=== PATIENT | male | born 1975 | race Caucasian/White ===

== ENCOUNTER 2020-01-18 10:16 | Emergency (ER) | payer MEDICAID, SELFPAY ==
[2020-01-18 10:27] VITALS: BP 202/119; PULSE 114; RESP 17; TEMP 36.6; O2SAT 97; BMI 25.7
--- NOTE | 2020-01-18 10:37 | ED_ITS ---
Entered by Dennise Jimenez, acting as scribe for HPI - URI/Sore Throat General: Chief Complaint: Upper Respiratory Infection Stated Complaint: poss stroke symptoms Time Seen by Provider: 01/18/20 10:37 Source: patient Mode of arrival: ambulatory Limitations: no limitations History of Present Illness: HPI Narrative: 44 yo male presents with cough and congestion. pt states this started 10 days ago. pt states he was exposed to room mate after he went to [place], mo after he was seen at appointment. pt has had eye issues and shortness of breath. pt denies any other symptoms at this time. MD elicited complaint: cough Pertinent past history: COPD Onset (ago): day(s) (10 days) Consistency: constant and progressively worsening Severity: mild Able to tolerate fluids by mouth: Yes Exacerbating factors: nothing Relieving factors: nothing Context: sick contacts (with room mate after he went to [facility].) Associated symptoms: Reports chills, congestion, cough and other (sweats); Deny abdominal pain, chest pain, diarrhea, headache(s), nausea or vomiting Treatments prior to arrival: none Review of Systems Const: Reports: chills Eyes: Denies: blurry vision or eye discomfort ENMT: Denies: throat pain or dental pain Card: Denies: chest pain GI: Denies: abdominal pain, nausea, vomiting or diarrhea : Denies: painful urination Musc: Denies: neck pain or back pain Skin/Breast: Denies: rash Neuro: Denies: headache Psych: Denies: depression Dez/Lymph: Denies: easy bruising All/Imm: Denies: hives PFSH ED PFSH: Social History Smoking and tobacco status: current every day smoker Physical Exam Const: COMMON NORMALS: no apparent distress, oriented x3 and healthy appearing HENMT: COMMON NORMALS: normocephalic and head/scalp atraumatic HEAD & SCALP: normocephalic and atraumatic Eye: COMMON NORMALS: PERRL and EOMs intact bilaterally PUPIL: Yes PERRL Neck/C-Spine: COMMON NORMALS: full ROM and supple Chest: COMMONS NORMALS: inspection of chest normal and palpation of chest normal Resp: COMMON NORMALS: normal respiratory effort, no retractions and no use of accessory muscles EFFORT & INSPECTION: Yes audible wheezes Cardio: COMMON NORMALS: regular rate, regular rhythm and no murmurs RATE: regular rate RHYTHM: regular rhythm GI: COMMON NORMALS: normal to inspection, nondistended, normoactive bowel sounds, soft to palpation, non-tender and no masses PALPATION: Yes soft Extremity: COMMON NORMALS: normal to inspection and full ROM Neuro: COMMON NORMALS: oriented x3, moves all extremities and no focal motor deficits Psych: COMMON NORMALS: mental status grossly normal, thought process normal and cooperative THOUGHT PROCESS: normal thought process Skin: COMMON NORMALS: no rashes or lesions noted and no wounds GENERAL SKIN EXAM: no rashes or lesions noted Course Vital Signs: Vital signs: Vital Signs Temperature 97.8 F 01/18/20 10:27 Pulse Rate 78 01/18/20 11:52 Respiratory Rate 20 H 01/18/20 11:52 Blood Pressure 169/95 01/18/20 11:52 Pulse Oximetry 96 01/18/20 11:52 MDM - URI/Sore Throat MDM Narrative: Medical decision making narrative: Patient presents with cough and congestion that is likely bronchitis. Patient is well-appearing here and has no signs of pneumonia. Patient has no risk factors for coronavirus. We will start him on prednisone and antibiotics. Patient is stable for discharge and is to follow-up with primary care doctor in 3 to 5 days return if worsening. Imaging Data^: CXR: Attestation: I personally reviewed and interpreted this imaging study as follows: Radiologist's impression: [address] [address] XRay Report Signed Patient: Esequiel Munoz Unit #: [id number] : [id number] Age/Sex: 44 / M ADM Date: 01/18/20 Loc: ER Room/Bed: Attending Dr: Ordering Provider/Ordering MD: Shannon Ruiz MD Date of Service: 01/18/20 Procedure(s): XR chest 1V portable [id number] Accession Number(s): [id number] Report Number: [id number] WS: [id number] XR chest 1V portable [id number] REASON FOR EXAM: cough FINDINGS: The heart and mediastinal interfaces normal. The lung sullivan are well aerated. No pneumonia, pleural effusion, pulmonary edema, pneumothorax, or mass effect. The overall appearance the chest is similar to April 30, 2019. The hilum and apices are normal. [place] no osseous abnormalities. XR/XR chest 1V portable [id number] IMPRESSION: Negative chest for active infiltrates. Discharge Plan Discharge Patient Disposition: Home, Self-Care Clinical Impression: Bronchitis Condition: Stable Prescriptions: New albuterol sulfate 90 mcg/actuation HFA aerosol inhaler 2 inh INHALATION Q6H PRN (Reason: shortness of breath or wheezing) Qty: 8 RF: 0 Keflex 500 mg capsule 500 mg PO Q6H 7 Days Qty: 28 RF: 0 prednisone 50 mg tablet 50 mg PO DAILY Qty: 5 RF: 0 Plavix 75 mg tablet 75 mg PO DAILY Qty: 30 RF: 0 amlodipine 5 mg tablet 5 mg PO BID Qty: 60 RF: 0 Discharge Orders: Discharge Order (Routine); Ordered 01/18/20 Ordered By: Shannon Ruiz Referrals: Paula Figueroa FNP [Family Provider] - Discharge Date/Time: 01/18/20 11:55 Coding Level of Care Code ED Flower Picker for Chg Fwd Exam Comprehensive The documentation recorded by the Tony downs Bridget Annette, accurately reflects the service I personally performed and the decisions made by Sara cook Korby, MD
--- NOTE | 2020-01-18 10:41 | XR_ITS ---
WS: [id number] XR chest 1V portable [id number] REASON FOR EXAM: cough FINDINGS: The heart and mediastinal interfaces normal. The lung sullivan are well aerated. No pneumonia, pleural effusion, pulmonary edema, pneumothorax, or m ass effect. The overall appearance the chest is similar to April 30, 2019. The hilum and apices are normal. [place] no osseous abnormalities. XR/XR chest 1V portable [id number] IMPRESSION: Negative chest for active infiltrates.
[2020-01-18] MEDS: cloNIDine 0.1 mg Tablet 0.2 MG PO (11:03)
[2020-01-18] MEDS: predniSONE 20 mg Tablet 60 MG PO (11:04)
[2020-01-18 11:06] VITALS: O2SAT 96
[2020-01-18 11:26] VITALS: PULSE 109; RESP 16; O2SAT 98
[2020-01-18] MEDS: albuterol 8 gm MDI 2 PUFF INHALATION (11:28)
[2020-01-18 11:52] VITALS: BP 169/95; PULSE 78; RESP 20; O2SAT 96
== END 2020-01-18 11:55 | disposition home or self-care (01) ==
LOC: ER 11:44
PROVIDERS: Emergency Provider Emergency Medicine; Family Provider Nurse Practitioner
DX: J40 Bronchitis, not specified as acute or chronic (principal); J44.9 Chronic obstructive pulmonary disease, unspecified; F17.200 Nicotine dependence, unspecified, uncomplicated
CPT/HCPCS: 12345; 71045; 94640; 99282; 99283; J3535; J7512

== ENCOUNTER 2020-04-25 10:32 | Emergency (ER) | payer MEDICAID, SELFPAY ==
[2020-04-25 10:42] VITALS: BP 178/97; PULSE 105; RESP 20; TEMP 36.9; O2SAT 91; BMI 29.5
[2020-04-25 10:55] VITALS: O2SAT 91
--- NOTE | 2020-04-25 11:10 | ED_ITS ---
HPI - Eye Problem General: Chief complaint: Eye Problems Stated complaint: FB IN LEFT EYE Time Seen by Provider: 04/25/20 10:54 Source: patient Mode of arrival: ambulatory History of Present Illness: HPI Narrative: working and had nail or piece of nail fly into left eye; was wearing protective eye gear chief complaint: eye pain and eye injury Review of Systems General: Reports: 10 or more systems reviewed and unremarkable except in HPI and below Eyes: Reports: blurry vision, eye discomfort and eye redness PFSH ED PFSH: Social History Smoking and tobacco status: current every day smoker Physical Exam Const: COMMON NORMALS: no acute distress, patient oriented x3, no limitations and alert GENERAL APPEARANCE: cooperative and comfortable ORIENTATION/CONSCIOUSNESS: Yes awake, Yes oriented to person, Yes oriented to place and Yes oriented to time HENMT: COMMON NORMALS: normocephalic, atraumatic, external ears normal, EAC's normal, TM's normal bilaterally and Normal external nose present HEAD & SCA LP: normal to inspection, normocephalic and atraumatic FACE & SINUS: normal facial exam, sinuses nontender and face symmetric NOSE: Normal external nose present, Normal nares present and No nasal discharge present EXTERNAL EAR: Yes external ears normal EXTERNAL AUDITORY CANAL: EAC's normal TYMPANIC MEMBRANE: TM's normal bilaterally MOUTH: Normal oral and palatal mucosa present, lip normal and tongue normal THROAT: posterior oropharynx normal, tonsils normal and uvula midline Eye: COMMON NORMALS: Equal, round and reactive pupils present, EOMs intact bilaterally and conjunctivae normal GENERAL EYE: appearance normal, both eyes and all related structures and normal light reflex VISUAL MEJÍA: No peripheral vision loss EYELID: eyelids normal CONJUNCTIVA: Yes conjunctivae normal PUPIL: Yes Equal, round and reactive pupils present EOM: Yes EOM abnormal DIRECT OPHTHALMOSCOPY: Yes normal light reflex SLIT LAMP EXAM: Yes slit lamp exam performed with fluorescein and Yes cornea Cornea details: linear corneal abrasion and foreign body present (irrigated out during examination under wood's lamp ) EYE IMAGES: 1. small corneal abrasion Neck/C-Spine: COMMON NORMALS: full ROM, no lymphadenopathy, supple, no meningeal signs, no JVD and Thyroid normal GENERAL: Yes normal visual inspection THYROID: Thyroid normal CERVICAL SPINE: Yes cervical ROM normal and Yes normal cervical lordosis Lymph: LYMPHATIC: no lymphadenopathy noted Chest: COMMONS NORMALS: normal inspection of the chest and normal palpation of entire chest wall Resp: COMMON NORMALS: normal respiratory effort, No retractions and clear to auscultation bilaterally AUSCULTATION: clear to auscultation bilaterally Cardio: COMMON NORMALS: no JVD, regular rate, regular rhythm, S1 normal heart sound present, S2 normal heart sound present, No gallops present (Cardio), No clicks present (Cardio), No murmurs present (Cardio), No rub (Cardio) and Peripheral pulses 2+ throughout RATE: regular rate RHYTHM: regular rhythm HEART SOUNDS: S1 normal heart sound present and S2 normal heart sound present PERIPHERAL PULSES: Peripheral pulses 2+ throughout GI: COMMON NORMALS: Normal to inspection, nondistended, normoactive bowel sounds present, Soft to palpation, non-tender and no masses PALPATION: Yes Soft to palpation : COMMON NORMALS: Yes no CVA tenderness BLADDER/KIDNEY EXAM: Yes no CVA tenderness Back/Pelvis: COMMON NORMALS: no CVA tenderness, thoracic and lumbar spine normal to inspection, no thoracic nor lumbar tenderness and thoraco-lumbar ROM normal Extremity: COMMON NORMALS: normal to inspection, full ROM, capillary refill normal, no joint enlargement, no clubbing, cyanosis or edema, no calf tenderness and no pedal edema GENERAL: Yes normal exam except as noted Neuro: COMMON NORMALS: patient oriented x3, moves all extremities, no focal motor deficits, no sensory deficits noted and gait normal SENSORIUM/ORIENTATION: Yes alert, Yes oriented to person, Yes oriented to place and Yes oriented to time MENINGEAL SIGNS: Yes no meningeal signs Psych: COMMON NORMALS: mental status grossly normal, Normal thought process present, cooperative, normal affect, speech normal and activity/motor behavior normal SPEECH: Yes normal speech THOUGHT PROCESS: Normal thought process present Skin: COMMON NORMALS: no rashes or lesions noted, no wounds and turgor normal GENERAL SKIN EXAM: no rashes or lesions noted and turgor normal Course ED course: Pt sustained FB eye injury; FB removed during irrigation. Small puncture in left eye cornea; no visual field disturbances. Will proceed with opthalmic antibx and follow up with manager creative services if needed. Tetanus updated. Proceed with DC. Vital Signs: Vital signs: Vital Signs Temperature 98.5 F 04/25/20 10:42 Pulse Rate 105 H 04/25/20 10:42 Respiratory Rate 18 04/25/20 11:25 Blood Pressure 178/97 04/25/20 10:42 Pulse Oximetry 91 04/25/20 10:55 Discharge Plan Discharge Condition: Stable Prescriptions: No Action albuterol sulfate 90 mcg/actuation HFA aerosol inhaler 2 inh INHALATION Q6H PRN (Reason: shortness of breath or wheezing) Qty: 8 RF: 0 prednisone 50 mg tablet 50 mg PO DAILY Qty: 5 RF: 0 Plavix 75 mg tablet 75 mg PO DAILY Qty: 30 RF: 0 amlodipine 5 mg tablet 5 mg PO BID Qty: 60 RF: 0 Interventions: ED Charges Last Done: 04/25/20 10:59 Coding Level of Care Code ED 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
[2020-04-25] MEDS: tetracaine 0.5% Op Soln 4 mL Btl 1 DROP EYE-BOTH (11:20)
[2020-04-25] MEDS: eye irrigation 30 mL Btl EYE-BOTH (11:20)
[2020-04-25] MEDS: fluorescein 1 mg Strip EYE-BOTH (11:20)
[2020-04-25 11:25] VITALS: RESP 18
[2020-04-25] MEDS: tetanus-diphtheria tox (adult) 0.5 mL SDV IM (12:00)
[2020-04-25 12:33] VITALS: BP 159/89; PULSE 79; RESP 17; O2SAT 91
== END 2020-04-25 12:34 | disposition home or self-care (01) ==
PROVIDERS: Emergency Provider Nurse Practitioner Family
DX: S05.52XA Penetrating wound with foreign body of left eyeball, initial encounter (principal); W45.0XXA Nail entering through skin, initial encounter; Z79.02 Long term (current) use of antithrombotics/antiplatelets; F17.210 Nicotine dependence, cigarettes, uncomplicated; Z23 Encounter for immunization
CPT/HCPCS: 12345; 90714; 99281; 99283

== ENCOUNTER 2020-05-20 07:41 | Emergency (ER) | payer MEDICAID, SELFPAY ==
[2020-05-20] VITALS (7 sets, daily range): BP systolic 144–151; BP diastolic 65–87; PULSE 76–96; RESP 15–20; TEMP 37.6; O2SAT 96–98; BMI 28.2
--- NOTE | 2020-05-20 08:05 | XR_ITS ---
WS: [id number] PORTABLE CHEST HISTORY: cough COMPARISON: 01/18/2020 Lungs are clear and well expanded. No pleural effusion or pneumothorax. Cardiac size: Normal. Mediastinum/Aorta: Normal mediastinum. No osseous abnormality seen. XR/XR chest 1V portable [id number] IMPRESSION: Unremarkable portable chest.
[2020-05-20] MEDS: albuterol 8 gm MDI 2 PUFF INHALATION (08:31)
--- NOTE | 2020-05-20 08:32 | ED_ITS ---
HPI - URI/Sore Throat General: Chief Complaint: Upper Respiratory Infection Stated Complaint: sob/cough/congestion Time Seen by Provider: 05/20/20 07:45 History of Present Illness: HPI Narrative: 44-year-old male presents with complaint of cough for the last 3 to 4 days as well as dull headache and myalgias this is been getting progressively worse over that timeframe. He has not had a fever the cough is been minimally productive he has a history of asthma he feels like his albuterol inhalers not working as well as it has in the past. He lives in [place] he has no known exposures to COVID-19 that he is aware he is not been around anyone he knows of that is positive he has limited his interactions with others to just going to the grocery store for the most part the past few months he does not always wear a mask. He does not have a thermometer at home he states subjectively is not felt like he had a temp at all. MD elicited complaint: cough and sore throat Pertinent past history: asthma Onset (ago): day(s) (3-4) Consistency: progressively worsening Severity: moderate Description of mucous: clear Able to tolerate fluids by mouth: Yes Exacerbating factors: exertion Relieving factors: other (Initially albuterol MDI seem to help but is not working as well at this time.) Associated symptoms: Reports congestion, cough, headache(s), myalgias, nasal congestion and sore throat; Deny abdominal pain, chills, chest pain, diarrhea, fever(s), nausea or vomiting Treatments prior to arrival: other (Albuterol MDI) Review of Systems Const: Reports: body aches and malaise; Denies: fever(s), chills, change in appetite or fatigue ENMT: Reports: nasal congestion Card: Reports: dyspnea on exertion; Denies: chest pain, edema or orthopnea Resp: Reports: dyspnea and productive cough; Denies: non-productive cough GI: Denies: abdominal pain, nausea, vomiting, hematemesis, coffee ground emesis, diarrhea, constipation, bloating, hematochezia or melena : Denies: flank pain, dysuria, urinary frequency or urinary urgency Musc: Reports: other (Generalized myalgias) Skin/Breast: Denies: rash or pruritus Neuro: Reports: headache(s) PFSH ED PFSH: Medical History (Updated 05/20/20 @ 09:31 by Jacob Moses DO) Asthma Carotid stenosis, left Hyperlipidemia Hypertension Surgical History (Updated 05/20/20 @ 08:35 by Jacob Moses DO) H/O inguinal hernia repair Social History (Updated 05/20/20 @ 08:36 by Jacob Moses DO) Smoking and tobacco status: current every day smoker cigarettes Packs smoked per day: 1 Years cigarettes smoked: 20 Alcohol intake: current Alcohol intake frequency: 0-2 Drinks per Day Physical Exam Const: COMMON NORMALS: no acute distress GENERAL APPEARANCE: cooperative and comfortable ORIENTATION/CONSCIOUSNESS: Yes awake, Yes oriented to person, Yes oriented to place and Yes oriented to time HENMT: COMMON NORMALS: normocephalic, atraumatic, hearing grossly normal bilaterally, external ears normal, moist oral mucous membranes and oropharynx normal HEAD & SCALP: normocephalic and atraumatic EXTERNAL EAR: Yes external ears normal Eye: COMMON NORMALS: Equal, round and reactive pupils present, EOMs intact bilaterally, conjunctivae normal and no scleral icterus CONJUNCTIVA: Yes conjunctivae normal PUPIL: Yes Equal, round and reactive pupils present Neck/C-Spine: COMMON NORMALS: full ROM, no lymphadenopathy, supple and no JVD Lymph: LYMPHATIC: no lymphadenopathy noted and no lymphedema noted Resp: COMMON NORMALS: normal respiratory effort, No retractions, No use of accessory muscles and clear to auscultation bilaterally AUSCULTATION: clear to auscultation bilaterally Cardio: COMMON NORMALS: no JVD, regular rate, regular rhythm and No murmurs present (Cardio) RATE: regular rate RHYTHM: regular rhythm GI: COMMON NORMALS: Soft to palpation and No hepatosplenomegaly present AUSCULTATION: Yes normoactive bowel sounds PALPATION: Yes Soft to palpation, No Tenderness to palpation present (GI), No Guarding due to palpation present (GI) and Yes No hepatosplenomegaly present Extremity: COMMON NORMALS: normal to inspection, capillary refill normal, no clubbing, cyanosis or edema, no calf tenderness and no pedal edema Neuro: SENSORIUM/ORIENTATION: Yes oriented to person, Yes oriented to place and Yes oriented to time Skin: COMMON NORMALS: no rashes or lesions noted GENERAL SKIN EXAM: no rashes or lesions noted Course Vital Signs: Vital signs: Vital Signs Temperature 99.7 F H 05/20/20 07:47 Pulse Rate 83 05/20/20 11:24 Respiratory Rate 18 05/20/20 11:24 Blood Pressure 144/65 05/20/20 11:24 Pulse Oximetry 96 05/20/20 11:24 MDM - URI/Sore Throat MDM Narrative: Medical decision making narrative: Discussed findings with the patient. We did screening for COVID will discharge her from the ER asked him to remain self quarantine until the results are back. He should follow-up with his primary care doctor after we get the COVID results back return to the emergency room for worsening problems. Lab Data: Labs: Lab Results 05/20/20 05/20/20 05/20/20 Range/Units 08:14 08:40 08:40 WBC 6.7 (4.0-10.0) 10^3/ uL RBC 4.81 (4.1-5.3) 10^6/u L Hgb 14.8 (11.7-16.6) g/dL Hct 45.8 (42.0-52.0) % MCV 95.2 H (80-94) fL MCH 30.8 (28.0-34.0) pg MCHC 32.3 (30.0-36.0) g/dL RDW 13.5 (12.1-15.1) % Plt Count 219 (130-400) 10^3/c mm MPV 8.9 (7.4-10.4) fL Neut % (Auto) 48.1 % Lymph % (Auto) 39.0 % [place] % (Auto) 9.9 % Eos % (Auto) 2.5 % Baso % (Auto) 0.4 % Neut # (Auto) 3.21 (1.8-7.7) 10^3/u L Lymph # (Auto) 2.6 (0.8-4.8) 10^3/u L [place] # (Auto) 0.7 (0.2-0.9) 10^3/u L Eos # (Auto) 0.2 (0.0-0.8) 10^3/u L Baso # (Auto) 0.0 (0.0-0.1) 10^3/u L Nucleated RBC % (a uto) 0 % Nucleated RBCs # 0.0 /100WBC D-Dimer (0-0.59) ug/mIFE U Sodium 135 L (136-145) mmol/L Potassium 4.0 (3.5-5.1) mmol/L Chloride 102 (98-107) mmol/L Carbon Dioxide 22 (22-29) mmol/L Anion Gap 15.0 (5-19) BUN 14 (6-20) mg/dL Creatinine 0.9 (0.7-1.2) mg/dL GFR Calculation 92.5 (90-130) mL/min Glucose 112 (65-115) mg/dL Calculated Osmolal ity 277 L (285-295) mOsm/k g Calcium 9.0 (8.5-10.5) mg/dL Ferritin 218 (30-400) ng/mL Total Bilirubin 0.4 (0.15-1.2) mg/dL AST 17 (0-40) U/L ALT 13 (0-41) U/L Alkaline Phosphata se 114 (40-130) IU/L Lactate Dehydrogen ase 128 L (135-225) U/L C-Reactive Protein 12.1 H (0.0-4.9) mg/L Total Protein 7.8 (6.6-8.7) g/dL Albumin 4.6 (3.5-5.2) g/dL Globulin 3.2 (1.3-4.6) g/dL Influenza Type A A g Negative (Negative) Influenza Type B A g Negative (Negative) 05/20/20 Range/Units 08:40 WBC (4.0-10.0) 10^3/ uL RBC (4.1-5.3) 10^6/u L Hgb (11.7-16.6) g/dL Hct (42.0-52.0) % MCV (80-94) fL MCH (28.0-34.0) pg MCHC (30.0-36.0) g/dL RDW (12.1-15.1) % Plt Count (130-400) 10^3/c mm MPV (7.4-10.4) fL Neut % (Auto) % Lymph % (Auto) % [place] % (Auto) % Eos % (Auto) % Baso % (Auto) % Neut # (Auto) (1.8-7.7) 10^3/u L Lymph # (Auto) (0.8-4.8) 10^3/u L [place] # (Auto) (0.2-0.9) 10^3/u L Eos # (Auto) (0.0-0.8) 10^3/u L Baso # (Auto) (0.0-0.1) 10^3/u L Nucleated RBC % (a uto) % Nucleated RBCs # /100WBC D-Dimer 0.61 H (0-0.59) ug/mIFE U Sodium (136-145) mmol/L Potassium (3.5-5.1) mmol/L Chloride (98-107) mmol/L Carbon Dioxide (22-29) mmol/L Anion Gap (5-19) BUN (6-20) mg/dL Creatinine (0.7-1.2) mg/dL GFR Calculation (90-130) mL/min Glucose (65-115) mg/dL Calculated Osmolal ity (285-295) mOsm/k g Calcium (8.5-10.5) mg/dL Ferritin (30-400) ng/mL Total Bilirubin (0.15-1.2) mg/dL AST (0-40) U/L ALT (0-41) U/L Alkaline Phosphata se (40-130) IU/L Lactate Dehydrogen ase (135-225) U/L C-Reactive Protein (0.0-4.9) mg/L Total Protein (6.6-8.7) g/dL Albumin (3.5-5.2) g/dL Globulin (1.3-4.6) g/dL Influenza Type A A g (Negative) Influenza Type B A g (Negative) Discharge Plan Discharge Patient Disposition: Home, Self-Care Clinical Impression: Acute severe exacerbation of mild persistent asthma, Hypertension, Hyperlipidemia, COVID-19 virus test result unknown Condition: Stable Prescriptions: New Combivent Respimat 20-100 mcg/actuation mist 2 puff INHALATION QID Qty: 4 RF: 0 Medrol (Armando) 4 mg tablets,dose pack See Rx Instructions .ROUTE .COMPLEX Qty: 21 RF: 0 No Action albuterol sulfate 90 mcg/actuation HFA aerosol inhaler 2 inh INHALATION Q6H PRN (Reason: shortness of breath or wheezing) Qty: 8 RF: 0 Discharge Orders: Discharge Order (Routine); Ordered 05/20/20 Ordered By: Jacob Moses Discharge Diet: Advance as tolerated Discharge Activity: Limit activity as instructed Discharge Date/Time: 05/20/20 11:24 Coding Level of Care Code ED Operational Risk Analyst for Chg Fwd Exam Comprehensive
--- NOTE | 2020-05-20 08:43 | PC.NURSE ---
Patient COVID swabbed at this time and sent to lab along with the flu swab. Patient resting in bed. No distress noted at this time. Patient did request a glass of water upon leaving the room. Glass of water given to the patient. Patient has no other needs. Will continue to monitor patient.
[2020-05-20 08:47] LABS: Basophils % 0.4 %; Eosinophils # 0.2 10^3/uL (0.0-0.8); Eosinophils % 2.5 %; Hematocrit 45.8 % (42.0-52.0); Hemoglobin 14.8 g/dL (11.7-16.6); Lymphocytes # 2.6 10^3/uL (0.8-4.8); Mean Corpuscular HGB Conc 32.3 g/dL (30.0-36.0); Mean Corpuscular Hemoglobin 30.8 pg (28.0-34.0); Mean Corpuscular Volume 95.2 fL (80-94); Mean Platelet Volume 8.9 fL (7.4-10.4); Monocytes # 0.7 10^3/uL (0.2-0.9); Monocytes % 9.9 %; Neutrophils # 3.21 10^3/uL (1.8-7.7); Neutrophils % 48.1 %; Nucleated Red Blood Cells % 0 %; Platelet Count 219 10^3/cmm (130-400); Red Blood Count 4.81 10^6/uL (4.1-5.3); Red Cell Distribution Width 13.5 % (12.1-15.1); White Blood Count 6.7 10^3/uL (4.0-10.0)
[2020-05-20] MEDS: sodium chloride 0.9% 500 ML 999 ML IV (08:51)
[2020-05-20] MEDS: dexamethasone 4 mg/mL INJ 8 MG IVP (08:51)
[2020-05-20 09:03] LABS: Alanine Aminotransferase 13 U/L (0-41); Albumin Level 4.6 g/dL (3.5-5.2); Alkaline Phosphatase 114 IU/L (40-130); Aspartate Amino Transferase 17 U/L (0-40); Blood Urea Nitrogen 14 mg/dL (6-20); C Reactive Protein 12.1 mg/L (0.0-4.9); Carbon Dioxide 22 mmol/L (22-29); Chloride 102 mmol/L (98-107); Ferritin 218 ng/mL (30-400); Globulin 3.2 g/dL (1.3-4.6); Glomerular Filtration Rate 92.5 mL/min (90-130); Glucose 112 mg/dL (65-115); Lactate Dehydrogenase 128 U/L (135-225); Osmolality Calculated 277 mOsm/kg (285-295); Sodium 135 mmol/L (136-145); Total Bilirubin 0.4 mg/dL (0.15-1.2); Total Protein 7.8 g/dL (6.6-8.7)
[2020-05-20 09:22] LABS: Influenza A by IFA Negative (Negative); Influenza B by IFA Negative (Negative)
[2020-05-20 09:22] LABS: D Dimer 0.61 ug/mIFEU (0-0.59)
--- NOTE | 2020-05-20 09:33 | CT_ITS ---
WS: [id number] CT CHEST ANGIOGRAPHY WITH REFORMATS HISTORY: elevated d-dimer TECHNIQUE: Contiguous axial images are obtained through the chest during arterial injection of intrav enous contrast. Images are reconstructed to evaluate the pulmonary arteries. MIP imaging also reviewe d. All CT scans at [facility] use at least one of these dose optimization techniques: aut omated exposure control; mA and/or kV adjustment per patient size (includes targeted exams where dose is matched to clinical indication); or iterative reconstruction. CONTRAST: Omnipaque 350; 95 mL IV. DLP: 1271.08 mGy.cm COMPARISON: 07/26/2010 Adequate opacification of the pulmonary arteries. There are no filling defects in the pulmonary arter ies. Pulmonary artery size is normal. No RIGHT heart strain. Mild atherosclerosis aorta. No aneurysm. No dissection. Lungs are clear. Subsegmental linear scar at the RIGHT lung base is stable. No perica rdial or pleural effusion. No mediastinal or hilar adenopathy. Visualized portions of the upper abdomen are negative. No osseous destruction. CT/CT angio chest PE protcl [id number] IMPRESSION: 1. No pulmonary embolism. 2. No pneumonia. 3. No adenopathy.
[2020-05-20] MEDS: iohexol 350 mg/mL 100 mL Btl IV ×2 (10:11→10:12)
[2020-05-21 14:59] LABS: Quest SARS-CoV-2 RNA NOT DETECTED (NOT DETECTED)
--- NOTE | 2020-05-21 16:17 | PC.NURSE ---
Pt contacted about negative COVID test.
== END 2020-05-20 11:24 | disposition home or self-care (01) ==
PROVIDERS: Emergency Provider Family Medicine
DX: J45.31 Mild persistent asthma with (acute) exacerbation (principal); I10 Essential (primary) hypertension; E78.5 Hyperlipidemia, unspecified; F17.210 Nicotine dependence, cigarettes, uncomplicated
CPT/HCPCS: 12345; 71045; 71275; 80053; 82728; 83615; 85025; 85378; 86140; 87635; 87804; 94640; 96374; 96375; 99283; 99284; J1100; J3535; J7040; Q9967

== ENCOUNTER 2020-06-02 07:30 | Emergency (ER) | payer MEDICAID, SELFPAY ==
[2020-06-02 07:33] VITALS: BP 173/95; PULSE 101; RESP 16; TEMP 37; O2SAT 98; BMI 29.5
--- NOTE | 2020-06-02 07:33 | ED_ITS ---
HPI - Asthma General: Chief Complaint: Shortness of Breath/Dyspnea Stated Complaint: ASTHMA/MULTIPLE COMPLAINTS Time Seen by Provider: 06/02/20 07:32 Source: patient Mode of arrival: ambulatory Limitations: no limitations History of Present Illness: HPI Narrative: Patient is a 44-year-old male with a history of asthma and emphysema who presents to ED today with a complaint of c ough and shortness of breath. Symptoms have been present for at least 2 weeks now. Patient was seen here at our facility approximately a week and a half ago for same symptoms. Patient tells me he had been taking Pro-air daily for his symptoms and on his last visit was prescribed a Atrovent inhaler as well as steroids. Patient states he has been taking both inhalers at least 10 times daily . He states he did improve on the steroids however once they were finished, his symptoms returned. He continues to be a pack a day smoker. He has never had any follow up outside of the ED setting. States he recently got his Medicaid and states he would like a PCP. No fevers/chills/body aches. No other URI symptoms. MD complaint: shortness of breath Associated symptoms: Reports non-productive cough; Deny chest pain, fever(s), hemoptysis or syncope Review of Systems Const: Denies: fever(s), chills, body aches, fatigue or malaise Eyes: Denies: change in vision or blurry vision ENMT: Denies: odynophagia Card: Reports: dyspnea on exertion; Denies: chest pain, palpitations, irregular heart rhythm, edema, swelling of feet/ankles, lightheadedness, syncope, pre-syncope, orthopnea, leg pain with exe rtion or acrocyanosis Resp: Reports: dyspnea, non-productive cough and wheezing; Denies: pain on inspiration, hemoptysis or chest congestion GI: Denies: abdominal pain, nausea or vomiting Musc: Denies: neck pain or back pain Skin/Breast: Denies: rash Neuro: Denies: headache(s), numbness in extremities, weakness in extremities or sensory changes [facility] ED PFSH: Medical History (Updated 06/02/20 @ 08:41 by MAXWELL Nassar) Asthma Carotid stenosis, left Hyperlipidemia Hypertension Surgical History (Updated 05/20/20 @ 08:35 by Jacob Moses DO) H/O inguinal hernia repair Social History (Updated 05/20/20 @ 08:36 by Jacob Moses DO) Smoking and tobacco status: current every day smoker cigarettes Packs smoked per day: 1 Years cigarettes smoked: 20 Alcohol intake: current Alcohol intake frequency: 0-2 Drinks per Day Physical Exam Const: COMMON NORMALS: no acute distress, patient oriented x3, no limitations and alert HENMT: COMMON NORMALS: normocephalic and atraumatic HEAD & SCALP: normocephalic and atraumatic THROAT: posterior oropharynx normal, tonsils normal and uvula midline Neck/C-Spine: COMMON NORMALS: full ROM and no lymphadenopathy Chest: COMMONS NORMALS: normal inspection of the chest and normal palpation of entire chest wall Resp: COMMON NORMALS: normal respiratory effort EFFORT & INSPECTION: Yes able to speak in complete sentences AUSCULTATION: wheezes (faint expiratory ) Cardio: COMMON NORMALS: regular rate and regular rhythm RATE: regular rate RHYTHM: regular rhythm Extremity: COMMON NORMALS: no clubbing, cyanosis or edema, no calf tenderness and no pedal edema Neuro: COMMON NORMALS: patient oriented x3 SENSORIUM/ORIENTATION: Yes alert Skin: COMMON NORMALS: no rashes or lesions noted GENERAL SKIN EXAM: no rashes or lesions noted Course Reevaluation(s): Reevaluation #1: lung sounds much improved after duoneb valerie atment; does state he feels opened up Vital Signs: Vital signs: Vital Signs Temperature 98.6 F 06/02/20 07:33 Pulse Rate 98 06/02/20 08:01 Respiratory Rate 22 H 06/02/20 07:58 Blood Pressure 173/95 06/02/20 07:33 Pulse Oximetry 97 06/02/20 07:58 MDM - Asthma MDM Narrative: Medical decision making narrative: CXR normal. Vitals are stable. I do not see any indication for emergent labs or further work up today. Patient counselled on smoking cessation. Recommend he use Pro-air inhaler only as directed. Will change his Atrovent to an Advair inhaler and place him on a longer taping dose of steroids. Will also cover with abx for COPD exacerbation. Info placed with CM to get him set up with a PCP but also to see pulmonology for PFTs and further recommendation of treatment. Return to ED precautions given. Imaging Data^: CXR: Radiologist's impression: [address] [address] XRay Report Signed Patient: Esequiel Munoz Unit #: [id number] : 1975 Age/Sex: 44 / M ADM Date: 06/02/20 Loc: ER Room/Bed: Attending Dr: Ordering Provider/Ordering MD: Claudia Grant Date of Service: 06/02/20 Procedure(s): XR chest 1V portable [id number] Accession Number(s): [id number] Report Number: [id number] WS: [id number] PORTABLE CHEST HISTORY: cough, asthma COMPARISON: 05/20/2020 Lungs are clear and well expanded. No pleural effusion or pneumothorax. Cardiac size: Normal. Mediastinum/Aorta: Normal mediastinum. No osseous abnormality seen. XR/XR chest 1V portable [id number] IMPRESSION: Unremarkable portable chest. Dictated By: Abbey Jordan DO Signed By: Abbey Jordan DO Signed Date/Time: 06/02/20 0754 Discharge Plan Discharge Patient Disposition: Home Clinical Impression: Current smoker, Acute exacerbation of chronic obstructive pulmonary disease Asthma Qualifiers: Asthma severity: moderate Asthma persistence: persistent Asthma complication type: unspecified Qualified Code(s): J45.40 - Moderate persistent asthma, uncomplicated Condition: Stable Prescriptions: New prednisone 10 mg tablet 10 mg PO DAILY 10 Days Qty: 41 RF: 0 Levaquin 750 mg tablet 750 mg PO DAILY 5 Days Qty: 5 RF: 0 Advair Diskus 100-50 mcg/dose blister with device 1 inh INHALATION BID Qty: 60 RF: 0 No Action albuterol sulfate 90 mcg/actuation HFA aerosol inhaler 2 inh INHALATION Q6H PRN (Reason: shortness of breath or wheezing) Qty: 8 RF: 0 Combivent Respimat 20-100 mcg/actuation mist 2 puff INHALATION QID Qty: 4 RF: 0 Medrol (Armando) 4 mg tablets,dose pack See Rx Instructions .ROUTE .COMPLEX Qty: 21 RF: 0 Discharge Orders: Discharge Order (Routine); Ordered 06/02/20 Ordered By: Claudia Grant Activity Restrictions/Additional Instructions: As discussed case management should contact you shortly to set you up with a primary care provider as well as get you an appointment to see pulmonology for further work-up of your asthma and COPD/emphysema. Discontinue with the Atrovent inhaler and we will start you on the Advair to see if this will better control your symptoms. Use your pro-air inhaler a maximum of 2 puffs every 4-6 hours. Coding Level of Care Code ED Business Intelligence Architect for Chg Fwd Exam Comprehensive
--- NOTE | 2020-06-02 07:44 | XR_ITS ---
WS: [id number] PORTABLE CHEST HISTORY: cough, asthma COMPARISON: 05/20/2020 Lungs are clear and well expanded. No pleural effusion or pneumothorax. Cardiac size: Normal. Mediastinum/Aorta: Normal mediastinum. No osseous abnormality seen. XR/XR chest 1V portable [id number] IMPRESSION: Unremarkable portable chest.
[2020-06-02] MEDS: ipratropium-albuterol 3 mL Neb INHALATION (07:56)
[2020-06-02 07:58] VITALS: PULSE 83; RESP 22; O2SAT 97
[2020-06-02 08:01] VITALS: PULSE 98
[2020-06-02 09:05] VITALS: BP 145/83; PULSE 92; RESP 16; TEMP 36.8; O2SAT 97
--- NOTE | 2020-06-02 10:11 | PC.SOCIAL ---
Talked with Hiral at [facility] to schedule appointment with Pulmonology. Appointment scheduled with Dr López on 06/04/2020 at 11am. Called patient to update and inquired regarding primary care appointment however, he was not available. Left message with my number requesting a return call. Called [facility] and requested a primary care appointment. Spoke with Rene and mangot scheduled with Axel ERICKSON for 06/06/2020 arrival time at 8:45am and appt time of 9:30am. Will update patient once return call received. Faxed records to [facility] with confirmation that records were sent successfully.
--- NOTE | 2020-06-02 15:03 | PC.SOCIAL ---
Referral received for Pulmonology and PCP. Set patient up with Dr López 06/04/2020 11am for Pulmonology and 06/06/2020 arrival time of 8:45am for a 9:30 am appt with Axel ERICKSON for primary care at [facility]. Patient provided information and verbalized understanding. Records sent to [facility] with confirmation that they were transmitted successfully and spoke to Rene regarding referral at [facility].
--- NOTE | 2020-06-06 10:41 | DCPLANNER ---
Patient did attend appointment scheduled for 06.04.20 with [facility], Dr. Easton. Patient did attend appointment scheduled for 06.06.20 with [facility] with Axel Torres.
== END 2020-06-02 09:07 | disposition home or self-care (01) ==
PROVIDERS: Emergency Provider Physician Assistant
DX: J44.9 Chronic obstructive pulmonary disease, unspecified (principal); J45.41 Moderate persistent asthma with (acute) exacerbation; F17.210 Nicotine dependence, cigarettes, uncomplicated; E78.5 Hyperlipidemia, unspecified; I10 Essential (primary) hypertension
CPT/HCPCS: 12345; 71045; 94640; 96372; 99281; 99283; J2930

== ENCOUNTER 2020-06-25 07:31 | Outpatient (CLI) | payer MEDICAID, SELFPAY ==
--- NOTE | 2020-06-25 08:23 | USCV_ITS ---
Esequiel Munoz Age: 44 Gender: M : 1975 Exam Date: 06/25/2020 08:32 Ordering Phys: Frank López MD Technologist: Marisabel Woodall Exam Location: [facility] [place] Indication: Moderate persistent asthma, COPD, Nicotine dependent BP: 160 / 90 HR: 68 Rhythm: Sinus Technical Quality: Adequate MEASUREMENTS (Male / Female) Normal Values 2D ECHO LV Diastolic Diameter PLAX 3.9 cm 4.2 - 5.9 / 3.9 - 5.3 cm LV Systolic Diameter PLAX 2.5 cm LV Chamber Size 4.6 cm IVS Diastolic Thickness 1.2 cm 0.6 - 1.0 / 0.6 - 0.9 cm IVS Systolic Thickness 1.7 cm LVPW Diastolic Thickness 1.0 cm 0.6 - 1.0 / 0.6 - 0.9 cm LVPW Systolic Thickness 1.3 cm RV Chamber Size 2.8 cm LVOT Diameter 2.0 cm LV Ejection Fraction 2D Teich 68.6 % LV Ejection Fraction MOD 2C 57.7 % LV Ejection Fraction 2C AL 59.3 % LA Diameter 3.4 cm LA Width 2.7 cm LA Height 4.6 cm RA Width 2.1 cm RA Height 3.4 cm Aorta at Sinotubular Diameter 2.3 cm M-MODE LV Diastolic Diameter MM 4.7 cm 4.2 - 5.9 / 3.9 - 5.3 cm LV Systolic Diameter MM 3.2 cm LV Ejection Fraction MM Teich 60.3 % IVS Diastolic Thickness MM 1.7 cm 0.6 - 1.0 / 0.6 - 0.9 cm IVS Systolic Thickness MM 1.8 cm LVPW Diastolic Thickness MM 0.9 cm 0.6 - 1.0 / 0.6 - 0.9 cm LVPW Systolic Thickness MM 1.7 cm RV Diastolic Diameter MM 2.1 cm Aortic Annulus Diameter 3.1 cm LA Ao Ratio MM 1.1 MV E Point Septal Separation 0.4 cm DOPPLER AV Peak Velocity 181.0 cm/s LVOT Peak Velocity 113.0 cm/s AV Area Cont Eq vti 2.2 cm squared AV Area Cont Eq pk 2.0 cm squared MV Area PHT 3.9 cm squared Mitral E to A Ratio 1.4 MV E' Velocity 15.0 cm/s Mitral E to MV E' Ratio 9.4 Mitral E to LV E' Lateral Ratio 8.5 Mitral E to LV E' Septal Ratio 10.7 TV Peak E Velocity 84.0 cm/s Right Atrial Pressure 3.0 mmHg FINDINGS Left Ventricle Normal left ventricular size, systolic function and wall thickness, with no regional wall motion abnormalities. Left ventricular ejection fraction is estimated at 65%. Normal diastolic function. Right Ventricle Normal right ventricular size and systolic function. Right atrial pressure estimated at 3 mmHg. Tricuspid valve regurgitant jet is inadequate for estimation of right ventricular systolic pressure. Right Atrium Normal right atrial size. Left Atrium Normal left atrial size. Mitral Valve Structurally normal mitral valve. No mitral valve stenosis. Trace mitral valve regurgitation. Aortic Valve Structurally normal trileaflet aortic valve. No aortic valve stenosis. No aortic valve regurgitation. Tricuspid Valve Structurally normal tricuspid valve. Trace tricuspid valve regurgitation. Pulmonic Valve Pulmonic valve not well visualized. No pulmonary valve stenosis. No significant pulmonary valve regurgitation. Pericardium No pericardial effusion. Normal-sized inferior vena cava. Aorta Normal-sized aortic root. CONCLUSIONS 1. Normal left ventricular size, systolic function and wall thickness, with no regional wall motion abnormalities. Left ventricular ejection fraction is estimated at 65%. Normal diastolic function. 2. Normal right ventricular size and systolic function. 3. Trace mitral valve regurgitation. 4. No pericardial effusion. 5. Compared to previous study dated 05/01/2019, there has been no significant change. Mehnaz Samuels MD (Electronically Signed) Final Date: 25 June 2020 12:52 S
--- NOTE | 2020-06-25 08:25 | XRR_ITS ---
PROCEDURE INFORMATION: Exam: XR Right Knee Exam date and time: 06/25/2020 9:14 AM Age: 44 years old Clinical indication: Pain; Knee; Right; Additional info: Right knee joint pain TECHNIQUE: Imaging protocol: XR Right knee. Views: 3 views. COMPARISON: No relevant prior studies available. FINDINGS: Bones/joints: Osseous structures of the knee normal. No fracture. No joint effusion. Soft tissues unremarkable. Soft tissues: See Bones/joints finding. XR/XR knee RT 4V [id number] IMPRESSION: Normal knee.
--- NOTE | 2020-06-25 09:06 | XRR_ITS ---
PROCEDURE INFORMATION: Exam: XR Lumbosacral Spine, 2 or 3 Views Exam date and time: 06/25/2020 9:32 AM Age: 44 years old Clinical indication: Low back pain; Additional info: Lumbar w/radiculopathy back pain TECHNIQUE: Imaging protocol: XR of the lumbosacral spine, 2 or 3 views. COMPARISON: No relevant prior studies available. FINDINGS: Vertebrae: Mild degenerative disc disease reflected as a decrease in disc space height and anterior endplate osteophytosis. No spondylolisthesis No pars defect. No fracture. Other bones/joints: 4 non rib-bearing lumbar segments. Soft tissues: Unremarkable. XR/XR lumbar spine min 4V [id number] IMPRESSION: Mild degenerative disc disease.
== END 2020-06-25 07:32 | disposition home or self-care (01) ==
PROVIDERS: Visit Provider Nurse Practitioner Family
DX: M25.561 Pain in right knee (principal); M54.16 Radiculopathy, lumbar region; M51.36 Other intervertebral disc degeneration, lumbar region; J45.30 Mild persistent asthma, uncomplicated; J44.9 Chronic obstructive pulmonary disease, unspecified; I34.0 Nonrheumatic mitral (valve) insufficiency
CPT/HCPCS: 72114; 73564; 93306; J7611

== ENCOUNTER 2020-06-25 08:43 | Outpatient (CLI) | payer MEDICAID, SELFPAY ==
--- NOTE | 2020-06-25 09:33 | PFTS_ITS ---
Date of Study:06/25/20 Date of Dictation: MECHANICS: Forced vital capacity (FVC) is reduced. Forced expiratory volume in one second (FEV1) is reduced. FEV1/FVC is reduced. FLOW VOLUME LOOP: Reduced flow at all lung volumes with significant scooping. LUNG VOLUMES: Total lung capacity (TLC) is normal. Residual volume (RV) is increased. DIFFUSING CAPACITY FOR CARBON MONOXIDE: Normal. INTERPRETATION: The pulmonary function tests are consistent with severe airflow obstruction. There is no significant postbronchodilator response. Lung volumes are consistent with air trapping. Gas exchange (DLCO) is normal. MTDD
== END 2020-06-25 08:44 | disposition home or self-care (01) ==
LOC: RT 08:47
PROVIDERS: Visit Provider Internal Medicine Pulmonary Disease
DX: J45.40 Moderate persistent asthma, uncomplicated (principal); F17.200 Nicotine dependence, unspecified, uncomplicated; J44.1 Chronic obstructive pulmonary disease with (acute) exacerbation; I65.22 Occlusion and stenosis of left carotid artery
CPT/HCPCS: 93306; 94060; 94726; 94729

== ENCOUNTER → 2020-07-18 14:54 | Outpatient (BNVA) | payer MEDICAID, SELFPAY | PROVIDERS: PCP Nurse Practitioner Family; Visit Provider Internal Medicine Pulmonary Disease | DX: Z20.828 Contact with and (suspected) exposure to other viral communicable diseases (principal) | CPT/HCPCS: 87635 ==

== ENCOUNTER 2020-07-22 11:52 | Outpatient (CLI) | payer MEDICAID, SELFPAY ==
--- NOTE | 2020-07-22 | MR_ITS ---
WS: [id number] MRI RIGHT KNEE NONCONTRAST TECHNIQUE: Axial PD, coronal PD fat sat, coronal PD, sagittal PD, and sagittal PD fat-sat images obta ined. CLINICAL INFORMATION: RIGHT KNEE PAIN COMPARISON: None. FINDINGS: Distal quadriceps and patella tendons are intact. Hypertrophic patella. Anterior and posterior crucia te ligaments are intact. No evidence of high-grade injury. Chronic thinning of the medial meniscus with mild blunting along the meniscal root. Small amount of c hronic intrasubstance signal abnormality involving the medial meniscus. Lateral meniscus is unremarka ble. Medial and lateral collateral ligaments appear intact. Normal popliteal fossa. Moderate chondromalaci a patella involving the lateral patella facet. No subchondral edema. Normal medial and lateral patell ar retinaculum. MR/MR knee RT wo con* [id number] IMPRESSION: 1. Normal anterior and posterior cruciate ligaments. 2. Mild chronic thinning of the medial and lateral meniscus worse involving th e medial meniscus with mild blunting along the meniscal root. No acute appearin g meniscal tears. 3. Moderate chondromalacia patella involving the lateral patella facet with a small amount of chondral fissuring. No subchondral edema. 4. Normal popliteal fossa. 5. Medial and lateral collateral ligaments are intact.
== END 2020-07-22 11:53 | disposition home or self-care (01) ==
LOC: RADSHAW 11:54
PROVIDERS: PCP Nurse Practitioner Family; Visit Provider Nurse Practitioner Family
DX: M25.561 Pain in right knee (principal); M22.41 Chondromalacia patellae, right knee
CPT/HCPCS: 73721

== ENCOUNTER 2020-11-24 09:52 | Outpatient (CLI) | payer MEDICAID, SELFPAY ==
--- NOTE | 2020-11-24 10:15 | USCV_ITS ---
Esequiel Munoz Age: 45 Gender: M : 1975 Exam Date: 11/24/2020 10:04 Ordering Phys: Frank López MD Technologist: Leigh Linda Exam Location: [facility] [place] Indication: KNOWN LEFT OCCULSION Risk Factors: Previous Vascular Surgery: Right Brachial BP: / Left Brachial BP: / Right Left Velocity (cm/s) Spectral Plaque Velocity (cm/s) Spectral Plaque Syst/Diast Broadening Syst/Diast Broadening 133.40/40.80 Prox CCA / 165.60/59.20 Mid CCA / 135.20/52.10 Distal CCA / 159.10/77.60 Prox ICA / 136.40/70.00 Mid ICA / 161.70/77.60 Distal ICA / 242.90 ECA 188.80 0.98 ICA/CCA Antegrade Vertebral Antegrade 89.30/ 46.30 cm/s 91.50/ 32.00 cm/s Tri Subclavian Tri 188.0 299.7 0 0 FINDINGS Moderate to heavy heterogeneous plaques of the right bifurcation and proximal internal carotid artery No Doppler flow signals in the left internal carotid and common carotid arteries. 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 Elevated velocities and abnormal Doppler flow signals in the external carotid arteries bilaterally, suggestive of hemodynamically significant stenosis Elevated velocities with normal Doppler flow signals in the subclavian arteries bilaterally may suggest a high flow state Consider CTA, to better evaluate the aortic arch vessels. No similar previous studies are available for comparison Dr Colin Segundo MD [facility] (Electronically Signed) Final Date: 25 November 2020 13:18 S
== END 2020-11-24 09:53 | disposition home or self-care (01) ==
LOC: US 09:55
PROVIDERS: PCP Nurse Practitioner Family; Visit Provider Internal Medicine Pulmonary Disease
DX: I69.398 Other sequelae of cerebral infarction (principal); H34.02 Transient retinal artery occlusion, left eye; E78.5 Hyperlipidemia, unspecified; F17.210 Nicotine dependence, cigarettes, uncomplicated; I65.22 Occlusion and stenosis of left carotid artery; R07.9 Chest pain, unspecified
CPT/HCPCS: 93880; 99205

== ENCOUNTER 2020-11-25 11:11 | Outpatient (CLI) | payer MEDICAID, SELFPAY ==
--- NOTE | 2020-11-25 | USCV_ITS ---
Stress Echo Esequiel Munoz Age: 45 Gender: M : 1975 Exam Date: 11/25/2020 12:12 Ordering Phys: Mehnaz Samuels MD ([email or web address]) Technologist: Keven Jordan Exam Location: [facility] [place] Indication: chest pains Rhythm: Sinus Patient History: Chest pain Cardiac Medications: Medications in past 24 hours: Contrast: Stress Results Protocol: Teo Total dose(mL): Exercise Duration (min:sec): 3:21 METS: 7 Resting HR: 96 Resting BP: 139 / 81 Peak HR: Peak BP: / Max Predicted HR: 177 % Max Predicted HR Target HR: 150 Double Product: Stress Summary: The patient's target heart rate was not achieved The patient's target heart rate was not achieved due to leg and hip pain BP Response: Normal Reason for Termination: Maximal effort/unable to continue Cardiac Symptoms: None ECG Analysis Resting ECG: Stress ECG: Arrhythmia: MEASUREMENTS (Male/Female) Normal Values FINDINGS PROCEDURE: At the baseline, the patient's blood pressure was [139/81] mmHg with a heart rate of 92 bpm. The patient exercised for [3 minutes 21 seconds] on a standard Teo protocol. Patient attained a maximum heart rate of [145] beats per minute(81% of the maximum predicted heart rate) with a blood pressure at the peak exercise of [255/115] mm Hg. During the recovery phase, there were no new changes. Echocardiographic pictures were taken at the baseline, immediately following the peak exercise and during the recovery phase. Baseline echocardiogram: Normal left ventricular size and systolic function with ejection fraction estimated at [55%. No regional wall motion abnormalities. Normal right ventricle size and systolic function. Normal left and right atrial size. No pericardial effusion. No intracardiac masses. Peak exercise echocardiogram: Normal augmentation of left ventricular systolic function with exercise. No new regional wall motion abnormalities. Recovery echocardiogram: Left ventricular systolic function normalizes. No regional wall motion abnormalities. CONCLUSIONS 1. This is a treadmill stress echocardiogram. Patient reached 81% of maximum predicted heart rate with stress. 2. Dereased exercise tolerance for age, attained a maximum of 7 METs. 3. Normal blood pressure at rest with hypertensive response to exercise 4. Normal echocardiographic response to submaximal exercise. 5. Normal EKG response to submaximal stress. Mehnaz Samuels MD (Electronically Signed) Final Date: 01 December 2020 10:34 S
--- NOTE | 2020-11-25 11:32 | ECG_ITS ---
[facility] Test Date: 2020-11-25 Pat Name: Esequiel Munoz Department: Room: Gender: Male Manager Federal: : 1975 Requested By: Mehnaz Samuels Order Number: [id number] Marques MD: Mehnaz Samuels M.D. Interpretive Statements NAME OF STUDY: TREADMILL STRESS ECHOCARDIOGRAM INDICATION: Chest Pain PROCEDURE: At the baseline, the patient's blood pressure was 139/81 mmHg, oxygen saturation 93% with a heart rate of 92 bpm. The baseline electrocardiogram showed normal sinus rhythm with baseline artifact. Normal axis and nonspecific ST depression. The patient exercised for 3 minutes 21 seconds on a standard Teo protocol. Patient attained a maximum heart rate of 145 beats per minute(81% of the maximum predicted heart rate) with a blood pressure at the peak exercise of 161/110 mm Hg. Blood pressure during stage II of exercise audra to 255/115 mmHg. The EKG at the peak exercise revealed sinus tachycardia with no significant ST-T wave changes. Patient did not have any chest pain or any significant EKG changes with the exercise. Study was terminated due to protocol completion and achievement of target heart rate. During the recovery phase, there were no new changes. Blood pressure at the end of the recovery phase was 162/97 mm Hg with a heart rate of 95 beats per minute and oxygen saturation 98%. Echocardiographic pictures were taken at the baseline, immediately following the peak exercise and during the recovery phase. CONCLUSION: 1. Normal EKG response to treadmill exercise. 2. No exercise-induced chest pain or cardiac arrhythmia 3. Decreased for age exercise tolerance, attained a maximum of 7 METs. Maximum VO2 of 24.5 mL/kg/min. 4. Hypertensive response to exercise. 5. Please see separate report for the echocardiographic response to exercise. Electronically Signed On 11-28-2020 9:32:20 AIRPORT CONTROL OPERATOR by Mehnaz Samuels M.D. [id number]
[2020-11-25 12:14] VITALS: BMI 32.1
[2020-11-25 12:43] VITALS: BP 162/97; PULSE 96
--- NOTE | 2020-11-25 13:18 | PC.NURSE ---
pt not able to reach target heart rate due to the pain in his right hip an ankle.
== END 2020-11-25 11:12 | disposition home or self-care (01) ==
LOC: CDL 11:15
PROVIDERS: PCP Nurse Practitioner Family; Visit Provider Internal Medicine Cardiovascular Disease
DX: R07.9 Chest pain, unspecified (principal); I10 Essential (primary) hypertension
CPT/HCPCS: 93017; 93350

== ENCOUNTER 2020-11-25 11:12 | Outpatient (CLI) | payer MEDICAID, SELFPAY ==
[2020-11-25 12:26] LABS: Cholesterol 222 mg/dL (0-200)
== END 2020-11-25 11:13 | disposition home or self-care (01) ==
PROVIDERS: PCP Nurse Practitioner Family; Visit Provider Nurse Practitioner
DX: E78.5 Hyperlipidemia, unspecified (principal)
CPT/HCPCS: 36415; 82465

== ENCOUNTER 2020-12-23 09:55 | Outpatient (CLI) | payer MEDICAID, SELFPAY ==
--- NOTE | 2020-12-23 10:15 | MR_ITS ---
WS: [id number] MRI BRAIN WITHOUT CONTRAST HISTORY: G45.3 - Amaurosis fugax COMPARISON: 10/07/2015 and carotid ultrasound 11/24/2020 TECHNIQUE: Diffusion imaging, multiplanar T1, T2 and FLAIR imaging obtained. No evidence for acute infarct or hemorrhage. Shahid-white matter differentiation is normal. Increased signal in the LEFT frontal cortex similar to the prior study from 2014 consistent with prio r infarcts. No new infarcts or ischemic changes. No hemorrhage. Ventricles and extra-axial spaces are normal. No inferior displacement of cerebellar tonsils. The sella turcica and pituitary gland are unremarkabl e. Posterior fossa is also unremarkable. Dural venous sinuses and coquille of Bill demonstrate no abnormality on this unenhanced studies. Paranasal sinuses: Clear. Mastoid air cells: Normal. Calvarium and scalp: Intact. MR/MR head wo con* [id number] IMPRESSION: 1. No acute infarct or mass effect. No hemorrhage. 2. 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 No new infarct.
--- NOTE | 2020-12-23 11:00 | CT_ITS ---
WS: [id number] CT ANGIOGRAM CEREBRAL AND CAROTID ARTERIES NONCONTRAST CT HEAD HISTORY: I63.9 - Cerebral infarction, unspecified TECHNIQUE: CT angiogram is performed of the carotid and cerebral arteries. During arterial injection imaging is obtained from the skull vertex to the aortic arch in 1.25 mm imaging. Coronal and sagittal reformats are submitted. Additional multi planar reformats of the carotid and cerebral arteries are submitted, MIP imaging also reviewed. NASCET criteria utilized. All CT scans at [facility] use at least one of these dose optimization techniques: automated exposure control; mA and/or kV ad justment per patient size (includes targeted exams where dose is matched to clinical indication); or iterative reconstruction. CONTRAST: Omnipaque 350; 95 mL IV. DLP: 2308.7 mGycm COMPARISON: 04/30/[address] head is first performed. No hemorrhage or mass effect. No significant volume loss. Carotid Angiogram: Right carotid: Common carotid artery: Arises normally from the innominate artery. No significant plaque or stenosis. Internal carotid artery: No plaque or stenosis. External carotid artery: Patent. Left carotid: Common carotid artery: Occluded LEFT common carotid artery just beyond the origin at the aortic arch. Internal carotid artery: Known complete occlusion throughout the extracranial ICA. External carotid artery: Patent. Right vertebral artery: Unremarkable. Dominant vertebral artery. Left vertebral artery: Arises normally from the subclavian artery. Subclavian arteries: No stenosis or significant abnormality. Upper thorax: Normal. Thyroid gland: Normal. Osseous structures: Unremarkable. CEREBRAL ANGIOGRAM: Intracranial vertebral arteries: Normal with no significant atherosclerosis. Basilar artery: No significant stenosis or occlusion. No aneurysm. Intracranial Internal carotid arteries: Mild atherosclerotic plaque the RIGHT intracranial ICA. LEFT ICA is occluded. This is a known finding with reconstitution in the supraclinoid portion of the carot id artery which is probably retrograde flow through a patent [place]. Middle cerebral arteries: Normal. Anterior cerebral arteries and ACOM: Normal. Posterior cerebral arteries and PCOM's: Normal. Dural venous sinuses are normally enhancing. Mastoid air cells: Normal. Paranasal sinuses: Normal. Calvarium: Normal. CT/CT angio headneck* [id number] IMPRESSION: 1. Known complete occlusion proximal LEFT common carotid artery through the ex ternal carotid artery and the intracranial carotid artery to the cavernous sinu s. 2. Intact [place]. LEFT MCA is enhancing. 3. Unremarkable [place].
[2020-12-23] MEDS: iohexol 350 mg/mL 100 mL Btl IV (11:25)
== END 2020-12-23 09:56 | disposition home or self-care (01) ==
LOC: RADWPI 10:08
PROVIDERS: PCP Nurse Practitioner Family; Visit Provider Nurse Practitioner
DX: I63.9 Cerebral infarction, unspecified (principal); G45.3 Amaurosis fugax
CPT/HCPCS: 70496; 70498; 70551; Q9967

== ENCOUNTER → 2021-06-22 11:40 | Outpatient (BNVA) | payer MEDICAID, SELFPAY | PROVIDERS: PCP Nurse Practitioner Family; Visit Provider Nurse Practitioner | DX: I65.22 Occlusion and stenosis of left carotid artery (principal); Z86.73 Personal history of transient ischemic attack (TIA), and cerebral infarction without residual deficits; F17.210 Nicotine dependence, cigarettes, uncomplicated | CPT/HCPCS: 99213; 99214 ==

== ENCOUNTER 2021-07-20 14:23 | Outpatient (CLI) | payer MEDICAID, SELFPAY ==
--- NOTE | 2021-07-20 15:00 | USCV_ITS ---
Esequiel Munoz Age: 45 Gender: M : 1975 Exam Date: 07/20/2021 14:37 Ordering Phys: Esequiel Jay LAST INSERTER MSN AGACNP-BC Technologist: Ted Martínez [place] [facility] [place]: cerebral infarct BP: 155 / 94 HR: 72 Rhythm: Sinus Technical Quality: Adequate MEASUREMENTS (Male / Female) Normal Values 2D ECHO LV Diastolic Diameter PLAX 4.5 cm 4.2 - 5.9 / 3.9 - 5.3 cm LV Systolic Diameter PLAX 3.3 cm IVS Diastolic Thickness 0.7 cm 0.6 - 1.0 / 0.6 - 0.9 cm IVS Systolic Thickness 1.1 cm LVPW Diastolic Thickness 1.2 cm 0.6 - 1.0 / 0.6 - 0.9 cm LVPW Systolic Thickness 2.2 cm LVOT Diameter 2.1 cm LV Ejection Fraction 2D Teich 53.7 % LV Ejection Fraction MOD 2C 61.4 % LV Ejection Fraction 2C AL 62.3 % LA Diameter 3.2 cm LA Width 4.2 cm LA Height 4.6 cm RA Width 3.8 cm RA Height 3.9 cm Aorta at Sinotubular Diameter 2.2 cm DOPPLER AV Peak Velocity 170.0 cm/s LVOT Peak Velocity 133.7 cm/s AV Area Cont Eq vti 1.5 cm squared AV Area Cont Eq pk 2.7 cm squared MV Peak Velocity 139.0 cm/s MV Area PHT 3.4 cm squared Mitral E to A Ratio 1.2 MV E' Velocity 41.5 cm/s Mitral E to MV E' Ratio 6.2 Mitral E to LV E' Lateral Ratio 5.4 Mitral E to LV E' Septal Ratio 7.3 TR Peak Velocity 112.6 cm/s TR Peak Gradient 5.1 mmHg TR Mean Velocity 72.5 cm/s TR Mean Gradient 2.4 mmHg TR Velocity Time Integral 19.9 cm Right Atrial Pressure 3.0 mmHg Pulmonary Artery Systolic Pressu 8.1 mmHg RV Acceleration Time 0.1 s RV Ejection Time 0.2 s RV AcT/ET 0.3 FINDINGS Left Ventricle Normal left ventricular cavity size. Normal left ventricular systolic function. No regional wall motion abnormalities. Left ventricular ejection fraction is estimated at 55 to 60 %. Grade I/IV diastolic dysfunction (abnormal relaxation filling pattern), normal to mildly elevated filling pressures. Right Ventricle The right ventricle is normal in size and function. Right Atrium The right atrium is normal in size. Left Atrium The left atrium is normal in size. Mitral Valve Structurally normal mitral valve without significant stenosis or prolapse. There is no mitral regurgitation. Aortic Valve Structurally normal aortic valve without significant sclerosis or stenosis. There is no aortic regurgitation. Tricuspid Valve Structurally normal tricuspid valve without significant stenosis or regurgitation. Pulmonary artery systolic pressure is normal. Pulmonic Valve Structurally normal pulmonic valve without significant stenosis. There is no pulmonic regurgitation. Pericardium Normal pericardium without effusion. Aorta Normal ascending aorta dimension. CONCLUSIONS 1-Normal left ventricular cavity size. Normal left ventricular systolic function. No regional wall motion abnormalities. Left ventricular ejection fraction is estimated at 55 %. Grade I/IV diastolic dysfunction (abnormal relaxation filling pattern), normal to mildly elevated filling pressures. 2-There is no pericardial effusion. 3-No significant valve abnormalities. 4-Pulmonary artery systolic pressure is within normal limits. 5-Right atrial pressure is around 5 mm of mercury. 6-No significant change since the prior echocardiogram study of 06/25/2020 . Suresh Mendoza MD (Electronically Signed) Final Date: 20 July 2021 18:17 S
== END 2021-07-20 14:24 | disposition home or self-care (01) ==
LOC: US 14:24
PROVIDERS: PCP Nurse Practitioner Family; Visit Provider Nurse Practitioner
DX: I63.9 Cerebral infarction, unspecified (principal)
CPT/HCPCS: 93306

== ENCOUNTER 2022-10-26 08:41 | Observation (INO) | payer MEDICAID, SELFPAY ==
[2022-10-26] VITALS (7 sets, daily range): BP systolic 134–173; BP diastolic 74–117; PULSE 68–105; RESP 15–18; TEMP 36.6–37.4; O2SAT 94–96; BMI 26.2
--- NOTE | 2022-10-26 08:46 | ECG_ITS ---
[facility] Test Date: 2022-10-26 Pat Name: Esequiel Munoz Department: Room: Gender: Male Processing Rep: : 1975 Requested By: Jacob Fritz Order Number: [id number] Shelli MD: Sandeep Alexander M.D. Measurements Intervals [place] Rate: 74 P: 72 DC: 162 QRS: 74 QRSD: 95 T: 60 QT: 353 QTc: 392 Interpretive Statements SINUS RHYTHM WITH MARKED SINUS ARRHYTHMIA MODERATE ST DEPRESSION [0.05+ mV ST DEPRESSION] Compared to ECG 04/30/2019 21:12:58 ST (T wave) deviation now present Electronically Signed On 10-26-2022 14:11:06 HEEL TURNER by Sandeep Alexander M.D. [id number]
--- NOTE | 2022-10-26 08:49 | USCV_ITS ---
TammyEsequiel Age: 47 Gender: M : 1975 Exam Date: 10/26/2022 09:02 Ordering Phys: Jacob Moses DO Technologist: Keven Jordan Exam Location[place] [facility] [place] Indication: cold lt foot Risk Factors: Previous Vascular Surgery: cca endart RIGHT LEFT BP: 178.0 / 103.00 BP: 175.0/ 100.00 0 0 Waveform Velocity (cm/s) Velocity (cm/s) Waveform Iliac Prox 50.5 Monophasic Iliac Mid 53.6 Monophasic Iliac Distal Monophasic 34.7 LEGAL WRITING PROFESSOR 38.2 Monophasic SFA Prox 29.2 Monophasic SFA Mid 29.5 Monophasic SFA Dist 35.6 Monophasic POP 37.3 Monophasic SECONDARY SCHOOL TEACHER LIBRARIAN 29.8 Monophasic DPA N/A EN 0.4 FINDINGS Resting EN of 0.4 on the left side. No Doppler flow signals in the dorsalis pedis artery. Monophasic , delayed peaking and low amplitude waveforms throughout the left lower extremity CONCLUSIONS 1. Abnormal resting EN on the left side suggesting severe peripheral artery disease 2. The Doppler features suggesting aortoiliac disease. 3. Dorsalis pedis artery on the left side appears to be totally occluded. No similar previous studies are available for comparison Dr Colin Segundo MD [facility] (Electronically Signed) Final Date: 26 October 2022 16:35 S
--- NOTE | 2022-10-26 08:50 | W.ED.LOWEXIN ---
HPI - Extremity Injury (Lower) General: Chief Complaint: Extremity Problem,Nontraumatic Stated Complaint: Leg pain Time Seen by Provider: 10/26/22 08:45 Source: patient Mode of arrival: ambulatory History of Present Illness: 47-year-old male presents emergency room with left lower leg pain began Suad progressively worsened distally is worse with activity he has to stop what he is doing and rest at times he does smoke up to a pack a day has been an ongoing issue no recent trauma or fall. His leg is mildly cyanotic unable to palpate any pulses at any level including in the groin. This is been progressively worsening over the last several weeks. It is gotten to the point that he has limb pain while at rest and can only walk about 5-10 steps before he is forced to stop due to the pain. Onset (ago): day(s) Place: home Severity: moderate Relieving factors: rest Exacerbating factors: other (Activity walking) Other symptoms: loss of consciousness, chest pain, diaphoresis, SOB, seizure, syncope and confusion Review of Systems Const: Denies: fever(s), chills, body aches, change in appetite, fatigue or malaise ENMT: Denies: throat pain, ear or mastoid pain, nasal discharge or nasal congestion Card: Reports: leg pain with exertion; Denies: chest pain, palpitations, irregular heart rhythm, edema, dyspnea on exertion or orthopnea Resp: Denies: dyspnea, productive cough or non-productive cough GI: Denies: abdominal pain, nausea, vomiting, hematemesis, coffee ground emesis, diarrhea, constipation, bloating, hematochezia or melena : Denies: flank pain, dysuria, urinary frequency or urinary urgency Skin/Breast: Denies: rash or pruritus [facility] ED PFSH: Medical History (Updated 10/26/22 @ 14:49 by Sara Linton MD) AF (amaurosis fugax) Asthma Bipolar disorder COPD (chronic obstructive pulmonary disease) CVA (cerebral vascular accident) (~10/2020) LEFT supraventricular frontal lobe Hyperlipidemia Hypertension Left carotid artery occlusion Surgical History H/O inguinal hernia repair Family History Other Asthma CAD (coronary artery disease) Emphysema/COPD Hyperlipidemia Hypertension Social History Smoking and tobacco status: current every day smoker cigarettes Packs smoked per day: 0.5 Years cigarettes smoked: 32 Quit status (tobacco): has tried quititng Number of times tried to quit tobacco: 12 Second hand smoke exposure: Yes Smoking risk assessment/counseling performed?: Yes Alcohol intake: current Alcohol intake frequency: holidays/special occasions only Desire information about substance/drug rehabilitation?: No Lives independently: Yes Household members: other Details: room mate Housing: House Marital status: service: No Current occupational status: unemployed Pets and animals: Yes History of recent travel: No Current gender identity: Male Physical Exam Const: COMMON NORMALS: no acute distress GENERAL APPEARANCE: cooperative and comfortable ORIENTATION/CONSCIOUSNESS: Yes awake, Yes oriented to person, Yes oriented to place and Yes oriented to time HENMT: COMMON NORMALS: normocephalic, atraumatic and hearing grossly normal bilaterally HEAD & SCALP: normocephalic and atraumatic Resp: COMMON NORMALS: normal respiratory effort, No retractions, No use of accessory muscles and clear to auscultation bilaterally AUSCULTATION: clear to auscultation bilaterally Cardio: COMMON NORMALS: regular rate, regular rhythm and No murmurs present (Cardio) RATE: regular rate RHYTHM: regular rhythm GI: COMMON NORMALS: Soft to palpation and No hepatosplenomegaly present AUSCULTATION: Yes normoactive bowel sounds PALPATION: Yes Soft to palpation, No Tenderness to palpation present (GI), No Guarding due to palpation present (GI) and Yes No hepatosplenomegaly present Extremity: COMMON NORMALS: no pedal edema OTHER: Left leg is cyanotic at the nailbeds cool to the touch no palpable pulse of the dorsalis pedis posterior tibialis popliteal or femoral Neuro: SENSORIUM/ORIENTATION: Yes oriented to person, Yes oriented to place and Yes oriented to time Skin: COMMON NORMALS: no rashes or lesions noted GENERAL SKIN EXAM: no rashes or lesions noted Course Vital Signs: Vital signs: Vital Signs Temperature 99.3 F 10/26/22 08:45 Pulse Rate 94 10/26/22 15:06 Respiratory Rate 15 10/26/22 12:00 Blood Pressure 161/92 10/26/22 15:06 Pulse Oximetry 94 10/26/22 15:06 Oxygen Delivery Me thod 10/26/22 15:06 MDM - Extremity Injury (Lower) Medical Decision Making X-rays negative for fracture no real swelling no trauma no laceration no bruising. He is tender over the area but there is no abnormality in the bone ice elevate and use diclofenac as needed if not improving recheck Medical Records I reviewed the patient's medical records. Lab Data I reviewed the patient's lab results. 10/26/22 13:05 10/26/22 13:05 Laboratory Results WBC 9.3 10^3/uL (4.0-10.0) 10/26/22 13:05 RBC 5.15 10^6/uL (4.1-5.3) 10/26/22 13:05 Hgb 15.9 g/dL (11.7-16.6) 10/26/22 13:05 Hct 47.2 % (42.0-52.0) 10/26/22 13:05 MCV 91.7 fl (80-94) 10/26/22 13:05 MCH 30.9 pg (28.0-34.0) 10/26/22 13:05 MCHC 33.7 g/dL (30.0-36.0) 10/26/22 13:05 RDW 14.0 % (12.1-15.1) 10/26/22 13:05 Plt Count 164 10^3/cmm (130-400) 10/26/22 13:05 MPV 8.9 fL (7.4-10.4) 10/26/22 13:05 Neut % (Auto) 62.4 % 10/26/22 13:05 Lymph % (Auto) 26.0 % 10/26/22 13:05 Atkinson % (Auto) 9.9 % 10/26/22 13:05 Eos % (Auto) 1.2 % 10/26/22 13:05 Baso % (Auto) 0.3 % 10/26/22 13:05 Neut # (Auto) 5.79 10^3/uL (1.8-7.7) 10/26/22 13:05 Lymph # (Auto) 2.4 10^3/uL (0.8-4.8) 10/26/22 13:05 Atkinson # (Auto) 0.9 10^3/uL (0.2-0.9) 10/26/22 13:05 Eos # (Auto) 0.1 10^3/uL (0.0-0.8) 10/26/22 13:05 Baso # (Auto) 0.0 10^3/uL (0.0-0.1) 10/26/22 13:05 Nucleated RBC % (auto) 0 % 10/26/22 13:05 Nucleated RBCs # 0.0 /100WBC 10/26/22 13:05 PT 14.90 SECONDS (12.1-14.9) 10/26/22 13:05 INR 1.14 (0.8-1.2) 10/26/22 13:05 APTT 225.4 SECONDS (23.9-36.7) H* 10/26/22 13:05 Sodium 137 mmol/L (136-145) 10/26/22 13:05 Potassium 3.6 mmol/L (3.5-5.1) 10/26/22 13:05 Chloride 102 mmol/L (98-107) 10/26/22 13:05 Carbon Dioxide 23 mmol/L (22-29) 10/26/22 13:05 Anion Gap 15.6 (5-19) 10/26/22 13:05 BUN 13 mg/dL (6-20) 10/26/22 13:05 Creatinine 0.8 mg/dL (0.7-1.2) 10/26/22 13:05 GFR Calculation 104.5 mL/min (90-130) 10/26/22 13:05 Glucose 156 mg/dL (65-115) H 10/26/22 13:05 Calculated Osmolality 287 mOsm/kg (285-295) 10/26/22 13:05 Calcium 9.3 mg/dL (8.5-10.5) 10/26/22 13:05 Total Bilirubin 0.8 mg/dL (0.15-1.2) 10/26/22 13:05 AST 17 U/L (0-40) 10/26/22 13:05 ALT 11 U/L (0-41) 10/26/22 13:05 Alkaline Phosphatase 147 U/L (40-130) H 10/26/22 13:05 Total Protein 7.7 g/dL (6.6-8.7) 10/26/22 13:05 Albumin 4.4 g/dL (3.5-5.2) 10/26/22 13:05 Globulin 3.3 g/dL (1.3-4.6) 10/26/22 13:05 Discharge Plan Discharge Admit Provider: Sara Linton Condition: Stable Coding Level of Care Code ED Sewer And Cutter Finger Buff Material for Chg Fwd Exam Detailed
[2022-10-26] MEDS: heparin 5,000 unit/mL INJ 1 mL IV (12:52)
[2022-10-26] MEDS: heparin drip 25,000 UNIT/500 ML PREMIX 26.67 UNIT IV (12:56)
[2022-10-26 13:13] LABS: Basophils % 0.3 %; Eosinophils # 0.1 10^3/uL (0.0-0.8); Eosinophils % 1.2 %; Hematocrit 47.2 % (42.0-52.0); Hemoglobin 15.9 g/dL (11.7-16.6); Lymphocytes # 2.4 10^3/uL (0.8-4.8); Mean Corpuscular HGB Conc 33.7 g/dL (30.0-36.0); Mean Corpuscular Hemoglobin 30.9 pg (28.0-34.0); Mean Corpuscular Volume 91.7 fl (80-94); Mean Platelet Volume 8.9 fL (7.4-10.4); Monocytes # 0.9 10^3/uL (0.2-0.9); Monocytes % 9.9 %; Neutrophils # 5.79 10^3/uL (1.8-7.7); Neutrophils % 62.4 %; Nucleated Red Blood Cells % 0 %; Platelet Count 164 10^3/cmm (130-400); Red Blood Count 5.15 10^6/uL (4.1-5.3); White Blood Count 9.3 10^3/uL (4.0-10.0)
[2022-10-26] MEDS: nitroglycerin 1 gm/inch oint Pkt 0.5 INCH TOPICAL ×3 (13:21→23:20)
--- NOTE | 2022-10-26 13:31 | PM.CONSULT ---
Providers/Reason For Consult Consulting Physician/Specialty*: Sandeep Alexander MD/ Interventional Cardiology Reason for Consult*: Resting leg pain Requesting Physician: Dr Moses Attending Physician: Dr Linton Primary Care Provider: Axel Torres NP History of Present Illness History of Present Illness Esequiel Munoz is a 47 year old male with significant past medical history of tobacco abuse, peripheral artery disease, COPD, hypertension, hyperlipidemia who has presented to the hospital with 2 to 3 days of severe left lower extremity pain. He says pain that started around the knee area and has been extending down to the foot. He gets significant claudication symptoms bilaterally however this pain is more severe at and worsening. He underwent Doppler ultrasound in the emergency room that showed possible aortoiliac disease and occlusion of left dorsalis pedis artery. Pulses are not palpable. Says pain today has improved a little bit. Review of Systems Const: Denies: fever(s) or chills Eyes: Reports: other (Intermittent amaurosis fugax) ENMT: Denies: throat pain or nasal congestion Card: Denies: chest pain or palpitations Resp: Reports: dyspnea; Denies: productive cough GI: Denies: nausea, vomiting, diarrhea or constipation : Denies: difficulty urinating Musc: Reports: extremity pain (Left lower extremity and foot) Skin/Breast: Reports: sores (Scratch on left side of neck) Neuro: Reports: numbness in extremities (Right lower extremities sometimes attributes to pinched nerve in back) Psych: Reports: anxiety and mood swings Dez/Lymph: Denies: easy bruising or easy bleeding Medications/Allergies Home Medications Medication Instructions Recorded Confirmed Last Taken Type No Known Home Medications 10/26/22 10/26/22 Unknown History Allergies Allergy/AdvReac Type Severity Reaction Status Date / Time No Known Allergies Allergy Verified 06/22/21 11:45 Current Medications Generic Name Dose Route Start Last Admin Trade Name Freq PRN Reason Stop Dose Admin Heparin Sodium (Porcine) 0 unit 10/26/22 12:13 10/26/22 12:52 Heparin 5,000 Unit/Ml Inj 1 Ml IV 4,800 unit PRN PRN Administration Heparin weight-base protocol Protocol Heparin Sodium/Sodium Chloride 25,000 unit in 500 mls @ 0 mls/hr 10/26/22 12:15 10/26/22 12:56 Heparin Drip IV 14 unit/kg/hr .Q0M LUIS ALBERTO 26.67 mls/hr Administration Protocol Per Protocol PFSH Acute PFSH: Medical History AF (amaurosis fugax) Asthma Bipolar disorder COPD (chronic obstructive pulmonary disease) CVA (cerebral vascular accident) (~10/2020) LEFT supraventricular frontal lobe History of cardiac monitoring 2 week event monitor in 05/2022 with baseline sinus rhythm, episodes of sinus tachycardia from 132-165 noted History of cardiovascular stress test 11/25/2020 Exercise Stress test with Stress Echo - No exercise induced chest pain or ekg changes, suboptimal exercise for age, hypertensive exercise response History of PFTs 05/2020 Severe airflow obstruction, no significant post dilator response, lung volumes consistent with air trapping. Normal DLCO. Hyperlipidemia Hypertension Intermittent explosive disorder Left carotid artery occlusion Nicotine dependence, cigarettes, with other nicotine-induced disorders PTSD (post-traumatic stress disorder) Surgical History H/O inguinal hernia repair Family History Mother Sarcoid Other Asthma CAD (coronary artery disease) Cancer Emphysema/COPD Hyperlipidemia Hypertension Stroke Denies family history of Clotting disorder Chronic kidney disease (CKD) Anesthesia complication Bleeding disorder Family history of premature coronary artery disease Social History Smoking and tobacco status: current every day smoker cigarettes Packs smoked per day: 0.5 Years cigarettes smoked: 32 [ Other cigarette details: onset age 8-9 years] Quit status (tobacco): has tried quititng Number of times tried to quit tobacco: 12 Second hand smoke exposure: Yes Alcohol intake: current Alcohol intake frequency: holidays/special occasions only Substance/Drug Use: current Substance/Drug use type: Marijuana Lives independently: Yes Household members: other Details: room mate Housing: House Marital status: service: No 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 [] NECK: No jugular vein distension. [] HEENT: No cyanosis. No icterus. No pallor. [] HEART: Regular S1 and S2. No murmur, rub or gallop. [] LUNGS: Clear to auscultate bilaterally. [] ABDOMEN: Soft, nontender and nondistended. Positive bowel sounds. No guarding, rebound or tenderness. [] CENTRAL NERVOUS SYSTEM: Grossly nonfocal. [] EXTREMITIES: Lower extremities with 1+ edema bilaterally. Pulses palpable in the lower extremities, both dorsalis pedis and posterior tibial. [] Data 10/26/22 13:05 10/26/22 13:05 A&P Assessment and plan (1) Critical limb ischemia of left lower extremity: (2) Peripheral artery disease: (3) Left carotid artery occlusion: (4) Smoker: (5) COPD (chronic obstructive pulmonary disease): Qualifiers: COPD type: emphysema Emphysema type: panlobular Qualified Code(s): J43.1 - Panlobular emphysema (6) Hyperlipidemia: Qualifiers: Hyperlipidemia type: unspecified Qualified Code(s): E78.5 - Hyperlipidemia, unspecified (7) Hypertension: Qualifiers: Hypertension type: unspecified Qualified Code(s): I10 - Essential (primary) hypertension Plan Patient has presented with chest and leg pain of the left lower extremities starting at in the joint and extending down to the foot. Has intact movement of the left foot. He has tingling in the foot however still has feeling. EN was 0.4. Pulses are not palpable. Start heparin drip. We will proceed with peripheral angiogram with possible percutaneous intervention tomorrow. N.p.o. past midnight Thank you for involving us with care of this patient. We will continue to follow. Please call with questions. Consult Attestations Medical Necessity Statement: Care expected to cross 2 midnights Coding Level of Care Code Acute Payroll Coordinator for [facility] Fwd Diagnoses Critical limb ischemia of left lower extremity I70.222 Peripheral artery disease I73.9 Left carotid artery occlusion I65.22 Smoker F17.200 COPD (chronic obstructive pulmonary disease) J43.1 COPD type: emphysema Emphysema type: panlobular Hyperlipidemia E78.5 Hyperlipidemia type: unspecified Hypertension I10 Hypertension type: unspecified
[2022-10-26 13:32] LABS: INR 1.14 (0.8-1.2)
[2022-10-26 13:38] LABS: Alanine Aminotransferase 11 U/L (0-41); Albumin Level 4.4 g/dL (3.5-5.2); Alkaline Phosphatase 147 U/L (40-130); Anion Gap 15.6 (5-19); Aspartate Amino Transferase 17 U/L (0-40); Blood Urea Nitrogen 13 mg/dL (6-20); Calcium 9.3 mg/dL (8.5-10.5); Carbon Dioxide 23 mmol/L (22-29); Chloride 102 mmol/L (98-107); Globulin 3.3 g/dL (1.3-4.6); Glomerular Filtration Rate 104.5 mL/min (90-130); Glucose 156 mg/dL (65-115); Osmolality Calculated 287 mOsm/kg (285-295); Potassium 3.6 mmol/L (3.5-5.1); Sodium 137 mmol/L (136-145); Total Bilirubin 0.8 mg/dL (0.15-1.2); Total Protein 7.7 g/dL (6.6-8.7)
[2022-10-26 14:01] LABS: Partial Thromboplastin Time 225.4 SECONDS (23.9-36.7)
--- NOTE | 2022-10-26 14:31 | PM.HP ---
Providers/Chief Complaint Admitting Physician: Sara Linton MD Primary Care Provider: Axel Torres NP Chief Complaint: Leg pain History of Present Illness Esequiel Munoz is a 47 year old male who presented to the emergency room chief complaint of pain in his left lower extremity that has been progressing over the last couple of weeks and in particular since Theodore much worse. Pain initially started in his knee area and then went down to his calf. The last few days its been on the inside part of his foot and at his toes. His toes have been cold and has not been able to warm them. Pain is been described as severe. It occurs after only a few steps. Sometimes he has the pain at rest. In the emergency room he had a duskiness to his left lower extremity. Stat arterial ultrasound evaluation revealed an EN of 0.4 consistent with suspected diagnosis of critical limb ischemia. Patient was started on heparin drip. Case was reviewed with cardiology who plans for invasive peripheral vascular evaluation and treatment. Patient has a history of a known occluded left carotid artery, previous strokes and intermittent amaurosis fugax. He has a longstanding history of smoking with onset at age 10 or 11. In addition to smoking cigarettes he does smoke marijuana. He has a known history of hypertension and hyperlipidemia but has not been on any treatment for these for some time. He previously took antiplatelet therapy with aspirin and Plavix but has also been off of these. He just does not like to go to doctors and is not great at following through on things that he needs to. Him and his mother gave the example of him completing his homework when he was in school but just forgetting to turn it in. He has a history of bipolar tendencies and what he described as intermittent explosive disorder and PTSD. He has been followed at [facility] in the past and was tried on multiple different medications. By his recollection lithium worked the best but has not been on it in some time. Smoking both cigarettes and marijuana as a way for him to handle his symptoms and to help keep him from getting upset about things. His breathing has been doing okay lately despite not having inhalers though he admits that he is used to a baseline degree of shortness of breath. He denies any recent chest pain. He has had previous work-up to include exercise stress test with stress echocardiogram, Holter monitoring and pulmonary function studies. Results are as noted in the computer. He has not had any recent fevers or infections. No reports of any bleeding. He indicates that his left lower extremity is feeling warmer and not as painful since heparin was started in the emergency room. He is being admitted to the hospitalist service with cardiology consultation. Review of Systems Const: Denies: fever(s) or chills Eyes: Reports: other (Intermittent amaurosis fugax) ENMT: Denies: throat pain or nasal congestion Card: Denies: chest pain or palpitations Resp: Reports: dyspnea; Denies: productive cough GI: Denies: nausea, vomiting, diarrhea or constipation : Denies: difficulty urinating Musc: Reports: extremity pain (Left lower extremity and foot) Skin/Breast: Reports: sores (Scratch on left side of neck) Neuro: Reports: numbness in extremities (Right lower extremities sometimes attributes to pinched nerve in back) Psych: Reports: anxiety and mood swings Dez/Lymph: Denies: easy bruising or easy bleeding Medications/Allergies Home Medications Medication Instructions Recorded Confirmed Last Taken Type No Known Home Medications 10/26/22 10/26/22 Unknown History Allergies Allergy/AdvReac Type Severity Reaction Status Date / Time No Known Allergies Allergy Verified 06/22/21 11:45 PFSH Acute PFSH: Medical History (Updated 10/26/22 @ 18:27 by Sara Linton MD) AF (amaurosis fugax) Asthma Bipolar disorder COPD (chronic obstructive pulmonary disease) CVA (cerebral vascular accident) (~10/2020) LEFT supraventricular frontal lobe History of cardiac monitoring 2 week event monitor in 05/2022 with baseline sinus rhythm, episodes of sinus tachycardia from 132-165 noted History of cardiovascular stress test 11/25/2020 Exercise Stress test with Stress Echo - No exercise induced chest pain or ekg changes, suboptimal exercise for age, hypertensive exercise response History of PFTs 05/2020 Severe airflow obstruction, no significant post dilator response, lung volumes consistent with air trapping. Normal DLCO. Hyperlipidemia Hypertension Intermittent explosive disorder Left carotid artery occlusion Nicotine dependence, cigarettes, with other nicotine-induced disorders PTSD (post-traumatic stress disorder) Surgical History H/O inguinal hernia repair Family History (Updated 10/26/22 @ 18:03 by Sara Linton MD) Mother Sarcoid Other Asthma CAD (coronary artery disease) Cancer Emphysema/COPD Hyperlipidemia Hypertension Stroke Denies family history of Clotting disorder Chronic kidney disease (CKD) Anesthesia complication Bleeding disorder Family history of premature coronary artery disease Social History (Updated 10/26/22 @ 18:04 by Sara Linton MD) Smoking and tobacco status: current every day smoker cigarettes Packs smoked per day: 0.5 Years cigarettes smoked: 32 [ Other cigarette details: onset age 10-9 years] Quit status (tobacco): has tried quititng Number of times tried to quit tobacco: 12 Second hand smoke exposure: Yes Alcohol intake: current Alcohol intake frequency: holidays/special occasions only Substance/Drug Use: current Substance/Drug use type: Marijuana Lives independently: Yes Household members: other Details: room mate Housing: House Marital status: service: No 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 Used other drugs in the past but denies any history of IV drugs ever. Has been treated in the past with lithium for his psychiatric diagnoses as described with good success but did not maintain medical care on a regular basis sufficient to allow ongoing treatment. Describes several psychiatric medications making him more agitated. Indicates that if he has to quit smoking getting back on medications for his psychiatric problems may help him be more successful. Not necessarily interested in follow-up at [facility] if could be managed through primary care. Has not seen a primary care provider for some time but previously went to [facility]. Expresses desire to establish primary care through [facility] if possible. Vitals/I&O/Wt Last Vital Signs Temp 99.3 F 10/26/22 08:45 Pulse 93 10/26/22 11:00 Resp 15 10/26/22 12:00 BP 151/104 10/26/22 12:00 Pulse Ox 96 10/26/22 12:00 O2 Del Method 10/26/22 12:00 Weight last 48 hrs Weight 95.254 kg Physical Exam Narrative: Constitutional: Awake and alert, able to provide history, no acute distress HEENT: Normocephalic, atraumatic, extraocular movements are intact, moist mucous membranes Neck: Supple Respiratory: Clear to auscultation bilaterally Cardiovascular: Regular rate and rhythm, no murmurs Abdomen: Soft, nontender Extremities: No pitting edema to the lower extremities, no left calf tenderness, some tenderness with palpation of left foot, significantly prolonged capillary refill at the left first second and third toes with a dusky appearance that darkens more distally, no open sores or other findings at this time. Brisk capillary refill and 1+ palpable dorsalis pedis on the right foot. Skin: Scabbed over scratch to the left neck with some surrounding erythema but no bruising, few other minor skin findings in addition to that documented above for the left foot Neuro: Speech clear, face symmetric, moves all extremities, no abnormal movements Psych: Normal affect Data 10/26/22 13:05 10/26/22 13:05 Other Labs: Laboratory Results WBC 9.3 10^3/uL (4.0-10.0) 10/26/22 13:05 RBC 5.15 10^6/uL (4.1-5.3) 10/26/22 13:05 Hgb 15.9 g/dL (11.7-16.6) 10/26/22 13:05 Hct 47.2 % (42.0-52.0) 10/26/22 13:05 MCV 91.7 fl (80-94) 10/26/22 13:05 MCH 30.9 pg (28.0-34.0) 10/26/22 13:05 MCHC 33.7 g/dL (30.0-36.0) 10/26/22 13:05 RDW 14.0 % (12.1-15.1) 10/26/22 13:05 Plt Count 164 10^3/cmm (130-400) 10/26/22 13:05 MPV 8.9 fL (7.4-10.4) 10/26/22 13:05 Neut % (Auto) 62.4 % 10/26/22 13:05 Lymph % (Auto) 26.0 % 10/26/22 13:05 [place] % (Auto) 9.9 % 10/26/22 13:05 Eos % (Auto) 1.2 % 10/26/22 13:05 Baso % (Auto) 0.3 % 10/26/22 13:05 Neut # (Auto) 5.79 10^3/uL (1.8-7.7) 10/26/22 13:05 Lymph # (Auto) 2.4 10^3/uL (0.8-4.8) 10/26/22 13:05 [place] # (Auto) 0.9 10^3/uL (0.2-0.9) 10/26/22 13:05 Eos # (Auto) 0.1 10^3/uL (0.0-0.8) 10/26/22 13:05 Baso # (Auto) 0.0 10^3/uL (0.0-0.1) 10/26/22 13:05 Nucleated RBC % (auto) 0 % 10/26/22 13:05 Nucleated RBCs # 0.0 /100WBC 10/26/22 13:05 PT 14.90 SECONDS (12.1-14.9) 10/26/22 13:05 INR 1.14 (0.8-1.2) 10/26/22 13:05 APTT 225.4 SECONDS (23.9-36.7) H* 10/26/22 13:05 Sodium 137 mmol/L (136-145) 10/26/22 13:05 Potassium 3.6 mmol/L (3.5-5.1) 10/26/22 13:05 Chloride 102 mmol/L (98-107) 10/26/22 13:05 Carbon Dioxide 23 mmol/L (22-29) 10/26/22 13:05 Anion Gap 15.6 (5-19) 10/26/22 13:05 BUN 13 mg/dL (6-20) 10/26/22 13:05 Creatinine 0.8 mg/dL (0.7-1.2) 10/26/22 13:05 GFR Calculation 104.5 mL/min (90-130) 10/26/22 13:05 Glucose 156 mg/dL (65-115) H 10/26/22 13:05 Calculated Osmolality 287 mOsm/kg (285-295) 10/26/22 13:05 Calcium 9.3 mg/dL (8.5-10.5) 10/26/22 13:05 Total Bilirubin 0.8 mg/dL (0.15-1.2) 10/26/22 13:05 AST 17 U/L (0-40) 10/26/22 13:05 ALT 11 U/L (0-41) 10/26/22 13:05 Alkaline Phosphatase 147 U/L (40-130) H 10/26/22 13:05 Total Protein 7.7 g/dL (6.6-8.7) 10/26/22 13:05 Albumin 4.4 g/dL (3.5-5.2) 10/26/22 13:05 Globulin 3.3 g/dL (1.3-4.6) 10/26/22 13:05 A&P Assessment and plan (1) Critical limb ischemia of left lower extremity: EN 0.4, progressively worsening claudication symptoms lately occurring now with only a few steps, known history of left carotid artery occlusion and prior stroke, nicotine dependence with cigarettes, hyperlipidemia and hypertension not currently on treatment (2) Hyperlipidemia: Had previously been on statin therapy, no treatment for some time, no recent lipid panel Qualifiers: Hyperlipidemia type: unspecified Qualified Code(s): E78.5 - Hyperlipidemia, unspecified (3) Hypertension: Had previously been managed with chlorthalidone and lisinopril, no treatment for some time. Blood pressures on arrival with both systolic and diastolic hypertension evident. Pressures noted to be as high as 170s over 110s. Qualifiers: Hypertension type: unspecified Qualified Code(s): I10 - Essential (primary) hypertension (4) Nicotine dependence, cigarettes, with other nicotine-induced disorders: Has been smoking cigarettes since the age of 10 or 11 (5) COPD (chronic obstructive pulmonary disease): Not currently acute Qualifiers: COPD type: emphysema Emphysema type: panlobular Qualified Code(s): J43.1 - Panlobular emphysema Plan Hyperglycemia without a history of diabetes History of psychiatric diagnoses PTSD, intermittent explosive disorder and bipolar disorder not currently on treatment though potentially interested in getting back on medications Observation admission for now Continue heparin drip initiated in the emergency room Cardiology consultation for invasive evaluation and management Continue Nitropaste presently for blood pressure though will need to transition to other management at discharge, previously on chlorthalidone and lisinopril Resume statin therapy Check lipid panel Check hemoglobin A1c Evaluate for antiphospholipid syndrome/hypercoagulable work-up given young age and recurrent significant arterial occlusion Pain control as needed Had long conversation with patient regarding smoking cessation importance including risk of further limb ischemia, loss of limbs, risk of recurrent stroke, heart attack, kidney disease cancer among other diagnoses. We reviewed various modalities of smoking cessation including nicotine replacement and the fact that risk of vascular damage continues with this, other forms of pharmacological assistance, regular gum chewing, other oral fixation and hand occupying activities. Reviewed general timelines for actual nicotine addiction versus behavioral addiction and need to evaluate alternative calming and relaxation techniques. Referenced outpatient tobacco cessation classes as well. Total time focused on educating about the negative effects of nicotine/tobacco and ways to quit smoking 15 minutes Breathing treatments if needed Will need prescriptions for medications at discharge Will ask case management to facilitate arrangement of PCP At discharge anticipate follow-up with a primary care provider, Dr. Alexander post procedure/Dr. Samuels whom he has previously seen from cardiology standpoint. He has seen Dr. López from pulmonology and also Dr. Jay with neurology in the past here. Importance of follow-up with medical providers as well as compliance with medications stressed with the patient Overall findings, concerns, reasons for ischemia and plans were discussed with patient in the presence of his mother and daughter with his permission. All were given an opportunity to ask questions. I was very suzette with the patient about the role of smoking and nicotine use in the development of occlusion both in his neck and now his leg as described above. Patient expressed a willingness to try along with acknowledgment that it would be a challenge. Supportive care otherwise Full code Attestations Medical Necessity Statement*: Currently anticipate a stay less than two midnights in a gentleman with critical limb ischemia. He has been started on heparin drip and will undergo peripheral angiogram by cardiology. Other issues and plans of care as noted above. At risk of loss of limb without full anticoagulation, close monitoring and invasive evaluation/treatment. Coding Level of Care Code Acute Crate Opener for [facility] Fwd Diagnoses Critical limb ischemia of left lower extremity I70.222 Hyperlipidemia E78.5 Hyperlipidemia type: unspecified Hypertension I10 Hypertension type: unspecified Nicotine dependence, cigarettes, with other nicotine-induced disorders F17.218 COPD (chronic obstructive pulmonary disease) J43.1 COPD type: emphysema Emphysema type: panlobular Comment CPT 65056
--- NOTE | 2022-10-26 16:39 | PC.NURSE ---
Patient's APTT was 225.4 and patient arrived from the ER on a Heparin Drip at 14 units/kg/hr. Heparin drip was stopped until a stat repeat PTT could be drawn. Jerardo Med-Surg food and beverage service manager notified.
[2022-10-26 17:11] LABS: Partial Thromboplastin Time 31.8 SECONDS (23.9-36.7)
[2022-10-26] MEDS: sodium chlor 0.9% + KCl 20 mEq 20 MEQ/1,000 ML BAG 100 MEQ IV (18:30)
--- NOTE | 2022-10-26 19:05 | PC.NURSE ---
Bedside report to Carolyn ECHEVERRIA at this time.
[2022-10-26] MEDS: atorvastatin 40 mg Tablet PO (20:32)
[2022-10-26 23:33] LABS: Partial Thromboplastin Time 46.1 SECONDS (23.9-36.7)
[2022-10-27] VITALS (27 sets, daily range): BP systolic 134–176; BP diastolic 68–102; PULSE 58–99; RESP 10–24; TEMP 36.6; O2SAT 94–99
[2022-10-27] MEDS: heparin 5,000 unit/mL INJ 1 mL IV (00:23)
[2022-10-27] MEDS: sodium chlor 0.9% + KCl 20 mEq 20 MEQ/1,000 ML BAG 100 MEQ IV (04:07)
[2022-10-27] MEDS: nitroglycerin 1 gm/inch oint Pkt 0.5 INCH TOPICAL ×2 (05:57→12:33)
[2022-10-27] MEDS: heparin drip 25,000 UNIT/500 ML PREMIX 29 UNIT IV (05:57)
[2022-10-27 06:44] LABS: Basophils % 0.4 %; Eosinophils # 0.2 10^3/uL (0.0-0.8); Eosinophils % 2.1 %; Hematocrit 45.9 % (42.0-52.0); Lymphocytes # 2.4 10^3/uL (0.8-4.8); Lymphocytes % 33.5 %; Mean Corpuscular HGB Conc 32.7 g/dL (30.0-36.0); Mean Corpuscular Hemoglobin 30.5 pg (28.0-34.0); Mean Corpuscular Volume 93.3 fl (80-94); Mean Platelet Volume 9.1 fL (7.4-10.4); Monocytes # 0.8 10^3/uL (0.2-0.9); Monocytes % 11.2 %; Neutrophils # 3.71 10^3/uL (1.8-7.7); Neutrophils % 52.5 %; Nucleated Red Blood Cells % 0 %; Platelet Count 160 10^3/cmm (130-400); Red Blood Count 4.92 10^6/uL (4.1-5.3); White Blood Count 7.1 10^3/uL (4.0-10.0)
--- NOTE | 2022-10-27 06:45 | XACV_ITS ---
Ht: 191 cm Wt: 95 kg BSA: 2.25 m2 Any Known Allergies: No known allergies Gender: Male : 1975 Exam Type: Invasive Peripheral Vascular Procedure(s): Procedure Description: Peripheral Cath Diagnostic Procedure Procedure Description: Abdominal aortic angiography Procedure Description: Iliac arterial aortic angiography Procedure Description: Lower extremities' angiography Exam Priority: Routine Abdominal Diagnostic Findings Abdominal aorta just below renal artery takeoff is totally occluded. All blood supply downstream is through collateral blood supply. Lower Extremity Diagnostic Findings INDICATION: Critical limb ischemia/resting leg pain of left lower extremity. Left lower extremity findings: Left common iliac artery: Occluded. Left external iliac artery: Reconstitutes via collaterals. Patent. Left common femoral artery: Patent. Left profunda artery: Patent. Left SFA: Patent. Left popliteal artery: Has thrombus in it. Patient has formed collateral blood flow around it which reconstitute posterior tibial and peroneal arteries. Anterior tibial artery appears to be occluded. TP segment also has a significant thrombus in it. . Right lower extermity findings: Right common iliac artery: Occluded. Right external iliac artery: Reconstitutes via collaterals. Patent. Right common femoral artery: Patent. Right profunda artery: Patent. Right SFA: Patent. Right popliteal artery:Patent Right TP segment: Patent and Right anterior tibial artery: Occluded Right peroneal artery: Patent (sluggish flow) Right PT: Patent (sluggish flow) . Procedure detail: We obtained access initially and right common femoral artery with intent of fixing left lower extremity. However pulses were very faint and common femoral artery and had to use ultrasound guidance to obtain access. On no femoral angiogram it was obvious that right common iliac artery is occluded. We then proceeded with obtaining access in left common femoral artery. Left common iliac artery was also occluded. Eventually we obtained access in right radial artery and put a pigtail catheter and abdominal aorta to obtain a abdominal aortogram.. Conclusions Severe peripheral artery disease with totally occluded abdominal aorta below the takeoff of renal arteries. All downstream blood flow is through collaterals. Totally occluded bilateral common iliac arteries. Bilateral external iliac arteries are reconstituted via collaterals. Thrombus is seen in the popliteal artery extending down to TP segment. Collaterals have formed around totally occluded popliteal/TP segment and reconstituting the peroneal and posterior tibial arteries. Recommendations Transferred back to CSU. Resume heparin drip. We will transfer patient to tertiary care center for complete revascularization attempt. Patient's left foot is warm with intact sensation and movement. Hemodynamic Data Phase:Rest AO : 103.0 / 75.0 ( 89.0 ) @ 8:41:00 AM 106.0 / 74.0 ( 91.0 ) @ 8:42:00 AM Access Site Site: Right Femoral artery Sheath Size: 6 Fr Hemost... Method: Suture Hemost... Success: Successful Site: Left Femoral artery Sheath Size: 5 Fr Hemost... Method: Suture Hemost... Success: Successful Site: Right Radial artery Sheath Size: 6 Fr Hemost... Method: TR Band Hemost... Success: Successful Procedure Details Findings Pre-Procedure Time Out. Identified patient by full name and date of as verbalized by the patient/guarantor. Does the consent match the physician's order: Yes. Accurate & Complete Informed Consent: Yes. Inpatient/Outpatient History & Physical on Chart: Yes. If H&P is completed, is and addenduem needed: No; If yes, is the addendum complete: N/A. Visualize and Verify Site with Patient/Guarantor: N/A. Relevant Radiology Images available: Yes. Pre-op teaching completed and patient verbalized understanding. The risks, benefits, and alternatives of sedation and/or procedure were discussed by physician. The patient agrees to continue. Procedure started. PERRLA. Strong, equal hand apparel machinery instructor bilaterally. Lungs clear x 5 lobes. IV Site on Arrival: 18 gauge in the right anticubital. IV Fluids: 0.9% NaCl at KVO. 0 mL infused prior to screedman/laborer. Pre Procedural Pulses: bilateral dorsalis pedis was Doppled. Pre Procedural Pulses: bilateral posterior tibial was Doppled. Oxygen started at 2liters/min via nasal canula. bilateral groins was prepped with chloroprep then draped in the usual sterile fashion. Physician notified. Baseline sample Acquired. HR: 77 BPM. Physician arrived. Physician scrubbed in. Time out performed with cath team. Lidocaine 1% infiltrated to the right groin. Ultrasound used to obtain access. Arterial access obtained with micropuncture set. Supply: Glidesheath x 3. A Right femoral angiogram was performed. Sheath injected in Right common femoral artery and runoff performed. Sheath injected in Right common femoral artery a DSA performed below the knee. Lidocaine 1% infiltrated to the left groin. Arterial access obtained with micropuncture set. A Left femoral angiogram was performed. Sheath injected in Left common femoral artery and runoff performed. Sheath injected in Left common femoral artery and DSA performed of below the knee. Physician review of cine films. right radial was prepped with chloroprep then draped in the usual sterile fashion. Lidocaine 1% infiltrated to the right radial. Arterial access obtained. A 6 angolan Angled Pig catheter in over wire. Wire out. Glidewire inserted. Catheter out OTW. A 5 angolan JR4 catheter in over wire. Catheter removed over the glide wire. A 6 angolan Angled Pig catheter in over wire. DSA Abdominal aortogram performed in AP @ 10 mL/sec for a total of 30 mL. DSA Abdominal aortogram performed in AP @ 10 mL/sec for a total of 30 mL. Catheter removed over the glide wire. ACT drawn. Results 133 seconds. Therapeutic limits - pre-heparin administration 90-150 seconds and monitoring heparin during a vascular procedure >250 seconds. A TR Band was successful obtaining hemostatsis at the Right Radial artery insertion site. A Suture was successful obtaining hemostatsis at the Right Femoral artery insertion site. A Suture was successful obtaining hemostatsis at the Left Femoral artery insertion site. Arterial sheath flushed and connected to tranducer and pressure bag with heparinized saline. Post Procedure: Pulses reassessed and unchanged. PERRLA. Strong, equal hand apparel machinery instructor bilaterally. Total IV fluids: 60 mL. No VTE prophylaxis required. Medication's Wasted: Other = Fentanyl 75 mg. Post-op diagnosis: PAD. Complications: None. Estimated blood loss: 5mL-10mL. Responsiveness - Normal response to verbal stimuli; alert and oriented, PERRLA. Airway - Unaffected, no intervention required; spontaneous ventilation. Circulation: W/N/L, pulses unchanged. Nausea/Vomiting: No. Procedure completed. Patient transferred by bed to CPRU. Vital chart was stopped. Procedure Medications Start: 7:43 AM Stop: 7:43 AM Medication: Fentanyl Amount: 50 mcg Route: I.V. Start: 7:45 AM Stop: 7:45 AM Medication: Versed Amount: 1 mg Route: I.V. Start: 7:51 AM Stop: 7:51 AM Medication: Versed Amount: 1 mg Route: I.V. Start: 7:54 AM Stop: 7:54 AM Medication: Versed 1 mg and Fentanyl 25 mcg Amount: 1 Route: I.V. Start: 8:01 AM Stop: 8:01 AM Medication: Benadryl Amount: 50 mg Route: I.V. Start: 8:15 AM Stop: 8:15 AM Medication: Versed Amount: 1 mg Route: I.V. Start: 8:19 AM Stop: 8:19 AM Medication: Fentanyl Amount: 25 mcg Route: I.V. Start: 8:29 AM Stop: 8:29 AM Medication: Nitrogylcerin Amount: 200 mcg Route: I.A. Start: 8:33 AM Stop: 8:33 AM Medication: Heparin Amount: 2000 units Route: I.V. Start: 8:35 AM Stop: 8:35 AM Medication: Versed Amount: 1 mg Route: I.V. Start: 8:52 AM Stop: 8:52 AM Medication: Versed Amount: 1 mg Route: I.V. Start: 8:53 AM Stop: 8:53 AM Medication: Fentanyl Amount: 50 mcg Route: I.V. I, the attending physician, have reviewed and verified all procedure medications. Yes, all medications given per verbal order History/Risk Factors Hypertension: Yes Dyslipidemia: Yes Peripheral Arterial Disease (PAD): Yes Obesity: No Renal Disease: No Prior Interventions PCI: No CABG: No Valve Surgery: No Report Signatures Finalized by Sandeep Alexander MD on 11/05/2022 01:58 PM
[2022-10-27 07:04] LABS: Magnesium 1.8 mg/dL (1.7-2.3); Phosphorus 2.4 mg/dL (2.5-4.5)
[2022-10-27 07:05] LABS: Anion Gap 13.7 (5-19); Blood Urea Nitrogen 15 mg/dL (6-20); Calcium 9.2 mg/dL (8.5-10.5); Carbon Dioxide 24 mmol/L (22-29); Chloride 107 mmol/L (98-107); Creatinine Clr Calc Pharmacy 117.1688; Glomerular Filtration Rate 80.8 mL/min (90-130); Glucose 134 mg/dL (65-115); Osmolality Calculated 293 mOsm/kg (285-295); Potassium 4.7 mmol/L (3.5-5.1); Sodium 140 mmol/L (136-145)
[2022-10-27 07:06] LABS: Chol HDL Ratio 6.18 mg/dL (1.0-5.00); Cholesterol 278 mg/dL (0-200); HDL Cholesterol 45 mg/dL (60-100); LDL Cholesterol Calculated 211 mg/dL (50-129); LDL HDL Ratio 4.69 RATIO (0.00-3.22); Triglycerides 108 mg/dL (0-150)
[2022-10-27 07:09] LABS: Estmated Average Glucose 108; Hemoglobin A1C 5.4 % (4.0-6.0)
[2022-10-27 07:12] LABS: Partial Thromboplastin Time 78.2 SECONDS (23.9-36.7)
--- NOTE | 2022-10-27 07:24 | PC.NURSE ---
greens laborer RN at bedside, discontinued heparin drip, and transported patient to greens laborer via bed.
--- NOTE | 2022-10-27 07:50 | W.PM.OPSUD ---
Surgery/Procedure H&P Update DATE OF PROCEDURE: October 27, 2022 DATE H&P PERFORMED: 10/26/22 H&P UPDATE INFORMATION: I have reviewed H&P completed within last 30 days, I have examined patient prior to procedure and No changes to prior documentation PREOP DIAGNOSIS: Resting leg pain/ critical limb ischemia PRIMARY INDICATION FOR PROCEDURE: Resting leg pain/ critical limb ischemia PLANNED PROCEDURE: Peripheral angiogram with possible percutaneous intervention PATIENT REASSESSED PRIOR TO SEDATION, WITH NO CHANGE NOTED: Yes PHYSICAL EXAM: alert, oriented x 3, clear to auscultation bilaterally and regular rate & rhythm AIRWAY EVAL/ANESTHESIA PLAN: normal airway, ASA III, Local Anesthesia, Risks, benefits & alternatives of sedation and/or procedure discussed and Patient agrees to continue as planned ADDITIONAL INFORMATION: Moderate sedation
--- NOTE | 2022-10-27 09:24 | PM.PN ---
Subjective Subjective: Patient underwent peripheral angiogram today. He has totally occluded abdominal aorta just below the renal arteries takeoff with only collateral blood flow below. Has bilateral common iliac occlusion with reconstitution via collaterals. Blood flow is normal till distal SFA on the left lower extremity. In the popliteal artery patient has a thrombus that is extending into the TP segment. Anterior tibial artery is occluded. Reconstitution of posterior tibial and peroneal arteries through collaterals. Patient has two-vessel runoff on the right lower extremity with patent peroneal and posterior tibial arteries which have very sluggish flow. Vitals/I&O/Wt Last Vital Signs Temp 97.9 F 10/27/22 04:00 Pulse 72 10/27/22 07:59 Resp 16 10/27/22 07:59 BP 151/89 10/27/22 04:00 Pulse Ox 96 10/27/22 07:59 O2 Del Method 10/27/22 07:59 10/26/22 10/27/22 10/27/22 22:59 06:59 14:59 Intake Total 240 / 240 1466.844 / 1706.844 42.05 / 42.05 Balance 240 / 240 1466.844 / 1706.844 42.05 / 42.05 Weight last 48 hrs Weight 210 lb Physical Exam Narrative: GENERAL: Patient is alert, awake and oriented x3. [] NECK: No jugular vein distension. [] HEENT: No cyanosis. No icterus. No pallor. [] HEART: Regular S1 and S2. No murmur, rub or gallop. [] LUNGS: Clear to auscultate bilaterally. [] ABDOMEN: Soft, nontender and nondistended. Positive bowel sounds. No guarding, rebound or tenderness. [] CENTRAL NERVOUS SYSTEM: Grossly nonfocal. [] EXTREMITIES: Lower extremities with 1+ edema bilaterally. Pulses are not palpable. Data 10/27/22 06:28 10/27/22 06:28 A&P Assessment and plan (1) Critical limb ischemia of left lower extremity: (2) Peripheral artery disease: (3) Left carotid artery occlusion: (4) Smoker: (5) COPD (chronic obstructive pulmonary disease): Qualifiers: COPD type: emphysema Emphysema type: panlobular Qualified Code(s): J43.1 - Panlobular emphysema (6) Hyperlipidemia: Qualifiers: Hyperlipidemia type: unspecified Qualified Code(s): E78.5 - Hyperlipidemia, unspecified (7) Hypertension: Qualifiers: Hypertension type: unspecified Qualified Code(s): I10 - Essential (primary) hypertension Plan Patient has above-mentioned anatomy and a thrombus in the popliteal artery extending down to TP trunk with the collaterals reconstituting the posterior tibial and peroneal arteries. With heparin drip, his resting leg pain has resolved. We will transfer him to a tertiary care center with vascular surgery availability for complete revascularization. Restart heparin drip once sheaths are out Thank you for involving us with care of this patient. We will continue to follow. Please call with questions. Attestations Medical Necessity Statement*: Care expected to cross 2 midnights. Coding Level of Care Code Acute Body Trimmer Upholsterer for Mary Rey Diagnoses Critical limb ischemia of left lower extremity I70.222 Peripheral artery disease I73.9 Left carotid artery occlusion I65.22 Smoker F17.200 COPD (chronic obstructive pulmonary disease) J43.1 COPD type: emphysema Emphysema type: panlobular Hyperlipidemia E78.5 Hyperlipidemia type: unspecified Hypertension I10 Hypertension type: unspecified
--- NOTE | 2022-10-27 10:19 | PC.NURSE ---
report called to Melonie SHEN
--- NOTE | 2022-10-27 10:20 | SUR.EXTENDED ---
0915: Received the patient back from the scientific laboratory supervisor s/p diagnostic peripheral angiogram. patient alert and oriented x 3. cardiac cath tech placed and vital signs obtained. TR band to the right radial noted to be intact with no bleeding or hematoma noted. palpable radial pulse. 6 fr sheath sutured in the right femoral to pressure bag. 5 fr sheath sutured in the left groin. both soft with no bleeding or hematoma noted. dressings dry and intact. 0920: 6 fr sheath to the right groin pulled. manual pressure held x 20 minutes with no bleeding or hematoma noted. a dressing was applied to the site. Fenatnyl 25mcg was given IV prior to the pull per protocol. 0940: 5 fr sheath to the right groin pulled. manual pressure held x 20 minutes with no bleeding or hematoma noted. a dressing was applied to the site. Fenatnyl 25mcg was given IV prior to the pull per protocol. 1000: Mother at bedside. Post femoral sheath pull instructions given to the patient and his mother. they both verbally gave their understanding. 1015: Dr. Alexander at bedside to answer questions about the procedure and the future plans. the patient and his mother had no concerns voiced at this time. Will transfer to [facility] soon.
--- NOTE | 2022-10-27 10:35 | SUR.EXTENDED ---
patient transferred via bed to [facility] with RT William(R) and Stefany Martinez RN.
[2022-10-27] MEDS: sodium chloride 0.9% 1,000 ML 100 ML IV (10:45)
[2022-10-27 11:51] LABS: Erythrocyte Sedimentation Rate 40 mm/hr (0-10)
[2022-10-27 12:03] LABS: Procalcitonin 0.05 ng/mL (0-0.5); Thyroid Stimulating Hormone 1.57 uIU/mL (0.27-4.20); Vitamin B12 307 pg/mL (232-1245)
[2022-10-27 12:17] LABS: C Reactive Protein 48.7 mg/L (0.0-4.9); Iron 57 ug/dL (59-158); Percent Saturation 20.6 % (20-50); Total Iron Binding Capacity 276 mcg/dl; Unsaturated Iron Binding 219 ug/dL (112-347)
--- NOTE | 2022-10-27 12:19 | PC.NURSE ---
received from cardiac laboratory mechanical technician in to room 111-1 via bed,at 1045.report received.pt alert and oriented x 4.sr on monitor.denies pain at present.right radial tr band on and inflated.right hand is warm to touch and with brisk capillary refill.palpable radial pulse noted distal to tr band.no hematoma noted.left and right femoral areas with drsgs dry and intact (bilat sheaths pulled by laboratory mechanical technician staff).no hematoma noted.dopplerable pt and dp pulses noted on right foot.unable to dopple dp/pt pulses on left foot.bilat feet are cool to touch..and have slow capillary refill.pt oriented to room environment.pt instructed in activity restrictions s/p radial and femoral arterial sheath removal...and instructed to notify staff for any bleeding,pain,numbness,or for any concerns at all.pt verb understanding of instructions
[2022-10-27] MEDS: aspirin 81 mg EC Tablet PO (12:33)
[2022-10-27] MEDS: amlodipine 10 mg Tablet PO (12:34)
[2022-10-27 12:54] LABS: Folate Level 7.6 ng/mL (4.5-32.2)
[2022-10-27 13:19] LABS: Partial Thromboplastin Time 27.4 SECONDS (23.9-36.7)
[2022-10-27 14:18] LABS: Add Urine Microscopic? NO; Charge for UA Resulting for Rev
[2022-10-27 14:22] LABS: Bilirubin Urine Neg (Negative); Blood Urine Neg (Negative); Glucose Urine UA Norm (Normal); Ketones Urine Negative (Negative); Leukocyte Esterase Urine Negative (Negative); Nitrate Urine Negative (Negative); Protein Urine Neg (Negative); Urine Appearance Clear (CLEAR); Urine Color Amber (Yellow); Urobilinogen Urine Norm (Negative); pH Urine 5 (5-7)
--- NOTE | 2022-10-27 15:39 | PM.TDS ---
Transfer Summary Providers Date of Admission: 10/26/22 15:01 Date of Discharge/Transfer: 10/27/22 Attending Provider at Admission: Sara Linton MD Attending Provider at Transfer: Darwin Candelaria MD Primary Care Provider: Axel Torres NP Transfer Plans: Anticipated date of transfer: 10/27/22. Receiving Facility: [facility]. Receiving Provider: Dr. Travis. Diagnoses at Discharge Discharge Diagnosis (1) Critical limb ischemia of left lower extremity: Status: Acute (2) Peripheral artery disease: Status: Acute (3) Left carotid artery occlusion: Status: Chronic (4) Smoker: Status: Chronic (5) COPD (chronic obstructive pulmonary disease): Status: Chronic Qualifiers: COPD type: emphysema Emphysema type: panlobular Qualified Code(s): J43.1 - Panlobular emphysema (6) Hyperlipidemia: Status: Chronic Qualifiers: Hyperlipidemia type: unspecified Qualified Code(s): E78.5 - Hyperlipidemia, unspecified (7) Hypertension: Status: Chronic Qualifiers: Hypertension type: unspecified Qualified Code(s): I10 - Essential (primary) hypertension Reason for Visit Reason for Visit Leg pain Brief History: History as per HPI: Esequiel Munoz is a 47 year old male who presented to the emergency room chief complaint of pain in his left lower extremity that has been progressing over the last couple of weeks and in particular since [place] much worse.? Pain initially started in his knee area and then went down to his calf.? The last few days its been on the inside part of his foot and at his toes.? His toes have been cold and has not been able to warm them.? Pain is been described as severe.? It occurs after only a few steps.? Sometimes he has the pain at rest.? In the emergency room he had a duskiness to his left lower extremity.? Stat arterial ultrasound evaluation revealed an EN of 0.4 consistent with suspected diagnosis of critical limb ischemia.? Patient was started on heparin drip.? Case was reviewed with cardiology who plans for invasive peripheral vascular evaluation and treatment.? Patient has a history of a known occluded left carotid artery, previous strokes and intermittent amaurosis fugax.? He has a longstanding history of smoking with onset at age 10 or 11.? In addition to smoking cigarettes he does smoke marijuana.? He has a known history of hypertension and hyperlipidemia but has not been on any treatment for these for some time.? He previously took antiplatelet therapy with aspirin and Plavix but has also been off of these.? He just does not like to go to doctors and is not great at following through on things that he needs to.? Him and his mother gave the example of him completing his homework when he was in school but just forgetting to turn it in.? He has a history of bipolar tendencies and what he described as intermittent explosive disorder and PTSD.? He has been followed at [facility] in the past and was tried on multiple different medications.? By his recollection lithium worked the best but has not been on it in some time.? Smoking both cigarettes and marijuana as a way for him to handle his symptoms and to help keep him from getting upset about things.? His breathing has been doing okay lately despite not having inhalers though he admits that he is used to a baseline degree of shortness of breath.? He denies any recent chest pain.? He has had previous work-up to include exercise stress test with stress echocardiogram, Holter monitoring and pulmonary function studies.? Results are as noted in the computer.? He has not had any recent fevers or infections.? No reports of any bleeding.? He indicates that his left lower extremity is feeling warmer and not as painful since heparin was started in the emergency room.? He is being admitted to the hospitalist service with cardiology consultation. Hospital Course Hospital Course Patient was admitted to the hospital with concern for acute limb ischemia. Cardiology was consulted. He was started on heparin drip. Arterial duplex showed EN of 0.4. He underwent peripheral angiogram on 10/27. He has totally occluded abdominal aorta just below the renal arteries takeoff with only collateral blood flow below.? Has bilateral common iliac occlusion with reconstitution via collaterals.? Blood flow is normal till distal SFA on the left lower extremity.? In the popliteal artery patient has a thrombus that is extending into the TP segment.? Anterior tibial artery is occluded.? Reconstitution of posterior tibial and peroneal arteries through collaterals.? Patient has two-vessel runoff on the right lower extremity with patent peroneal and posterior tibial arteries which have very sluggish flow. Patient as per above showed thrombus in the popliteal artery extending down to TP trunk with collaterals reconstituting the posterior tibial and poor renal arteries. With heparin drip. Resting pain had resolved. Patient needed transfer to otology center with vascular surgeon availability for complete vascularization. Finally patient was septic by vascular surgeon at [facility]. Heparin drip was continued. He was transferred in hemodynamically stable condition. Physical Exam Narrative: Constitutional: Awake and alert, able to provide history, no acute distress HEENT: Normocephalic, atraumatic, extraocular movements are intact, moist mucous membranes Neck: Supple Respiratory: Clear to auscultation bilaterally Cardiovascular: Regular rate and rhythm, no murmurs Abdomen: Soft, nontender Extremities: No pitting edema to the lower extremities, no left calf tenderness, some tenderness with palpation of left foot, significantly prolonged capillary refill at the left first second and third toes with a dusky appearance that darkens more distally, no open sores or other findings at this time. Brisk capillary refill and 1+ palpable dorsalis pedis on the right foot. Skin: Scabbed over scratch to the left neck with some surrounding erythema but no bruising, few other minor skin findings in addition to that documented above for the left foot Neuro: Speech clear, face symmetric, moves all extremities, no abnormal movements Psych: Normal affect TS Data Studies Completed and Pending Pending at discharge Category Date Time Status ENGINE PILOT request for service Routine Exams 10/27/22 06:45 Ordered Anti-Cariolipin IgA AB Routine Lab 10/28/22 04:00 Ordered Beta 2 Glycoprotein AB Routine Lab 10/28/22 04:00 Ordered Complete Blood Count w/Auto AM LABS Lab 10/28/22 04:00 Ordered Comprehensive Metabolic Panel AM LABS Lab 10/28/22 04:00 Ordered Factor 5 Leiden Mutation Routine Lab 10/26/22 13:05 Received Lupus Inhibitor Panel Anticoag Routine Lab 10/27/22 06:28 Received PROTEIN C, ACTIVITY Routine Lab 10/26/22 13:05 Received PROTEIN S, ACTIVITY Routine Lab 10/26/22 13:05 Received Platelet Count Q2D Lab 10/28/22 04:00 Ordered Platelet Count Q2D Lab 10/30/22 04:00 Ordered Labs from last 24 hours 10/27/22 10/27/22 10/27/22 14:00 12:50 06:28 WBC RBC Hgb Hct MCV MCH MCHC RDW Plt Count MPV Neut % (Auto) Lymph % (Auto) [place] % (Auto) Eos % (Auto) Baso % (Auto) Neut # (Auto) Lymph # (Auto) [place] # (Auto) Eos # (Auto) Baso # (Auto) Nucleated RBC % (auto) Nucleated RBCs # ESR APTT 27.4 D Lupus Anticoagulant LA PTT Screen DRVVT Screen Seconds Prot C Funct Activity Protein S Activity Antithrombin III Activ Factor V Leiden Mutat Factor V Leiden Interp Sodium Potassium Chloride Carbon Dioxide Anion Gap BUN Creatinine GFR Calculation Glucose Estimat Average Glucose Hemoglobin A1c Calculated Osmolality Calcium Phosphorus Magnesium Iron 57 L TIBC 276 % Saturation 20.6 Unsat Iron Binding 219 C-Reactive Protein 48.7 H Triglycerides Cholesterol LDL Cholesterol, Calc HDL Cholesterol LDL/HDL Ratio Cholesterol/HDL Ratio Vitamin B12 307 Folate Procalcitonin 0.05 TSH 1.57 Urine Color Kami Urine Appearance Clear Urine pH 5 Ur Specific [place] 1.010 Urine Protein Neg Urine Glucose (UA) Norm Urine Ketones Negative Urine Blood Neg Urine Nitrate Negative Urine Bilirubin Neg Urine Urobilinogen Norm Ur Leukocyte Esterase Negative 10/27/22 10/27/22 10/27/22 06: 06:28 06:28 WBC RBC Hgb Hct MCV MCH MCHC RDW Plt Count MPV Neut % (Auto) Lymph % (Auto) [place] % (Auto) Eos % (Auto) Baso % (Auto) Neut # (Auto) Lymph # (Auto) [place] # (Auto) Eos # (Auto) Baso # (Auto) Nucleated RBC % (auto) Nucleated RBCs # ESR 40 H APTT 78.2 H D Lupus Anticoagulant LA PTT Screen DRVVT Screen Seconds Prot C Funct Activity Protein S Activity Antithrombin III Activ Factor V Leiden Mutat Factor V Leiden Interp Sodium Potassium Chloride Carbon Dioxide Anion Gap BUN Creatinine GFR Calculation Glucose Estimat Average Glucose Hemoglobin A1c Calculated Osmolality Calcium Phosphorus Magnesium Iron TIBC % Saturation Unsat Iron Binding C-Reactive Protein Triglycerides 108 Cholesterol 278 H LDL Cholesterol, Calc 211 H HDL Cholesterol 45 L LDL/HDL Ratio 4.69 H Cholesterol/HDL Ratio 6.18 H Vitamin B12 Folate Procalcitonin TSH Urine Color Urine Appearance Urine pH Ur Specific [place] Urine Protein Urine Glucose (UA) Urine Ketones Urine Blood Urine Nitrate Urine Bilirubin Urine Urobilinogen Ur Leukocyte Esterase 10/27/22 10/27/22 10/27/22 06:28 06:28 06:28 WBC RBC Hgb Hct MCV MCH MCHC RDW Plt Count MPV Neut % (Auto) Lymph % (Auto) [place] % (Auto) Eos % (Auto) Baso % (Auto) Neut # (Auto) Lymph # (Auto) [place] # (Auto) Eos # (Auto) Baso # (Auto) Nucleated RBC % (auto) Nucleated RBCs # ESR APTT Lupus Anticoagulant Pending LA PTT Screen Pending DRVVT Screen Seconds Pending Prot C Funct Activity Protein S Activity Antithrombin III Activ Factor V Leiden Mutat Factor V Leiden Interp Sodium Potassium Chloride Carbon Dioxide Anion Gap BUN Creatinine GFR Calculation Glucose Estimat Average Glucose 108 Hemoglobin A1c 5.4 Calculated Osmolality Calcium Phosphorus 2.4 L Magnesium 1.8 Iron TIBC % Saturation Unsat Iron Binding C-Reactive Protein Triglycerides Cholesterol LDL Cholesterol, Calc HDL Cholesterol LDL/HDL Ratio Cholesterol/HDL Ratio Vitamin B12 Folate Procalcitonin TSH Urine Color Urine Appearance Urine pH Ur Specific [place] Urine Protein Urine Glucose (UA) Urine Ketones Urine Blood Urine Nitrate Urine Bilirubin Urine Urobilinogen Ur Leukocyte Esterase 10/27/22 10/27/22 10/26/22 06:28 06:28 23:08 WBC 7.1 RBC 4.92 Hgb 15.0 Hct 45.9 MCV 93.3 MCH 30.5 MCHC 32.7 RDW 14.0 Plt Count 160 MPV 9.1 Neut % (Auto) 52.5 Lymph % (Auto) 33.5 [place] % (Auto) 11.2 Eos % (Auto) 2.1 Baso % (Auto) 0.4 Neut # (Auto) 3.71 Lymph # (Auto) 2.4 [place] # (Auto) 0.8 Eos # (Auto) 0.2 Baso # (Auto) 0.0 Nucleated RBC % (auto) 0 Nucleated RBCs # 0.0 ESR APTT 46.1 H Lupus Anticoagulant LA PTT Screen DRVVT Screen Seconds Prot C Funct Activity Protein S Activity Antithrombin III Activ Factor V Leiden Mutat Factor V Leiden Interp Sodium 140 Potassium 4.7 Chloride 107 Carbon Dioxide 24 Anion Gap 13.7 BUN 15 Creatinine 1.0 GFR Calculation 80.8 L Glucose 134 H Estimat Average Glucose Hemoglobin A1c Calculated Osmolality 293 Calcium 9.2 Phosphorus Magnesium Iron TIBC % Saturation Unsat Iron Binding C-Reactive Protein Triglycerides Cholesterol LDL Cholesterol, Calc HDL Cholesterol LDL/HDL Ratio Cholesterol/HDL Ratio Vitamin B12 Folate Procalcitonin TSH Urine Color Urine Appearance Urine pH Ur Specific [place] Urine Protein Urine Glucose (UA) Urine Ketones Urine Blood Urine Nitrate Urine Bilirubin Urine Urobilinogen Ur Leukocyte Esterase 10/26/22 10/26/22 10/26/22 16:43 13:05 13:05 WBC RBC Hgb Hct MCV MCH MCHC RDW Plt Count MPV Neut % (Auto) Lymph % (Auto) [place] % (Auto) Eos % (Auto) Baso % (Auto) Neut # (Auto) Lymph # (Auto) [place] # (Auto) Eos # (Auto) Baso # (Auto) Nucleated RBC % (auto) Nucleated RBCs # ESR APTT 31.8 D Lupus Anticoagulant LA PTT Screen DRVVT Screen Seconds Prot C Funct Activity Protein S Activity Pending Antithrombin III Activ Factor V Leiden Mutat Factor V Leiden Interp Sodium Potassium Chloride Carbon Dioxide Anion Gap BUN Creatinine GFR Calculation Glucose Estimat Average Glucose Hemoglobin A1c Calculated Osmolality Calcium Phosphorus Magnesium Iron TIBC % Saturation Unsat Iron Binding C-Reactive Protein Triglycerides Cholesterol LDL Cholesterol, Calc HDL Cholesterol LDL/HDL Ratio Cholesterol/HDL Ratio Vitamin B12 Folate 7.6 Procalcitonin TSH Urine Color Urine Appearance Urine pH Ur Specific [place] Urine Protein Urine Glucose (UA) Urine Ketones Urine Blood Urine Nitrate Urine Bilirubin Urine Urobilinogen Ur Leukocyte Esterase 10/26/22 10/26/22 10/26/22 13:05 13:05 13:05 WBC RBC Hgb Hct MCV MCH MCHC RDW Plt Count MPV Neut % (Auto) Lymph % (Auto) [place] % (Auto) Eos % (Auto) Baso % (Auto) Neut # (Auto) Lymph # (Auto) [place] # (Auto) Eos # (Auto) Baso # (Auto) Nucleated RBC % (auto) Nucleated RBCs # ESR APTT Lupus Anticoagulant LA PTT Screen DRVVT Screen Seconds Prot C Funct Activity Pending Protein S Activity Antithrombin III Activ Cancelled Factor V Leiden Mutat Pending Factor V Leiden Interp Pending Sodium Potassium Chloride Carbon Dioxide Anion Gap BUN Creatinine GFR Calculation Glucose Estimat Average Glucose Hemoglobin A1c Calculated Osmolality Calcium Phosphorus Magnesium Iron TIBC % Saturation Unsat Iron Binding C-Reactive Protein Triglycerides Cholesterol LDL Cholesterol, Calc HDL Cholesterol LDL/HDL Ratio Cholesterol/HDL Ratio Vitamin B12 Folate Procalcitonin TSH Urine Color Urine Appearance Urine pH Ur Specific [place] Urine Protein Urine Glucose (UA) Urine Ketones Urine Blood Urine Nitrate Urine Bilirubin Urine Urobilinogen Ur Leukocyte Esterase Completed Studies During Hospitalization Category [place] [address] Stat Ultrasound 10/26/22 08:49 Completed Laboratory Last Values WBC 7.1 10^3/uL (4.0-10.0) 10/27/22 06:28 RBC 4.92 10^6/uL (4.1-5.3) 10/27/22 06: Hgb 15.0 g/dL (11.7-16.6) 10/27/22 06:28 Hct 45.9 % (42.0-52.0) 10/27/22 06: MCV 93.3 fl (80-94) 10/27/22 06: MCH 30.5 pg (28.0-34.0) 10/27/22 06: MCHC 32.7 g/dL (30.0-36.0) 10/27/22 06: RDW 14.0 % (12.1-15.1) 10/27/22 06:28 Plt Count 160 10^3/cmm (130-400) 10/27/22 06:28 MPV 9.1 fL (7.4-10.4) 10/27/22 06: Neut % (Auto) 52.5 % 10/27/22 06: Lymph % (Auto) 33.5 % 10/27/22 06:28 [place] % (Auto) 11.2 % 10/27/22 06:28 Eos % (Auto) 2.1 % 10/27/22 06: Baso % (Auto) 0.4 % 10/27/22 06:28 Neut # (Auto) 3.71 10^3/uL (1.8-7.7) 10/27/22 06:28 Lymph # (Auto) 2.4 10^3/uL (0.8-4.8) 10/27/22 06:28 [place] # (Auto) 0.8 10^3/uL (0.2-0.9) 10/27/22 06:28 Eos # (Auto) 0.2 10^3/uL (0.0-0.8) 10/27/22 06:28 Baso # (Auto) 0.0 10^3/uL (0.0-0.1) 10/27/22 06:28 Nucleated RBC % (auto) 0 % 10/27/22 06:28 Nucleated RBCs # 0.0 /100WBC 10/27/22 06:28 ESR 40 mm/hr (0-10) H 10/27/22 06:28 PT 14.90 SECONDS (12.1-14.9) 10/26/22 13:05 INR 1.14 (0.8-1.2) 10/26/22 13:05 APTT 27.4 SECONDS (23.9-36.7) D 10/27/22 12:50 Antithrombin III Activ Cancelled 10/26/22 13:05 Sodium 140 mmol/L (136-145) 10/27/22 06:28 Potassium 4.7 mmol/L (3.5-5.1) 10/27/22 06:28 Chloride 107 mmol/L (98-107) 10/27/22 06:28 Carbon Dioxide 24 mmol/L (22-29) 10/27/22 06:28 Anion Gap 13.7 (5-19) 10/27/22 06:28 BUN 15 mg/dL (6-20) 10/27/22 06:28 Creatinine 1.0 mg/dL (0.7-1.2) 10/27/22 06:28 GFR Calculation 80.8 mL/min (90-130) L 10/27/22 06:28 Glucose 134 mg/dL (65-115) H 10/27/22 06:28 Estimat Average Glucose 108 10/27/22 06:28 Hemoglobin A1c 5.4 % (4.0-6.0) 10/27/22 06:28 Calculated Osmolality 293 mOsm/kg (285-295) 10/27/22 06:28 Calcium 9.2 mg/dL (8.5-10.5) 10/27/22 06:28 Phosphorus 2.4 mg/dL (2.5-4.5) L 10/27/22 06:28 Magnesium 1.8 mg/dL (1.7-2.3) 10/27/22 06:28 Iron 57 ug/dL (59-158) L 10/27/22 06:28 TIBC 276 mcg/dl 10/27/22 06:28 % Saturation 20.6 % (20-50) 10/27/22 06:28 Unsat Iron Binding 219 ug/dL (112-347) 10/27/22 06:28 Total Bilirubin 0.8 mg/dL (0.15-1.2) 10/26/22 13:05 AST 17 U/L (0-40) 10/26/22 13:05 ALT 11 U/L (0-41) 10/26/22 13:05 Alkaline Phosphatase 147 U/L (40-130) H 10/26/22 13:05 C-Reactive Protein 48.7 mg/L (0.0-4.9) H 10/27/22 06:28 Total Protein 7.7 g/dL (6.6-8.7) 10/26/22 13:05 Albumin 4.4 g/dL (3.5-5.2) 10/26/22 13:05 Globulin 3.3 g/dL (1.3-4.6) 10/26/22 13:05 Triglycerides 108 mg/dL (0-150) 10/27/22 06:28 Cholesterol 278 mg/dL (0-200) H 10/27/22 06:28 LDL Cholesterol, Calc 211 mg/dL (50-129) H 10/27/22 06:28 HDL Cholesterol 45 mg/dL (60-100) L 10/27/22 06:28 LDL/HDL Ratio 4.69 RATIO (0.00-3.22) H 10/27/22 06:28 Cholesterol/HDL Ratio 6.18 mg/dL (1.0-5.00) H 10/27/22 06:28 Vitamin B12 307 pg/mL (232-1245) 10/27/22 06:28 Folate 7.6 ng/mL (4.5-32.2) 10/26/22 13:05 Procalcitonin 0.05 ng/mL (0-0.5) 10/27/22 06:28 TSH 1.57 uIU/mL (0.27-4.20) 10/27/22 06:28 Urine Color Kami (Yellow) 10/27/22 14:00 Urine Appearance Clear (CLEAR) 10/27/22 14:00 Urine pH 5 (5-7) 10/27/22 14:00 Ur Specific [place] 1.010 (1.005-1.030) 10/27/22 14:00 Urine Protein Neg (Negative) 10/27/22 14:00 Urine Glucose (UA) Norm (Normal) 10/27/22 14:00 Urine Ketones Negative (Negative) 10/27/22 14:00 Urine Blood Neg (Negative) 10/27/22 14:00 Urine Nitrate Negative (Negative) 10/27/22 14:00 Urine Bilirubin Neg (Negative) 10/27/22 14:00 Urine Urobilinogen Norm mg/dL (Negative) 10/27/22 14:00 Ur Leukocyte Esterase Negative (Negative) 10/27/22 14:00 Recent Clincial Data Last Vital Signs Temp 97.9 F 10/27/22 04:00 Pulse 99 10/27/22 14:45 Resp 18 10/27/22 14:45 BP 173/99 10/27/22 14:45 Pulse Ox 99 10/27/22 10:15 O2 Del Method 10/27/22 10:15 Vital Signs Temp Pulse Resp BP BP Pulse Ox O2 Del Method 10/27/22 14:45 99 18 173/99 10/27/22 14:30 86 16 152/93 10/27/22 14:15 87 19 H 148/87 10/27/22 14:00 87 18 161/85 10/27/22 13:45 86 13 172/88 10/27/22 13:30 87 12 168/92 10/27/22 13:15 83 17 141/83 10/27/22 13:00 93 18 151/81 10/27/22 12:45 70 18 151/81 10/27/22 12:30 81 24 H 175/95 10/27/22 12:15 83 24 H 151/93 10/27/22 12:00 68 14 168/102 10/27/22 11:45 77 18 168/102 10/27/22 11:30 64 14 148/84 10/27/22 11:15 69 21 H 154/81 10/27/22 11:00 75 19 H 170/89 10/27/22 10:45 73 18 170/89 10/27/22 10:44 68 15 10/27/22 13:44 81 10/27/22 10:15 66 12 174/68 99 Room Air 10/27/22 10:00 58 L 10 L 137/85 99 Room Air 10/27/22 09:30 65 15 137/77 95 Room Air 10/27/22 09:45 61 12 176/88 95 Room Air 10/27/22 09:15 75 16 134/76 94 Room Air 10/27/22 07:59 72 16 96 Room Air 10/27/22 04:00 97.9 F 70 17 151/89 96 Room Air Intake & Output/Weight 10/25/22 10/26/22 10/27/22 10/28/22 06:59 06:59 06:59 06:59 Intake Total 1706.844 / 4151.898 5838.05 / 1352.05 Balance 1706.844 / 8831.896 6254.05 / 1352.05 Weight 95.254 kg Vitals Last Vital Signs Temp 97.9 F 10/27/22 04:00 Pulse 99 10/27/22 14:45 Resp 18 10/27/22 14:45 BP 173/99 10/27/22 14:45 Pulse Ox 99 10/27/22 10:15 O2 Del Method 10/27/22 10:15 TS Medications Medications Acetaminophen (Acetaminophen 325 Mg Tablet) 650 mg PO Q6H PRN PRN Reason: Mild/Mod Pain Or Temp >/= 101 Al Hydrox/Mg Hydrox/Simethicone (Rmnt-Mni-Ahrzhgnfl-Chauncey 30 Ml Udc) 30 ml PO Q15M PRN PRN Reason: INDIGESTION Al Hydrox/Mg Hydrox/Simethicone (Mwtm-Fdr-Ckvsjyawr-[place] 30 Ml Udc) 30 ml PO Q15M PRN PRN Reason: INDIGESTION Albuterol/Ipratropium (Ipratropium-Albuterol 3 Ml Neb) 3 ml INHALATION Q6H PRN PRN Reason: SHORTNESS OF BREATH Amlodipine Besylate (Amlodipine 10 Mg Tablet) 10 mg PO DAILY LUIS ALBERTO Last Admin: 10/27/22 12:34 Dose: 10 mg Aspirin (Aspirin 81 Mg Ec Tablet) 81 mg PO DAILY LUIS ALBERTO Last Admin: 10/27/22 12:33 Dose: 81 mg Atorvastatin Calcium (Atorvastatin 40 Mg Tablet) 80 mg PO BEDTIME LUIS ALBERTO Atropine Sulfate (Atropine 1 Mg/Ml Sdv 1 Ml) 0.5 mg IVP PRN PRN PRN Reason: Symptomatic bradycardia Heparin Sodium (Porcine) (Heparin 5,000 Unit/Ml Inj 1 Ml) 0 unit IV PRN PRN; Protocol PRN Reason: Heparin weight-base protocol Last Admin: 10/27/22 00:23 Dose: 1,900 unit Heparin Sodium/Sodium Chloride (Heparin Drip) 25,000 unit in 500 mls @ 0 mls/hr IV .Q0M LUIS ALBERTO; Protocol Last Titration: 10/27/22 13:50 Dose: 27 unit/kg/hr, 51.44 mls/hr Potassium Chloride/Sodium Chloride (Sodium Chlor 0.9% + Kcl 20 Meq) 20 meq in 1,000 mls @ 50 mls/hr IV .Q20H [facility] Last Infusion: 10/27/22 10:45 Dose: Infused Sodium Chloride (Sodium Chloride 0.9%) 1,000 mls @ 100 mls/hr IV .Q10H [facility] Last Admin: 10/27/22 10:45 Dose: 100 mls/hr Magnesium Hydroxide (Magnesium Hydroxide 30 Ml Udc) 30 ml PO DAILY PRN PRN Reason: CONSTIPATION Magnesium Hydroxide (Magnesium Hydroxide 30 Ml Udc) 30 ml PO DAILY PRN PRN Reason: CONSTIPATION Morphine Sulfate (Morphine 4 Mg/Ml Sdv 1 Ml) 2 mg IVP Q4H PRN PRN Reason: SEVERE PAIN Naloxone HCl (Naloxone 0.4 Mg/Ml Sdv) 0.1 mg IVP Q2M PRN PRN Reason: OPIATERV Nicotine Polacrilex (Nicotine 2 Mg Gum) 4 mg BUCCAL Q2H PRN PRN Reason: nicotine withdrawal Nitroglycerin (Nitroglycerin 1 Gm/Inch Oint Pkt) 0.5 inch TOPICAL Q6H [facility] Last Admin: 10/27/22 12:33 Dose: 0.5 inch Nitroglycerin (Nitroglycerin 0.4 Mg Sublingual Tablet) 0.4 mg SUBLINGUAL Q5M PRN PRN Reason: CHEST PAIN Ondansetron HCl (Ondansetron 2 Mg/Ml Sdv 2 Ml) 4 mg IVP Q6H PRN PRN Reason: NAUSEA AND VOMITING Temazepam (Temazepam 15 Mg Capsule) 15 mg PO BEDTIME PRN PRN Reason: INSOMNIA Discontinued Medications Atorvastatin Calcium (Atorvastatin 40 Mg Tablet) 40 mg PO BEDTIME [facility] Last Admin: 10/26/22 20:32 Dose: 40 mg Diphenhydramine HCl (Diphenhydramine 50 Mg/Ml Sdv 1ml) Confirm Administered Dose 50 mg .ROUTE .STK-MED ONE Stop: 10/27/22 08:01 Fentanyl (Fentanyl 50 Mcg/Ml Inj 2ml) Confirm Administered Dose 100 mcg .ROUTE .STK-MED ONE Stop: 10/27/22 06:46 Fentanyl (Fentanyl 50 Mcg/Ml Inj 2ml) Confirm Administered Dose 100 mcg .ROUTE .STK-MED ONE Stop: 10/27/22 08:26 Fentanyl (Fentanyl 50 Mcg/Ml Inj 2ml) Confirm Administered Dose 100 mcg .ROUTE .STK-MED ONE Stop: 10/27/22 09:18 Heparin Sodium (Porcine) (Heparin 5,000 Unit/Ml Inj 1 Ml) Confirm Administered Dose 5,000 unit .ROUTE .STK-MED ONE Stop: 10/27/22 06:46 Heparin Sodium (Porcine) (Heparin 5,000 Unit/Ml Inj 1 Ml) Confirm Administered Dose 5,000 unit .ROUTE .STK-MED ONE Stop: 10/27/22 08:19 Lidocaine HCl (Xylocaine) Confirm Administered Dose 10 mls @ as directed .ROUTE .STK-MED ONE Stop: 10/27/22 06:48 Sodium Chloride (Sodium Chloride 0.9%) Confirm Administered Dose 1,000 mls @ as directed .ROUTE .STK-MED ONE Stop: 10/27/22 07:30 Lidocaine HCl (Xylocaine) Confirm Administered Dose 10 mls @ as directed .ROUTE .STK-MED ONE Stop: 10/27/22 08:11 Lidocaine HCl (Xylocaine) Confirm Administered Dose 1 mls @ as directed .ROUTE .STK-MED ONE Stop: 10/27/22 08:24 Midazolam HCl (Midazolam 1 Mg/Ml Inj 2 Ml) Confirm Administered Dose 2 mg .ROUTE .STK-MED ONE Stop: 10/27/22 06:46 Midazolam HCl (Midazolam 1 Mg/Ml Inj 2 Ml) Confirm Administered Dose 2 mg .ROUTE .STK-MED ONE Stop: 10/27/22 07:51 Midazolam HCl (Midazolam 1 Mg/Ml Inj 2 Ml) Confirm Administered Dose 2 mg .ROUTE .STK-MED ONE Stop: 10/27/22 08:26 Morphine Sulfate (Morphine 4 Mg/Ml Sdv 1 Ml) 4 mg IVP Q4H PRN PRN Reason: SEVERE PAIN Nitroglycerin (Nitroglycerin 1 Gm/Inch Oint Pkt) 0.5 inch TOPICAL ONCE ONE Stop: 10/26/22 13:19 Last Admin: 10/26/22 13:21 Dose: 0.5 inch Nitroglycerin (Nitroglycerin 5 Mg/Ml Sdv 10 Ml) Confirm Administered Dose 50 mg .ROUTE .STK-MED ONE Stop: 10/27/22 08:26 Allergies No Known Allergies Allergy (Verified 06/22/21 11:45) Home Medications No Known Home Medications 10/26/22 [History Confirmed 10/26/22] Discharge Plan Discharge Patient Disposition: Xfer Other Condition: Stable Prescriptions: No Action No Known Home Medications Discharge Orders: Discharge Order (Routine); Ordered 10/27/22 Ordered By: Darwin Candelaria Transfer Out of Facility (Order); Ordered 10/27/22 Ordered By: Darwin Candelaria Referrals: Wilmer Balderas MD [Physician] - 11/05/22 9:45 am Discharge Diet: Cardiac and Diabetic Patient Instructions: Opioid Safety Transfer Attestations Time Spent in Transfer Care: greater than 30 min Specific Discharge Activities: educating patient, discussing with pcp/other providers, discussing with manager of case management/social workers/dc planners, documenting/other paperwork and evaluating patient/reviewing data Time Spent in Smoking Cessation: more than 10 minutes Status at Transfer: Cognitive status at transfer: cognitively intact; Behavioral status at transfer: cooperative; Functional status at transfer: other assisted ambulation; Overall status at transfer: patient is progressing back to baseline Quality Metrics Clinical Quality Measures [ No reported AMI, CVA or VTE this stay] Coding Level of Care Code Acute 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
--- NOTE | 2022-10-27 15:54 | PC.NURSE ---
report phoned to [facility] in [place], [place] (Teresa) and to ems staff.discharged via ems for transfer,now.
[2022-10-28 22:45] LABS: PROTEIN S, ACTIVITY 97 % normal (70-150)
[2022-10-29 04:49] LABS: PROTEIN C, ACTIVITY 196 % normal (70-180)
[2022-10-29 21:34] LABS: Lupus Hexagonal Phas Confirm WEAKLY POSITIVE (NEGATIVE); Lupus Thrombin Clotting Time 76 sec (13-19)
[2022-10-29 22:25] LABS: PTT-LA-Screen 111 sec (< OR = 40)
[2022-11-01 20:29] LABS: Factor 5 Leiden Mutation NEGATIVE
== END 2022-10-27 16:02 | disposition other institution (70) ==
LOC: ER 13:19 → MEDSURG 15:01 → CSU 10-27 11:11
PROVIDERS: Internal Medicine; Admitting Provider Hospitalist; Emergency Provider Family Medicine; PCP Nurse Practitioner Family; Visit Provider Student in an Organized Health Care Education/Training Program
DX: I70.222 Atherosclerosis of native arteries of extremities with rest pain, left leg (principal); I65.22 Occlusion and stenosis of left carotid artery; I10 Essential (primary) hypertension; E78.5 Hyperlipidemia, unspecified; F17.210 Nicotine dependence, cigarettes, uncomplicated; J43.1 Panlobular emphysema; Z86.73 Personal history of transient ischemic attack (TIA), and cerebral infarction without residual deficits
CPT/HCPCS: 36415; 75625; 75716; 80048; 80053; 80061; 81003; 81241; 82607; 82746; 83036; 83540; 83550; 83735; 84100; 84145; 84443; 85025; 85303; 85306; 85347; 85610; 85613; 85651; 85730; 86140; 93005; 93926; 96365; 96366; 96367; 96375; 99152; 99153; 99285; C1769; C1887; C1894; G0378; J1200; J1644; J2250; J3010; J3480; J3490; J7030; Q9967

== ENCOUNTER → 2022-11-16 12:30 | Day surgery (SDC) | payer MEDICAID, SELFPAY ==
[2022-11-16 12:35] VITALS: BP 152/87; PULSE 74; RESP 18; TEMP 36.5; O2SAT 98
[2022-11-16 13:18] LABS: Basophils # 0.1 10^3/uL (0.0-0.1); Basophils % 1.1 %; Eosinophils # 0.4 10^3/uL (0.0-0.8); Eosinophils % 6.6 %; Hematocrit 34.7 % (42.0-52.0); Hemoglobin 11.2 g/dL (11.7-16.6); Lymphocytes # 1.5 10^3/uL (0.8-4.8); Lymphocytes % 22.6 %; Mean Corpuscular HGB Conc 32.3 g/dL (30.0-36.0); Mean Corpuscular Hemoglobin 29.9 pg (28.0-34.0); Mean Corpuscular Volume 92.8 fl (80-94); Mean Platelet Volume 8.7 fL (7.4-10.4); Monocytes # 0.9 10^3/uL (0.2-0.9); Monocytes % 14.2 %; Neutrophils # 3.61 10^3/uL (1.8-7.7); Neutrophils % 55.2 %; Nucleated Red Blood Cells % 0 %; Platelet Count 269 10^3/cmm (130-400); Red Blood Count 3.74 10^6/uL (4.1-5.3); Red Cell Distribution Width 13.4 % (12.1-15.1); White Blood Count 6.5 10^3/uL (4.0-10.0)
[2022-11-16 13:30] LABS: Alanine Aminotransferase 35 U/L (0-41); Alkaline Phosphatase 149 U/L (40-130); Anion Gap 14.9 (5-19); Aspartate Amino Transferase 18 U/L (0-40); Blood Urea Nitrogen 12 mg/dL (6-20); Calcium 8.7 mg/dL (8.5-10.5); Carbon Dioxide 24 mmol/L (22-29); Chloride 100 mmol/L (98-107); Glomerular Filtration Rate 104.5 mL/min (90-130); Glucose 95 mg/dL (65-115); Osmolality Calculated 280 mOsm/kg (285-295); Potassium 3.9 mmol/L (3.5-5.1); Sodium 135 mmol/L (136-145); Total Bilirubin 0.3 mg/dL (0.15-1.2)
[2022-11-16 13:45] LABS: Vancomycin Random 31.3 ug/mL (20.0-40.0)
--- NOTE | 2022-11-16 14:55 | PC.NURSE ---
Labs sent to [facility] as ordered with phone call as courtesy. This nurse informed that vanc level will need to be redrawn as a trough and not random. Pt rescheduled for at 0730 prior to dose. Pt and family notified.
== END ==
PROVIDERS: PCP Nurse Practitioner Family; Visit Provider Family Medicine
DX: R78.81 Bacteremia (principal)
CPT/HCPCS: 36415; 80053; 80202; 85025; J1642

== ENCOUNTER → 2022-11-18 07:43 | Day surgery (SDC) | payer MEDICAID, SELFPAY ==
[2022-11-18 07:59] VITALS: RESP 18; TEMP 35.9
[2022-11-18 08:34] LABS: Vancomycin Trough 17.8 ug/mL (10-15)
== END ==
LOC: GILAB 07:44
PROVIDERS: Visit Provider Family Medicine
DX: R78.81 Bacteremia (principal)
CPT/HCPCS: 36415; 80202

== ENCOUNTER 2022-11-20 11:27 | Inpatient (IN) | payer MEDICAID, SELFPAY ==
[2022-11-20] VITALS (34 sets, daily range): BP systolic 109–187; BP diastolic 67–122; PULSE 56–95; RESP 11–30; TEMP 36.8–37.1; O2SAT 97–100; BMI 26.2
--- NOTE | 2022-11-20 11:41 | XRR_ITS ---
PROCEDURE INFORMATION: Exam: XR Chest Exam date and time: 11/20/2022 11:49 AM Age: 47 years old Clinical indication: Shortness of breath; Additional info: Chest pain TECHNIQUE: Imaging protocol: Radiologic exam of the chest. Views: 1 view. COMPARISON: CR XR chest 1V portable [id number] 06/02/2020 8:05 AM FINDINGS: Tubes, catheters and devices: Tip of the PICC line is positioned over the cavoatrial junction. Lungs: Unremarkable. No consolidation. Pleural spaces: Unremarkable. No pleural effusion. No pneumothorax. Heart/Mediastinum: Unremarkable. No cardiomegaly. Bones/joints: Unremarkable. XR/XR chest 1V portable [id number] IMPRESSION: No evidence for acute cardiopulmonary disease.
--- NOTE | 2022-11-20 11:42 | ECG_ITS ---
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 Measurements Intervals [place] Rate: 57 P: 77 TN: 171 QRS: 78 QRSD: 102 T: 69 QT: 418 QTc: 408 Interpretive Statements SINUS BRADYCARDIA EARLY REPOLARIZATION [ST ELEVATION WITH NORMALLY INFLECTED T-WAVE] Compared to ECG 10/26/2022 09:02:58 Early repolarization now present Sinus rhythm no longer present Sinus arrhythmia no longer present ST (T wave) deviation no longer present Electronically Signed On 11-21-2022 9:00:05 LAGGING MACHINE OPERATOR by Mehnaz Samuels M.D. [email or web address] daughters medical centerMotomotivesavita [facility].[email or web address]/store/[id number]
--- NOTE | 2022-11-20 11:42 | CTR_ITS ---
PROCEDURE INFORMATION: Exam: CTA Chest With Contrast CTA Abdomen and Pelvis With Contrast Exam date and time: 11/20/2022 12:20 PM Age: 47 years old Clinical indication: Chest pressure; Other: Chest pain; Prior surgery; Surgery type: Aortic bypass due to clot into the infrarenal aorta. He was discharged from there on 11/12; Additional info: Chest pain, S/P aortic bypass 3 weeks ago TECHNIQUE: Imaging protocol: Computed tomographic angiography of the chest with contrast. Computed tomographic angiography of the abdomen and pelvis with contrast. 3D rendering (Not supervised by radiologist): MIP and/or 3D reconstructed images were created by the technologist. Radiation optimization: All CT scans at this facility use at least one of these dose optimization techniques: automated exposure control; mA and/or kV adjustment per patient size (includes targeted exams where dose is matched to clinical indication); or iterative reconstruction. Contrast material: OMNI 350; Contrast volume: 100 ml; Contrast route: INTRAVENOUS (IV); COMPARISON: CT angio chest PE protcl [id number] 05/20/2020 9:43 AM RADIATION DOSE METRICS: Total DLP (mGy-cm): 1318.28 FINDINGS: VASCULATURE: Pulmonary arteries: Normal. No pulmonary emboli. Aorta: Aorto bi-iliac bypass changes. There is occlusion of the [place] infrarenal abdominal aorta 3.2 cm distal to the bypass graft origin by thrombus. Aortic and iliac components of the graft are patent. Bilateral external iliac portions of the graft are anastomosed most with the [place] common femoral arteries. Celiac trunk and mesenteric arteries: No occlusion or significant stenosis. Renal arteries: Superior accessory right renal artery patent. Inferior main right renal artery patent. Accessory superior left renal artery patent. There is atherosclerotic plaque at the origin of the inferiorly positioned main left renal artery with a short segment of severe narrowing measuring 2 mm in the transverse dimension. Right iliac arteries: No occlusion or significant stenosis. Left iliac arteries: No occlusion or significant stenosis. CHEST: Lungs: Unremarkable. No consolidation. No masses. Pleural spaces: Unremarkable. No pneumothorax. No pleural effusion. Heart: Unremarkable. No cardiomegaly. No pericardial effusion. Coronary arteries: There is scattered calcified plaque in the left anterior descending coronary artery. ABDOMEN AND PELVIS: Liver: No mass. Gallbladder and bile ducts: Unremarkable. No calcified stones. No ductal dilation. Pancreas: Unremarkable. No mass. No ductal dilation. Spleen: Small incidental splenule. The spleen is mildly enlarged measuring 13.3 cm. Adrenal glands: Unremarkable. No mass. Kidneys and ureters: Unremarkable. No solid mass. No hydronephrosis. Stomach and bowel: Moderate stool burden. Appendix: No evidence of appendicitis. Intraperitoneal space: There are postoperative changes in the ventral abdomen. Urinary bladder: Unremarkable. No mass. Reproductive: Unremarkable as visualized. Lymph nodes: Unremarkable. No enlarged lymph nodes. Bones/joints: There are pseudocysts, right larger than left, at the anterolateral aspect of the right femoral head/neck junctions associated with mild convexity. This can be seen with cam-type femoroacetabular impingement syndrome. Soft tissues: Unremarkable. CT/CT [facility] [id number] IMPRESSION: 1. Aorto bi-iliac bypass changes. There is occlusion of the [place] infrarenal abdominal aorta 3.2 cm distal to the bypass graft origin by thrombus. Aortic and iliac components of the graft are patent. 2. There is atherosclerotic plaque at the origin of the inferiorly positioned main left renal artery with a short segment of severe narrowing.Accessory superior left renal artery patent.
--- NOTE | 2022-11-20 11:48 | ED_ITS ---
HPI - Chest Pain General: Chief Complaint: Chest Pain Stated Complaint: CHEST PAIN Time Seen by Provider: 11/20/22 11:30 History of Present Illness: This patient is a 47 year old presenting by EMS with chest pain, diaphoresis, chills. He has a complicated medical history - he was admitted here with left limb ischemia a few days after [facility] and then was transferred to [facility] in the [place] area for an aortic bypass due to clot into the infrarenal aorta. He was discharged from there on 11/12 - sent home with a PICC in the right arm and on vancomycin for a blood infection. He has not had chest pain like this before, and hasn't been having any chills or fever. He says that the symptoms started about an hour prior to arrival. He got nitro and initially said it didn't help - but now says his pain is a 4 down from an 8. He still appears very uncomfortable. He says that he has been taking all the medications as prescribed. He is on a blood thinner. He has had pre vious vascular issues - an occluded carotid, prior stroke and also has COPD. He is a smoker since a young age. FOR[facility]LY [facility] PFSH: Medical History AF (amaurosis fugax) Asthma Bipolar disorder COPD (chronic obstructive pulmonary disease) CVA (cerebral vascular accident) (~10/2020) LEFT supraventricular frontal lobe History of cardiac monitoring 2 week event monitor in 05/2022 with baseline sinus rhythm, episodes of sinus tachycardia from 132-165 noted History of cardiovascular stress test 11/25/2020 Exercise Stress test with Stress Echo - No exercise induced chest pain or ekg changes, suboptimal exercise for age, hypertensive exercise response History of PFTs 05/2020 Severe airflow obstruction, no significant post dilator response, lung volumes consistent with air trapping. Normal DLCO. Hyperlipidemia Hypertension Intermittent explosive disorder Left carotid artery occlusion Nicotine dependence, cigarettes, with other nicotine-induced disorders PTSD (post-traumatic stress disorder) Surgical History H/O inguinal hernia repair Family History Mother Sarcoid Other Asthma CAD (coronary artery disease) Cancer Emphysema/COPD Hyperlipidemia Hypertension Stroke Denies family history of Clotting disorder Chronic kidney disease (CKD) Anesthesia complication Bleeding disorder Family history of premature coronary artery disease Social History Smoking and tobacco status: current every day smoker cigarettes Packs smoked per day: 0.5 Years cigarettes smoked: 32 [ Other cigarette details: onset age 8- 9 years] Quit status (tobacco): has tried quititng Number of times tried to quit tobacco: 12 Second hand smoke exposure: Yes Alcohol intake: current Alcohol intake frequency: holidays/special occasions only Lives independently: Yes Household members: other Details: room mate Housing: House Marital status: service: No 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 Pets and animals: Yes Current gender identity: Male Physical Exam Const: GENERAL APPEARANCE: in distress, ill appearing and diaphoretic HENMT: HEAD & SCALP: normal to inspection FACE & SINUS: normal facial exam Eye: GENERAL EYE: appearance normal, both eyes and all related structures Neck/C-Spine: COMMON NORMALS: supple and no meningeal signs Chest: COMMONS NORMALS: normal inspection of the chest Resp: EFFORT & INSPECTION: Yes able to speak in complete sentences and Yes tachypneic AUSCULTATION: crackles Laterality: bilateral Cardio: COMMON NORMALS: regular rate, regular rhythm and Peripheral pulses 2+ throughout JUGULAR VENOUS DISTENTION: no JVD RATE: regular rate RHYTHM: regular rhythm HEART SOUNDS: no murmurs PERIPHERAL PULSES: Peripheral pul ses 2+ throughout GI: INSPECTION: Yes scar (still healing midline incision) PALPATION: No Tenderness to palpation present (GI) Back/Pelvis: COMMON NORMALS: thoracic and lumbar spine normal to inspection Extremity: COMMON NORMALS: normal to inspection Neuro: COMMON NORMALS: moves all extremities, no focal motor deficits and no sensory deficits noted MENINGEAL SIGNS: Yes no meningeal signs Psych: COMMON NORMALS: mental status grossly normal, cooperative and normal affect Skin: GENERAL SKIN EXAM: pallor Course Vital Signs: Vital signs: Vital Signs Temperature 98.3 F 11/20/22 11:31 Pulse Rate 90 11/20/22 14:30 Respiratory Rate 15 11/20/22 14:30 Blood Pressure 124/86 11/20/22 14:30 Pulse Oximetry 98 11/20/22 14:30 Oxygen Delivery Me thod 11/20/22 11:31 MDM - Chest Pain Medical Decision Making Patient is ill appearing on arrival - chest pain, chills, diaphoresis concerning for infection and/or involvement of the graft - although AK, pneumonia, pericarditis, anemia, sepsis - even pancreatitis, gastritis - are also in the differential. Will try to obtain records from [facility]. Labs - CT chest/aorta ordered. Initial BP was high - but now 140/73. Will monitor that to keep it from getting too high. HR around 60. He is on metoprolol. Also on eliquis. CT aorta ordered due to concern that graft was involved - however the CT shows that the graft and occlusion are all in the distal aorta below the renal arteries. normal aorta in the chest. Troponin elevated at 315 - the initial EKG looked like early repol, but a repeat after the pain was more normal - though still some early repol morphology - making it appear that the initial EKG did actually have hyperacute t waves. Discussed patient with Dr. Cunningham and Dr. Chung and he will be admitted. he remains pain free at this time. I have discussed the findings and plan of care with the patient and his family. Lab Data 11/20/22 11:40 11/20/22 11:40 Radiology Impressions Chest X-Ray 11/20/22 11:41 IMPRESSION: No evidence for acute cardiopulmonary disease. Chest/Abdomen/Pelvis CTA 11/20/22 11:42 IMPRESSION: 1. Aorto bi-iliac bypass changes. There is occlusion of the [place] infrarenal abdominal aorta 3.2 cm distal to the bypass graft origin by thrombus. Aortic and iliac components of the graft are patent. 2. There is atherosclerotic plaque at the origin of the inferiorly positioned main left renal artery with a short segment of severe narrowing.Accessory superior left renal artery patent. Laboratory Results WBC 9.4 10^3/uL (4.0-10.0) 11/20/22 11:40 RBC 3.93 10^6/uL (4.1-5.3) L 11/20/22 11:40 Hgb 11.8 g/dL (11.7-16.6) 11/20/22 11:40 Hct 36.9 % (42.0-52.0) L 11/20/22 11:40 MCV 93.9 fl (80-94) 11/20/22 11:40 MCH 30.0 pg (28.0-34.0) 11/20/22 11:40 MCHC 32.0 g/dL (30.0-36.0) 11/20/22 11:40 RDW 13.7 % (12.1-15.1) 11/20/22 11:40 Plt Count 238 10^3/cmm (130-400) 11/20/22 11:40 MPV 8.9 fL (7.4-10.4) 11/20/22 11:40 Neut % (Auto) 47.3 % 11/20/22 11:40 Lymph % (Auto) 22.2 % 11/20/22 11:40 Wheeler % (Auto) 16.3 % 11/20/22 11:40 Eos % (Auto) 13.7 % 11/20/22 11:40 Baso % (Auto) 0.2 % 11/20/22 11:40 Neut # (Auto) 4.46 10^3/uL (1.8-7.7) 11/20/22 11:40 Lymph # (Auto) 2.1 10^3/uL (0.8-4.8) 11/20/22 11:40 Wheeler # (Auto) 1.5 10^3/uL (0.2-0.9) H 11/20/22 11:40 Eos # (Auto) 1.3 10^3/uL (0.0-0.8) H 11/20/22 11:40 Baso # (Auto) 0.0 10^3/uL (0.0-0.1) 11/20/22 11:40 Nucleated RBC % (auto) 0 % 11/20/22 11:40 Nucleated RBCs # 0.0 /100WBC 11/20/22 11:40 PT 15.30 SECONDS (12.1-14.9) H 11/20/22 11:40 INR 1.18 (0.8-1.2) 11/20/22 11:40 Sodium 136 mmol/L (136-145) 11/20/22 11:40 Potassium 4.2 mmol/L (3.5-5.1) 11/20/22 11:40 Chloride 101 mmol/L (98-107) 11/20/22 11:40 Carbon Dioxide 22 mmol/L (22-29) 11/20/22 11:40 Anion Gap 17.2 (5-19) 11/20/22 11:40 BUN 14 mg/dL (6-20) 11/20/22 11:40 Creatinine 1.0 mg/dL (0.7-1.2) 11/20/22 11:40 GFR Calculation 80.8 mL/min (90-130) L 11/20/22 11:40 Glucose 131 mg/dL (65-115) H 11/20/22 11:40 Calculated Osmolality 284 mOsm/kg (285-295) L 11/20/22 11:40 Lactic Acid 2.8 mmol/L (0.5-2.2) H 11/20/22 11:40 Lactic Acid (Sepsis) 2.4 mmol/L (0.5-2.2) H 11/20/22 13:50 Calcium 8.8 mg/dL (8.5-10.5) 11/20/22 11:40 Magnesium 1.8 mg/dL (1.7-2.3) 11/20/22 11:40 Total Bilirubin 0.4 mg/dL (0.15-1.2) 11/20/22 11:40 AST 30 U/L (0-40) 11/20/22 11:40 ALT 30 U/L (0-41) 11/20/22 11:40 Alkaline Phosphatase 170 U/L (40-130) H 11/20/22 11:40 Troponin T Baseline 315 ng/L (0-15) H* 11/20/22 11:40 Troponin T 120 Minute 429.6 ng/L (0-15) H 11/20/22 13:50 Delta Troponin T 114.6 ABS# (0-10) H* 11/20/22 13:50 NT-Pro-B Natriuret Pep 248 pg/mL (0-125) H 11/20/22 11:40 Total Protein 6.9 g/dL (6.6-8.7) 11/20/22 11:40 Albumin 4.1 g/dL (3.5-5.2) 11/20/22 11:40 Globulin 2.8 g/dL (1.3-4.6) 11/20/22 11:40 Lipase 27 U/L (13-60) 11/20/22 11:40 Blood Type B Positive 11/20/22 12:16 Rho(D) Type Positive 11/20/22 12:16 Antibody Screen Negative 11/20/22 12:16 Discharge Plan Discharge Patient Disposition: Placed in Observation Clinical Impression: Non-STEMI (non-ST elevated myocardial infarction), Chest pain, Vascular disease Condition: Stable Prescriptions: No Action Eliquis 5 mg Tablet 5 mg PO BID vancomycin 1.5 gram Recon Soln 2 g IV Q12H atorvastatin 80 mg Tablet 80 mg PO QPM metoprolol tartrate 25 mg Tablet 25 mg PO BID aspirin 325 mg tablet 325 mg PO DAILY Coding Level of Care Code ED Single Pointed Operator for [facility] Fwd Exam Comprehensive
[2022-11-20] MEDS: morphine 4 mg/mL SDV 1 mL IVP (11:49)
[2022-11-20] MEDS: ondansetron 2 mg/ML SDV 2 mL 4 MG IVP (11:49)
[2022-11-20 11:54] LABS: Basophils % 0.2 %; Eosinophils # 1.3 10^3/uL (0.0-0.8); Eosinophils % 13.7 %; Hematocrit 36.9 % (42.0-52.0); Hemoglobin 11.8 g/dL (11.7-16.6); Lymphocytes # 2.1 10^3/uL (0.8-4.8); Lymphocytes % 22.2 %; Mean Corpuscular Volume 93.9 fl (80-94); Mean Platelet Volume 8.9 fL (7.4-10.4); Monocytes # 1.5 10^3/uL (0.2-0.9); Monocytes % 16.3 %; Neutrophils # 4.46 10^3/uL (1.8-7.7); Neutrophils % 47.3 %; Nucleated Red Blood Cells % 0 %; Platelet Count 238 10^3/cmm (130-400); Red Blood Count 3.93 10^6/uL (4.1-5.3); Red Cell Distribution Width 13.7 % (12.1-15.1); White Blood Count 9.4 10^3/uL (4.0-10.0)
[2022-11-20 11:59] LABS: INR 1.18 (0.8-1.2)
[2022-11-20 12:10] LABS: Lactic Sepsis W/Reflex 2.8 mmol/L (0.5-2.2)
[2022-11-20 12:19] LABS: Alanine Aminotransferase 30 U/L (0-41); Albumin Level 4.1 g/dL (3.5-5.2); Alkaline Phosphatase 170 U/L (40-130); Anion Gap 17.2 (5-19); Aspartate Amino Transferase 30 U/L (0-40); Blood Urea Nitrogen 14 mg/dL (6-20); Calcium 8.8 mg/dL (8.5-10.5); Carbon Dioxide 22 mmol/L (22-29); Chloride 101 mmol/L (98-107); Creatinine Clr Calc Pharmacy 117.1688; Globulin 2.8 g/dL (1.3-4.6); Glomerular Filtration Rate 80.8 mL/min (90-130); Glucose 131 mg/dL (65-115); Lipase 27 U/L (13-60); Magnesium 1.8 mg/dL (1.7-2.3); NT Pro B Type Natriuretic Pept 248 pg/mL (0-125); Osmolality Calculated 284 mOsm/kg (285-295); Potassium 4.2 mmol/L (3.5-5.1); Sodium 136 mmol/L (136-145); Total Bilirubin 0.4 mg/dL (0.15-1.2); Total Protein 6.9 g/dL (6.6-8.7)
[2022-11-20 12:21] LABS: Troponin(5th) Baseline 315 ng/L (0-15)
[2022-11-20 12:30] LABS: Reflex Lactate Order REFLEX LACTIC ORDERD
[2022-11-20] MEDS: iohexol 350 mg/mL 500 mL Btl (per mL) IV (13:03)
[2022-11-20] MEDS: labetalol 5 mg/mL SDV 20mL 20 MG IVP (13:38)
--- NOTE | 2022-11-20 13:42 | ECG_ITS ---
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 Measurements Intervals [place] Rate: 90 P: 75 UT: 176 QRS: 76 QRSD: 101 T: 61 QT: 374 QTc: 458 Interpretive Statements SINUS RHYTHM ST ELEVATION, PROBABLY EARLY REPOLARIZATION [ST ELEVATION WITH NORMALLY INFLECTED T-WAVE] Compared to ECG 11/20/2022 11:33:27 ST (T wave) deviation now present Sinus bradycardia no longer present Electronically Signed On 11-21-2022 9:22:17 LIVE IN COMPANION by Mehnaz Samuels M.D. [id number]
[2022-11-20 14:47] LABS: Lactic Acid level (Lactate) 2.4 mmol/L (0.5-2.2)
[2022-11-20 14:58] LABS: Troponin 5 2HR 429.6 ng/L (0-15)
[2022-11-20 14:59] LABS: Troponin 5 2HR Delta 114.6 ABS# (0-10)
--- NOTE | 2022-11-20 15:00 | P.CONIM_ITS ---
Providers/Reason For Consult Consulting Physician/Specialty*: Dr. Samuels, Cardiology Reason for Consult*: NSTEMI History of Present Illness History of Present Illness Esequiel Munoz is a 47 year old male with PMHx of HTN, HLD obesity, panlobar emphysema, h/o amarousis fugax, carotid artery disease (Occluded LEFT common carotid artery ), h/o CVA (Remote small infarcts in the LEFT supraventricular frontal lobe ), bipolar disease and chronic active smoker (1 and 1/2 PPD since age 11 years) and quit about 1 month ago. He also had critical limb ischemia in [facility] and was transferred to outside hospital and underwent aorto-biilliac grafting about 3 weeks back. He is on IV Vancomycin for 6 weeks from sepsis and suspected infective endocarditis. He got discharged on 11/12/22 and was doing well until this morning when he developed sudden onset chest pain. Chest pain burning/squeezing in nature with cold sweats and diaphoresis, started at around 7:30 am. Pain persisted for few hours and got relieved after NTG and morphine. Troponin T315--> 430. He is CP free at this time. Review of Systems Const: Reports: fatigue, malaise and diaphoresis; Denies: fever(s) or body aches Eyes: Denies: change in vision, eye discomfort or eye redness ENMT: Denies: throat pain, oral sores or ear or mastoid pain Card: Reports: chest pain; Denies: edema, pre-syncope or dyspnea on exertion Resp: Denies: dyspnea, productive cough, change in phlegm color or hemoptysis GI: Reports: nausea; Denies: abdominal pain, vomiting, diarrhea, constipation, hematochezia or melena : Denies: flank pain, difficulty urinating, urinary frequency or hematuria Musc: Denies: back pain, joint swelling or joint redness Skin/Breast: Denies: rash or new lesions Neuro: Denies: headache(s), numbness in extremities, weakness in extremities, dizziness, confusion or seizure-like activity Endo: Denies: polyuria or polydipsia Dez/Lymph: Denies: easy bleeding or tender lymph nodes All/Imm: Denies: urticaria or tongue swelling Medications/Allergies Home Medications Medication Instructions Recorded Confirmed Last Taken Type apixaban 5 mg tablet (Eliquis) 5 mg PO BID 01/11/20/22 11/20/22 History vancomycin 1.5 gram intravenous 2 g IV Q12H 11/16/22 11/20/22 11/20/22 History solution atorvastatin 80 mg tablet 80 mg PO QPM 11/18/22 11/20/22 11/19/22 History metoprolol tartrate 25 mg tablet 25 mg PO BID 11/18/22 11/20/22 11/20/22 History aspirin 325 mg tablet 325 mg PO DAILY 11/20/22 11/20/22 11/20/22 History Allergies Allergy/AdvReac Type Severity Reaction Status Date / Time No Known Allergies Allergy Verified 11/18/22 07:44 PFSH Acute PFSH: Medical History AF (amaurosis fugax) Asthma Bipolar disorder COPD (chronic obstructive pulmonary disease) CVA (cerebral vascular accident) (~10/2020) LEFT supraventricular frontal lobe History of cardiac monitoring 2 week event monitor in 05/2022 with baseline sinus rhythm, episodes of sinus tachycardia from 132-165 noted History of cardiovascular stress test 11/25/2020 Exercise Stress test with Stress Echo - No exercise induced chest pain or ekg changes, suboptimal exercise for age, hypertensive exercise response History of PFTs 05/2020 Severe airflow obstruction, no significant post dilator response, lung volumes consistent with air trapping. Normal DLCO. Hyperlipidemia Hypertension Intermittent explosive disorder Left carotid artery occlusion Nicotine dependence, cigarettes, with other nicotine-induced disorders PTSD (post-traumatic stress disorder) Surgical History H/O inguinal hernia repair Family History Mother Sarcoid Other Asthma CAD (coronary artery disease) Cancer Emphysema/COPD Hyperlipidemia Hypertension Stroke Denies family history of Clotting disorder Chronic kidney disease (CKD) Anesthesia complication Bleeding disorder Family history of premature coronary artery disease Social History Smoking and tobacco status: current every day smoker cigarettes Packs smoked per day: 0.5 Years cigarettes smoked: 32 [ Other cigarette details: onset age 10- 11 years] Quit status (tobacco): has tried quititng Number of times tried to quit tobacco: 12 Second hand smoke exposure: Yes Alcohol intake: current Alcohol intake frequency: holidays/special occasions only Lives independently: Yes Household members: other Details: room mate Housing: House Marital status: service: No 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 Pets and animals: Yes Current gender identity: Male Vitals/I&O/Wt Last Vital Signs Temp 98.3 F 11/20/22 11:31 Pulse 90 11/20/22 14:30 Resp 15 11/20/22 14:30 BP 124/86 11/20/22 14:30 Pulse Ox 98 11/20/22 14:30 O2 Del Method 11/20/22 11:31 Weight last 48 hrs Weight 210 lb Physical Exam Narrative: Gen: sitting in bed, NAD HEENT/Neck: No JVD, EOMI RS: CTAB/L, No wheezes or rales CVS: S1, S2 regular; No murmur, rub or gallop PA: soft, midline incision from recent sx well approximating and well healing [employer]SEM[employer]ER: AAOx3, No FND Ext: No edema, cyanosis Data 11/20/22 11:40 11/20/22 11:40 Micro: Microbiology 11/20/22 13:56 Blood Culture - Preliminary Blood SPECIMEN COLLECTED 11/20/22 13:50 Blood Culture - Preliminary Blood SPECIMEN COLLECTED Other data: CT chest/abdomen and pelvis IMPRESSION: VASCULATURE: Pulmonary arteries: Normal. No pulmonary emboli. Aorta: Aorto bi-iliac bypass changes. There is occlusion of the [place] infrarenal abdominal aorta 3.2 cm distal to the bypass graft origin by thrombus. Aortic and iliac components of the graft are patent. Bilateral external iliac portions of the graft are anastomosed most with the [place] common femoral arteries. Celiac trunk and mesenteric arteries: No occlusion or significant stenosis. Renal arteries: Superior accessory right renal artery patent. Inferior main right renal artery patent. Accessory superior left renal artery patent. There is atherosclerotic plaque at the origin of the inferiorly positioned main left renal artery with a short segment of severe narrowing measuring 2 mm in the transverse dimension. Right iliac arteries: No occlusion or significant stenosis. Left iliac arteries: No occlusion or significant stenosis. 1. Aorto bi-iliac bypass changes. There is occlusion of the [place] infrarenal abdominal aorta 3.2 cm distal to the bypass graft origin by thrombus. Aortic and iliac components of the graft are patent. 2. There is atherosclerotic plaque at the origin of the inferiorly positioned main left renal artery with a short segment of severe narrowing.Accessory superior left renal artery patent. EKG showed sinus rhythm, Diffuse ST elevation, with hyperacute T waves. A&P Assessment and plan (1) Non-STEMI (non-ST elevated myocardial infarction): Hold Eliquis -start lovenox at therapeutic dose -continue ASA, statin and metoprolol Risks and benefits were discussed with the patients. Possible complications including risk of heart attack stroke and , coronary perforation, arrhythmia, cardiac tamponade in urgent CABG were discussed with the patient as well. Plan is to proceed for the procedure at the earliest. (2) Endocarditis: On vancomycin -f/u on records -f/u on echo (3) Peripheral artery disease: s/p recent aorto-biilliac bypass grafting (4) Hypertension: Qualifiers: Hypertension type: unspecified Qualified Code(s): I10 - Essential (primary) hypertension (5) Smoker: quit about 1 month ago Plan Carotid artery disease Dyslipidemia Patient seen today via Telehealth by agreement and consent of patient. Telehealth technology used during the visit include video and audio. Exam was conducted with the help of bedside nurse. Time spent in encounter 30 minutes with >50% time spent face to face. Coding Level of Care Code Acute Code for [facility] Fwd Diagnoses Non-STEMI (non-ST elevated myocardial infarction) I21.4 Endocarditis I38 Peripheral artery disease I73.9 Hypertension I10 Hypertension type: unspecified Smoker F17.200
--- NOTE | 2022-11-20 15:35 | PM.HP ---
Providers/Chief Complaint Chief Complaint: CHEST PAIN History of Present Illness Pleasant 47-year-old gentleman with PVD of multiple vascular beds, with prior left total carotid occlusion, moderate to heavy heterogenous plaques of right bifurcation with 50-69% stenosis, also hemodynamically significant stenosis bilateral external carotids, CVA. HTN, HLD, PTSD, previously long-term heavy smoker, 1.5 packs/day since very young age, COPD, asthma, was just discharged on 11/12 after transferred to [facility] in [place] from [facility] after presenting with critical limb ischemia of left lower extremity, and subsequently with finding of severe proximal occlusion, at [facility] underwent aortobiiliac bypass, with hospitalization complicated by bacteremia and he says abnormal finding in his heart with a squiggly , could be vegetation, he is not sure, but states that infection started due to infiltrated IV subsequently with septic thrombophlebitis. His PICC line was placed sometime around 11/11. He is currently continuing on IV vancomycin 2 g twice daily as per ID specialist with weekly labs. He was discharged also on aspirin 325 mg as well as Eliquis. He was evaluated in ER after brought in by EMS after episode of severe chest pain this morning, accompanied by feeling faint, severe generalized weakness, pallor, sweats. He took all his medications this morning including vancomycin infusion. He states that on the way he received nitroglycerin which helped the pain. He also received morphine in ER as well as labetalol due to initial hypotension. He states that currently pain has been taking care of and gone. He feels better. In ER he is found to have initially sinus bradycardia at [address] elevation. He is noted to have elevated troponin at baseline up to 315. CTA chest abdomen and pelvis with noted aortobiiliac bypass changes. Occlusion of [place] infrarenal abdominal aorta 3.2 cm distal to the bypass graft origin by thrombus. Aortic and iliac components of the graft are patent. There is atherosclerotic plaque at the origin of the inferior liquidation main left renal artery with short segment of severe narrowing. Accessory superior renal artery patent. He denies past history of NC or coronary stenting. He had an exercise stress test in 2020, but states his exercise capacity was very much suboptimal during the test. Noted hypertensive response during the test. He states he has not smoked since September. Review of Systems Const: Reports: fatigue, malaise and diaphoresis; Denies: fever(s) or body aches Eyes: Denies: change in vision, eye discomfort or eye redness ENMT: Denies: throat pain, oral sores or ear or mastoid pain Card: Reports: chest pain; Denies: edema, pre-syncope or dyspnea on exertion Resp: Denies: dyspnea, productive cough, change in phlegm color or hemoptysis GI: Reports: nausea; Denies: abdominal pain, vomiting, diarrhea, constipation, hematochezia or melena : Denies: flank pain, difficulty urinating, urinary frequency or hematuria Musc: Denies: back pain, joint swelling or joint redness Skin/Breast: Denies: rash or new lesions Neuro: Denies: headache(s), numbness in extremities, weakness in extremities, dizziness, confusion or seizure-like activity Endo: Denies: polyuria or polydipsia Dez/Lymph: Denies: easy bleeding or tender lymph nodes All/Imm: Denies: urticaria or tongue swelling Medications/Allergies Home Medications Medication Instructions Recorded Confirmed Last Taken Type apixaban 5 mg tablet (Eliquis) 5 mg PO BID 11/16/22 11/20/22 11/20/22 History vancomycin 1.5 gram intravenous 2 g IV Q12H 11/16/22 11/20/22 11/20/22 History solution atorvastatin 80 mg tablet 80 mg PO QPM 11/18/22 11/20/22 11/19/22 History metoprolol tartrate 25 mg tablet 25 mg PO BID 11/18/22 11/20/22 11/20/22 History aspirin 325 mg tablet 325 mg PO DAILY 11/20/22 11/20/22 11/20/22 History Allergies Allergy/AdvReac Type Severity Reaction Status Date / Time No Known Allergies Allergy Verified 11/18/22 07:44 PFSH Acute PFSH: Medical History AF (amaurosis fugax) Asthma Bipolar disorder COPD (chronic obstructive pulmonary disease) CVA (cerebral vascular accident) (~10/2020) LEFT supraventricular frontal lobe History of cardiac monitoring 2 week event monitor in 05/2022 with baseline sinus rhythm, episodes of sinus tachycardia from 132-165 noted History of cardiovascular stress test 11/25/2020 Exercise Stress test with Stress Echo - No exercise induced chest pain or ekg changes, suboptimal exercise for age, hypertensive exercise response History of PFTs 05/2020 Severe airflow obstruction, no significant post dilator response, lung volumes consistent with air trapping. Normal DLCO. Hyperlipidemia Hypertension Intermittent explosive disorder Left carotid artery occlusion Nicotine dependence, cigarettes, with other nicotine-induced disorders PTSD (post-traumatic stress disorder) Surgical History H/O inguinal hernia repair Family History Mother Sarcoid Other Asthma CAD (coronary artery disease) Cancer Emphysema/COPD Hyperlipidemia Hypertension Stroke Denies family history of Clotting disorder Chronic kidney disease (CKD) Anesthesia complication Bleeding disorder Family history of premature coronary artery disease Social History Smoking and tobacco status: current every day smoker cigarettes Packs smoked per day: 0.5 Years cigarettes smoked: 32 [ Other cigarette details: onset age 8-9 years] Quit status (tobacco): has tried quititng Number of times tried to quit tobacco: 12 Second hand smoke exposure: Yes Alcohol intake: current Alcohol intake frequency: holidays/special occasions only Lives independently: Yes Household members: other Details: room mate Housing: House Marital status: service: No 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 Const: COMMON NORMALS: patient oriented x3 and alert GENERAL APPEARANCE: cooperative ORIENTATION/CONSCIOUSNESS: Yes awake HENMT: COMMON NORMALS: oropharynx normal Neck/C-Spine: COMMON NORMALS: no JVD Resp: COMMON NORMALS: normal respiratory effort and clear to auscultation bilaterally AUSCULTATION: clear to auscultation bilaterally Cardio: COMMON NORMALS: no JVD, regular rhythm, S1 normal heart sound present, S2 normal heart sound present and No murmurs present (Cardio) RHYTHM: regular rhythm HEART SOUNDS: S1 normal heart sound present and S2 normal heart sound present GI: COMMON NORMALS: Normal to inspection, nondistended, normoactive bowel sounds present, Soft to palpation and non-tender PALPATION: Yes Soft to palpation OTHER: Well-healing midline lower abdominal incision Extremity: COMMON NORMALS: no joint enlargement and no pedal edema NARRATIVE EXTREMITY EXAM: RUE PICC OTHER: BL LE extremities warm appear perfused. Neuro: COMMON NORMALS: patient oriented x3 and moves all extremities SENSORIUM/ORIENTATION: Yes alert Skin: COMMON NORMALS: no rashes or lesions noted GENERAL SKIN EXAM: no rashes or lesions noted Data 11/20/22 11:40 11/20/22 11:40 Micro: Microbiology 11/20/22 13:56 Blood Culture - Preliminary Blood SPECIMEN COLLECTED 11/20/22 13:50 Blood Culture - Preliminary Blood SPECIMEN COLLECTED A&P Assessment and plan (1) Non-STEMI (non-ST elevated myocardial infarction): Complete troponin EKG series. Nitroglycerin and morphine as needed in case of return of pain. Monitor vitals, cardiac monitoring. Will obtain TTE. Continue aspirin, anticoagulation, continue beta-tasha and high intensity statin. Cardiology is seeing the patient, appreciate recommendations with regards to further assessment. (2) Vascular disease: PVD of multiple vascular beds, including severe carotid disease with left side proximal total occlusion, but also infrarenal aorta occlusion/thrombosis status post aortobiiliac bypass. He states he has not smoked since September with long and heavy smoking history prior to that. Continue aspirin, Eliquis, high intensity statin. Continue to encourage smoking abstinence. Consider follow-up for work-up for clotting disorder. (3) Bacteremia: Reports bacteremia after septic thrombophlebitis in the left arm after infiltrated IV, as per infectious disease specialist continues on vancomycin infusion at home twice daily 2 g with weekly labs. Last infusion supposed to be 11/26. (4) Septic thrombophlebitis: During hospitalization at [facility]. (5) Endocarditis: Possible endocarditis, he states was told that he was found to have a squiggly in his heart and they were not sure whether it could be a small growth . We will request records. Continue IV vancomycin. (6) Smoker: Discussed with him smoking cessation for 3-1/2 minutes. He has not smoked since September. He understands that he needs to quit. Continue to encourage abstinence. Nicotine replacement as needed for cravings. (7) Hypertension: Hypertensive on present patient, received labetalol. Nitroglycerin in EMS. Continue metoprolol. Cardiac diet. Continue to optimize blood pressure control. Qualifiers: Hypertension type: unspecified Qualified Code(s): I10 - Essential (primary) hypertension Plan Renal artery stenosis Hx CVA. HTN, HLD, PTSD Attestations Medical Necessity Statement*: Admission of over 2 midnights anticipated for assessment of management of NSTEMI and gentleman with severe underlying multivessel vascular disease Coding Level of Care Code Acute Code for g Fwd Exam Comprehensive Diagnoses Non-STEMI (non-ST elevated myocardial infarction) I21.4 Vascular disease I99.9 Bacteremia R78.81 Septic thrombophlebitis I80.9 Endocarditis I38 Smoker F17.200 Hypertension I10 Hypertension type: unspecified
--- NOTE | 2022-11-20 16:25 | USCV_ITS ---
Tammy Esequiel Age: 47 Gender: M : 1975 Exam Date: 11/20/2022 17:17 Ordering Phys: Mehnaz Samuels MD ([email or web address]) Technologist: RIOS Exam Location: [facility] Indication: NSTEMI BP: 136 / 100 HR: 80 Rhythm: Sinus Technical Quality: Adequate MEASUREMENTS (Male / Female) Normal Values 2D ECHO LV Diastolic Diameter PLAX 5.8 cm 4.2 - 5.9 / 3.9 - 5.3 cm LV Systolic Diameter PLAX 4.9 cm IVS Diastolic Thickness 0.6 cm 0.6 - 1.0 / 0.6 - 0.9 cm IVS Systolic Thickness 0.8 cm LVPW Diastolic Thickness 0.6 cm 0.6 - 1.0 / 0.6 - 0.9 cm LVPW Systolic Thickness 0.8 cm LVOT Diameter 2.2 cm LV Ejection Fraction 2D Teich 33.3 % LV Ejection Fraction MOD 2C 40.7 % LV Ejection Fraction 2C AL 41.8 % LA Diameter 3.5 cm IVC Diameter 1.5 cm M-MODE Aortic Annulus Diameter 3.1 cm LA Ao Ratio MM 1.2 MV E Point Septal Separation 0.4 cm DOPPLER AV Peak Velocity 171.0 cm/s LVOT Peak Velocity 144.0 cm/s AV Area Cont Eq vti 3.3 cm squared AV Area Cont Eq pk 3.2 cm squared MV Area PHT 4.2 cm squared Mitral E to A Ratio 1.1 MV E' Velocity 65.0 cm/s Mitral E to MV E' Ratio 9.6 Mitral E to LV E' Lateral Ratio 7.3 Mitral E to LV E' Septal Ratio 14.3 TR Peak Velocity 72.0 cm/s TR Peak Gradient 2.1 mmHg PV Peak Velocity 119.0 cm/s FINDINGS Left Ventricle Normal left ventricular size, systolic function and wall thickness, with no regional wall motion abnormalities. Left ventricular ejection fraction is estimated at 65 %. Normal diastolic function. Right Ventricle Normal right ventricular size and systolic function. RVSP could not be calculated due to incomplete tricuspid regurgitation velocity profile. Right Atrium Normal right atrial size. Left Atrium Normal left atrial size. Mitral Valve Structurally normal mitral valve. No mitral valve stenosis. Trace mitral valve regurgitation. Aortic Valve Structurally normal trileaflet aortic valve. No aortic valve stenosis. No aortic valve regurgitation. Tricuspid Valve Structurally normal tricuspid valve. No tricuspid valve stenosis. No tricuspid valve regurgitation. Pulmonic Valve Structurally normal pulmonic valve. No pulmonary valve stenosis. Trace pulmonary valve regurgitation. Pericardium No pericardial effusion. Aorta Normal size aortic root and proximal ascending aorta. IVC Normal IVC dimension with >50% respiratory change of the inferior vena cava. CONCLUSIONS 1. Normal left ventricular size, systolic function and wall thickness, with no regional wall motion abnormalities. Left ventricular ejection fraction is estimated at 65 %. Normal diastolic function. 2. Normal right ventricular size and systolic function. 3. No significant valvular abnormality. 4. No significant change when compared to study dated 07/20/2021. Mehnaz Samuels MD (Electronically Signed) Final Date: 20 November 2022 21:28 S
--- NOTE | 2022-11-20 18:06 | ECG_ITS ---
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 Measurements Intervals [place] Rate: 81 P: 76 [place]: 171 QRS: 79 QRSD: 98 T: 64 QT: 371 QTc: 433 Interpretive Statements SINUS RHYTHM Compared to ECG 11/20/2022 13:50:43 ST (T wave) deviation no longer present Early repolarization no longer present Electronically Signed On 11-21-2022 9:14:33 PLANTING SUPERVISOR by Mehnaz Samuels M.D. [id number]
[2022-11-20 18:27] LABS: Troponin 5 6HR 541.9 ng/L (0-15); Troponin 5 6HR Delta 226.9 ng/L (0-12)
[2022-11-20] MEDS: enoxaparin 100 mg/mL Syringe SUBCUT (20:25)
[2022-11-20] MEDS: vancomycin 1,500 MG/300 ML PIGGYBACK 200 MG IV (20:25)
[2022-11-20] MEDS: metoprolol tartrate 25 mg Tablet PO (20:26)
[2022-11-21] VITALS (58 sets, daily range): BP systolic 106–133; BP diastolic 58–81; PULSE 72–102; RESP 2–21; TEMP 36.6–39; O2SAT 97–100; BMI 26.9
[2022-11-21] MEDS: vancomycin 1,500 MG/300 ML PIGGYBACK 200 MG IV ×3 (04:05→19:57)
[2022-11-21 04:52] LABS: Bilirubin Urine Neg (Negative); Blood Urine 2+ (Negative); Glucose Urine UA Norm (Normal); Ketones Urine Negative (Negative); Nitrate Urine Negative (Negative); Protein Urine Neg (Negative); Urine Appearance Clear (CLEAR); Urine Color Yellow (Yellow); pH Urine 5 (5-7)
[2022-11-21 04:53] LABS: Add Urine Microscopic? YES; Leukocyte Esterase Urine Negative (Negative); Urobilinogen Urine Neg (Negative)
[2022-11-21 04:54] LABS: Basophils % 0.3 %; Eosinophils # 1.1 10^3/uL (0.0-0.8); Eosinophils % 17.3 %; Hematocrit 34.7 % (42.0-52.0); Hemoglobin 10.5 g/dL (11.7-16.6); Lymphocytes # 1.2 10^3/uL (0.8-4.8); Lymphocytes % 19.4 %; Mean Corpuscular HGB Conc 30.3 g/dL (30.0-36.0); Mean Corpuscular Hemoglobin 29.7 pg (28.0-34.0); Mean Platelet Volume 10.5 fL (7.4-10.4); Monocytes # 0.8 10^3/uL (0.2-0.9); Monocytes % 13.7 %; Neutrophils # 2.96 10^3/uL (1.8-7.7); Neutrophils % 48.8 %; Nucleated Red Blood Cells % 0 %; Platelet Count 131 10^3/cmm (130-400); Red Blood Count 3.54 10^6/uL (4.1-5.3); Red Cell Distribution Width 14.4 % (12.1-15.1); White Blood Count 6.1 10^3/uL (4.0-10.0)
[2022-11-21 05:12] LABS: Add Urine Culture? No; Bacteria Urine TRACE /hpf; RBC Urine 0-4 /hpf (0-2); Squamous Epithelial Cell Urine 0-4 /hpf (0-5); WBC Urine 0-4 /hpf (0-5)
--- NOTE | 2022-11-21 07:02 | XACV_ITS ---
Exam Room: 105 Ht: 191 cm Wt: 98 kg BSA: 2.28 m2 Gender: Male : 1975 Any Known Allergies: No known allergies Exam Priority: Routine Procedure(s): Procedure Description: Diagnostic procedure Diagnostic Cath Status: Urgent Diagnostic Findings * Left Main has no significant disease. * Left Anterior Descending has no significant disease. * Circumflex has no significant disease. * Proximal Right Coronary Artery: obstructive 70% hazy stenosis, ANKIT: 3 flow. * Coronary angiography shows right dominance. PCI Status: Elective PCI Indication: NSTE - ACS Interventional Findings * Procedure detail: We engaged RCA with JR4 guide catheter. IV heparin was administered to maintain ACT above 250s. 0.014 cougar guidewire was used to cross proximal RCA stenosis and was put in distal vessel. We predilated stenosis with 3.0 x 8 mm semicompliant balloon. This was followed by placement of 4.0 x 15 mm resolute [place] drug-eluting stent. At this time final angiogram was performed that showed excellent stent expansion, no residual stenosis and ANKIT-3 flow. Guidewire and guide catheter were removed. Patient left the Avionics Systems Integration Specialist in a stable condition.. * Proximal Right Coronary Artery: 70% stenosis treated with a AB TREK 3.00X08 RX BALLOON, and MDT R SHERMAN 4.0X15 NICOLÁS. 0% residual stenosis, ANKIT: 3 flow. Conclusions 1. Severe proximal RCA stenosis (culprit for NSTEMI) S/p successful revascularization with NICOLÁS x1. 2. Proximal Right Coronary Artery was treated with a Balloon, and Drug Eluting Stent. Recommendations * Eliquis and plavix for atleast 1 year. * High intensity statin therapy. * Outpatient cardiology follow up in 4 weeks. Interventional RX Recommendation: PCI w/o planned CABG Diagnostic RX Recommendation: PCI w/o planned CABG Anticoagulation: Heparin Pressures Phase:Rest AO : 108 / 68 ( 83 ) @ 9:12:00 AM 90 / 68 ( 79 ) @ 9:14:00 AM 87 / 56 ( 71 ) @ 9:19:00 AM Clinical Evaluation EBL: 5mL-10mL Procedural Details Procedure Consent Obtained. Admit Source: In Patient. Pre-Procedure Time Out. Identified patient by full name and date of as verbalized by the patient/guarantor. Does the consent match the physician's order: Yes. Accurate & Complete Informed Consent: Yes. Inpatient/Outpatient History & Physical on Chart: Yes. If H&P is completed, is and addenduem needed: No; If yes, is the addendum complete: N/A. Visualize and Verify Site with Patient/Guarantor: N/A. Relevant Radiology Images available: N/A. The risks, benefits, and alternatives of sedation and/or procedure were discussed by physician. The patient agrees to continue. Procedure started. [facility] Clinical Fraility Score: 3: Managing Well. Avionics Systems Integration Specialist Indications: NSTEMI. Chest Pain Symptom Assessment: Typical Angina Symptoms. Correct patient, site and procedure confirmed by cath team. Current diagnosis: NSTEMI. PERRLA. Strong, equal hand car ferry captain bilaterally. Lungs clear x 5 lobes. IV Site on Arrival: 18 gauge in the left anticubital. IV Fluids: 0.9% NaCl at KVO. 0 mL infused prior to laborer aquatic life. Pre Procedural Pulses: bilateral radial was 3+. Pre Procedural Pulses: bilateral posterior tibial was 1+. Pre Procedural Pulses: bilateral dorsalis pedis was 1+. Oxygen started at 2liters/min via nasal canula. right radial was prepped with chloroprep then draped in the usual sterile fashion. Physician notified. Baseline sample Acquired. HR: 83 BPM. Baseline sample Acquired. HR: 81 BPM. Physician arrived. Physician scrubbed in. Immediate Pre-Procedure Time Out. Correct Patient: Yes; Correct Procedure: Yes; Correct Site: Yes; Correct Patient Position: Yes; Correct Supplies: Yes; Dried Flammable Prep: Yes; Blood Products Available: N/A;. Lidocaine 1% infiltrated to the right radial. Arterial access obtained. A 5 kyrgyz TIG catheter in over wire. Multiple views taken of left coronary artery. Catheter redirected to the RCA. Multiple views taken of right coronary artery. Catheter out. 6 kyrgyz JR 4 guide catheter was inserted over the wire. [place] guidewire was advanced through the guide catheter to lesion in the prox RCA. Inflation number : 1 A AB TREK 3.00X08 RX BALLOON was prepped and advanced across the Prox RCA , then inflated to 8 NANY for 0:11 seconds. Inflation number: 2 The AB TREK 3.00X08 RX BALLOON was reinflated across the Prox RCA, to 8 NANY for 0:09 seconds. Balloon out. Results checked. Inflation Number : 3 A JUWAN Dow SHERMAN 4.0X15 NICOLÁS -Lot Number# [id number] exp date 11/05/2024 was prepped and advanced across the Prox RCA. The stent was deployed at 12 NANY for 0:21 seconds. Stent balloon out over wire. Wire out. Results checked. ACT drawn. Results 299 seconds. Therapeutic limits - pre-heparin administration 90-150 seconds and monitoring heparin during a vascular procedure >250 seconds. Guide catheter out. A TR Band was successful obtaining hemostatsis at the Right Radial artery insertion site. PERRLA. Strong, equal hand car ferry captain bilaterally. No VTE prophylaxis required. Medication's Wasted: Lidocaine 1% = 4 mL. Medication's Wasted: Nitro = 49.6 mg. Medication's Wasted: Heparin = 1000units. Total IV fluids: 29 mL. Post-op diagnosis: severe prox RCA stenosis, S/P one stent. Complications: none. Estimated blood loss: 5mL-10mL. Responsiveness - Normal response to verbal stimuli; alert and oriented, PERRLA. Airway - Unaffected, no intervention required; spontaneous ventilation. Circulation: W/N/L, pulses unchanged. Nausea/Vomiting: No. Procedure completed. Patient transferred by bed to 1st floor. Vital chart was stopped. Access Site Site: Right Radial artery Sheath Size: 6 Fr Hemostasis Method: TR Band Hemostasis Success: Successful Procedure Medications Start: 9:08 AM Stop: 9:08 AM Medication: Versed 1 mg and Fentanyl 25 mcg Amount: 1 Route: I.V. Start: 9:08 AM Stop: 9:08 AM Medication: Fentanyl Amount: 25 mcg Route: I.V. Start: 9:11 AM Stop: 9:11 AM Medication: Nitrogylcerin Amount: 200 mcg Route: I.A. Start: 9:11 AM Stop: 9:11 AM Medication: Versed Amount: 1 mg Route: I.V. Start: 9:12 AM Stop: 9:12 AM Medication: Heparin Amount: 5000 units Route: I.V. Start: 9:18 AM Stop: 9:18 AM Medication: Heparin Amount: 5000 units Route: I.V. Start: 9:21 AM Stop: 9:21 AM Medication: Versed Amount: 1 mg Route: I.V. Start: 9:24 AM Stop: 9:24 AM Medication: Versed Amount: 1 mg Route: I.V. Start: 9:26 AM Stop: 9:26 AM Medication: Nitrogylcerin Amount: 200 mcg Route: I.C. Start: 9:27 AM Stop: 9:27 AM Medication: Fentanyl Amount: 25 mcg Route: I.V. Start: 9:31 AM Stop: 9:31 AM Medication: Plavix Amount: 600 mg Route: P.O. I, the attending physician, have reviewed and verified all procedure medications. Yes, all medications given per verbal order History/Risk Factors Hypertension: Yes Dyslipidemia: Yes Peripheral Arterial Disease (PAD): Yes Myocardial Infarction (DC): No Obesity: No Tobacco Use: Former Prior Interventions PCI: No CABG: No Valve Surgery: No Report Signatures Finalized by Sandeep Alexander MD on 11/28/2022 09:55 PM
[2022-11-21 07:21] LABS: Alanine Aminotransferase 28 U/L (0-41); Albumin Level 3.5 g/dL (3.5-5.2); Alkaline Phosphatase 147 U/L (40-130); Anion Gap 13.3 (5-19); Aspartate Amino Transferase 45 U/L (0-40); Blood Urea Nitrogen 15 mg/dL (6-20); Calcium 9.1 mg/dL (8.5-10.5); Carbon Dioxide 27 mmol/L (22-29); Chloride 102 mmol/L (98-107); Globulin 3.3 g/dL (1.3-4.6); Glomerular Filtration Rate 80.8 mL/min (90-130); Glucose 109 mg/dL (65-115); Osmolality Calculated 287 mOsm/kg (285-295); Potassium 4.3 mmol/L (3.5-5.1); Sodium 138 mmol/L (136-145); Total Bilirubin 0.4 mg/dL (0.15-1.2); Total Protein 6.8 g/dL (6.6-8.7)
[2022-11-21] MEDS: metoprolol tartrate 25 mg Tablet PO ×2 (08:46→17:44)
[2022-11-21] MEDS: aspirin 325 mg Tablet PO (08:46)
[2022-11-21] MEDS: diphenhydrAMINE 50 mg Capsule PO (08:46)
[2022-11-21] MEDS: sodium chloride 0.9% 1,000 ML 50 ML IV (08:47)
--- NOTE | 2022-11-21 09:03 | W.PM.OPSUD ---
Surgery/Procedure H&P Update DATE OF PROCEDURE: November 21, 2022 DATE H&P PERFORMED: 11/20/22 H&P UPDATE INFORMATION: I have reviewed H&P completed within last 30 days, I have examined patient prior to procedure and No changes to prior documentation PREOP DIAGNOSIS: NSTEMI PRIMARY INDICATION FOR PROCEDURE: NSTEMI PLANNED PROCEDURE: Operation Date: 11/21/22 09:00 Proposed Procedures p Cardiac Catheterization(Left) - Sandeep Alexander M.D Possible percutaneous coronary intervention PATIENT REASSESSED PRIOR TO SEDATION, WITH NO CHANGE NOTED: Yes PHYSICAL EXAM: alert, oriented x 3, clear to auscultation bilaterally and regular rate & rhythm AIRWAY EVAL/ANESTHESIA PLAN: normal airway, ASA III, Local Anesthesia, Risks, benefits & alternatives of sedation and/or procedure discussed and Patient agrees to continue as planned
[2022-11-21] MEDS: sodium chloride 0.9% 1,000 ML 100 ML IV ×2 (09:45→19:58)
--- NOTE | 2022-11-21 16:46 | P.PN_ITS ---
Subjective Subjective: Today he states he is doing well after angiogram. Denies chest pain. No trouble breathing. No other additional symptoms today. States was told that there was high-grade stenosis and thrombus present which was reopened with a stent. Vitals/I&O/Wt Last Vital Signs Temp 98.0 F 11/21/22 15:47 Pulse 82 11/21/22 12:00 Resp 15 11/21/22 15:47 BP 133/74 11/21/22 15:47 Pulse Ox 98 11/21/22 15:47 O2 Del Method 11/21/22 15:47 11/21/22 11/21/22 11/21/22 06:59 14:59 22:59 Intake Total 300 / 840 780 / 780 Output Total 780 / 780 400 / 400 Balance -480 / 60 780 / 780 -400 / 380 Weight last 48 hrs Weight 97.522 kg Weight 95.254 kg Physical Exam Const: COMMON NORMALS: patient oriented x3 and alert GENERAL APPEARANCE: cooperative ORIENTATION/CONSCIOUSNESS: Yes awake HENMT: COMMON NORMALS: oropharynx normal Neck/C-Spine: COMMON NORMALS: no JVD Resp: COMMON NORMALS: normal respiratory effort and clear to auscultation bilaterally AUSCULTATION: clear to auscultation bilaterally Cardio: COMMON NORMALS: no JVD, regular rhythm, S1 normal heart sound present, S2 normal heart sound present and No murmurs present (Cardio) RHYTHM: regular rhythm HEART SOUNDS: S1 normal heart sound present and S2 normal heart sound present GI: COMMON NORMALS: Normal to inspection, nondistended, normoactive bowel sounds present, Soft to palpation and non-tender PALPATION: Yes Soft to palpation OTHER: Well-healing midline lower abdominal incision Extremity: COMMON NORMALS: no joint enlargement and no pedal edema NARRATIVE EXTREMITY EXAM: RUE PICC OTHER: TR band right wrist, no bleeding. BL LE extremities warm appear perfused. Neuro: COMMON NORMALS: patient oriented x3 and moves all extremities SENSORIUM/ORIENTATION: Yes alert Skin: COMMON NORMALS: no rashes or lesions noted GENERAL SKIN EXAM: no rashes or lesions noted Data 11/21/22 04:10 11/21/22 06:35 Micro: Microbiology 11/20/22 13:50 Blood Culture - Preliminary Blood NEGATIVE TO DATE 11/20/22 13:56 Blood Culture - Preliminary Blood NEGATIVE TO DATE A&P Assessment and plan (1) Non-STEMI (non-ST elevated myocardial infarction): Status post coronary angiography. She is started on Plavix. Report pending, from what he relays there was finding of high-grade stenosis and thrombus which was stented. Continue post angiography care. Continue to monitor on telemetry. Reassess kidney function in the morning. Continue cardiac medications. (2) Vascular disease: PVD of multiple vascular beds, including severe carotid disease with left side proximal total occlusion, but also infrarenal aorta occlusion/thrombosis status post aortobiiliac bypass. He states he has not smoked since September with long and heavy smoking history prior to that. Continue aspirin, Eliquis, high intensity statin. Continue to encourage smoking abstinence. Consider follow-up for work-up for clotting disorder at PMD office. (3) Bacteremia: Reports bacteremia after septic thrombophlebitis in the left arm after infiltrated IV, as per infectious disease specialist continues on vancomycin infusion at home twice daily 2 g with weekly labs. Last infusion supposed to be 11/26. Young trough noted 17.8. Continue vancomycin to completion after discharge. He states will have additional follow-up testing with [place] provider subs equently with consideration with her to extend IV antibiotic course. (4) Septic thrombophlebitis: During hospitalization at [facility]. (5) Endocarditis: Possible endocarditis, he states was told that he was found to have a squiggly in his heart and they were not sure whether it could be a small growth . We will request records. Continue IV vancomycin. Young trough noted 17.8. Continue vancomycin to completion after discharge. He states will have additional follow-up testing with [facility] provider subsequently with consideration with her to extend IV antibiotic course. (6) Smoker: Continue to encourage abstinence. Nicotine replacement as needed for cravings. (7) Hypertension: Blood pressure is doing better. Nitroglycerin in EMS. Continue metoprolol. Cardiac diet. Continue to optimize blood pressure control. Qualifiers: Hypertension type: unspecified Qualified Code(s): I10 - Essential (primary) hypertension Plan Renal artery stenosis Hx CVA. HTN, HLD, PTSD Attestations Medical Necessity Statement*: Continue admission for assessment management following NSTEMI, PCI and stenting in a gentleman with extensive vascular dis ease. Coding Level of Care Code Acute Code for [facility] Fwd Diagnoses Non-STEMI (non-ST elevated myocardial infarction) I21.4 Vascular disease I99.9 Bacteremia R78.81 Septic thrombophlebitis I80.9 Endocarditis I38 Smoker F17.200 Hypertension I10 Hypertension type: unspecified
[2022-11-21] MEDS: atorvastatin 40 mg Tablet 80 MG PO (17:43)
--- NOTE | 2022-11-21 18:49 | PM.MISC ---
Miscellaneous Note Purpose of Documentation: Brief procedure note Note: Patient has hazy proximal RCA 70% stenosis. This is culprit vessel for NSTEMI. Underwent successful revascularization with NIOCLÁS X 1. LAD and LCx do not have significant stenosis. Aspirin and plavix loaded. Can continue plavix and eliquis
[2022-11-21] MEDS: apixaban 5 mg Tablet PO (20:04)
[2022-11-21] MEDS: piperacillin-tazobactam 3.375 GM in sodium chloride 0.9% (plus) 50 ML IV (21:38)
[2022-11-21 22:04] LABS: Erythrocyte Sedimentation Rate 41 mm/hr (0-10)
[2022-11-21 22:05] LABS: Add Urine Microscopic? YES; Bilirubin Urine Neg (Negative); Blood Urine 2+ (Negative); Glucose Urine UA Norm (Normal); Ketones Urine Negative (Negative); Leukocyte Esterase Urine Negative (Negative); Nitrate Urine Negative (Negative); Protein Urine Neg (Negative); Specific Gravity, Urine 1.005 (1.005-1.030); Urine Appearance Clear (CLEAR); Urine Color Yellow (Yellow); Urobilinogen Urine Neg (Negative); pH Urine 5 (5-7)
[2022-11-21 22:07] LABS: Add Urine Culture? No; Mucus Urine TRACE /hpf; RBC Urine 0-4 /hpf (0-2); Squamous Epithelial Cell Urine 0-4 /hpf (0-5)
[2022-11-21 22:15] LABS: Influenza A by IFA negative (Negative); Influenza B by IFA negative (Negative)
[2022-11-21 22:32] LABS: C Reactive Protein 19.5 mg/L (0.0-4.9)
[2022-11-21 23:41] LABS: Adenovirus Not Detected (NOT DETECT); Chlamydia Pneumoniae Not Detected (NOT DETECT); Coronavirus 229E,HKU1,NL63,OC4 Not Detected (NOT DETECT); Human Metapneumovirus Not Detected (NOT DETECT); Human Rhinovirus/Enterovirus Not Detected (NOT DETECT); Influenza A Not Detected (NOT DETECT); Influenza A H1 Not Detected (NOT DETECT); Influenza A H1-2009 Not Detected (NOT DETECT); Influenza A H3 Not Detected (NOT DETECT); Influenza B Not Detected (NOT DETECT); Mycoplasma Pneumoniae Not Detected (NOT DETECT); Parainfluenza Virus Type 1 Not Detected (NOT DETECT); Parainfluenza Virus Type 2 Not Detected (NOT DETECT); Parainfluenza Virus Type 3 Not Detected (NOT DETECT); Parainfluenza Virus Type 4 Not Detected (NOT DETECT); Respiratory Syncytial Virus A Not Detected (NOT DETECT); Respiratory Syncytial Virus B Not Detected (NOT DETECT); SARS-COV-2 Not Detected (NOT DETECT)
[2022-11-22] VITALS (7 sets, daily range): BP systolic 124–152; BP diastolic 75–86; PULSE 78–86; RESP 14–18; TEMP 36.8–37.1; O2SAT 96–99
[2022-11-22 02:30] LABS: Basophils % 0.2 %; Eosinophils # 1.1 10^3/uL (0.0-0.8); Eosinophils % 22.3 %; Hematocrit 34.1 % (42.0-52.0); Hemoglobin 10.6 g/dL (11.7-16.6); Lymphocytes # 0.9 10^3/uL (0.8-4.8); Lymphocytes % 17.6 %; Mean Corpuscular HGB Conc 31.1 g/dL (30.0-36.0); Mean Corpuscular Hemoglobin 29.5 pg (28.0-34.0); Mean Platelet Volume 8.8 fL (7.4-10.4); Monocytes # 0.7 10^3/uL (0.2-0.9); Monocytes % 14.8 %; Neutrophils # 2.21 10^3/uL (1.8-7.7); Neutrophils % 44.9 %; Nucleated Red Blood Cells % 0 %; Platelet Count 186 10^3/cmm (130-400); Red Blood Count 3.59 10^6/uL (4.1-5.3); White Blood Count 4.9 10^3/uL (4.0-10.0)
[2022-11-22 02:49] LABS: C Reactive Protein 20.4 mg/L (0.0-4.9); Lipase 21 U/L (13-60)
[2022-11-22 02:53] LABS: Alanine Aminotransferase 28 U/L (0-41); Albumin Level 3.6 g/dL (3.5-5.2); Alkaline Phosphatase 146 U/L (40-130); Anion Gap 14.1 (5-19); Aspartate Amino Transferase 27 U/L (0-40); Blood Urea Nitrogen 11 mg/dL (6-20); Calcium 8.6 mg/dL (8.5-10.5); Carbon Dioxide 23 mmol/L (22-29); Chloride 102 mmol/L (98-107); Glomerular Filtration Rate 91.3 mL/min (90-130); Glucose 101 mg/dL (65-115); Osmolality Calculated 280 mOsm/kg (285-295); Potassium 4.1 mmol/L (3.5-5.1); Sodium 135 mmol/L (136-145); Total Bilirubin 0.5 mg/dL (0.15-1.2); Total Protein 6.6 g/dL (6.6-8.7)
[2022-11-22 03:28] LABS: Vancomycin Trough 25.6 ug/mL (10-15)
--- NOTE | 2022-11-22 04:02 | PC.NURSE ---
Vancomycin trough at 0200 resulted at 0330 was critical at 25.6 Hospitalist and Pharmacist on duty notified and 0300 dose of vancomycin not given IVPB. Dosing to be adjusted by pharmacy protocol.
[2022-11-22] MEDS: piperacillin-tazobactam 3.375 GM in sodium chloride 0.9% (plus) 50 ML IV (04:43)
--- NOTE | 2022-11-22 07:46 | PM.DCS ---
Discharge Providers Date of Admission: 11/20/22 14:21 Date of Discharge: November 22, 2022 Attending Provider at Admission: Ayan Chung Attending Provider at Discharge: Omid Cid MD Diagnoses at Discharge Discharge Diagnosis (1) Non-STEMI (non-ST elevated myocardial infarction): Status: Acute (2) Vascular disease: Status: Acute (3) Bacteremia: Status: Acute (4) Septic thrombophlebitis: Status: Acute (5) Endocarditis: Status: Acute (6) Smoker: Status: Chronic (7) Hypertension: Status: Chronic Qualifiers: Hypertension type: unspecified Qualified Code(s): I10 - Essential (primary) hypertension Reason for Visit Reason for Visit: CHEST PAIN Hospital Course Hospital Course Pleasant 47-year-old gentleman with PVD of multiple vascular beds, with prior left total carotid occlusion, moderate to heavy heterogenous plaques of right bifurcation with 50-69% stenosis, also hemodynamically significant stenosis bilateral external carotids, CVA. HTN, HLD, PTSD, previously long-term heavy smoker, 1.5 packs/day since very young age, COPD, asthma, was just discharged on 11/12 after transferred to [facility] [place] [facility] after presenting with critical limb ischemia of left lower extremity, and subsequently with finding of severe proximal occlusion, at [facility] Hospital underwent aortobiiliac bypass, with hospitalization complicated by bacteremia and he says abnormal finding in his heart with a squiggly , could be vegetation, he is not sure, but states that infection started due to infiltrated IV subsequently with septic thrombophlebitis.? His PICC line was placed sometime around 11/11.? He is currently continuing on IV vancomycin 2 g twice daily as per ID specialist with weekly labs.? He was discharged also on aspirin 325 mg as well as Eliquis. Patient was admitted to our service for chest pain, positive troponins, cardiology was consulted, underwent coronary angiography status post stent to RCA, discharged on aspirin, statin, beta-tasha continue home Eliquis For his endocarditis, right PICC line in place, patient had a vancomycin trough of 25.6 during his hospitalization, his vancomycin trough was decreased to 1.5 g every 12 hours, recheck vancomycin trough Did have a fever morning of 11/22/2022, he really did not feel it, was asymptomatic, as high as 102, COVID negative, flu negative, no leukocytosis, no significant inflammatory marker elevation, repeat blood cultures have been drawn, follow-up with primary care provider if any recurrent fevers or chills go back to the emergency room Physical Exam Const: COMMON NORMALS: no acute distress and patient oriented x3 Resp: COMMON NORMALS: normal respiratory effort, No retractions, No use of accessory muscles and clear to auscultation bilaterally AUSCULTATION: clear to auscultation bilaterally Cardio: COMMON NORMALS: regular rate, regular rhythm, S1 normal heart sound present and S2 normal heart sound present RATE: regular rate RHYTHM: regular rhythm HEART SOUNDS: S1 normal heart sound present and S2 normal heart sound present GI: COMMON NORMALS: Normal to inspection, nondistended, normoactive bowel sounds present and non-tender Extremity: COMMON NORMALS: no pedal edema Neuro: COMMON NORMALS: patient oriented x3 Psych: COMMON NORMALS: mental status grossly normal Discharge Data Studies Completed and Pending Completed Studies During Hospitalization Category Date Time Status CT ang ches abdpel [id number] Stat Cat Scan 11/20/22 11:42 Completed XR chest 1V portable [id number] Stat Exams 11/20/22 11:41 Completed CV. echo complete* [id number] Stat Ultrasound 11/20/22 16:25 Completed Pending at discharge Category Date Time Status DANCE PROFESSOR request for service Routine Exams 11/21/22 07:02 Taken Blood Culture Stat Lab 11/20/22 13:56 Results Blood Culture Stat Lab 11/21/22 21:27 Results Complete Blood Count w/Auto AM LABS Lab 11/23/22 04:00 Ordered Comprehensive Metabolic Panel AM LABS Lab 11/23/22 04:00 Ordered MRSA by PCR Stat Lab 11/21/22 21:25 Received Radiology Impressions Chest X-Ray 11/20/22 11:41 IMPRESSION: No evidence for acute cardiopulmonary disease. Chest/Abdomen/Pelvis CTA 11/20/22 11:42 IMPRESSION: 1. Aorto bi-iliac bypass changes. There is occlusion of the [place] infrarenal abdominal aorta 3.2 cm distal to the bypass graft origin by thrombus. Aortic and iliac components of the graft are patent. 2. There is atherosclerotic plaque at the origin of the inferiorly positioned main left renal artery with a short segment of severe narrowing.Accessory superior left renal artery patent. Laboratory Results WBC 4.9 10^3/uL (4.0-10.0) 11/22/22 02:04 RBC 3.59 10^6/uL (4.1-5.3) L 11/22/22 02:04 Hgb 10.6 g/dL (11.7-16.6) L 11/22/22 02:04 Hct 34.1 % (42.0-52.0) L 11/22/22 02:04 MCV 95.0 fl (80-94) H 11/22/22 02:04 MCH 29.5 pg (28.0-34.0) 11/22/22 02:04 MCHC 31.1 g/dL (30.0-36.0) 11/22/22 02:04 RDW 14.0 % (12.1-15.1) 11/22/22 02:04 Plt Count 186 10^3/cmm (130-400) D 11/22/22 02:04 MPV 8.8 fL (7.4-10.4) 11/22/22 02:04 Neut % (Auto) 44.9 % 11/22/22 02:04 Lymph % (Auto) 17.6 % 11/22/22 02:04 [place] % (Auto) 14.8 % 11/22/22 02:04 Eos % (Auto) 22.3 % 11/22/22 02:04 Baso % (Auto) 0.2 % 11/22/22 02:04 Neut # (Auto) 2.21 10^3/uL (1.8-7.7) 11/22/22 02:04 Lymph # (Auto) 0.9 10^3/uL (0.8-4.8) 11/22/22 02:04 [place] # (Auto) 0.7 10^3/uL (0.2-0.9) 11/22/22 02:04 Eos # (Auto) 1.1 10^3/uL (0.0-0.8) H 11/22/22 02:04 Baso # (Auto) 0.0 10^3/uL (0.0-0.1) 11/22/22 02:04 Nucleated RBC % (auto) 0 % 11/22/22 02:04 Nucleated RBCs # 0.0 /100WBC 11/22/22 02:04 ESR 41 mm/hr (0-10) H 11/21/22 21:29 PT 15.30 SECONDS (12.1-14.9) H 11/20/22 11:40 INR 1.18 (0.8-1.2) 11/20/22 11:40 Sodium 135 mmol/L (136-145) L 11/22/22 02:04 Potassium 4.1 mmol/L (3.5-5.1) 11/22/22 02:04 Chloride 102 mmol/L (98-107) 11/22/22 02:04 Carbon Dioxide 23 mmol/L (22-29) 11/22/22 02:04 Anion Gap 14.1 (5-19) 11/22/22 02:04 BUN 11 mg/dL (6-20) 11/22/22 02:04 Creatinine 0.9 mg/dL (0.7-1.2) 11/22/22 02:04 GFR Calculation 91.3 mL/min (90-130) 11/22/22 02:04 Glucose 101 mg/dL (65-115) 11/22/22 02:04 Calculated Osmolality 280 mOsm/kg (285-295) L 11/22/22 02:04 Lactic Acid 2.8 mmol/L (0.5-2.2) H 11/20/22 11:40 Lactic Acid (Sepsis) 2.4 mmol/L (0.5-2.2) H 11/20/22 13:50 Calcium 8.6 mg/dL (8.5-10.5) 11/22/22 02:04 Magnesium 1.8 mg/dL (1.7-2.3) 11/20/22 11:40 Total Bilirubin 0.5 mg/dL (0.15-1.2) 11/22/22 02:04 AST 27 U/L (0-40) 11/22/22 02:04 ALT 28 U/L (0-41) 11/22/22 02:04 Alkaline Phosphatase 146 U/L (40-130) H 11/22/22 02:04 Troponin T Baseline 315 ng/L (0-15) H* 11/20/22 11:40 Troponin T 120 Minute 429.6 ng/L (0-15) H 11/20/22 13:50 Delta Troponin T 114.6 ABS# (0-10) H* 11/20/22 13:50 Troponin T Hi Sens 6Hr 541.9 ng/L (0-15) H 11/20/22 17:45 Troponin T Hi Sens 6Hr Delta 226.9 ng/L (0-12) H* 11/20/22 17:45 C-Reactive Protein 20.4 mg/L (0.0-4.9) H 11/22/22 02:04 NT-Pro-B Natriuret Pep 248 pg/mL (0-125) H 11/20/22 11:40 Total Protein 6.6 g/dL (6.6-8.7) 11/22/22 02:04 Albumin 3.6 g/dL (3.5-5.2) 11/22/22 02:04 Globulin 3.0 g/dL (1.3-4.6) 11/22/22 02:04 Lipase 21 U/L (13-60) 11/22/22 02:04 Procalcitonin 0.30 ng/mL (0-0.5) 11/21/22 21:29 Urine Color Yellow (Yellow) 11/21/22 21:30 Urine Appearance Clear (CLEAR) 11/21/22 21:30 Urine pH 5 (5-7) 11/21/22 21:30 Ur Specific [place] 1.005 (1.005-1.030) 11/21/22 21:30 Urine Protein Neg (Negative) 11/21/22 21:30 Urine Glucose (UA) Norm (Normal) 11/21/22 21:30 Urine Ketones Negative (Negative) 11/21/22 21:30 Urine Blood 2+ (Negative) H 11/21/22 21:30 Urine Nitrate Negative (Negative) 11/21/22 21:30 Urine Bilirubin Neg (Negative) 11/21/22 21:30 Urine Urobilinogen Neg mg/dL (Negative) 11/21/22 21:30 Ur Leukocyte Esterase Negative (Negative) 11/21/22 21:30 Urine RBC 0-4 /hpf (0-2) H 11/21/22 21:30 Urine WBC None /hpf (0-5) 11/21/22 21:30 Ur Squamous Epith Cells 0-4 /hpf (0-5) H 11/21/22 21:30 Amorphous Sediment Not Reportable 11/21/22 21:30 Urine Bacteria None /hpf (NONE) 11/21/22 21:30 Urine Mucus Trace /hpf 11/21/22 21:30 Vancomycin Trough 25.6 ug/mL (10-15) H* 11/22/22 02:04 Coronavirus 229E (PCR) Not detected (NOT DETECT) 11/21/22 21:25 Influenza Type A Ag negative (Negative) 11/21/22 21:25 Influenza Type B Ag negative (Negative) 11/21/22 21:25 SARS-CoV-2 (PCR) Not detected (NOT DETECT) 11/21/22 21:25 Blood Type B Positive 11/20/22 12:16 Rho(D) Type Positive 11/20/22 12:16 Antibody Screen Negative 11/20/22 12:16 Vitals Last Vital Signs Temp 98.2 F 11/22/22 07:14 Pulse 79 11/22/22 07:14 Resp 14 11/22/22 07:14 BP 145/85 11/22/22 07:14 Pulse Ox 98 11/22/22 07:14 O2 Del Method 11/22/22 07:14 Discharge Plan Discharge Patient Disposition: Home Condition: Stable Prescriptions: New nitroglycerin 0.4 mg Tablet, Sublingual 0.4 mg sublingual Q5M PRN (Reason: Chest Pain) 30 Days Qty: 30 0RF clopidogrel 75 mg Tablet 75 mg PO DAILY 30 Days Qty: 30 0RF aspirin 81 mg Tablet,Delayed Release (Dr/Ec) 81 mg PO DAILY 30 Days Qty: 30 0RF Continued Eliquis 5 mg Tablet 5 mg PO BID atorvastatin 80 mg Tablet 80 mg PO QPM metoprolol tartrate 25 mg Tablet 25 mg PO BID Changed vancomycin 1.5 gram Recon Soln 1.5 g IV Q12H Qty: 10 0RF Discontinued aspirin 325 mg tablet 325 mg PO DAILY Discharge Orders: Discharge Order (Routine); Ordered 11/22/22 Ordered By: Omid Cid Referrals: Sandeep Alexander M.D [Physician] - 4-7 days Discharge Diet: Cardiac Discharge Activity: Resume usual activity Patient Instructions: Opioid Safety Activity Restrictions/Additional Instructions: - Your vancomycin trough was elevated at 25.6 -Vancomycin dose decreased to 1.5 g every 12 hours -Follow-up with your physicians at [facility] -Continue Eliquis 5 mg twice daily -Continue aspirin, Plavix, Eliquis -Follow-up with primary care in 1 week -Nitro as needed for chest pain if any recurrent chest pain go to the emergency room Discharge Attestations Time Spent in Discharge Care*: greater than 30 min Status at Discharge: Cognitive status at discharge: cognitively intact, Behavioral status at discharge: cooperative, Quality Metrics Clinical Quality Measures [ Acute Myocardial Infaction { Clinical Trial Participant: No; Contraindication to aspirin: None; Aspirin prescribed; Contraindication to statin: None; Statin prescribed; Contraindication to PCI: None; PCI performed;}. No reported AMI, CVA or VTE this stay] Coding Level of Care Code Acute [facility] FW DC note Diagnoses Non-STEMI (non-ST elevated myocardial infarction) I21.4 Vascular disease I99.9 Bacteremia R78.81 Septic thrombophlebitis I80.9 Endocarditis I38 Smoker F17.200 Hypertension I10 Hypertension type: unspecified
--- NOTE | 2022-11-22 09:29 | P.PN_ITS ---
Subjective Subjective: s/p LHC and px RCA NICOLÁS x1 He is doing well and is eager to go home. Medications: Reviewed: Yes Vitals/I&O/Wt Last Vital Signs Temp 98.2 F 11/22/22 07:14 Pulse 79 11/22/22 07:14 Resp 14 11/22/22 07:14 BP 145/85 11/22/22 07:14 Pulse Ox 98 11/22/22 07:14 O2 Del Method 11/22/22 07:14 11/21/22 11/22/22 11/22/22 22:59 06:59 14:59 Intake Total 2080 / 2860 170 / 3030 Output Total 1400 / 1400 440 / 1840 Balance 680 / 1460 -270 / 1190 Weight last 48 hrs Weight 215 lb Weight 210 lb Physical Exam Narrative: Gen: sitting in bed, NAD HEENT/Neck: No JVD, EOMI RS: CTAB/L, No wheezes or rales CVS: S1, S2 regular; No murmur, rub or gallop PA: soft, midline incision from recent sx well approximating and well healing SUPERVISORY EXAMINER: AAOx3, No FND Ext: No edema, cyanosis ; RIGHT WRIST WITH 2+ RADIAL, no hematoma or bruising Data 11/22/22 02:04 11/22/22 02:04 Micro: Microbiology 11/21/22 21:27 Blood Culture - Preliminary Blood SPECIMEN COLLECTED 11/21/22 21:29 Blood Culture - Preliminary Blood SPECIMEN COLLECTED 11/20/22 13:50 Blood Culture - Preliminary Blood NEGATIVE TO DATE 11/20/22 13:56 Blood Culture - Preliminary Blood NEGATIVE TO DATE A&P Assessment and plan (1) Non-STEMI (non-ST elevated myocardial infarction): s/p px RCA DESx1 -continue plavix, statin and metoprolol, Restarted Eliquis -f/u with Anna Norton in 1 week and with me in 2 months -Consider cardiac rehab once released by his surgeon (2) Endocarditis: On vancomycin -f/u on records -Normal LV function on echo (3) Peripheral artery disease: s/p recent aorto-biilliac bypass grafting -f/u with sx pending (4) Hypertension: well controlled Qualifiers: Hypertension type: unspecified Qualified Code(s): I10 - Essential (primary) hypertension (5) Smoker: quit about 1 month ago Plan Carotid artery disease Dyslipidemia Patient seen today via Telehealth by agreement and consent of patient. Telehealth technology used during the visit include video and audio. Exam was conducted with the help of bedside nurse. Time spent in encounter 2s0 minutes with >50% time spent face to face. Attestations Medical Necessity Statement*: stable to be discharged home. Coding Level of Care Code Acute Code for [facility] Fwd Diagnoses Non-STEMI (non-ST elevated myocardial infarction) I21.4 Endocarditis I38 Peripheral artery disease I73.9 Hypertension I10 Hypertension type: unspecified Smoker F17.200
[2022-11-22] MEDS: vancomycin 1,500 MG/300 ML PIGGYBACK 200 MG IV (09:39)
[2022-11-22] MEDS: clopidogrel 75 mg Tablet PO (09:40)
[2022-11-22] MEDS: metoprolol tartrate 25 mg Tablet PO (09:40)
[2022-11-22] MEDS: aspirin 81 mg EC Tablet PO (09:40)
[2022-11-22] MEDS: apixaban 5 mg Tablet PO (09:40)
--- NOTE | 2022-11-22 12:04 | PC.CHAP ---
Pastoral Care Encounter/Spiritual Assessment Type of Contact [] Declined instrument technician visit [] Patient/Family/Request visit [] Outpatient visit [] Follow-up visit [] Physician referral [] Code/Alert [x Routine visit [] Staff referral [] Actively dying [] Patient sleeping [] Family support [] [] Out of room [] Palliative care [] [] Receiving care in room [] Pre-surgical visit [] Trauma [] Long length of stay [] ICU visit [] Other: Relational/Emotional Strength [x] Patient feels connected with others/family/visitors/staff [] Distress [] Loneliness/isolation [] Abandonment Spirituality of Patient []x Person of Dania [x] Attends Christian of their Dania [x] Believes in Prayer [] Reads Bible or Advent materials [] There are Spiritual issues to be addressed Central Sterile Technician Interventions [x] Prayer [x] xActive listening [] Non-anxious presence [] Spiritual/emotional support [] Crisis/trauma care [] Spiritual counseling [] Bereavement support [] Provided bereavement packet [] Provided Bible/devotional materials [] Provided toy/stuffed animal, coloring book to patient or family member [] Provided Communion [] Anointing/Thompson [] Salvation [x] Completed spiritual assessment [] Other: Impact on Illness or Injury [] Angry [] Fearful [] Anxious [] Often cries [] Exhaustion [] Unable to work [] Unable to attend denominational [] Unable to walk/stand [] Unable to read [] Unable to drive [] Unable to eat/drink [] Unable to sleep [] Unable to be with family [] Patient intubated [] Other: Summary Time spent with patient 5 min
--- NOTE | 2022-11-22 13:14 | PC.NURSE ---
Pt discharged home. Pts IV removed no redness swelling or excess bleeding noted. Pt tolerated well. Pt's discharge instructions given along with prescriptions and follow up appointments. Pt had no c/o pain or discomfort at the time of discharge. Pt transferred out via wheelchair accompanied by family and staff.
== END 2022-11-22 12:40 | disposition home or self-care (01) | DRG 247 ==
LOC: ER 17:06 → CSU 18:35
PROVIDERS: Internal Medicine; Admitting Provider Internal Medicine; Emergency Provider Emergency Medicine; Visit Provider Family Medicine
PROC: 027034Z Dilation of Coronary Artery, One Artery with Drug-eluting Intraluminal Device, Percutaneous Approach (ICD-10-PCS; principal; 2022-11-21 09:00)
PROC: 027034Z Dilation of Coronary Artery, One Artery with Drug-eluting Intraluminal Device, Percutaneous Approach (ICD-10-PCS; 2022-11-21 09:00)
DX: I21.4 Non-ST elevation (NSTEMI) myocardial infarction (principal); I38 Endocarditis, valve unspecified; I25.10 Atherosclerotic heart disease of native coronary artery without angina pectoris; Z95.1 Presence of aortocoronary bypass graft; I73.9 Peripheral vascular disease, unspecified; I10 Essential (primary) hypertension; Z87.891 Personal history of nicotine dependence; I49.3 Ventricular premature depolarization; Z86.73 Personal history of transient ischemic attack (TIA), and cerebral infarction without residual deficits; E78.5 Hyperlipidemia, unspecified; F43.10 Post-traumatic stress disorder, unspecified; J43.1 Panlobular emphysema; Z79.01 Long term (current) use of anticoagulants; E66.9 Obesity, unspecified; Z68.26 Body mass index [BMI] 26.0-26.9, adult; I95.9 Hypotension, unspecified; I71.43 Infrarenal abdominal aortic aneurysm, without rupture
CPT/HCPCS: 36415; 71045; 71275; 74174; 80053; 80202; 81001; 83605; 83690; 83735; 83880; 84145; 84484; 85025; 85347; 85610; 85651; 86140; 86850; 86900; 87040; 87635; 87641; 87804; 93005; 93306; 96372; 96374; 96375; 99152; 99153; 99285; C1725; C1769; C1874; C1887; C1894; C9600; J1644; J1650; J2250; J2270; J2405; J2543; J3010; J3370; J3490; J7030; Q0163; Q9967

== ENCOUNTER 2022-11-30 08:23 | Outpatient (RCR) | payer MEDICAID, SELFPAY ==
[2022-11-23 07:30] VITALS: BP 122/80; PULSE 99; RESP 18; TEMP 35.9; O2SAT 97
[2022-11-23 08:02] LABS: Basophils % 0.2 %; Eosinophils # 1.1 10^3/uL (0.0-0.8); Eosinophils % 24.1 %; Hematocrit 36.6 % (42.0-52.0); Hemoglobin 11.7 g/dL (11.7-16.6); Lymphocytes # 0.8 10^3/uL (0.8-4.8); Lymphocytes % 17.2 %; Mean Corpuscular Hemoglobin 29.3 pg (28.0-34.0); Mean Corpuscular Volume 91.5 fl (80-94); Mean Platelet Volume 8.7 fL (7.4-10.4); Monocytes # 0.7 10^3/uL (0.2-0.9); Monocytes % 15.4 %; Neutrophils # 1.92 10^3/uL (1.8-7.7); Neutrophils % 42.9 %; Nucleated Red Blood Cells % 0 %; Platelet Count 201 10^3/cmm (130-400); Red Cell Distribution Width 13.9 % (12.1-15.1); White Blood Count 4.5 10^3/uL (4.0-10.0)
[2022-11-23 08:14] LABS: Alanine Aminotransferase 29 U/L (0-41); Alkaline Phosphatase 162 U/L (40-130); Anion Gap 16.6 (5-19); Aspartate Amino Transferase 20 U/L (0-40); Blood Urea Nitrogen 13 mg/dL (6-20); Calcium 8.8 mg/dL (8.5-10.5); Carbon Dioxide 21 mmol/L (22-29); Chloride 98 mmol/L (98-107); Globulin 3.2 g/dL (1.3-4.6); Glomerular Filtration Rate 80.8 mL/min (90-130); Glucose 150 mg/dL (65-115); Osmolality Calculated 277 mOsm/kg (285-295); Potassium 3.6 mmol/L (3.5-5.1); Sodium 132 mmol/L (136-145); Total Bilirubin 0.5 mg/dL (0.15-1.2); Total Protein 7.2 g/dL (6.6-8.7)
[2022-11-23 08:17] LABS: Vancomycin Trough 17.7 ug/mL (10-15)
--- NOTE | 2022-11-23 13:18 | PC.NURSE ---
[place] pharmacistAmy, notified of Vanc trough 17.7. Pt to continue Vancomycin 2 gm as ordered.
[2022-11-30 08:25] VITALS: BP 169/88; PULSE 103; RESP 18; TEMP 36; O2SAT 98
[2022-11-30 08:53] LABS: Basophils % 0.4 %; Eosinophils # 0.7 10^3/uL (0.0-0.8); Eosinophils % 12.1 %; Hematocrit 36.8 % (42.0-52.0); Hemoglobin 11.5 g/dL (11.7-16.6); Lymphocytes # 1.5 10^3/uL (0.8-4.8); Lymphocytes % 25.5 %; Mean Corpuscular HGB Conc 31.3 g/dL (30.0-36.0); Mean Corpuscular Hemoglobin 28.5 pg (28.0-34.0); Mean Corpuscular Volume 91.3 fl (80-94); Mean Platelet Volume 9.1 fL (7.4-10.4); Monocytes # 0.6 10^3/uL (0.2-0.9); Monocytes % 10.4 %; Neutrophils # 2.91 10^3/uL (1.8-7.7); Neutrophils % 51.2 %; Nucleated Red Blood Cells % 0 %; Platelet Count 228 10^3/cmm (130-400); Red Blood Count 4.03 10^6/uL (4.1-5.3); Red Cell Distribution Width 13.9 % (12.1-15.1); White Blood Count 5.7 10^3/uL (4.0-10.0)
[2022-11-30 09:04] LABS: Alanine Aminotransferase 149 U/L (0-41); Albumin Level 3.8 g/dL (3.5-5.2); Alkaline Phosphatase 435 U/L (40-130); Anion Gap 17.6 (5-19); Aspartate Amino Transferase 95 U/L (0-40); Blood Urea Nitrogen 13 mg/dL (6-20); C Reactive Protein 27.8 mg/L (0.0-4.9); Calcium 8.9 mg/dL (8.5-10.5); Carbon Dioxide 21 mmol/L (22-29); Chloride 100 mmol/L (98-107); Globulin 3.4 g/dL (1.3-4.6); Glomerular Filtration Rate 80.8 mL/min (90-130); Glucose 107 mg/dL (65-115); Osmolality Calculated 281 mOsm/kg (285-295); Potassium 3.6 mmol/L (3.5-5.1); Sodium 135 mmol/L (136-145); Total Bilirubin 0.6 mg/dL (0.15-1.2); Total Protein 7.2 g/dL (6.6-8.7)
[2022-11-30 09:05] LABS: Vancomycin Trough 15.3 ug/mL (10-15)
[2022-11-30 09:35] LABS: Slide Review Slide Review Perform
== END 2022-11-30 23:59 | disposition home or self-care (01) ==
LOC: GILAB 08:23
PROVIDERS: PCP Family Medicine; Visit Provider Family Medicine
DX: R78.81 Bacteremia (principal)
CPT/HCPCS: 36415; 80053; 80202; 85025; 86140

== ENCOUNTER 2022-12-01 19:26 | Emergency (ER) | payer MEDICAID, SELFPAY ==
[2022-12-01 19:30] VITALS: BP 124/82; PULSE 105; RESP 18; TEMP 36.6; O2SAT 97; BMI 26.4
--- NOTE | 2022-12-01 20:04 | W.ED.ALLEREA ---
HPI - Allergic Reaction General: Chief complaint: Allergic Reaction Stated complaint: allergic rxn Time Seen by Provider: 12/01/22 19:34 Source: patient Mode of arrival: ambulatory Limitations: no limitations History of Present Illness: HPI narrative: Patient is a nice 47-year-old male with a fairly extensive medical history here for concerns of a pruritic rash that initially began yesterday. Patient states he has a PICC line and is receiving vancomycin infusions for bacteremia. He states he has been on vancomycin while he was hospitalized as well as this medication over the past several weeks and has not had any issues with it but was told by the cooperative manager that this may be an allergic reaction. Patient became concerned when his right ear became swollen. He states rash is extremely pruritic. He has no other complaints at this time. MD complaint: allergic reaction Onset (ago): day(s) Exposure: unknown and other (told possibly related to IV/PICC abx) Associated symptoms: Reports rash; Deny abdominal pain or dizziness Severity: moderate Treatment prior to arrival: benadryl Previous Allergic Reaction History: none Review of Systems Const: Denies: fever(s), chills, body aches, fatigue or malaise ENMT: Denies: throat pain, enlarged tonsils, odynophagia, swelling of lips/tongue or oral sores Card: Denies: chest pain Resp: Denies: dyspnea GI: Denies: abdominal pain Skin/Breast: Reports: rash and pruritus Neuro: Denies: headache(s) or dizziness PFS ED PFSH: Medical History AF (amaurosis fugax) Asthma Bipolar disorder COPD (chronic obstructive pulmonary disease) CVA (cerebral vascular accident) (~10/2020) LEFT supraventricular frontal lobe History of cardiac monitoring 2 week event monitor in 05/2022 with baseline sinus rhythm, episodes of sinus tachycardia from 132-165 noted History of cardiovascular stress test 11/25/2020 Exercise Stress test with Stress Echo - No exercise induced chest pain or ekg changes, suboptimal exercise for age, hypertensive exercise response History of PFTs 05/2020 Severe airflow obstruction, no significant post dilator response, lung volumes consistent with air trapping. Normal DLCO. Hyperlipidemia Hypertension Intermittent explosive disorder Left carotid artery occlusion Nicotine dependence, cigarettes, with other nicotine-induced disorders PTSD (post-traumatic stress disorder) Surgical History H/O inguinal hernia repair Family History Mother Sarcoid Other Asthma CAD (coronary artery disease) Cancer Emphysema/COPD Hyperlipidemia Hypertension Stroke Denies family history of Clotting disorder Chronic kidney disease (CKD) Anesthesia complication Bleeding disorder Family history of premature coronary artery disease Social History Smoking and tobacco status: current every day smoker cigarettes Packs smoked per day: 0.5 Years cigarettes smoked: 32 [ Other cigarette details: onset age 8-9 years] Quit status (tobacco): has tried quititng Number of times tried to quit tobacco: 12 Second hand smoke exposure: Yes Alcohol intake: current Alcohol intake frequency: holidays/special occasions only Lives independently: Yes Household members: other Details: room mate Housing: House Marital status: service: No 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 Pets and animals: Yes Current gender identity: Male Physical Exam Const: COMMON NORMALS: no acute distress, average body habitus, patient oriented x3, no limitations, healthy appearing, alert and well nourished ORIENTATION/CONSCIOUSNESS: Yes awake, Yes oriented to person, Yes oriented to place and Yes oriented to time HENMT: COMMON NORMALS: normocephalic and atraumatic HEAD & SCALP: normal to inspection, normocephalic and atraumatic Neck/C-Spine: COMMON NORMALS: full ROM, no lymphadenopathy, supple and no meningeal signs Chest: COMMONS NORMALS: normal inspection of the chest Resp: COMMON NORMALS: normal respiratory effort and clear to auscultation bilaterally AUSCULTATION: clear to auscultation bilaterally Cardio: COMMON NORMALS: regular rate and regular rhythm RATE: regular rate RHYTHM: regular rhythm GI: COMMON NORMALS: Normal to inspection, nondistended, normoactive bowel sounds present, Soft to palpation, non-tender, No hepatosplenomegaly present and no masses PALPATION: Yes Soft to palpation and Yes No hepatosplenomegaly present OTHER: healing abdominal incision-looks clean : COMMON NORMALS: Yes no CVA tenderness BLADDER/KIDNEY EXAM: Yes no CVA tenderness Back/Pelvis: COMMON NORMALS: no CVA tenderness and thoracic and lumbar spine normal to inspection Extremity: COMMON NORMALS: normal to inspection GENERAL: Yes normal exam except as noted OTHER: R UE PICC line-appears well dressed and clean Neuro: MARVIN COMA SCALE: document GCS findings Marvin coma scale eye opening: Spontaneous Apache coma scale verbal response: Orientated Marvin coma scale motor response: Obey commands Marvin coma scale total score: 15 COMMON NORMALS: patient oriented x3, moves all extremities, no focal motor deficits, no sensory deficits noted and gait normal SENSORIUM/ORIENTATION: Yes alert, Yes oriented to person, Yes oriented to place and Yes oriented to time MENINGEAL SIGNS: Yes no meningeal signs Skin: RASHES: rashes noted OTHER: Patient has a diffuse maculopapular rash mainly affecting his anterior trunk and upper extremities. He does have erythema and an edematous right ear. No angioedema noted. Course Vital Signs: Vital signs: Vital Signs Temperature 97.9 F 12/01/22 19:30 Pulse Rate 84 12/01/22 21:50 Respiratory Rate 16 12/01/22 21:50 Blood Pressure 124/72 12/01/22 21:50 Pulse Oximetry 95 12/01/22 21:50 Oxygen Delivery Me thod 12/01/22 20:15 MDM - Allergic Reaction Medical Decision Making Patient feels like rash is slowly fading and the pruritus has slightly improved. I have a low suspicion that his rash is actually secondary to his Vancomycin as he has been on this medication over the past 4 to 6 weeks. PICC line is actually scheduled to be removed tomorrow as his Vancomycin infusions are complete. Will place patient on a tapering steroid and have him continue Benadryl. Recommend he follow-up with PCP in 2 to 3 days for reevaluation. Strict return ED precautions given. Discharge Plan Discharge Patient Disposition: Home Clinical Impression: Maculopapular rash Condition: Stable Prescriptions: New prednisone 10 mg tablet 10 mg PO DAILY 10 Days Qty: 20 0RF Rx Instructions: Take 5 tabs on day 1-2, 4 tabs on day 3, 3 tabs on day 4, 2 tabs on day 5, and 1 tab on day 6 No Action Eliquis 5 mg Tablet 5 mg PO BID vancomycin 1.5 gram Recon Soln 2 g IV Q12H atorvastatin 80 mg Tablet 80 mg PO QPM metoprolol tartrate 25 mg Tablet 25 mg PO BID clopidogrel 75 mg Tablet 75 mg PO DAILY 30 Days Qty: 30 0RF nitroglycerin 0.4 mg Tablet, Sublingual 0.4 mg sublingual Q5M PRN (Reason: Chest Pain) 30 Days Qty: 30 0RF Discharge Orders: Discharge ED (Routine); Ordered 12/01/22 Ordered By: Claudia Grant Referrals: Axel Torres NP [Primary Care Provider] - Activity Restrictions/Additional Instructions: As we discussed I will place you on a steroid taper. You may also take Benadryl 50 mg every 4-6 hours for rash and itching. You need to follow-up with primary care in the next 2 to 3 days for reevaluation. You need to return to the emergency department for worsening rash, swelling to your lips or tongue, difficulty breathing, shortness of breath, fevers, skin blistering, or any other concerns you may have. Coding Level of Care Code ED Chemistry Technical Officer for Mary Rey
[2022-12-01] MEDS: diphenhydrAMINE 50 mg/mL SDV 1mL IVP (20:11)
[2022-12-01] MEDS: famotidine 20 mg/2 mL INJ 40 MG IVP (20:11)
[2022-12-01 20:15] VITALS: BP 136/79; PULSE 84; RESP 16; O2SAT 99
[2022-12-01 21:50] VITALS: BP 124/72; PULSE 84; RESP 16; O2SAT 95
== END 2022-12-01 21:51 | disposition home or self-care (01) ==
PROVIDERS: Emergency Provider Physician Assistant; PCP Nurse Practitioner Family
DX: R21 Rash and other nonspecific skin eruption (principal); Z79.01 Long term (current) use of anticoagulants; Z79.02 Long term (current) use of antithrombotics/antiplatelets; J44.9 Chronic obstructive pulmonary disease, unspecified; Z86.73 Personal history of transient ischemic attack (TIA), and cerebral infarction without residual deficits; E78.5 Hyperlipidemia, unspecified; I10 Essential (primary) hypertension; F17.210 Nicotine dependence, cigarettes, uncomplicated
CPT/HCPCS: 96374; 96375; 99284; J1200; J2930; J3490

== ENCOUNTER 2022-12-02 10:50 | Outpatient (RCR) | payer MEDICAID, SELFPAY ==
[2022-12-02 11:01] VITALS: BMI 25.7
[2022-12-02 11:02] VITALS: BP 149/61; PULSE 74; RESP 18; TEMP 36.4; O2SAT 98
--- NOTE | 2022-12-02 11:05 | PC.NURSE ---
Pt to GI infusions for removal of PICC. PICC to right upper arm removed. 46 cm noted with catheter intact. Site without redness, hematoma, or swelling. Pressure held for approx 3 minutes. No bleeding noted. Pt noted to have red rash with hives to upper arms, torso, right ear, and lower extremities. Pt states rash began after last dose of Vanc and that he was seen in the ER yesterday. Pt currently taking Benadryl and is to order picker prednisone from pharmacy ordered by ER provider. Pt denies difficulty breathing.
== END 2022-12-28 23:59 | disposition home or self-care (01) ==
LOC: GILAB 10:50
PROVIDERS: PCP Nurse Practitioner Family; Visit Provider Family Medicine
DX: R78.81 Bacteremia (principal)
CPT/HCPCS: 99212

== ENCOUNTER 2022-12-04 06:18 | Inpatient (IN) | payer MEDICAID, SELFPAY ==
[2022-12-04] VITALS (64 sets, daily range): BP systolic 64–153; BP diastolic 46–122; PULSE 76–116; RESP 10–24; TEMP 36.3–38.2; O2SAT 95–100; BMI 25.7
--- NOTE | 2022-12-04 06:27 | ECG_ITS ---
[facility] Test Date: 2022-12-04 Pat Name: Esequiel Munoz Department: Room: Gender: Male Registration Representative: : 1975 Requested By: Jacob Fritz Order Number: [id number] Shelli MD: Mehnaz Samuels M.D. Measurements Intervals Dowell Rate: 107 P: 80 ID: [id number] QRS: 79 QRSD: 90 T: 265 QT: 325 QTc: 435 Interpretive Statements SINUS TACHYCARDIA ST DEVIATION AND MODERATE T-WAVE ABNORMALITY, CONSIDER ANTEROLATERAL ISCHEMIA [-0.1+ mV T-WAVE IN V3-V6] ST DEVIATION AND MODERATE T-WAVE ABNORMALITY, CONSIDER INFERIOR ISCHEMIA [-0.1+ mV T-WAVE IN II/aVF] Compared to ECG 11/20/2022 18:06:24 T-wave abnormality now present Possible ischemia now present Sinus rhythm no longer present Electronically Signed On 12-04-2022 8:47:48 TECHNOLOGY PROJECT MANAGER by Mehnaz Samuels M.D. [email or web address]
--- NOTE | 2022-12-04 06:37 | XRR_ITS ---
PROCEDURE INFORMATION: Exam: XR Chest Exam date and time: 12/04/2022 6:53 AM Age: 47 years old Clinical indication: Cough and dyspnea; Smoker's cough; Additional info: Dyspnea/cough TECHNIQUE: Imaging protocol: Radiologic exam of the chest. Views: 1 view. COMPARISON: CR (CHEST, ) 11/20/2022 11:49 AM FINDINGS: Lungs: Unremarkable. No consolidation. Pleural spaces: Unremarkable. No pleural effusion. No pneumothorax. Heart/Mediastinum: Unremarkable. No cardiomegaly. Bones/joints: Unremarkable. XR/XR chest 1V portable [id number] IMPRESSION: No acute findings.
--- NOTE | 2022-12-04 06:37 | W.ED.SYNCOPE ---
HPI - Syncope General: Chief Complaint: Syncope Stated Complaint: RASH/DIZZY Time Seen by Provider: 12/04/22 06:20 Source: patient Mode of arrival: EMS History of Present Illness: 47-year-old male presents emergency room with syncopal episodes recently. He recently had an aortofemoral bypass postoperatively he had a NSTEMI with stents in the right coronary artery. He is on Eliquis and Plavix he has not had any sign of bleeding he does have a low-grade fever on arrival here he denies any worsening cough or shortness of breath. No abdominal pain no chest pain. No difficulty speech swallowing or vision. The symptoms only occur when he stands up. And several episodes of this this morning. He has had a rash that that was brought on by vancomycin. He was being treated with the vancomycin for bacteremia with a suspected thrombophlebitis and endocarditis. He does present with a low-grade fever this morning 100.8. The rash that he had initially was attributed to vancomycin seems to be worsening rather than improving. He does not have any respiratory compromise. He has areas of significant excoriation on the extremities. MD complaint: loss of consciousness Onset (ago): hour(s) Prodromal symptoms: none Associated symptoms: Reports fever(s); Deny abdominal pain, chest pain, headache(s), lightheadedness, nausea, short of breath, vertigo or weakness Treatments prior to arrival: none Review of Systems Const: Reports: fever(s); Denies: chills ENMT: Denies: throat pain, ear or mastoid pain, nasal discharge or nasal congestion Card: Denies: chest pain or lightheadedness Resp: Denies: dyspnea, productive cough or non-productive cough GI: Denies: abdominal pain or nausea : Denies: flank pain, dysuria, urinary frequency or urinary urgency Skin/Breast: Denies: rash or pruritus Neuro: Denies: headache(s) or vertigo PFS ED PFSH: Medical History AF (amaurosis fugax) Asthma Bipolar disorder COPD (chronic obstructive pulmonary disease) CVA (cerebral vascular accident) (~10/2020) LEFT supraventricular frontal lobe History of cardiac monitoring 2 week event monitor in 05/2022 with baseline sinus rhythm, episodes of sinus tachycardia from 132-165 noted History of cardiovascular stress test 11/25/2020 Exercise Stress test with Stress Echo - No exercise induced chest pain or ekg changes, suboptimal exercise for age, hypertensive exercise response History of PFTs 05/2020 Severe airflow obstruction, no significant post dilator response, lung volumes consistent with air trapping. Normal DLCO. Hyperlipidemia Hypertension Intermittent explosive disorder Left carotid artery occlusion Nicotine dependence, cigarettes, with other nicotine-induced disorders PTSD (post-traumatic stress disorder) Surgical History H/O inguinal hernia repair Family History Mother Sarcoid Other Asthma CAD (coronary artery disease) Cancer Emphysema/COPD Hyperlipidemia Hypertension Stroke Denies family history of Clotting disorder Chronic kidney disease (CKD) Anesthesia complication Bleeding disorder Family history of premature coronary artery disease Social History Smoking and tobacco status: current every day smoker cigarettes Packs smoked per day: 0.5 Years cigarettes smoked: 32 [ Other cigarette details: onset age 8-9 years] Quit status (tobacco): has tried quititng Number of times tried to quit tobacco: 12 Second hand smoke exposure: Yes Alcohol intake: current Alcohol intake frequency: holidays/special occasions only Lives independently: Yes Household members: other Details: room mate Housing: House Marital status: service: No 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 Pets and animals: Yes Current gender identity: Male Physical Exam Const: GENERAL APPEARANCE: cooperative and comfortable ORIENTATION/CONSCIOUSNESS: Yes awake, Yes oriented to person, Yes oriented to place and Yes oriented to time HENMT: COMMON NORMALS: normocephalic and atraumatic HEAD & SCALP: normocephalic and atraumatic Resp: COMMON NORMALS: normal respiratory effort, No retractions, No use of accessory muscles and clear to auscultation bilaterally AUSCULTATION: clear to auscultation bilaterally Cardio: COMMON NORMALS: regular rate, regular rhythm and No murmurs present (Cardio) RATE: regular rate RHYTHM: regular rhythm GI: COMMON NORMALS: Soft to palpation and No hepatosplenomegaly present AUSCULTATION: Yes normoactive bowel sounds PALPATION: Yes Soft to palpation, No Tenderness to palpation present (GI), No Guarding due to palpation present (GI) and Yes No hepatosplenomegaly present Extremity: COMMON NORMALS: normal to inspection, capillary refill normal, no clubbing, cyanosis or edema, no calf tenderness and no pedal edema Neuro: SENSORIUM/ORIENTATION: Yes oriented to person, Yes oriented to place and Yes oriented to time Skin: COMMON NORMALS: no rashes or lesions noted GENERAL SKIN EXAM: no rashes or lesions noted Course Vital Signs: Vital signs: Vital Signs Temperature 97.1 F L 12/05/22 04:00 Pulse Rate 81 12/05/22 05:39 Respiratory Rate 15 12/05/22 05:00 Blood Pressure 139/76 12/05/22 05:00 Pulse Oximetry 99 12/05/22 05:00 Oxygen Delivery Me thod 12/05/22 04:00 MDM - Syncope Medical Decision Making Patient was orthostatic when he first arrived. He had completed what he estimates was around 5 or 6 weeks of vancomycin before was stopped. Did not replace it with anything. He has not had any abdominal pain. We initially gave him fluids and did blood cultures White count is 17 his hemoglobin is stable. After 2 bags of fluid he still is orthostatic to a blood pressure of 64/46 when he stands. He has no abdominal pain or chest pain at this time. Cultures have already been done we will start him on linezolid. I am can do CT angio of his abdominal aorta to make sure there is no leaking. He will need to be admitted to the ICU given his hypotension when standing. Discussed with hospitalist will admit. Dr. Tarango stated he will make antibiotic selection for the patient. Medical Records I reviewed the patient's medical records. Lab Data I reviewed the patient's lab results. 12/04/22 06:30 12/04/22 06:30 Radiology Impressions Chest X-Ray 12/04/22 06:37 IMPRESSION: No acute findings. Head CT 12/04/22 06:42 IMPRESSION: No acute intracranial abnormality. Aorta w/Runoff CTA 12/04/22 11:39 IMPRESSION: Patent aortobifemoral bypass graft. No occlusion identified. Laboratory Results WBC 17.0 10^3/uL (4.0-10.0) H 12/04/22 06:30 RBC 4.67 10^6/uL (4.1-5.3) 12/04/22 06:30 Hgb 13.7 g/dL (11.7-16.6) 12/04/22 06:30 Hct 42.3 % (42.0-52.0) 12/04/22 06:30 MCV 90.6 fl (80-94) 12/04/22 06:30 MCH 29.3 pg (28.0-34.0) 12/04/22 06:30 MCHC 32.4 g/dL (30.0-36.0) 12/04/22 06:30 RDW 14.6 % (12.1-15.1) 12/04/22 06:30 Plt Count 335 10^3/cmm (130-400) 12/04/22 06:30 MPV 8.9 fL (7.4-10.4) 12/04/22 06:30 Neut % (Auto) 62.8 % 12/04/22 06:30 Lymph % (Auto) 15.1 % 12/04/22 06:30 [place] % (Auto) 5.6 % 12/04/22 06:30 Eos % (Auto) 15.4 % 12/04/22 06:30 Baso % (Auto) 0.2 % 12/04/22 06:30 Neut # (Auto) 10.71 10^3/uL (1.8-7.7) H 12/04/22 06:30 Lymph # (Auto) 2.6 10^3/uL (0.8-4.8) 12/04/22 06:30 [place] # (Auto) 1.0 10^3/uL (0.2-0.9) H 12/04/22 06:30 Eos # (Auto) 2.6 10^3/uL (0.0-0.8) H 12/04/22 06:30 Baso # (Auto) 0.0 10^3/uL (0.0-0.1) 12/04/22 06:30 Nucleated RBC % (auto) 0 % 12/04/22 06:30 Nucleated RBCs # 0.0 /100WBC 12/04/22 06:30 Sodium 137 mmol/L (136-145) 12/04/22 06:30 Potassium 4.0 mmol/L (3.5-5.1) 12/04/22 06:30 Chloride 101 mmol/L (98-107) 12/04/22 06:30 Carbon Dioxide 20 mmol/L (22-29) L 12/04/22 06:30 Anion Gap 20.0 (5-19) H 12/04/22 06:30 BUN 20 mg/dL (6-20) 12/04/22 06:30 Creatinine 1.5 mg/dL (0.7-1.2) H 12/04/22 06:30 GFR Calculation 50.6 mL/min (90-130) L 12/04/22 06:30 Glucose 105 mg/dL (65-115) 12/04/22 06:30 Calculated Osmolality 287 mOsm/kg (285-295) 12/04/22 06:30 Calcium 8.8 mg/dL (8.5-10.5) 12/04/22 06:30 Troponin T Baseline 11 ng/L (0-15) 12/04/22 06:30 Troponin T 120 Minute 11.98 ng/L (0-15) 12/04/22 08:24 Delta Troponin T 0.98 ABS# (0-10) 12/04/22 08:24 Urine Color Dark yellow (Yellow) 12/04/22 07:42 Urine Appearance Sl hazy (CLEAR) A 12/04/22 07:42 Urine pH 5 (5-7) 12/04/22 07:42 Ur Specific [place] 1.025 (1.005-1.030) 12/04/22 07:42 Urine Protein Neg (Negative) 12/04/22 07:42 Urine Glucose (UA) Norm (Normal) 12/04/22 07:42 Urine Ketones Negative (Negative) 12/04/22 07:42 Urine Blood Neg (Negative) 12/04/22 07:42 Urine Nitrate Negative (Negative) 12/04/22 07:42 Urine Bilirubin 1+ (Negative) H 12/04/22 07:42 Urine Urobilinogen Norm mg/dL (Negative) 12/04/22 07:42 Ur Leukocyte Esterase Negative (Negative) 12/04/22 07:42 Urine RBC None /hpf (0-2) 12/04/22 07:42 Urine WBC Rare /hpf (0-5) 12/04/22 07:42 Ur Squamous Epith Cells Rare /hpf (0-5) 12/04/22 07:42 Amorphous Sediment Not Reportable 12/04/22 07:42 Urine Bacteria Trace /hpf (NONE) 12/04/22 07:42 Hyaline Casts 0-4 /lpf H 12/04/22 07:42 Fine Granular Casts 0-4 /lpf H 12/04/22 07:42 Urine Mucus 2+ /hpf 12/04/22 07:42 Coronavirus 229E (PCR) Not detected (NOT DETECT) 12/04/22 06:48 Influenza Type A Ag negative (Negative) 12/04/22 06:44 Influenza Type B Ag negative (Negative) 12/04/22 06:44 SARS-CoV-2 (PCR) Not detected (NOT DETECT) 12/04/22 06:48 Discharge Plan Discharge Patient Disposition: Admitted As Inpatient Admit Provider: Quintin Tarango Clinical Impression: Septic thrombophlebitis, Endocarditis, Maculopapular rash, Acute kidney injury superimposed on CKD, Hypertension Condition: Stable Coding Level of Care Code ED Sweet Pickle Maker for Carlg Fwd Exam Detailed
--- NOTE | 2022-12-04 06:42 | CTR_ITS ---
PROCEDURE INFORMATION: Exam: CT Head Without Contrast Exam date and time: 12/04/2022 6:56 AM Age: 47 years old Clinical indication: Injury or trauma; Fall; Blunt trauma (contusions or hematomas); With loss of consciousness; Loss of consciousness for 30 minutes or less; Additional info: Fall head trauma, anticoagulation TECHNIQUE: Imaging protocol: Computed tomography of the head without contrast. Radiation optimization: All CT scans at this facility use at least one of these dose optimization techniques: automated exposure control; mA and/or kV adjustment per patient size (includes targeted exams where dose is matched to clinical indication); or iterative reconstruction. Other protocol: This patient has received [address] and 0 known cardiac nuclear medicine studies in the 12 months prior to the current study. COMPARISON: MR head wo con* [id number] 12/23/2020 10:33 AM RADIATION DOSE METRICS: Total DLP (mGy-cm): 1114.94 FINDINGS: Brain: Normal. No hemorrhage. Unremarkable white matter. No mass effect. Cerebral ventricles: No ventriculomegaly. Paranasal sinuses: Visualized sinuses are unremarkable. No fluid levels. Mastoid air cells: Visualized mastoid air cells are well aerated. Bones/joints: Unremarkable. No acute fracture. Soft tissues: Unremarkable. CT/CT head wo con* [id number] IMPRESSION: No acute intracranial abnormality.
[2022-12-04 06:51] LABS: Basophils % 0.2 %; Eosinophils # 2.6 10^3/uL (0.0-0.8); Eosinophils % 15.4 %; Hematocrit 42.3 % (42.0-52.0); Hemoglobin 13.7 g/dL (11.7-16.6); Lymphocytes # 2.6 10^3/uL (0.8-4.8); Lymphocytes % 15.1 %; Mean Corpuscular HGB Conc 32.4 g/dL (30.0-36.0); Mean Corpuscular Hemoglobin 29.3 pg (28.0-34.0); Mean Corpuscular Volume 90.6 fl (80-94); Mean Platelet Volume 8.9 fL (7.4-10.4); Monocytes % 5.6 %; Neutrophils # 10.71 10^3/uL (1.8-7.7); Neutrophils % 62.8 %; Nucleated Red Blood Cells % 0 %; Platelet Count 335 10^3/cmm (130-400); Red Blood Count 4.67 10^6/uL (4.1-5.3); Red Cell Distribution Width 14.6 % (12.1-15.1)
[2022-12-04 07:05] LABS: Blood Urea Nitrogen 20 mg/dL (6-20); Calcium 8.8 mg/dL (8.5-10.5); Carbon Dioxide 20 mmol/L (22-29); Chloride 101 mmol/L (98-107); Glomerular Filtration Rate 50.6 mL/min (90-130); Glucose 105 mg/dL (65-115); Osmolality Calculated 287 mOsm/kg (285-295); Sodium 137 mmol/L (136-145)
[2022-12-04 07:06] LABS: Troponin(5th) Baseline 11 ng/L (0-15)
[2022-12-04 07:21] LABS: Influenza A by IFA negative (Negative); Influenza B by IFA negative (Negative)
[2022-12-04] MEDS: sodium chloride 0.9% 1,000 ML 999 ML IV ×2 (08:03→09:45)
[2022-12-04 08:11] LABS: Add Urine Microscopic? YES; Bilirubin Urine 1+ (Negative); Blood Urine Neg (Negative); Glucose Urine UA Norm (Normal); Ketones Urine Negative (Negative); Leukocyte Esterase Urine Negative (Negative); Nitrate Urine Negative (Negative); Protein Urine Neg (Negative); Specific Gravity, Urine 1.025 (1.005-1.030); Urine Appearance SL Hazy (CLEAR); Urine Color Dark Yellow (Yellow); Urobilinogen Urine Norm (Negative); pH Urine 5 (5-7)
[2022-12-04 08:13] LABS: Bacteria Urine TRACE /hpf; Fine Granular Casts Urine 0-4 /lpf; Hyaline Casts Urine 0-4 /lpf; Mucus Urine 2+ /hpf; Squamous Epithelial Cell Urine RARE /hpf (0-5); WBC Urine RARE /hpf (0-5)
[2022-12-04 08:14] LABS: Add Urine Culture? No
[2022-12-04 08:45] LABS: Adenovirus Not Detected (NOT DETECT); Chlamydia Pneumoniae Not Detected (NOT DETECT); Coronavirus 229E,HKU1,NL63,OC4 Not Detected (NOT DETECT); Human Metapneumovirus Not Detected (NOT DETECT); Human Rhinovirus/Enterovirus Not Detected (NOT DETECT); Influenza A Not Detected (NOT DETECT); Influenza A H1 Not Detected (NOT DETECT); Influenza A H1-2009 Not Detected (NOT DETECT); Influenza A H3 Not Detected (NOT DETECT); Influenza B Not Detected (NOT DETECT); Mycoplasma Pneumoniae Not Detected (NOT DETECT); Parainfluenza Virus Type 1 Not Detected (NOT DETECT); Parainfluenza Virus Type 2 Not Detected (NOT DETECT); Parainfluenza Virus Type 3 Not Detected (NOT DETECT); Parainfluenza Virus Type 4 Not Detected (NOT DETECT); Respiratory Syncytial Virus A Not Detected (NOT DETECT); Respiratory Syncytial Virus B Not Detected (NOT DETECT); SARS-COV-2 Not Detected (NOT DETECT)
--- NOTE | 2022-12-04 08:46 | ECG_ITS ---
[facility] Test Date: 2022-12-04 Pat Name: Esequiel Munoz Department: Room: Gender: Male Sticker Operator: : 1975 Requested By: Jacob Fritz Order Number: [id number] Shelli MD: Mehnaz Samuels M.D. Measurements Intervals [place] Rate: 101 P: 75 SC: 149 QRS: 74 QRSD: 90 T: 263 QT: 347 QTc: 451 Interpretive Statements SINUS TACHYCARDIA ST DEVIATION AND MODERATE T-WAVE ABNORMALITY, CONSIDER ANTEROLATERAL ISCHEMIA [-0.1+ mV T-WAVE IN V3-V6] ST DEVIATION AND MODERATE T-WAVE ABNORMALITY, CONSIDER INFERIOR ISCHEMIA [-0.1+ mV T-WAVE IN II/aVF] Compared to ECG 12/04/2022 06:27:02 No significant changes Electronically Signed On 12-04-2022 8:49:06 COMPLIANCE AUDITOR by Mehnaz Samuels M.D. [id number]
[2022-12-04 09:11] LABS: Troponin 5 2HR 11.98 ng/L (0-15)
[2022-12-04 09:40] LABS: Troponin 5 2HR Delta 0.98 ABS# (0-10)
--- NOTE | 2022-12-04 11:39 | CTR_ITS ---
PROCEDURE INFORMATION: Exam: CTA Abdominal Aorta and Bilateral Lower Extremities (Run-off) With Contrast Exam date and time: 12/04/2022 11:56 AM Age: 47 years old Clinical indication: Other: Syncope /hypotension recent aorto-fem bypass; Prior surgery; Surgery date: 1-6 months; Surgery type: Aorta-fem bypass TECHNIQUE: Imaging protocol: Computed tomographic angiography of the of the abdominal aorta, pelvis and bilateral lower extremities with contrast. 3D rendering (Not supervised by radiologist): MIP and/or 3D reconstructed images were created by the technologist. Radiation optimization: All CT scans at this facility use at least one of these dose optimization techniques: automated exposure control; mA and/or kV adjustment per patient size (includes targeted exams where dose is matched to clinical indication); or iterative reconstruction. Contrast material: OMNI 350; Contrast volume: 100 ml; Contrast route: INTRAVENOUS (IV); Other protocol: This patient has received 2 known CTs and 0 known cardiac nuclear medicine studies in the 12 months prior to the current study. COMPARISON: [facility] [id number] 11/20/2022 12:20 PM RADIATION DOSE METRICS: Total DLP (mGy-cm): 740.27 FINDINGS: Aorta: Patent bilateral aortofemoral bypass graft. Occluded [place] infrarenal abdominal aorta and [place] bilateral common iliac arteries. Celiac trunk and mesenteric arteries: No occlusion or significant stenosis. Renal arteries: There is focal kkxa-es-yhbtjkxm stenosis at the ostium of the left renal artery. No significant stenosis in the right renal artery. No occlusion. Right iliac arteries: Patent right external iliac artery. There is mild stenosis at the ostium of the right internal iliac artery. Right femoral/popliteal arteries: No occlusion or significant stenosis. Right infrapopliteal arteries: No occlusion or significant stenosis. Left iliac arteries: Patent left external iliac artery. There are scattered areas of mild stenosis in the left internal iliac artery. Left femoral/popliteal arteries: No occlusion or significant stenosis. Left infrapopliteal arteries: No occlusion or significant stenosis. Heart: Normal heart size. Coronary atherosclerotic calcifications seen. No pericardial effusion. Liver: No mass. Gallbladder and bile ducts: Unremarkable. No calcified stones. No ductal dilation. Pancreas: Unremarkable. No mass. No ductal dilation. Spleen: Mid anterior abdominal wall surgical changes seen.A small accessory splenule is noted in the left upper quadrant. The spleen is unremarkable. Adrenal glands: Normal. No mass. Kidneys and ureters: Normal. No mass. Stomach and bowel: Unremarkable. No obstruction. No mucosal thickening. Appendix: No evidence of appendicitis. Urinary bladder: Unremarkable. No mass. Reproductive: Unremarkable as visualized. Intraperitoneal space: Unremarkable. No free air. No significant fluid collection. Lymph nodes: Unchanged triangular shaped nodules in the lower lungs, likely representing intrapulmonary lymph nodes, the largest measuring 0.8 cm. No consolidation. Mildly prominent reactive lymph nodes are noted in the inguinal region bilaterally, the largest measuring 1.2 cm in transverse dimension on the right. Bones/joints: No acute fracture. No dislocation. Soft tissues: Minimal swelling of the subcutaneous tissues noted in the right lower extremity. CT/CT angio abd aorta runof [id number] IMPRESSION: Patent aortobifemoral bypass graft. No occlusion identified.
[2022-12-04] MEDS: iohexol 350 mg/mL 500 mL Btl (per mL) IV (12:07)
[2022-12-04 12:37] LABS: Basophils % 0.2 %; Eosinophils # 2.5 10^3/uL (0.0-0.8); Hemoglobin 11.8 g/dL (11.7-16.6); Lymphocytes # 1.9 10^3/uL (0.8-4.8); Lymphocytes % 13.2 %; Mean Corpuscular HGB Conc 31.9 g/dL (30.0-36.0); Mean Corpuscular Hemoglobin 29.5 pg (28.0-34.0); Mean Corpuscular Volume 92.5 fl (80-94); Mean Platelet Volume 8.8 fL (7.4-10.4); Monocytes # 0.7 10^3/uL (0.2-0.9); Monocytes % 4.8 %; Neutrophils # 9.29 10^3/uL (1.8-7.7); Neutrophils % 63.9 %; Nucleated Red Blood Cells % 0 %; Platelet Count 283 10^3/cmm (130-400); Red Cell Distribution Width 14.5 % (12.1-15.1); White Blood Count 14.5 10^3/uL (4.0-10.0)
[2022-12-04 12:55] LABS: INR 1.28 (0.8-1.2)
[2022-12-04 12:56] LABS: Partial Thromboplastin Time 27.4 SECONDS (23.9-36.7)
[2022-12-04 13:03] LABS: Troponin 5 6HR Delta -1.9 ng/L (0-12)
--- NOTE | 2022-12-04 13:05 | USCV_ITS ---
Esequiel Munoz Age: 47 Gender: M : 1975 Exam Date: 12/04/2022 15:25 Ordering Phys: Quintin Tarango MD Technologist: RIOS Exam Location: [facility] [place] Indication: syncope, fever BP: / HR: 90 Rhythm: Sinus Technical Quality: Adequate MEASUREMENTS (Male / Female) Normal Values 2D ECHO LV Diastolic Diameter PLAX 5.2 cm 4.2 - 5.9 / 3.9 - 5.3 cm LV Systolic Diameter PLAX 3.3 cm IVS Diastolic Thickness 0.6 cm 0.6 - 1.0 / 0.6 - 0.9 cm IVS Systolic Thickness 1.2 cm LVPW Diastolic Thickness 0.6 cm 0.6 - 1.0 / 0.6 - 0.9 cm LVPW Systolic Thickness 1.2 cm LVOT Diameter 2.1 cm LV Ejection Fraction 2D Teich 67.1 % LV Ejection Fraction MOD 2C 61.3 % LV Ejection Fraction 2C AL 62.5 % LA Diameter 2.5 cm IVC Diameter 1.2 cm M-MODE Aortic Annulus Diameter 2.9 cm LA Ao Ratio MM 0.8 MV E Point Septal Separation 0.3 cm DOPPLER AV Peak Velocity 183.0 cm/s LVOT Peak Velocity 138.0 cm/s AV Area Cont Eq vti 2.1 cm squared AV Area Cont Eq pk 2.5 cm squared MV Area PHT 3.9 cm squared Mitral E to A Ratio 1.0 MV E' Velocity 48.0 cm/s Mitral E to MV E' Ratio 6.1 Mitral E to LV E' Lateral Ratio 5.7 Mitral E to LV E' Septal Ratio 6.7 TV Peak E Velocity 63.0 cm/s FINDINGS Left Ventricle Normal left ventricular size, systolic function and wall thickness, with no regional wall motion abnormalities. Left ventricular ejection fraction is estimated at 60 %. Normal diastolic function. Right Ventricle Normal right ventricular size and systolic function. Right Atrium Normal right atrial size. Left Atrium Normal left atrial size. Mitral Valve Structurally normal mitral valve. No mitral valve stenosis. No sigificant mitral valve regurgitation. Aortic Valve Probably trileaflet aortic valve.. No aortic valve stenosis. No aortic valve regurgitation. Tricuspid Valve Structurally normal tricuspid valve. Pulmonic Valve Pulmonic valve not well visualized. Pericardium No pericardial effusion. Aorta Normal size aortic root and proximal ascending aorta. IVC Normal IVC dimension with >50% respiratory change of the inferior vena cava. CONCLUSIONS 1. Normal left ventricular size, systolic function and wall thickness, with no regional wall motion abnormalities. Left ventricular ejection fraction is estimated at 60 %. Normal diastolic function. 2. No evidence of vegetation based on this study. 3. No change when compared to study dated 11/20/22. Mehnaz Samuels MD (Electronically Signed) Final Date: 04 December 2022 19:57 S
[2022-12-04] MEDS: sodium chloride 0.9% 1,000 ML 150 ML IV ×2 (13:33→19:30)
[2022-12-04] MEDS: piperacillin-tazobactam 3.375 GM in sodium chloride 0.9% (plus) 50 ML IV ×2 (13:34→21:33)
--- NOTE | 2022-12-04 13:36 | ECG_ITS ---
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 [id number]
[2022-12-04] MEDS: diphenhydrAMINE 50 mg/mL SDV 1mL 25 MG IVP ×3 (13:56→21:32)
--- NOTE | 2022-12-04 14:09 | P.HP_ITS ---
Providers/Chief Complaint Admitting Physician: Quintin Tarango MD Primary Care Provider: Axel Torres NP Chief Complaint: RASH/DIZZY History of Present Illness Esequiel Munoz is a 47 year old male with past medical history of hypertension, coronary artery disease s/p recent PCI to RCA ( 11/21/2022),PAD S/P recent aorto-biilliac bypass grafting,known left total carotid occlusion, moderate to heavy heterogenous plaques of right bifurcation with 50-69% stenosis, significant stenosis bilateral external carotids, CVA, COPD,was also undergoing treatment for presumed infective endocarditis was on likely 6 weeks of IV vancomycin, he was discharged from [facility] where he underwent A-B bypass, for critical limb ischemia of left lower extremity. He was discharged on 11/12 on IV vancomycin for presumed infective endocarditis, his PICC line was removed 2/3 days back.Came in today with chief complaint of recurrent syncopal episode started yesterday around 2-3 episodes, prior to the e pisodes he denied chest pain shortness of breath, vertigo-like symptoms, he had also developed maculopapular rash In the last few days which is extremely itchy and has rapidly progressed, and currently practically occupies the entire body, when he arrived in the ER he was also febrile with noted Tmax of 100.8. Upon arrival in the ER he was worked up for above mentioned complaint. Pertinent imaging studies: CT head without contrast: No acute intracranial pathology. CT angio abd aorta run of: Patent aortobifemoral bypass graft. Pertinent labs: WBC 14.5, H&H 11 and 37,PLT : 283 , elevated eosinophil: 2.5 serum sodium 137, serum potassium 4, BUN 20, creatinine 1.5. Troponin trend: EKG: Sinus rhythm: Moderate T wave abnormality: Consider anterolateral ischemia, moderate T wave abnormality consider inferior ischemia. Patient was given 2 L normal saline bolus in the ER, and was started on maintenance IV fluid. Review of Systems General: Reports: 10 or more systems reviewed and unremarkable except in HPI and below Const: Reports: fever(s); Denies: chills, body aches, change in appetite or diaphoresis Card: Denies: palpitations, edema, swelling of feet/ankles, dyspnea on exertion, orthopnea or leg pain with exertion Resp: Denies: dyspnea, productive cough, wheezing or pain on inspiration GI: Denies: abdominal pain, nausea, vomiting, diarrhea or constipation : Denies: flank pain or difficulty urinating Musc: Denies: back pain, extremity pain or extremity swelling Neuro: Denies: headache(s), difficulty walking or confusion Medications/Allergies Home Medications Medication Instructions Recorded Confirmed Last Taken Type apixaban 5 mg tablet (Eliquis) 5 mg PO BID 11/16/22 12/04/22 12/03/22 History vancomycin 1.5 gram intravenous 2 g IV Q12H 11/16/22 12/04/22 12/03/22 History solution atorvastatin 80 mg tablet 80 mg PO QPM 11/18/22 12/04/22 12/03/22 History metoprolol tartrate 25 mg tablet 25 mg PO BID 11/18/22 12/04/22 12/03/22 History clopidogrel 75 mg tablet 75 mg PO DAILY 30 days #30 tabs 11/22/22 12/04/22 12/03/22 Rx nitroglycerin 0.4 mg sublingual 0.4 mg sublingual Q5M PRN Chest 11/22/22 12/04/22 12/02/22 Rx tablet Pain 30 days #30 tabs prednisone 10 mg tablet 10 mg PO DAILY 10 days #20 tabs 12/01/22 12/04/22 12/03/22 Rx albuterol sulfate 90 mcg/actuation 1 - 2 puff inhalation Q6H PRN 12/04/22 12/04/22 Unknown History aerosol inhaler (Ventolin HFA) Shortness Of Breath fexofenadine 180 mg tablet 180 mg PO Q24H PRN Allergy Symptoms 12/04/22 12/04/22 Unknown History (Delilah Allergy) Allergies Allergy/AdvReac Type Severity Reaction Status Date / Time vancomycin Allergy ALGY-Hives Verified 12/02/22 06:42 PFSH Acute PFSH: Medical History AF (amaurosis fugax) Asthma Bipolar disorder COPD (chronic obstructive pulmonary disease) CVA (cerebral vascular accident) (~10/2020) LEFT supraventricular frontal lobe History of cardiac monitoring 2 week event monitor in 05/2022 with baseline sinus rhythm, episodes of sinus tachycardia from 132-165 noted History of cardiovascular stress test 11/25/2020 Exercise Stress test with Stress Echo - No exercise induced chest pain or ekg changes, suboptimal exercise for age, hypertensive exercise response History of PFTs 05/2020 Severe airflow obstruction, no significant post dilator response, lung volumes consistent with air trapping. Normal DLCO. Hyperlipidemia Hypertension Intermittent explosive disorder Left carotid artery occlusion Nicotine dependence, cigarettes, with other nicotine-induced disorders PTSD (post-traumatic stress disorder) Surgical History H/O inguinal hernia repair Family History Mother Sarcoid Other Asthma CAD (coronary artery disease) Cancer Emphysema/COPD Hyperlipidemia Hypertension Stroke Denies family history of Clotting disorder Chronic kidney disease (CKD) Anesthesia complication Bleeding disorder Family history of premature coronary artery disease Social History Smoking and tobacco status: current every day smoker cigarettes Packs smoked per day: 0.5 Years cigarettes smoked: 32 [ Other cigarette details: onset age 8- 9 years] Quit status (tobacco): has tried quititng Number of times tried to quit tobacco: 12 Second hand smoke exposure: Yes Alcohol intake: current Alcohol intake frequency: holidays/special occasions only Lives independently: Yes Household members: other Details: room mate Housing: House Marital status: service: No 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 Pets and animals: Yes Current gender identity: Male Vitals/I&O/Wt Last Vital Signs Temp 97.9 F 12/04/22 07:30 Pulse 87 12/04/22 13:53 Resp 18 12/04/22 13:37 BP 106/65 12/04/22 13:37 Pulse Ox 97 12/04/22 13:53 O2 Del Method 12/04/22 13:53 12/03/22 12/04/22 12/04/22 22:59 06:59 14:59 Intake Total 1999 Balance 1999 Weight last 48 hrs Weight 93.44 kg Weight 93.44 kg Physical Exam Const: COMMON NORMALS: patient oriented x3 HENMT: COMMON NORMALS: normocephalic and atraumatic HEAD & SCALP: normocephalic and atraumatic Chest: CHEST: Yes Symmetrical chest wall rise Resp: COMMON NORMALS: clear to auscultation bilaterally AUSCULTATION: clear to auscultation bilaterally Cardio: COMMON NORMALS: regular rate, regular rhythm, S1 normal heart sound present, S2 normal heart sound present, No gallops present (Cardio), No murmurs present (Cardio), No rub (Cardio) and Peripheral pulses 2+ throughout RATE: regular rate RHYTHM: regular rhythm HEART SOUNDS: S1 normal heart sound present and S2 normal heart sound present PERIPHERAL PULSES: Peripheral pulses 2+ throughout GI: COMMON NORMALS: Normal to inspection, nondistended, normoactive bowel sounds present, Soft to palpation, non-tender, No hepatosplenomegaly present and no masses AUSCULTATION: Yes normoactive bowel sounds PALPATION: Yes Soft to palpation and Yes No hepatosplenomegaly present RECTAL EXAM: Yes deferred Extremity: COMMON NORMALS: no clubbing, cyanosis or edema and no pedal edema Neuro: COMMON NORMALS: patient oriented x3 Skin: NARRATIVE SKIN EXAM: Generalized maculopapular rash all over the body Data 12/04/22 12:30 12/04/22 06:30 Micro: Microbiology 12/04/22 08:24 Blood Culture - Preliminary Blood SPECIMEN COLLECTED 12/04/22 07:15 Blood Culture - Preliminary Blood SPECIMEN COLLECTED A&P Assessment and plan (1) Maculopapular rash: (2) Hypertension: Qualifiers: Hypertension type: unspecified Qualified Code(s): I10 - Essential (primary) hypertension (3) Acute kidney injury superimposed on CKD: (4) Peripheral artery disease: Plan 47 year old male with past medical history of hypertension, coronary artery disease s/p recent PCI to RCA ( 11/21/2022),PAD S/P recent aorto-biilliac bypass grafting,known left total carotid occlusion, moderate to heavy heterogenous plaques of right bifurcation with 50-69% stenosis, significant stenosis bilateral external carotids, CVA, COPD,was also undergoing treatment for presumed infective endocarditis was on likely 6 weeks of IV vancomycin, he was discharged from [facility] where he underwent A-B bypass, for critical limb ischemia of left lower extremity. He was discharged on 11/12 on IV vancomycin for presumed infective endocarditis, his PICC line was removed 2/3 days back.Came in today with chief complaint of re current syncopal episode started yesterday around 2-3 episodes, prior to the episodes he denied chest pain shortness of breath, vertigo-like symptoms, he had also developed maculopapular rash In the last few days which is extremely itchy and has rapidly progressed, and currently practically occupies the entire body. Currently is being managed for: Assessment Drug rash (monitor for Possible developing AGEP,DRESS,TEN ) Currently he is on Solu-Medrol 60 IV twice daily, Benadryl as needed and famotidine History of presumed infective endocarditis: He was getting IV vancomycin as outpatient, likely was discontinued because of the rash or probably completed the course, I do not have records to comment on when it was started. For now given low-grade temperature which could be possibly due to the drug rash, hypotension, will empirically start him on daptomycin (monitor CPK when appropriate) as well as Zosyn, get repeat 2D echo, get records. Follow blood culture, urine culture.Follow CTA chest abdomen and pelvis,MRI brain without contrast: Rule out any septic emboli. Syncope: Likely secondary to significantly positive orthostatic hypotension: Patient has known heavy heterogenous plaques of right bifurcation with 50-69% stenosis, significant stenosis bilateral external carotids. CT head without contrast: Has not shown any acute intracranial pathology Orthostatic hypotension is significantly positive Follow MRI brain without contrast: To rule out any septic emboli. 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 History of coronary artery disease s/p recent PCI: Continue Plavix statin, beta-tasha is on hold Thrombus is seen in the popliteal artery extending down to TP segment. Continue Eliquis Fever: Could be because of drug rash. Attestations Medical Necessity Statement*: He is to be in hospital for management of drug rash. Anticipated length of stay: Greater than 2 midnights Time Spent in Patient Care: Greater than 35 minutes (>than 50% of time spent in counselling and/or direct pt care on unit) . Critical Care Time: The high probability of a clinically significant, sudden or life threatening deterioration of the patient's [] system(s) required my full and direct attention, intervention and personal management. The critical care time is as shown. This time is in addition to time spent performing any reported procedures but includes the following: [x] Data and vital sign review and interpretation [x] Patient assessment, examination and intervention [x] Documentation [x] Medication orders and management Critical Care Time (min): 30 Coding Level of Care Code Acute Code for Chg Fwd Exam Detailed Diagnoses Maculopapular rash R21 Hypertension I10 Hypertension type: unspecified Acute kidney injury superimposed on CKD N17.9; N18.9 Peripheral artery disease I73.9
--- NOTE | 2022-12-04 16:29 | PC.NURSE ---
Received patient from ER staff at 1320. BP: 117/73, HR: 94, RR: 12, SPO2: 98% on room air, Temp: 99.7. Patient is alert to person, place, time, and situation. Complains of itching.
[2022-12-04] MEDS: famotidine 20 mg/2 mL INJ IVP (17:27)
[2022-12-04] MEDS: apixaban 5 mg Tablet PO (17:27)
[2022-12-04] MEDS: atorvastatin 40 mg Tablet 80 MG PO (17:27)
[2022-12-04 17:40] LABS: Eosinophil Urine No Eosinophils Seen; Urine Eosinophil Count 0 (0-0)
--- NOTE | 2022-12-04 18:16 | PC.NURSE ---
Orthostaic blood pressure checked at 1800. Patient has a 20 point systolic From from sitting to standing, See orthostatic blood pressure charting. Patient does not report any dizziness like he did earlier in shift.
--- NOTE | 2022-12-04 18:18 | PC.NURSE ---
Shift Summary: uneventful shift Patient rested in bed throughout the day. Vitals signs still show orthostatic hypotension, however patient is not symptomatic. Patient has a rash which encompasses his whole body. Scheduled benadryl has provided the patient relief form itching, prn vistaril is ordered but has not been needed so far.
[2022-12-04] MEDS: hyDROXYzine 25 mg Capsule PO (19:30)
[2022-12-05] VITALS (29 sets, daily range): BP systolic 96–147; BP diastolic 41–87; PULSE 66–95; RESP 12–24; TEMP 36.2–36.8; O2SAT 95–100
[2022-12-05] MEDS: diphenhydrAMINE 50 mg/mL SDV 1mL 25 MG IVP ×6 (01:30→21:07)
[2022-12-05] MEDS: hyDROXYzine 25 mg Capsule PO ×4 (02:31→21:08)
[2022-12-05] MEDS: sodium chloride 0.9% 1,000 ML 150 ML IV (02:31)
[2022-12-05 04:04] LABS: Basophils % 0.2 %; Eosinophils # 2.2 10^3/uL (0.0-0.8); Eosinophils % 15.3 %; Hematocrit 34.3 % (42.0-52.0); Hemoglobin 10.9 g/dL (11.7-16.6); Lymphocytes # 1.6 10^3/uL (0.8-4.8); Lymphocytes % 11.5 %; Mean Corpuscular HGB Conc 31.8 g/dL (30.0-36.0); Mean Corpuscular Hemoglobin 29.7 pg (28.0-34.0); Mean Corpuscular Volume 93.5 fl (80-94); Mean Platelet Volume 9.2 fL (7.4-10.4); Monocytes # 0.5 10^3/uL (0.2-0.9); Monocytes % 3.2 %; Neutrophils # 9.73 10^3/uL (1.8-7.7); Neutrophils % 69.2 %; Nucleated Red Blood Cells % 0 %; Platelet Count 245 10^3/cmm (130-400); Red Blood Count 3.67 10^6/uL (4.1-5.3); Red Cell Distribution Width 14.4 % (12.1-15.1); White Blood Count 14.1 10^3/uL (4.0-10.0)
[2022-12-05 04:18] LABS: D Dimer 3.71 ug/mIFEU (0-0.59)
[2022-12-05 04:22] LABS: Lactate (Lactic Acid level) 1.4 mmol/L (0.5-2.2)
[2022-12-05 04:32] LABS: NT Pro B Type Natriuretic Pept 73 pg/mL (0-125); Procalcitonin 0.17 ng/mL (0-0.5)
[2022-12-05 04:43] LABS: Alanine Aminotransferase 45 U/L (0-41); Albumin Level 2.8 g/dL (3.5-5.2); Alkaline Phosphatase 192 U/L (40-130); Anion Gap 13.1 (5-19); Aspartate Amino Transferase 12 U/L (0-40); Blood Urea Nitrogen 14 mg/dL (6-20); Calcium 7.5 mg/dL (8.5-10.5); Carbon Dioxide 20 mmol/L (22-29); Chloride 103 mmol/L (98-107); Creatine Phosphokinase 27 U/L (39-308); Glomerular Filtration Rate 72.4 mL/min (90-130); Glucose 129 mg/dL (65-115); Magnesium 1.6 mg/dL (1.7-2.3); Osmolality Calculated 276 mOsm/kg (285-295); Phosphorus 2.7 mg/dL (2.5-4.5); Potassium 4.1 mmol/L (3.5-5.1); Sodium 132 mmol/L (136-145); Total Bilirubin 0.4 mg/dL (0.15-1.2); Total Protein 4.8 g/dL (6.6-8.7)
[2022-12-05] MEDS: piperacillin-tazobactam 3.375 GM in sodium chloride 0.9% (plus) 50 ML IV ×3 (04:48→21:07)
[2022-12-05] MEDS: acetaminophen 325 mg Tablet 650 MG PO (05:33)
--- NOTE | 2022-12-05 07:00 | CTR_ITS ---
PROCEDURE INFORMATION: Exam: CTA Abdomen and Pelvis With Contrast Exam date and time: 12/05/2022 12:46 PM Age: 47 years old Clinical indication: Shortness of breath; Additional info: Rule out septic thrombus emboli TECHNIQUE: Imaging protocol: Computed tomographic angiography of the abdomen and pelvis with contrast. 3D rendering (Not supervised by radiologist): MIP and/or 3D reconstructed images were created by the technologist. Radiation optimization: All CT scans at this facility use at least one of these dose optimization techniques: automated exposure control; mA and/or kV adjustment per patient size (includes targeted exams where dose is matched to clinical indication); or iterative reconstruction. Contrast material: OMNI 350; Contrast volume: 100 ml; Contrast route: INTRAVENOUS (IV); Other protocol: This patient has received 3 known CTs and 0 known cardiac nuclear medicine studies in the 12 months prior to the current study. COMPARISON: CT ang ches abdpel [id number] 11/20/2022 12:20 PM RADIATION DOSE METRICS: Total DLP (mGy-cm): 1400.88 FINDINGS: Lungs: No consolidation. Small intrapulmonary lymph nodes noted in the right lung base. Heart: Normal heart size. Coronary atherosclerotic calcifications seen. No pericardial effusion. Aorta: The patient is status post aortobifemoral bypass graft, with suggestion of slightly increased haziness of the retroperitoneal fat surrounding the proximal graft, and extending into the proximal common iliac region bilaterally. Chronic occlusion of the [place] infrarenal abdominal aorta and [place] common iliac arteries re-identified. In the left para-aortic region at the level of the anastomosis, there is an elongated focus of decreased attenuation measuring approximally 4.2 x 1.9 x 0.8 cm, which may represent remnant thrombosed component of aneurism or other postsurgical change such as hematoma Celiac trunk and mesenteric arteries: No occlusion or significant stenosis. Renal arteries: No occlusion or significant stenosis. Right iliac arteries: No occlusion or significant stenosis. Left iliac arteries: No occlusion or significant stenosis. Veins: The visualized veins are patent. Liver: Unchanged subcentimeter focus of decreased attenuation in the right hepatic lobe, which is too small to characterize. The liver is otherwise unremarkable. Gallbladder and bile ducts: Unremarkable. No calcified stones. No ductal dilation. Pancreas: Unremarkable. No mass. No ductal dilation. Spleen: Mildly enlarged spleen measuring 14 cm in length and 9 cm in transverse dimension. A small accessory splenule is noted in the left upper quadrant. Adrenal glands: Unremarkable. No mass. Kidneys and ureters: Unchanged mild prominence of the renal collecting system bilaterally. Stomach and bowel: Unremarkable. No obstruction. No mucosal thickening. Appendix: No evidence of appendicitis. Intraperitoneal space: Unremarkable. No free air. No significant fluid collection. Lymph nodes: Interval increase in size of reactive lymph nodes in the inguinal region bilaterally, the largest measuring 1.4 cm in transverse dimension on the right. Interval increase in size of small reactive lymph nodes in the axillary region bilaterally, the largest measuring 1.3 cm in transverse dimension on the left. Urinary bladder: Unremarkable. No mass. Reproductive: Unremarkable as visualized. Bones/joints: No acute fracture. Degenerative changes of the spine seen. Soft tissues: Mid anterior abdominal wall surgical changes seen. Surgical changes in the groin regions noted. CT/CT [facility] [id number] IMPRESSION: 1. Patent aortobifemoral bypass graft, with suggestion of slightly increased haziness of the surrounding fat at the level of the anastomosis and extending into the proximal common iliac region bilaterally. Infectious process should be considered in the adequate clinical setting. 2. Nonspecific mild increase in size of the spleen, axillary lymph nodes and inguinal lymph nodes bilaterally.
[2022-12-05] MEDS: clopidogrel 75 mg Tablet PO (08:52)
[2022-12-05] MEDS: famotidine 20 mg/2 mL INJ IVP ×2 (08:52→18:13)
[2022-12-05] MEDS: apixaban 5 mg Tablet PO ×2 (08:52→18:08)
[2022-12-05] MEDS: sodium chloride 0.9% 1,000 ML 100 ML IV ×2 (11:04→21:07)
--- NOTE | 2022-12-05 11:58 | PM.PN ---
Subjective Subjective: Patient was seen and examined this morning he was complaining of severe itching, maculopapular rash has slightly spread, has been afebrile, orthostatic vital signs are being monitored. Medications: Medication Review Details: Generic Name Dose Route Start Last Admin Trade Name Freq PRN Reason Stop Dose Admin Acetaminophen 650 mg 12/04/22 12:52 12/05/22 05:33 Acetaminophen 32 5 Mg Tablet PO 650 mg Q6H PRN Administration Mild/Mod Pain Or Temp >/= 101 Apixaban 5 mg 12/04/22 18:00 12/05/22 08:52 Apixaban 5 Mg Ta blet PO 5 mg BID LUIS ALBERTO Administration Atorvastatin Calci um 80 mg 12/04/22 18:00 12/04/22 17:27 Atorvastatin 40 Mg Tablet PO 80 mg QPM LUIS ALBERTO Administration Clopidogrel Bisulf ate 75 mg 12/05/22 09:00 12/05/22 08:52 Clopidogrel 75 M g Tablet PO 75 mg DAILY LUIS ALBERTO Administration Diphenhydramine HC l 25 mg 12/04/22 18:00 12/05/22 11:04 Diphenhydramine 50 Mg/Ml Sdv 1ml IVP 25 mg Q4H LUIS ALBERTO Administration Famotidine 20 mg 12/04/22 18:00 12/05/22 08:52 Famotidine 20 Mg /2 Ml Inj IVP 20 mg BID LUIS ALBERTO Administration Hydroxyzine Pamoat e 25 mg 12/04/22 17:37 12/05/22 08:52 Hydroxyzine 25 M g Capsule PO 25 mg QID PRN Administration ANXIETY Piperacillin Sod/T azobactam 50 mls @ 12.5 mls /hr 12/04/22 13:00 12/05/22 08:59 Sod 3.375 gm/ So dium Chloride IV Infused Q8H LUIS ALBERTO Infusion Protocol Daptomycin 561 mg/ Sodium 100 mls @ 100 mls /hr 12/04/22 14:30 12/04/22 15:31 Chloride IV 100 mls/hr Q24H LUIS ALBERTO Administration Protocol Sodium Chloride 1,000 mls @ 100 m ls/hr 12/05/22 08:00 12/05/22 11:04 Sodium Chloride 0.9% IV 100 mls/hr .Q10H LUIS ALBERTO Administration Methylprednisolone Sodium Succinate 60 mg 12/04/22 14:00 12/05/22 01:30 Methylprednisolo ne Sod Succ 125 Mg /2 Ml Inj IVP 60 mg Q12H LUIS ALBERTO Administration Vitals/I&O/Wt Last Vital Signs Temp 97.6 F 12/05/22 08:00 Pulse 87 12/05/22 11:22 Resp 17 12/05/22 10:00 BP 111/68 12/05/22 11:24 Pulse Ox 95 12/05/22 11:22 O2 Del Method 12/05/22 11:22 12/04/22 12/05/22 12/05/22 22:59 06:59 14:59 Intake Total 1462.5 / 3462.5 1110 / 4572.5 550 / 550 Output Total 950 / 950 950 / 1900 Balance 512.5 / 2512.5 160 / 2672.5 550 / 550 Weight last 48 hrs Weight 102.467 kg Weight 93.44 kg Weight 93.44 kg Physical Exam Const: COMMON NORMALS: patient oriented x3 HENMT: COMMON NORMALS: normocephalic and atraumatic HEAD & SCALP: normocephalic and atraumatic Chest: CHEST: Yes Symmetrical chest wall rise Resp: COMMON NORMALS: clear to auscultation bilaterally AUSCULTATION: clear to auscultation bilaterally Cardio: COMMON NORMALS: regular rate, regular rhythm, S1 normal heart sound present, S2 normal heart sound present, No gallops present (Cardio), No murmurs present (Cardio), No rub (Cardio) and Peripheral pulses 2+ throughout RATE: regular rate RHYTHM: regular rhythm HEART SOUNDS: S1 normal heart sound present and S2 normal heart sound present PERIPHERAL PULSES: Peripheral pulses 2+ throughout GI: COMMON NORMALS: Normal to inspection, nondistended, normoactive bowel sounds present, Soft to palpation, non-tender, No hepatosplenomegaly present and no masses AUSCULTATION: Yes normoactive bowel sounds PALPATION: Yes Soft to palpation and Yes No hepatosplenomegaly present RECTAL EXAM: Yes deferred Extremity: COMMON NORMALS: no clubbing, cyanosis or edema and no pedal edema Neuro: COMMON NORMALS: patient oriented x3 Skin: NARRATIVE SKIN EXAM: Generalized maculopapular rash all over the body Data 12/05/22 02:55 12/05/22 02:55 Micro: Microbiology 12/04/22 08:24 Blood Culture - Preliminary Blood NEGATIVE TO DATE 12/04/22 07:15 Blood Culture - Preliminary Blood NEGATIVE TO DATE A&P Assessment and plan (1) Maculopapular rash: (2) Hypertension: (3) Acute kidney injury superimposed on CKD: (4) Peripheral artery disease: Plan 47 year old male with past medical history of hypertension, coronary artery disease s/p recent PCI to RCA ( 11/21/2022),PAD S/P recent aorto-biilliac bypass grafting,known left total carotid occlusion, moderate to heavy heterogenous plaques of right bifurcation with 50-69% stenosis, significant stenosis bilateral external carotids, CVA, COPD,was also undergoing treatment for presumed infective endocarditis was on likely 6 weeks of IV vancomycin, he was discharged from [facility] where he underwent A-B bypass, for critical limb ischemia of left lower extremity. He was discharged on 11/12 on IV vancomycin for presumed infective endocarditis, his PICC line was removed 2/3 days back.Came in today with chief complaint of recurrent syncopal episode started yesterday around 2-3 episodes, prior to the episodes he denied chest pain shortness of breath, vertigo-like symptoms, he had also developed maculopapular rash In the last few days which is extremely itchy and has rapidly progressed, and currently practically occupies the entire body. Currently is being managed for: Assessment Drug rash (monitor for Possible developing AGEP,DRESS,TEN ) Currently he is on Solu-Medrol 60 IV twice daily, Benadryl as needed and famotidine History of presumed infective endocarditis: He was getting IV vancomycin as outpatient, likely was discontinued because of the rash or probably completed the course, I do not have records to comment on when it was started. For now given low-grade temperature which could be possibly due to the drug rash, hypotension, will empirically start him on daptomycin (monitor CPK when appropriate) as well as Zosyn, get Repeat 2D echo: Has shown normal LV size systolic function, no RWMA, LVEF 60%, no valvular vegetation. get records. Follow blood culture, urine culture.Follow CTA chest abdomen and pelvis,MRI brain without contrast: Rule out any septic emboli. If patient continues to remain afebrile blood culture continue to be negative, no concerning finding on imaging studies, antibiotics can be de-escalated. Syncope: Likely secondary to significantly positive orthostatic hypotension: Patient has known heavy heterogenous plaques of right bifurcation with 50-69% stenosis, significant stenosis bilateral external carotids. CT head without contrast: Has not shown any acute intracranial pathology Orthostatic hypotension is significantly positive Follow MRI brain without contrast: To rule out any septic emboli. Orthostatic vital signs check every 4 hours Fall precaution Monitor EKG Continue alarm security or surveillance monitor Continue IV hydration Mild LOUISA on CKD: Resolved Known baseline serum creatinine is around 0.8-1 Admission serum creatinine is 1.5 Continue IV hydration Monitor intake output charting Avoid nephrotoxic's Monitor BMP History of significant peripheral artery disease s/p recent aorto biliary bypass CT angio abd aorta run of done on admission has shown: Patent aortobifemoral bypass graft. History of coronary artery disease s/p recent PCI: Continue Plavix statin, beta-tasha is on hold Thrombus is seen in the popliteal artery extending down to TP segment. Continue Eliquis Fever: Could be because of drug rash. Attestations Medical Necessity Statement*: Needs to be in hospital for management of drug rash. Coding Level of Care Code Acute Code for Chg Fwd Diagnoses Maculopapular rash R21 Hypertension I10 Acute kidney injury superimposed on CKD N17.9; N18.9 Peripheral artery disease I73.9
--- NOTE | 2022-12-05 17:34 | PC.NURSE ---
DR Tarango notified of pt having 11 beat run of V tach after Daptomycin just completed. Asymptomatic. Dr Tarango Let's get magnesium in him . Awaiting clarification of: He had 1 gram this afternoon, is that enough or are you wanting more?
--- NOTE | 2022-12-05 17:55 | PC.NURSE ---
Dr Tarango gave verbal order for another gram of Magnesium.
[2022-12-05] MEDS: atorvastatin 40 mg Tablet 80 MG PO (18:08)
--- NOTE | 2022-12-05 18:30 | PC.NURSE ---
Shift Note: Pt alert and oriented. Able to get out of bed without difficult today. No dizziness, syncope, or nausea this shift. Orthostatic BP improved. He has been able to eat without his throat bothering him or nausea. HIs rash still covers most of his body. He scratches at his head frequently today. He is sinus rhythm on the monitor. e did ave a 11 beat run of V tach this afternoon after the Daptomycin, Dr Notified. Magnesium 1 gm admin this evening, to equal a total of 2 grams admin today. He went for a CTa today. His urine output has been adequate at 950ml. He had a large BM today. Frequent safety and comfort rounds continue. Orders and/or nursing care completed as indicated. Patient monitored for response to intervention and treatment(s). Education provided includes Magnesium, pepcid, Bendadryl, Vistaril, CTA, plan of care and progress. Patient and/or account manager sales representative verbalized understanding of plan of care, progress and medications. Will continue to monitor.
[2022-12-06] VITALS (20 sets, daily range): BP systolic 115–150; BP diastolic 45–78; PULSE 66–83; RESP 14–21; TEMP 36.6–36.8; O2SAT 95–100
[2022-12-06] MEDS: diphenhydrAMINE 50 mg/mL SDV 1mL 25 MG IVP ×5 (02:45→20:56)
[2022-12-06 03:17] LABS: Basophils # 0.1 10^3/uL (0.0-0.1); Basophils % 0.3 %; Eosinophils # 3.6 10^3/uL (0.0-0.8); Eosinophils % 20.3 %; Hematocrit 34.2 % (42.0-52.0); Hemoglobin 10.6 g/dL (11.7-16.6); Lymphocytes # 2.6 10^3/uL (0.8-4.8); Lymphocytes % 14.6 %; Mean Corpuscular Hemoglobin 29.8 pg (28.0-34.0); Mean Corpuscular Volume 96.1 fl (80-94); Mean Platelet Volume 9.2 fL (7.4-10.4); Monocytes # 0.7 10^3/uL (0.2-0.9); Neutrophils % 59.4 %; Nucleated Red Blood Cells % 0 %; Platelet Count 266 10^3/cmm (130-400); Red Blood Count 3.56 10^6/uL (4.1-5.3); Red Cell Distribution Width 14.6 % (12.1-15.1); White Blood Count 17.9 10^3/uL (4.0-10.0)
[2022-12-06 03:22] LABS: Alanine Aminotransferase 58 U/L (0-41); Albumin Level 2.7 g/dL (3.5-5.2); Alkaline Phosphatase 173 U/L (40-130); Blood Urea Nitrogen 13 mg/dL (6-20); C Reactive Protein 12.9 mg/L (0.0-4.9); Calcium 7.6 mg/dL (8.5-10.5); Carbon Dioxide 23 mmol/L (22-29); Chloride 104 mmol/L (98-107); Globulin 2.1 g/dL (1.3-4.6); Glomerular Filtration Rate 72.4 mL/min (90-130); Glucose 130 mg/dL (65-115); Osmolality Calculated 280 mOsm/kg (285-295); Sodium 134 mmol/L (136-145); Total Bilirubin 0.2 mg/dL (0.15-1.2); Total Protein 4.8 g/dL (6.6-8.7)
[2022-12-06 03:29] LABS: Erythrocyte Sedimentation Rate 5 mm/hr (0-10)
[2022-12-06 03:37] LABS: Anion Gap 11.3 (5-19); Aspartate Amino Transferase 26 U/L (0-40); Potassium 4.3 mmol/L (3.5-5.1)
[2022-12-06 04:23] LABS: Slide Review Slide Review Perform
[2022-12-06] MEDS: piperacillin-tazobactam 3.375 GM in sodium chloride 0.9% (plus) 50 ML IV ×3 (05:24→12:34)
[2022-12-06] MEDS: sodium chloride 0.9% 1,000 ML 100 ML IV (08:35)
[2022-12-06] MEDS: clopidogrel 75 mg Tablet PO (08:36)
[2022-12-06] MEDS: apixaban 5 mg Tablet PO (08:36)
[2022-12-06] MEDS: hyDROXYzine 25 mg Capsule PO ×3 (08:36→16:31)
[2022-12-06] MEDS: famotidine 20 mg/2 mL INJ IVP ×2 (08:36→18:39)
--- NOTE | 2022-12-06 08:54 | P.PN_ITS ---
Subjective Subjective: Hospital course, likely appreciated. On examination lying comfortably in bed on normal saline IV fluids. States he is feeling better. Denies any dizziness. States rash seems to be worsening and spreading more. States rash on the legs is new. Complaining of itching without any pain. Denies any rash in the mouth or difficulty in swallowing or painful swallowing. States did have difficulty in swallowing on the day of admission but not anymore. Has remained hemodynamically stable and afebrile. Vitals/I&O/Wt Last Vital Signs Temp 98.3 F 12/05/22 14:00 Pulse 70 12/06/22 05:43 Resp 14 12/06/22 04:00 BP 115/45 12/06/22 04:00 Pulse Ox 98 12/06/22 04:00 O2 Del Method 12/05/22 18:00 12/05/22 12/06/22 12/06/22 22:59 06:59 14:59 Intake Total 2192 / 4044 290 / 4334 1000 / 1000 Output Total 875 / 1425 500 / 1925 Balance 1317 / 2619 -210 / 2409 1000 / 1000 Weight last 48 hrs Weight 102.512 kg Weight 102.467 kg Weight 93.44 kg Physical Exam Const: COMMON NORMALS: patient oriented x3 HENMT: COMMON NORMALS: normocephalic and atraumatic HEAD & SCALP: normocephalic and atraumatic Chest: CHEST: Yes Symmetrical chest wall rise Resp: COMMON NORMALS: clear to auscultation bilaterally AUSCULTATION: clear to auscultation bilaterally Cardio: COMMON NORMALS: regular rate, regular rhythm, S1 normal heart sound present, S2 normal heart sound present, No gallops present (Cardio), No murmurs present (Cardio), No rub (Cardio) and Peripheral pulses 2+ throughout RATE: regular rate RHYTHM: regular rhythm HEART SOUNDS: S1 normal heart sound present and S2 normal heart sound present PERIPHERAL PULSES: Peripheral pulses 2+ throughout GI: COMMON NORMALS: Normal to inspection, nondistended, normoactive bowel sounds present, Soft to palpation, non-tender, No hepatosplenomegaly present and no masses AUSCULTATION: Yes normoactive bowel sounds PALPATION: Yes Soft to palpation and Yes No hepatosplenomegaly present RECTAL EXAM: Yes deferred Extremity: COMMON NORMALS: no clubbing, cyanosis or edema and no pedal edema Neuro: COMMON NORMALS: patient oriented x3 Skin: NARRATIVE SKIN EXAM: Generalized maculopapular rash all over the body RASHES: rashes noted (Maculopapular rash generalized all over the body ) Without involvement of mucosal/submucosal layer Rash type: Yes maculopapular Rash distribution: Yes asymmetrical, Yes exposed areas, Yes unexposed areas and Yes coalescing Rash color: Yes erythematous Data 12/06/22 02:09 12/06/22 02:09 Micro: Microbiology 12/04/22 08:24 Blood Culture - Preliminary Blood NEGATIVE TO DATE 12/04/22 07:15 Blood Culture - Preliminary Blood NEGATIVE TO DATE A&P Assessment and plan (1) Maculopapular rash: (2) Hypertension: (3) Acute kidney injury superimposed on CKD: (4) Peripheral artery disease: (5) Left upper extremity deep vein thrombosis: Diagnosed on recent admission. Will repeat ultrasound. Plan 47 year old male with past medical history of hypertension, coronary artery disease s/p recent PCI to RCA (11/21/22), PAD S/P recent aorto-biilliac bypass grafting, known left total carotid occlusion, moderate to heavy heterogenous plaques of right bifurcation with 50-69% stenosis, significant stenosis bilateral external carotids, CVA, COPD, was also undergoing treatment for presumed infective endocarditis with coag negative staph was on IV vancomycin for 4 weeks which ended in last week of October, he was discharged from [facility] where he underwent A-B bypass, for critical limb ischemia of left lower extremity. He was discharged on 11/12 on IV vancomycin for presumed infective endocarditis, his PICC line was removed 2/3 days prior to admission. Came in today with chief complaint of recurrent syncopal episode started yesterday around 2-3 episodes, prior to the episodes he denied chest pain shortness of breath, vertigo-like symptoms, he had also developed maculopapular rash which started a day prior to the symptoms and on admission was found to be hypotensive and positive orthostatics. Assessment Drug rash: With a high possibility of DRESS syndrome. Patient has high eosinophils, showing signs of serositis with transaminitis, LOUISA on admission, hypotension and syncope on admission. Cannot rule out AGEP versus TEN. We will consult surgery for skin biopsy. Increase Solu-Medrol to 100 mg every 12 hourly. Continue with Benadryl as needed. Could be secondary to recent antibiotics. Cannot rule out secondary to anticoagulation with Eliquis. Stop antibiotics. Switch from Eliquis to Xarelto. History of presumed infective endocarditis: Care discussed in detail with flora gallagher's ID physician as an outpatient Dr. Irving. Patient had coag negative staph positive blood cultures. He was started on presumed infective endocarditis treatment given new vascular graft. Plan for treatment for also 4 weeks which has finished the course. Antibiotics switched to daptomycin during admission. Seems to be on 5 mg/kg body weight course. Also on Zosyn. Stop antibiotics as above. Blood cultures so far negative. We will continue to follow. If patient starts spiking fever, hemodynamic instability of blood cultures being positive will start on antibiotics again. Repeat 2D echo: Has shown normal LV size systolic function, no RWMA, LVEF 60%, no valvular vegetation. get records. CTA chest abdomen pelvis results appreciated. MRI brain results appreciated. Check ESR, CRP. Repeat urine eosinophils. Given all of the above we will consult infectious disease. Awaiting documentation from outside hospital for further review. Syncope: Likely secondary to significantly positive orthostatic hypotension: Resolved now. Patient has known heavy heterogenous plaques of right bifurcation with 50-69% stenosis, significant stenosis bilateral external carotids. Continue with IV fluids at 75 cc/h. Monitor orthostatic every shift. Fall precaution. Telemetry. Appreciate CT head results. Mild LOUISA on CKD: Resolved Known baseline serum creatinine is around 0.8-1 Medical records return for nephrotoxic drugs. Monitor BMP daily. History of significant peripheral artery disease s/p recent aorto biliary bypass CT angio abd aorta run of done on admission has shown: Patent aortobifemoral bypass graft. History of coronary artery disease s/p recent PCI: Continue Plavix, anticoagulation statin, beta-tasha is on hold. Restart aspirin. Thrombus is seen in the popliteal artery extending down to TP segment. Continue anticoagulation Analgesia: Tylenol as needed Glycemic control: Not needed Nutrition: Cardiac diet CODE STATUS: Full code PUD prophylaxis: Protonix DVT prophylaxis: Xarelto will suffice as DVT prophylaxis Discharge planning: Home with caregiver once medically stable Transfer to [facility] with telemetry. This documentation was created by [employer] auxiliary power equipment operator software. Every effort was made to ensure accuracy of auxiliary power equipment operator. Any obvious errors or omissions should be clarified with the author of the document. Attestations 2 Medical Necessity Statement*: Hospitalization for further evaluation and management of drug rash with possibility of dress syndrome, syncope under evaluation Coding Level of Care Code 58162 High MDM includes risk/complexity, reviewing previous or external records, reviewing test results, ordering lab/other test(s), speaking with independent historian (other than patient), independently interpretating test(s) (not separately recorded) and discussion of management or test(s) w/ other healthcare professional and High Time for a total of 60 minutes, includes reviewing past or interval history, examining/interviewing patient, placing orders, counseling patient/family/other support, updating patient/family/other support, discussing plan of care with staff, communicating with other healthcare providers, documenting encounter and coordinating care Diagnoses Maculopapular rash R21 Hypertension I10 Acute kidney injury superimposed on CKD N17.9; N18.9 Peripheral artery disease I73.9 Left upper extremity deep vein thrombosis I82.622
--- NOTE | 2022-12-06 09:30 | MR_ITS ---
WS: [id number] MRI BRAIN WITHOUT CONTRAST HISTORY: Recurrent syncope, rule out possible septic emboli COMPARISON: 01/20/2021, head CT 12/04/2022 TECHNIQUE: Diffusion imaging, multiplanar T1, T2 and FLAIR imaging obtained. Diffusion-weighted imaging is normal. Stable supraventricular cortical white matter abnormalities are identified on the LEFT. Signal abnormalities are noted within the posterior superior LEFT occipital lobe and the frontal lobes. No new infarcts. No change since 12/23/2020. No new infarct. No edema or s ulcal effacement. No acute infarcts are volume loss. Ventricles and extra-axial spaces are normal. No inferior displacement of cerebellar tonsils. The sella turcica and pituitary gland are unremarkabl e. Dural venous sinuses and [place] demonstrate no abnormality on this unenhanced studies. Paranasal sinuses: Small amount of fluid in the posterior LEFT ethmoid air cells. Mastoid air cells: Normal. Calvarium and scalp: Intact. MR/MR head wo con* [id number] IMPRESSION: 1. No acute infarct or hemorrhage. 2. Stable subcortical prior ischemic changes LEFT frontal and LEFT occipital l obes. Stable since 12/23/2020. 3. No edema or midline shift.
[2022-12-06] MEDS: cyanocobalamin 1,000 mcg Tablet 500 MCG PO (09:36)
--- NOTE | 2022-12-06 11:45 | PC.NURSE ---
Report called to [facility]. Report given to HERMELINDA Dexter. Pharmacy notified pt back from MRI, Daptomycin needed and needs to go to [facility].
[2022-12-06 12:28] LABS: Eosinophil Urine No Eosinophils Seen; Urine Eosinophil Count 0 (0-0)
--- NOTE | 2022-12-06 12:59 | PC.NURSE ---
Addendum entered by Luisana Duke RN 12/06/22 13:03: Pt ate lunch then transferred. Original Note: Pt transferred to [facility] room 259-1. All belongings with pt. Crystal gibbs hung. Updates given to HERMELINDA Dexter and HERMELINDA Blackman.
--- NOTE | 2022-12-06 15:05 | USCV_ITS ---
Esequiel Munoz Age: 47 Gender: M : 1975 Exam Date: 12/06/2022 16:47 Ordering Phys: Darwin Candelaria MD Technologist: CT Exam Location: [facility] Indication: PT WITH A RASH AFTER GIVEN ANTIBOTICS PROCEDURES: Venous duplex imaging was performed in bilateral upper extremities. In addition, the basilic vein, cephalic vein, radial vein, and ulnar vein. FINDINGS: NO DVT CONCLUSIONS No evidence of thrombus of the bilateral upper extremity veins. Zach Arroyo MD (Electronically Signed) Final Date: 07 December 2022 11:04 S
[2022-12-06] MEDS: ferrous gluconate 324 mg Tablet PO (18:39)
[2022-12-06] MEDS: atorvastatin 40 mg Tablet 80 MG PO (18:39)
[2022-12-07] VITALS (11 sets, daily range): BP systolic 115–158; BP diastolic 63–81; PULSE 60–84; RESP 14–18; TEMP 36.4–37.1; O2SAT 95–98
[2022-12-07] MEDS: diphenhydrAMINE 50 mg/mL SDV 1mL 25 MG IVP ×6 (00:27→22:06)
[2022-12-07] MEDS: hyDROXYzine 25 mg Capsule PO ×2 (03:27→16:25)
[2022-12-07 05:42] LABS: Basophils # 0.1 10^3/uL (0.0-0.1); Basophils % 0.4 %; Eosinophils # 1.4 10^3/uL (0.0-0.8); Eosinophils % 8.8 %; Hematocrit 32.1 % (42.0-52.0); Lymphocytes # 4.2 10^3/uL (0.8-4.8); Lymphocytes % 27.1 %; Mean Corpuscular HGB Conc 31.2 g/dL (30.0-36.0); Mean Corpuscular Hemoglobin 29.2 pg (28.0-34.0); Mean Corpuscular Volume 93.6 fl (80-94); Mean Platelet Volume 8.7 fL (7.4-10.4); Monocytes # 0.6 10^3/uL (0.2-0.9); Monocytes % 3.8 %; Neutrophils # 8.86 10^3/uL (1.8-7.7); Neutrophils % 56.9 %; Nucleated Red Blood Cells # 0.1 /100WBC; Nucleated Red Blood Cells % 0.3 %; Platelet Count 264 10^3/cmm (130-400); Red Blood Count 3.43 10^6/uL (4.1-5.3); Red Cell Distribution Width 14.8 % (12.1-15.1); White Blood Count 15.6 10^3/uL (4.0-10.0)
[2022-12-07 06:15] LABS: Alanine Aminotransferase 65 U/L (0-41); Albumin Level 2.9 g/dL (3.5-5.2); Alkaline Phosphatase 152 U/L (40-130); Anion Gap 13.4 (5-19); Aspartate Amino Transferase 22 U/L (0-40); Blood Urea Nitrogen 14 mg/dL (6-20); Carbon Dioxide 25 mmol/L (22-29); Chloride 105 mmol/L (98-107); Globulin 2.3 g/dL (1.3-4.6); Glomerular Filtration Rate 80.8 mL/min (90-130); Glucose 125 mg/dL (65-115); Osmolality Calculated 290 mOsm/kg (285-295); Potassium 4.4 mmol/L (3.5-5.1); Sodium 139 mmol/L (136-145); Total Bilirubin 0.3 mg/dL (0.15-1.2); Total Protein 5.2 g/dL (6.6-8.7)
[2022-12-07] MEDS: cyanocobalamin 1,000 mcg Tablet 500 MCG PO (08:42)
[2022-12-07] MEDS: clopidogrel 75 mg Tablet PO (08:44)
[2022-12-07] MEDS: famotidine 20 mg/2 mL INJ IVP ×2 (08:46→18:43)
[2022-12-07] MEDS: ferrous gluconate 324 mg Tablet PO ×2 (08:47→18:42)
--- NOTE | 2022-12-07 16:00 | P.PN_ITS ---
Subjective Subjective: No acute events overnight. Today morning seen with family at bedside on [facility] floor. Patient states rash seems to be stable. Less itching. States in some area seems to be lightening up. Denies any nausea, vomiting, headache. Has remained hemodynamically stable and afebrile. Denies any dizziness. Medical records from [facility] reviewed. Appreciate Doppler and culture results. Vitals/I&O/Wt Last Vital Signs Temp 98.0 F 12/07/22 12:00 Pulse 84 12/07/22 12:00 Resp 18 12/07/22 12:00 BP 122/66 12/07/22 12:00 Pulse Ox 96 12/07/22 12:00 O2 Del Method 12/07/22 12:00 12/07/22 12/07/22 12/07/22 06:59 14:59 22:59 Intake Total 850 / 850 Balance 850 / 850 Weight last 48 hrs Weight 102.654 kg Weight 102.512 kg Physical Exam Const: COMMON NORMALS: patient oriented x3 HENMT: COMMON NORMALS: normocephalic and atraumatic HEAD & SCALP: normocephalic and atraumatic Chest: CHEST: Yes Symmetrical chest wall rise Resp: COMMON NORMALS: clear to auscultation bilaterally AUSCULTATION: clear to auscultation bilaterally Cardio: COMMON NORMALS: regular rate, regular rhythm, S1 normal heart sound present, S2 normal heart sound present, No gallops present (Cardio), No murmurs present (Cardio), No rub (Cardio) and Peripheral pulses 2+ throughout RATE: regular rate RHYTHM: regular rhythm HEART SOUNDS: S1 normal heart sound present and S2 normal heart sound present PERIPHERAL PULSES: Peripheral pulses 2+ throughout GI: COMMON NORMALS: Normal to inspection, nondistended, normoactive bowel sounds present, Soft to palpation, non-tender, No hepatosplenomegaly present and no masses AUSCULTATION: Yes normoactive bowel sounds PALPATION: Yes Soft to palpation and Yes No hepatosplenomegaly present RECTAL EXAM: Yes deferred Extremity: COMMON NORMALS: no clubbing, cyanosis or edema and no pedal edema Neuro: COMMON NORMALS: patient oriented x3 Skin: NARRATIVE SKIN EXAM: Generalized maculopapular rash all over the body RASHES: rashes noted (Maculopapular rash generalized all over the body ) Data 12/07/22 05:29 12/07/22 05:29 A&P Assessment and plan (1) Maculopapular rash: (2) Hypertension: (3) Acute kidney injury superimposed on CKD: (4) Peripheral artery disease: (5) Left upper extremity deep vein thrombosis: Diagnosed on recent admission. Will repeat ultrasound. Plan 47 year old male with past medical history of hypertension, coronary artery disease s/p recent PCI to RCA (11/21/22), PAD S/P recent aorto-biilliac bypass grafting, known left total carotid occlusion, moderate to heavy heterogenous plaques of right bifurcation with 50-69% stenosis, significant stenosis bilateral external carotids, CVA, COPD, was also undergoing treatment for presumed infective endocarditis with coag negative staph was on IV vancomycin for 4 weeks which ended in last week of October, he was discharged from [facility] where he underwent A-B bypass, for critical limb ischemia of left lower extremity. He was discharged on 11/12 on IV vancomycin for presumed infective endocarditis, his PICC line was removed 2/3 days prior to admission. Came in today with chief complaint of recurrent syncopal episode started yeste rday around 2-3 episodes, prior to the episodes he denied chest pain shortness of breath, vertigo-like symptoms, he had also developed maculopapular rash which started a day prior to the symptoms and on admission was found to be hypotensive and positive orthostatics. Assessment Drug rash: With a high possibility of DRESS syndrome. Patient has high eosinophils, showing signs of serositis with transaminitis, LOUISA on admission, hypotension and syncope on admission. Cannot rule out AGEP versus TEN. We will consult surgery for skin biopsy. Increase Solu-Medrol to 100 mg every 12 hourly. Continue with Benadryl as needed. Could be secondary to recent antibiotics. Cannot rule out secondary to anticoagulation with Eliquis. Stop antibiotics. Switch from Eliquis to Xarel to. History of presumed infective endocarditis: Care discussed in detail with patient's ID physician as an outpatient Dr. Irving. Patient had coag negative staph positive blood cultures. He was started on presumed infective endocarditis treatment given new vascular graft. Plan for treatment for also 4 weeks which has finished the course. Antibiotics switched to daptomycin during admission. Seems to be on 5 mg/kg body weight course. Also on Zosyn. Stop antibiotics as above. Blood cultures so far negative. We will continue to follow. If patient starts spiking fever, hemodynamic instability of blood cultures being positive will start on antibiotics again. Repeat 2D echo: Has shown normal LV size systolic function, no RWMA, LVEF 60%, no valvular vegetation. get records. CTA chest abdomen pelvis results appreciated. MRI brain results appreciated. Check ESR, CRP. Repeat urine eosinophils. Given all of the above we will consult infectious disease. Awaiting documentation from outside hospital for further review. Syncope: Likely secondary to significantly positive orthostatic hypotension: Resolved now. Patient has known heavy heterogenous plaques of right bifurcation with 50-69% stenosis, significant stenosis bilateral external carotids. Continue with IV fluids at 75 cc/h. Monitor orthostatic every shift. Fall precaution. Telemetry. Appreciate CT head results. Mild LOUISA on CKD: Resolved Known baseline serum creatinine is around 0.8-1 Medical records return for nephrotoxic drugs. Monitor BMP daily. History of significant peripheral artery disease s/p recent aorto biliary bypass CT angio abd aorta run of done on admission has shown: Patent aortobifemoral bypass graft. History of coronary artery disease s/p recent PCI: Continue Plavix, anticoagulation statin, beta-tasha is on hold. Restart aspirin. Thrombus is seen in the popliteal artery extending down to TP segment. Continue anticoagulation Analgesia: Tylenol as needed Glycemic control: Not needed Nutrition: Cardiac diet CODE STATUS: Full code PUD prophylaxis: Protonix DVT prophylaxis: Xarelto will suffice as DVT prophylaxis Discharge planning: Home with caregiver once medically stable Transfer to [facility] with telemetry. This documentation was created by [employer] chief gauger software. Every effort was made to ensure accuracy of chief gauger. Any obvious errors or omissions should be clarified with the author of the document. Plan for the day: Continue holding antibiotics. Monitor hemodynamics. Continue with IV steroids 1 g/kg body weight every 12 hourly for now. We will start weaning down within the next 24 to 48 hours. Eosinophilia seems to be resolving. 1.4% as compared to 3.6 yesterday. Awaiting skin biopsy. Will restart anticoagulation with Xarelto after skin biopsy. Appreciate ID recommendations. EBV and CMV antibody sent out. IV fluids stopped. Attestations Medical Necessity Statement*: Requires further hospitalization for management of maculopapular rash in setting of a possibility of DRESS SYNDROME Coding Level of Care Code 40255 Moderate MDM includes risk/complexity, reviewing previous or external records, reviewing test results, ordering lab/other test(s), speaking with independent historian (other than patient), independently interpretating test(s) (not separately recorded) and discussion of management or test(s) w/ other healthcare professional and Moderate Time for a total of 40 minutes, includes reviewing past or interval history, examining/interviewing patient, placing orders, counseling patient/family/other support, updating patient/family/other support, discussing plan of care with staff, communicating with other healthcare providers, documenting encounter and coordinating care Diagnoses Maculopapular rash R21 Hypertension I10 Acute kidney injury superimposed on CKD N17.9; N18.9 Peripheral artery disease I73.9 Left upper extremity deep vein thrombosis I82.622
--- NOTE | 2022-12-07 18:30 | PM.OP ---
Operative Report Date of procedure: December 08, 2022 Pre-op diagnosis: Preop Diagnosis Rash Post-op diagnosis: same Procedure done: 5 mm skin punch biopsy Specimens removed/disposition: 5 mm skin punch biopsy Surgeon: Dr. Dean Ortiz DO Anesthesia: Local Estimated blood loss (mL): 5 Complications: None apparent Brief History: This a very pleasant 47-year-old gentleman who is currently in the hospital and developed a diffuse maculopapular rash. The hospitalist requested a skin punch biopsy. The risks and benefits of the procedure, including but not limited to, bleeding, infection, scar, numbness, pain, were explained to the patient. He is understanding of the risks and wishes to proceed Procedure: After obtaining consent and a timeout procedure, the patient's right leg was inspected and prepped with alcohol. A 5 mm punch biopsy was used to punch out a portion of skin from his right anterior leg. The skin was punch down to the subcutaneous tissue and then the specimen was placed in formalin. Bleeding was controlled with silver nitrate and 4 x 4 gauze dressing. There was some bleeding after procedure which was controlled with silver nitrate and a dry gauze bandage. Patient tolerated procedure well
[2022-12-07] MEDS: atorvastatin 40 mg Tablet 80 MG PO (18:42)
[2022-12-08] VITALS (9 sets, daily range): BP systolic 122–168; BP diastolic 68–85; PULSE 62–87; RESP 16–22; TEMP 36.3–36.9; O2SAT 96–97
[2022-12-08] MEDS: diphenhydrAMINE 50 mg/mL SDV 1mL 25 MG IVP ×6 (01:00→20:56)
[2022-12-08 06:21] LABS: Basophils # 0.1 10^3/uL (0.0-0.1); Basophils % 0.3 %; Eosinophils % 6.1 %; Hematocrit 34.4 % (42.0-52.0); Hemoglobin 10.7 g/dL (11.7-16.6); Lymphocytes # 4.2 10^3/uL (0.8-4.8); Lymphocytes % 26.7 %; Mean Corpuscular HGB Conc 31.1 g/dL (30.0-36.0); Mean Corpuscular Hemoglobin 29.6 pg (28.0-34.0); Mean Corpuscular Volume 95.3 fl (80-94); Mean Platelet Volume 9.1 fL (7.4-10.4); Monocytes # 0.9 10^3/uL (0.2-0.9); Monocytes % 5.6 %; Neutrophils # 8.91 10^3/uL (1.8-7.7); Neutrophils % 56.2 %; Nucleated Red Blood Cells # 0.1 /100WBC; Nucleated Red Blood Cells % 0.5 %; Platelet Count 251 10^3/cmm (130-400); Red Blood Count 3.61 10^6/uL (4.1-5.3); White Blood Count 15.9 10^3/uL (4.0-10.0)
[2022-12-08 06:43] LABS: Alanine Aminotransferase 78 U/L (0-41); Albumin Level 3.3 g/dL (3.5-5.2); Alkaline Phosphatase 189 U/L (40-130); Anion Gap 13.5 (5-19); Aspartate Amino Transferase 31 U/L (0-40); Blood Urea Nitrogen 18 mg/dL (6-20); Carbon Dioxide 25 mmol/L (22-29); Chloride 103 mmol/L (98-107); Globulin 2.4 g/dL (1.3-4.6); Glomerular Filtration Rate 91.3 mL/min (90-130); Glucose 143 mg/dL (65-115); Osmolality Calculated 288 mOsm/kg (285-295); Potassium 4.5 mmol/L (3.5-5.1); Sodium 137 mmol/L (136-145); Total Bilirubin 0.3 mg/dL (0.15-1.2); Total Protein 5.7 g/dL (6.6-8.7)
[2022-12-08 07:04] LABS: Slide Review Slide Review Perform
[2022-12-08] MEDS: ferrous gluconate 324 mg Tablet PO ×2 (08:56→17:38)
[2022-12-08] MEDS: famotidine 20 mg/2 mL INJ IVP ×2 (08:56→17:38)
[2022-12-08] MEDS: clopidogrel 75 mg Tablet PO (08:56)
[2022-12-08] MEDS: cyanocobalamin 1,000 mcg Tablet 500 MCG PO (08:57)
--- NOTE | 2022-12-08 10:39 | PM.PN ---
Subjective Subjective: Acute events overnight. Patient has remained hemodynamically stable and afebrile. States he is feeling a lot better. Denies any nausea, vomiting, headache. States he thinks that the rash is lightening up and not as angry looking as before in most part of the body except the left leg. Complaining of swelling in the right arm. Repeat orthostatics have remained negative. Patient denies any further dizziness. Vitals/I&O/Wt Last Vital Signs Temp 98.0 F 12/08/22 08:00 Pulse 64 12/08/22 08:00 Resp 20 H 12/08/22 08:00 BP 145/82 12/08/22 08:00 Pulse Ox 97 12/08/22 08:00 O2 Del Method 12/08/22 08:00 12/07/22 12/08/22 12/08/22 22:59 06:59 14:59 Intake Total 360 / 1210 480 / 480 Balance 360 / 1210 480 / 480 Weight last 48 hrs Weight 102.512 kg Weight 102.654 kg Physical Exam Const: COMMON NORMALS: patient oriented x3 HENMT: COMMON NORMALS: normocephalic and atraumatic HEAD & SCALP: normocephalic and atraumatic Chest: CHEST: Yes Symmetrical chest wall rise Resp: COMMON NORMALS: clear to auscultation bilaterally AUSCULTATION: clear to auscultation bilaterally Cardio: COMMON NORMALS: regular rate, regular rhythm, S1 normal heart sound present, S2 normal heart sound present, No gallops present (Cardio), No murmurs present (Cardio), No rub (Cardio) and Peripheral pulses 2+ throughout RATE: regular rate RHYTHM: regular rhythm HEART SOUNDS: S1 normal heart sound present and S2 normal heart sound present PERIPHERAL PULSES: Peripheral pulses 2+ throughout GI: COMMON NORMALS: Normal to inspection, nondistended, normoactive bowel sounds present, Soft to palpation, non-tender, No hepatosplenomegaly present and no masses AUSCULTATION: Yes normoactive bowel sounds PALPATION: Yes Soft to palpation and Yes No hepatosplenomegaly present RECTAL EXAM: Yes deferred Extremity: COMMON NORMALS: no clubbing, cyanosis or edema and no pedal edema Neuro: COMMON NORMALS: patient oriented x3 Skin: NARRATIVE SKIN EXAM: RASHES: rashes noted (Maculopapular rash generalized all over the body ) Data 12/08/22 05:40 12/08/22 05:40 A&P Assessment and plan (1) Maculopapular rash: (2) Hypertension: (3) Acute kidney injury superimposed on CKD: (4) Peripheral artery disease: (5) Left upper extremity deep vein thrombosis: Diagnosed on recent admission. Will repeat ultrasound. Plan 47 year old male with past medical history of hypertension, coronary artery disease s/p recent PCI to RCA (11/21/22), PAD S/P recent aorto-biilliac bypass grafting, known left total carotid occlusion, moderate to heavy heterogenous plaques of right bifurcation with 50-69% stenosis, significant stenosis bilateral external carotids, CVA, COPD, was also undergoing treatment for presumed infective endocarditis with coag negative staph was on IV vancomycin for 4 weeks which ended in last week of October, he was discharged from [facility] where he underwent A-B bypass, for critical limb ischemia of left lower extremity. He was discharged on 11/12 on IV vancomycin for presumed infective endocarditis, his PICC line was removed 2/3 days prior to admission. Came in today with chief complaint of recurrent syncopal episode started yesterday around 2-3 episodes, prior to the episodes he denied chest pain shortness of breath, vertigo-like symptoms, he had also developed maculopapular rash which started a day prior to the symptoms and on admission was found to be hypotensive and positive orthostatics. Assessment Drug rash: With a high possibility of DRESS syndrome. Patient has high eosinophils, showing signs of serositis with transaminitis, LOUISA on admission, hypotension and syncope on admission. Cannot rule out AGEP versus TEN. We will consult surgery for skin biopsy. Eosinophils trending down. 1% today. Change to Solu-Medrol 40 mg every 12 hourly now. Continue to hold off on antibiotics. Started on Xarelto. Skin biopsy taken on 12/07. Appreciate surgery and ID recommendations. Awaiting CMV and EBV IgG/IgM antibodies. History of presumed infective endocarditis: Care discussed in detail with patient's ID physician as an outpatient Dr. Irving. Patient had coag negative staph positive blood cultures. He was started on presumed infective endocarditis treatment given new vascular graft. Plan for treatment for also 4 weeks which has finished the course. Antibiotics switched to daptomycin during admission. Seems to be on 5 mg/kg body weight course. Also on Zosyn. Patient has remained hemodynamically stable and afebrile off antibiotics. Blood cultures so far negative. We will continue to follow. If patient starts spiking fever, hemodynamic instability of blood cultures being positive will start on antibiotics again. Repeat 2D echo: Has shown normal LV size systolic function, no RWMA, LVEF 60%, no valvular vegetation. get records. CTA chest abdomen pelvis results appreciated. MRI brain results appreciated. Appreciate documents from [facility] regarding previous admission. Bilateral upper limb duplex negative for DVT. Syncope: Likely secondary to significantly positive orthostatic hypotension: Resolved now. Patient has known heavy heterogenous plaques of right bifurcation with 50-69% stenosis, significant stenosis bilateral external carotids. Continue with IV fluids at 75 cc/h. Monitor orthostatic every shift. Fall precaution. Telemetry. Appreciate CT head results. Mild LOUISA on CKD: Resolved Known baseline serum creatinine is around 0.8-1 Medical records return for nephrotoxic drugs. Monitor BMP daily. History of significant peripheral artery disease s/p recent aorto biliary bypass CT angio abd aorta run of done on admission has shown: Patent aortobifemoral bypass graft. History of coronary artery disease s/p recent PCI: Continue Plavix, anticoagulation statin, beta-tasha is on hold. Restart aspirin. Thrombus is seen in the popliteal artery extending down to TP segment. Continue anticoagulation Analgesia: Tylenol as needed Glycemic control: Not needed Nutrition: Cardiac diet CODE STATUS: Full code PUD prophylaxis: Protonix DVT prophylaxis: Xarelto will suffice as DVT prophylaxis Discharge planning: Home with caregiver once medically stable. Plan to discharge in next 24 to 48 hours on tapering steroids. Continue care at [facility] with telemetry. This documentation was created by [employer] cnc operator programmer software. Every effort was made to ensure accuracy of cnc operator programmer. Any obvious errors or omissions should be clarified with the author of the document. Attestations Medical Necessity Statement*: Requires further hospitalization for management of maculopapular rash most likely in setting of DRESS syndrome. Coding Level of Care Code 88672 Moderate Time for a total of 35 minutes, includes reviewing past or interval history, examining/interviewing patient, placing orders, counseling patient/family/other support, updating patient/family/other support, discussing plan of care with staff, communicating with other healthcare providers, documenting encounter and coordinating care Diagnoses Maculopapular rash R21 Hypertension I10 Acute kidney injury superimposed on CKD N17.9; N18.9 Peripheral artery disease I73.9 Left upper extremity deep vein thrombosis I82.622
[2022-12-08] MEDS: rivaroxaban 10 mg Tablet PO (12:26)
[2022-12-08 13:04] LABS: Cytomegalovirus Antibody (IGM) <30.00 AU/mL
[2022-12-08 14:19] LABS: EBV Early Antigen AB IGG <9.00 U/mL; EBV IGM TEST <36.00 U/mL
--- NOTE | 2022-12-08 14:38 | PM.PN ---
Subjective Subjective: Patient reports minimal pain at his biopsy site. Vitals/I&O/Wt Last Vital Signs Temp 98.4 F 12/08/22 12:00 Pulse 71 12/08/22 12:00 Resp 18 12/08/22 12:00 BP 155/68 12/08/22 12:00 Pulse Ox 97 12/08/22 12:00 O2 Del Method 12/08/22 12:00 12/07/22 12/08/22 12/08/22 22:59 06:59 14:59 Intake Total 360 / 1210 960 / 960 Balance 360 / 1210 960 / 960 Weight last 48 hrs Weight 226 lb Weight 226 lb 5 oz Physical Exam Narrative: General: No acute distress, awake alert and oriented x3 Skin: Right leg dressing clean dry and intact Data 12/08/22 05:40 12/08/22 05:40 A&P Assessment and plan (1) Maculopapular rash: Plan Status post punch biopsy to right lower extremity Follow-up with medicine General surgery will sign off Please reconsult if the need arises Attestations Medical Necessity Statement*: Further hospitalization per hospitalist Coding Level of Care Code Acute Code for Chg Fwd Diagnoses Maculopapular rash R21
[2022-12-08] MEDS: atorvastatin 40 mg Tablet 80 MG PO (17:38)
[2022-12-09] VITALS (12 sets, daily range): BP systolic 133–166; BP diastolic 65–95; PULSE 65–89; RESP 15–18; TEMP 36.5–36.8; O2SAT 93–97
[2022-12-09] MEDS: diphenhydrAMINE 50 mg/mL SDV 1mL 25 MG IVP ×6 (00:27→22:17)
[2022-12-09 04:51] LABS: Basophils # 0.1 10^3/uL (0.0-0.1); Basophils % 0.4 %; Eosinophils # 1.4 10^3/uL (0.0-0.8); Eosinophils % 8.6 %; Hematocrit 32.7 % (42.0-52.0); Hemoglobin 10.3 g/dL (11.7-16.6); Lymphocytes # 3.8 10^3/uL (0.8-4.8); Lymphocytes % 23.4 %; Mean Corpuscular HGB Conc 31.5 g/dL (30.0-36.0); Mean Corpuscular Hemoglobin 29.8 pg (28.0-34.0); Mean Corpuscular Volume 94.5 fl (80-94); Mean Platelet Volume 8.8 fL (7.4-10.4); Monocytes # 1.2 10^3/uL (0.2-0.9); Monocytes % 7.5 %; Neutrophils % 54.8 %; Nucleated Red Blood Cells # 0.1 /100WBC; Nucleated Red Blood Cells % 0.6 %; Platelet Count 304 10^3/cmm (130-400); Red Blood Count 3.46 10^6/uL (4.1-5.3); White Blood Count 16.1 10^3/uL (4.0-10.0)
[2022-12-09] MEDS: ferrous gluconate 324 mg Tablet PO ×2 (08:54→17:33)
[2022-12-09] MEDS: rivaroxaban 10 mg Tablet PO (08:54)
[2022-12-09] MEDS: cyanocobalamin 1,000 mcg Tablet 500 MCG PO (08:54)
[2022-12-09] MEDS: aspirin 81 mg EC Tablet PO (08:54)
[2022-12-09] MEDS: clopidogrel 75 mg Tablet PO (08:54)
[2022-12-09] MEDS: famotidine 20 mg/2 mL INJ IVP ×2 (09:01→17:33)
--- NOTE | 2022-12-09 09:33 | P.CONIM_ITS ---
Providers/Reason For Consult Consulting Physician/Specialty*: Malorie Toure MD/Infectious Disease Reason for Consult*: endocarditis, vascular graft infection Requesting Physician: Malorie Toure MD/ Infectious Disease Attending Physician: Darwin Candelaria MD Primary Care Provider: Axel Torres NP History of Present Illness History of Present Illness Esequiel Munoz is a 47 year old male with Peripheral vascular disease and a recent diagnosis of critical limb ischemia for which he was admittted at [facility] in [facility]. He underwent aorto-biilliac bypass grafting on 10/29/22 with perioperative course complicated by staph hominis bacteremia 11/03 for which he received abx treament with iv vancomycin for 4 weeks until 12/03/22. He had a FABIAN performed at that time which showed a filamentous lesion near the TV, possibil ity of vegetation could not be excluded. Bacteremia cleared fairly quickly, possibitlity of contamination could not be excluded. He recently had an NSTEMI for which he underwent NICOLÁS to RCA on 11/22/22. He is currently admitted for DRESS syndrome. Patient states that on his last day of vancomycin infusion he started to develop a maculopapular itchy rash which first started around the right shoulder and spread to involve B/L upper and lower extremities, trunk and back over the next 3 days. Labs showed peripheral eosinophilia, transminitis and signs of organ involvement. He was diagnosed with DRESS syndrome and is currently admitted for the same, getting treatment with high dose steroids. Apart from the vancomycin which he had been getting over the past month, recent new medications include DAPT with ASA(preexisting) and Plavix (new medication started after NICOLÁS on 11/22). Patient states that he also resumed Eliquis 3 days prior to onset of symptoms. However per reveiw of his home medication list, he was already on Eliquis at the time of admission on 11/20/22, presumably had been on it since discharge from [facility]. He denies any fever, chills, other family members with similar rash. NO uri symptoms, resp viral panel negative on admission. No contact with pre school aged children, blood cx currently negative on this admission Review of Systems General: Reports: 10 or more systems reviewed and unremarkable except in HPI and below Const: Denies: fever(s), chills or body aches Eyes: Denies: change in vision, blurry vision or photophobia ENMT: Reports: hoarseness; Denies: throat pain, enlarged tonsils, odynophagia or nasal congestion Card: Denies: chest pain, palpitations, irregular heart rhythm, edema, swelling of feet/ankles, lightheadedness, pre-syncope, dyspnea on exertion or orthopnea Resp: Denies: dyspnea, productive cough, non-productive cough, wheezing, stridor, pain on inspiration, change in phlegm color, hemoptysis or chest conges tion GI: Denies: abdominal pain, nausea, vomiting, hematemesis, coffee ground emesis, dysphagia, heartburn, diarrhea, constipation, GI cramping, change in stool character, hematochezia or melena : Denies: flank pain, dysuria, urinary frequency, urinary urgency, urinary hesitancy or hematuria Musc: Denies: neck pain, back pain, extremity pain, joint swelling, joint warmth or deformity Neuro: Denies: headache(s), numbness in extremities, weakness in extremities, sensory changes, difficulty walking, frequent falls, dizziness, vertigo, behavioral changes, Slurred speech present or seizure-like activity Psych: Denies: anxiety, depression, suicidal ideation or homicidal ideation Endo: Denies: polyuria, polydipsia, tired all the time, cold intolerance or hot flashes Dez/Lymph: Denies: easy bruising or easy bleeding Medications/Allergies Home Medications Medication Instructions Recorded Confirmed Last Taken Type atorvastatin 80 mg tablet 80 mg PO QPM 11/18/22 12/04/22 12/03/22 History metoprolol tartrate 25 mg tablet 25 mg PO BID 11/18/22 12/04/22 12/03/22 History nitroglycerin 0.4 mg sublingual 0.4 mg sublingual Q5M PRN Chest 11/22/22 12/04/22 12/02/22 Rx tablet Pain 30 days #30 tabs albuterol sulfate 90 mcg/actuation 1 - 2 puff inhalation Q6H PRN 12/04/22 12/04/22 Unknown History aerosol inhaler (Ventolin HFA) Shortness Of Breath fexofenadine 180 mg tablet 180 mg PO Q24H PRN Allergy Symptoms 12/04/22 12/04/22 Unknown History (Delilah Allergy) atovaquone 750 mg/5 mL oral 1,500 mg (10 mL) PO DAILY 30 days 12/09/22 Unknown Rx suspension #90 mL prednisone 20 mg tablet See Rx Instructions .Route 12/09/22 Unknown Rx .COMPLEX #75 tabs rivaroxaban 20 mg tablet (Xarelto) 20 mg PO DAILY #90 tabs 12/09/22 Unknown Rx ticagrelor 90 mg tablet (Brilinta) 90 mg PO Q12H 3 months #180 tabs 12/09/22 Unknown Rx cyanocobalamin (vitamin B-12) 500 mcg PO DAILY #30 tabs 12/10/22 Unknown Rx 1,000 mcg tablet (Vitamin B-12) diphenhydramine HCl 25 mg tablet 25 mg PO Q8H PRN allergy symptoms 12/10/22 Unknown Rx (Benadryl Allergy) #20 tabs ferrous gluconate 324 mg (37.5 mg 324 mg PO BIDWM #60 tabs 12/10/22 Unknown Rx iron) tablet Allergies Allergy/AdvReac Type Severity Reaction Status Date / Time vancomycin Allergy Severe DRESS Verified 12/09/22 10:20 syndrome plavix Allergy Severe DRESS Uncoded 12/11/22 08:21 syndrome Current Medications Generic Name Dose Route Start Last Admin Trade Name Freq PRN Reason Stop Dose Admin Acetaminophen 650 mg 12/04/22 12:52 12/05/22 05:33 Acetaminophen 325 Mg Tablet PO 650 mg Q6H PRN Administration Mild/Mod Pain Or Temp >/= 101 Aspirin 81 mg 12/07/22 09:00 12/09/22 08:54 Aspirin 81 Mg Ec Tablet PO 81 mg DAILY LUIS ALBERTO Administration Atorvastatin Calcium 80 mg 12/04/22 18:00 12/08/22 17:38 Atorvastatin 40 Mg Tablet PO 80 mg QPM LUIS ALBERTO Administration Clopidogrel Bisulfate 75 mg 12/05/22 09:00 12/09/22 08:54 Clopidogrel 75 Mg Tablet PO 75 mg DAILY LUIS ALBERTO Administration Cyanocobalamin 500 mcg 12/06/22 09:00 12/09/22 08:54 Cyanocobalamin 1,000 Mcg Tablet PO 500 mcg DAILY LUIS ALBERTO Administration Diphenhydramine HCl 25 mg 12/04/22 18:00 12/09/22 08:54 Diphenhydramine 50 Mg/Ml Sdv 1ml IVP 25 mg Q4H LUIS ALBERTO Administration Famotidine 20 mg 12/04/22 18:00 12/09/22 09:01 Famotidine 20 Mg/2 Ml Inj IVP 20 mg BID LUIS ALBERTO Administration Ferrous Gluconate 324 mg 12/06/22 18:00 12/09/22 08:54 Ferrous Gluconate 324 Mg Tablet PO 324 mg BIDWM LUIS ALBERTO Administration Hydroxyzine Pamoate 25 mg 12/04/22 17:37 12/07/22 16:25 Hydroxyzine 25 Mg Capsule PO 25 mg QID PRN Administration ANXIETY Methylprednisolone Sodium Succinate 40 mg 12/08/22 20:00 12/09/22 08:53 Methylprednisolone Sod Succ 40 Mg/Ml Inj IVP 40 mg Q12H LUIS ALBERTO Administration Rivaroxaban 10 mg 12/08/22 10:45 12/09/22 08:54 Rivaroxaban 10 Mg Tablet PO 10 mg DAILY LUIS ALBERTO Administration PFSH Acute PFSH: Medical History AF (amaurosis fugax) Asthma Bipolar disorder COPD (chronic obstructive pulmonary disease) CVA (cerebral vascular accident) (~10/2020) LEFT supraventricular frontal lobe History of cardiac monitoring 2 week event monitor in 05/2022 with baseline sinus rhythm, episodes of sinus tachycardia from 132-165 noted History of cardiovascular stress test 11/25/2020 Exercise Stress test with Stress Echo - No exercise induced chest pain or ekg changes, suboptimal exercise for age, hypertensive exercise response History of PFTs 05/2020 Severe airflow obstruction, no significant post dilator response, lung volumes consistent with air trapping. Normal DLCO. Hyperlipidemia Hypertension Intermittent explosive disorder Left carotid artery occlusion Left upper extremity deep vein thrombosis Nicotine dependence, cigarettes, with other nicotine-induced disorders Peripheral artery disease PTSD (post-traumatic stress disorder) Surgical History H/O inguinal hernia repair Family History Mother Sarcoid Other Asthma CAD (coronary artery disease) Cancer Emphysema/COPD Hyperlipidemia Hypertension Stroke Denies family history of Clotting disorder Chronic kidney disease (CKD) Anesthesia complication Bleeding disorder Family history of premature coronary artery disease Social History Smoking and tobacco status: current every day smoker cigarettes Packs smoked per day: 0.5 Years cigarettes smoked: 32 [ Other cigarette details: onset age 8- 9 years] Quit status (tobacco): has tried quititng Number of times tried to quit tobacco: 12 Second hand smoke exposure: Yes Alcohol intake: current Alcohol intake frequency: holidays/special occasions only Lives independently: Yes Household members: other Details: room mate Housing: House Marital status: service: No 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 Pets and animals: Yes Current gender identity: Male Vitals/I&O/Wt Last Vital Signs Temp 97.9 F 12/09/22 08:00 Pulse 89 12/09/22 08:00 Resp 16 12/09/22 08:00 BP 141/78 12/09/22 08:00 Pulse Ox 94 12/09/22 08:00 O2 Del Method 12/09/22 08:00 Weight last 48 hrs Weight 101.803 kg Weight 102.512 kg Physical Exam Narrative: General: No acute distress, AO x3 HEENT: PERRLA, pupils bilaterally equal and reactive, pallors not present Chest: Normal vesicular breath sounds, no added sounds, equal good air entry bilaterally CVS: S1-S2 regular, no murmurs, no tachycardia, no gallops, no rubs Abdomen: Soft, nontender, no organomegaly, bowel sounds present Neuro: No focal deficits, no facial deformity, AO x3, power 5/5 in all limbs Extremities: improving maculopaular rash over upper extremities, still persisting over lower extremities Data 12/09/22 04:40 12/08/22 05:40 Micro: Microbiology 12/04/22 08:24 Blood Culture - Final Blood NO GROWTH AFTER 5 DAYS 12/04/22 07:15 Blood Culture - Final Blood NO GROWTH AFTER 5 DAYS A&P Assessment and plan (1) DRESS syndrome: Presenting with DRESS syndrome Difficult to pinpoint culprit drug as he has had several new medications initiated in the past month. Suspect vancomycin less likely given he was one month into treatment course Payient states eliquis is new medication however per review of records it appears patient was already on eliquis at his hospital discharge from [facility]. Plavix appears to be the newest medication initiated after NSTEMI on 11/20. Timeline of events suiggests Plavix may be the culrpit drug. Eosinophilic reactions and drug allergies have been described with this medication. Recommend discussion with patient's lumber piler operator regarding the same and potential switch. Patient will eventually benefit from allergy testing once his acute issues resolve to determine abx allergies. For now, vancomycin has been added to his drug allergy list until this can be clarified. HE is currently on high dose steroids for treatment of DRESS, expected to remian on Prednisone equivalent 20 mg or higher at least over the next month, recommend adding PJP ppx with Atovaquone for this treament duration. First dose can be given in the hospital. Avoiding bactrim as patient has not previously taken, unknown status of sulfa allergies. Pateint instructed to stop atovaquone once prednisone dose tapers down to less than 20mg/day or if rash worsens (2) Endocarditis: s/p completion of 6 weeks of iv abx Staph hominis bacteremia 1/ from outside cx, cleared quickly, clincially appears to be contamination however given recent vascular graft and filamentous structure noted on FABIAN, was treated out of abundance of caution as benefits outweighed the risks of presumptive treatment. ID notes from [facility] reviewed No further vancomycin for now as completed adequate course Blood cx negative this current admission Repeat FABIAN in 2 weeks off abx to evalaute for any anatomical progression of filamentous structure, uncertain if this represents anatomical variant vs true vegetation. Latter appears less likely given no other risk factors, quick clearance of bacteremia, short duration. Consult Attestations Medical Necessity Statement: per admitting note Coding Level of Care Code Acute Code for [facility] Krissy Diagnoses DRESS syndrome D72.12; T50.905A Endocarditis I38
[2022-12-09] MEDS: metoprolol tartrate 25 mg Tablet PO ×2 (12:58→20:35)
--- NOTE | 2022-12-09 13:52 | P.PN_ITS ---
Subjective Subjective: No acute events overnight. Patient denies any nausea, vomiting, headache. States rash is improving. Seems to be lightening up and coalescing all over his body. Still some rash present on his legs. Denies any further dizziness. Seen with family at bedside. Vitals/I&O/Wt Last Vital Signs Temp 98.1 F 12/09/22 11:37 Pulse 76 12/09/22 11:37 Resp 16 12/09/22 11:37 BP 166/87 12/09/22 11:37 Pulse Ox 96 12/09/22 11:37 O2 Del Method 12/09/22 11:37 12/08/22 12/09/22 12/09/22 22:59 06:59 14:59 Intake Total 720 / 720 Balance 720 / 720 Weight last 48 hrs Weight 101.803 kg Weight 102.512 kg Physical Exam Const: COMMON NORMALS: patient oriented x3 HENMT: COMMON NORMALS: normocephalic and atraumatic HEAD & SCALP: normocephalic and atraumatic Chest: CHEST: Yes Symmetrical chest wall rise Resp: COMMON NORMALS: clear to auscultation bilaterally AUSCULTATION: clear to auscultation bilaterally Cardio: COMMON NORMALS: regular rate, regular rhythm, S1 normal heart sound present, S2 normal heart sound present, No gallops present (Cardio), No murmurs present (Cardio), No rub (Cardio) and Peripheral pulses 2+ throughout RATE: regular rate RHYTHM: regular rhythm HEART SOUNDS: S1 normal heart sound present and S2 normal heart sound present PERIPHERAL PULSES: Peripheral pulses 2+ throughout GI: COMMON NORMALS: Normal to inspection, nondistended, normoactive bowel sounds present, Soft to palpation, non-tender, No hepatosplenomegaly present and no masses AUSCULTATION: Yes normoactive bowel sounds PALPATION: Yes Soft to palpation and Yes No hepatosplenomegaly present RECTAL EXAM: Yes deferred Extremity: COMMON NORMALS: no clubbing, cyanosis or edema and no pedal edema Neuro: COMMON NORMALS: patient oriented x3 Skin: NARRATIVE SKIN EXAM: RASHES: rashes noted (Maculopapular rash generalized all over the body ) Data 12/09/22 04:40 12/08/22 05:40 Micro: Microbiology 12/04/22 08:24 Blood Culture - Final Blood NO GROWTH AFTER 5 DAYS 12/04/22 07:15 Blood Culture - Final Blood NO GROWTH AFTER 5 DAYS A&P Assessment and plan (1) Maculopapular rash: (2) Hypertension: (3) Acute kidney injury superimposed on CKD: (4) Peripheral artery disease: (5) Left upper extremity deep vein thrombosis: Diagnosed on recent admission. Will repeat ultrasound. Plan 47 year old male with past medical history of hypertension, coronary artery disease s/p recent PCI to RCA (11/21/22), PAD S/P recent aorto-biilliac bypass grafting, known left total carotid occlusion, moderate to heavy heterogenous plaques of right bifurcation with 50-69% stenosis, significant stenosis bilateral external carotids, CVA, COPD, was also undergoing treatment for presumed infective endocarditis with coag negative staph was on IV vancomycin for 4 weeks which ended in last week of October, he was discharged from [facility] where he underwent A-B bypass, for critical limb ischemia of left lower extremity. He was discharged on 11/12 on IV vancomycin for presumed infective endocarditis, his PICC line was removed 2/3 days prior to admission. Came in today with chief complaint of recurrent syncopal episode started yesterday around 2-3 episodes, prior to the episodes he denied chest pain shortness of breath, vertigo-like symptoms, he had also developed maculopapular rash which started a day prior to the symptoms and on admission was found to be hypotensive and positive orthostatics. Assessment Drug rash: With a high possibility of DRESS syndrome. Patient has high eosinophils, showing signs of serositis with transaminitis, LOUISA on admission, hypotension and syncope on admission. Most likely secondary to multiple medications. Patient's rash developed a few days after completion of 4 weeks of vancomycin hence unlikely. New medications on his list are Eliquis and Plavix. Plavix is notoriously associated with drug rash. Care discussed in detail with patient's outpatient fermenter champagne Dr. Alexander and infectious disease Dr Irving at [facility] and Dr. Toure at our hospital. Plan to switch from Eliquis to Xarelto and from Plavix to Brilinta. Plan for loading with Brilinta 180 mg tonight followed by 90 mg twice daily. For now we will continue Solu-Medrol 40 mg every 12 hourly. Monitor eosinophil count on CBC. Most likely plan will be to discharge home on prednisone 1 mg/kg body weight with slow taper over next 1 month. Given high-dose of steroid use patient will require prophylaxis as well. Appreciate ID recommendation. For now plan is for atovaquone prophylaxis. Appreciate CMV and EBV antibodies. History of presumed infective endocarditis: Care discussed in detail with patient's ID physician as an outpatient Dr. Irving. Patient had coag negative staph positive blood cultures. He was started on presumed infective endocarditis treatment given new vascular graft. Plan for treatment for also 4 weeks which has finished the course. Antibiotics switched to daptomycin during admission. Seems to be on 5 mg/kg body weight course. Also on Zosyn. Antibiotics stopped for more than 72 hours. Patient has remained hemodynamically stable and afebrile. Blood cultures have remained negative. We will hold off any further antibiotics. Patient will most likely require a FABIAN as an outpatient after 2 weeks of completion of antibiotics. Repeat 2D echo: Has shown normal LV size systolic function, no RWMA, LVEF 60%, no valvular vegetation. get records. CTA chest abdomen pelvis results appreciated. MRI brain results appreciated. Appreciate documents from [facility] regarding previous admission. Bilateral upper limb duplex negative for DVT. Syncope: Likely secondary to significantly positive orthostatic hypotension: Resolved now. Patient has known heavy heterogenous plaques of right bifurcation with 50-69% stenosis, significant stenosis bilateral external carotids. Continue with IV fluids at 75 cc/h. Monitor orthostatic every shift. Fall precaution. Telemetry. Appreciate CT head results. Mild LOUISA on CKD: Resolved Known baseline serum creatinine is around 0.8-1 Medical records return for nephrotoxic drugs. Monitor BMP daily. History of significant peripheral artery disease s/p recent aorto biliary bypass CT angio abd aorta run of done on admission has shown: Patent aortobifemoral bypass graft. History of coronary artery disease s/p recent PCI: Continue Plavix, anticoagulation statin, beta-tasha is on hold. Restart aspirin. Thrombus is seen in the popliteal artery extending down to TP segment. Continue anticoagulation Analgesia: Tylenol as needed Glycemic control: Not needed Nutrition: Cardiac diet CODE STATUS: Full code PUD prophylaxis: Protonix DVT prophylaxis: Xarelto will suffice as DVT prophylaxis Discharge planning: Home with caregiver once medically stable. Plan to discharge in next 24 to 48 hours on tapering steroids. Continue care at [facility] with telemetry. This documentation was created by [email or web address] marketing lead software. Every effort was made to ensure accuracy of marketing lead. Any obvious errors or omissions should be clarified with the author of the document. Attestations Medical Necessity Statement*: Requires further hospitalization for management of drug rash, dress syndrome by safe discharge planning is sought. Coding Level of Care Code 72868 Moderate MDM includes risk/complexity, reviewing previous or external records, reviewing test results, ordering lab/other test(s), speaking with independent historian (other than patient), independently interpretating test(s) (not separately recorded) and discussion of management or test(s) w/ other healthcare professional and Moderate Time for a total of 50 minutes, includes reviewing past or interval history, examining/interviewing patient, placing orders, counseling patient/family/other support, updating patient/family/other support, discussing plan of care with staff, communicating with other healthcare providers, documenting encounter and coordinating care Diagnoses Maculopapular rash R21 Hypertension I10 Acute kidney injury superimposed on CKD N17.9; N18.9 Peripheral artery disease I73.9 Left upper extremity deep vein thrombosis I82.622
[2022-12-09] MEDS: atorvastatin 40 mg Tablet 80 MG PO (17:33)
[2022-12-09] MEDS: ticagrelor 90 mg Tablet 180 MG PO (20:35)
[2022-12-09] MEDS: hyDROXYzine 25 mg Capsule PO (20:41)
[2022-12-10 00:10] VITALS: BP 132/71; PULSE 64; RESP 18; TEMP 36.5; O2SAT 97
[2022-12-10] MEDS: diphenhydrAMINE 50 mg/mL SDV 1mL 25 MG IVP ×3 (02:18→09:42)
[2022-12-10 04:05] VITALS: BP 123/70; BP 125/72; BP 129/75; PULSE 66; RESP 18; TEMP 36.5; O2SAT 97
[2022-12-10 05:59] LABS: Basophils # 0.1 10^3/uL (0.0-0.1); Basophils % 0.4 %; Eosinophils # 2.7 10^3/uL (0.0-0.8); Eosinophils % 16.3 %; Hematocrit 35.3 % (42.0-52.0); Hemoglobin 11.2 g/dL (11.7-16.6); Lymphocytes # 2.9 10^3/uL (0.8-4.8); Lymphocytes % 17.8 %; Mean Corpuscular HGB Conc 31.7 g/dL (30.0-36.0); Mean Corpuscular Hemoglobin 29.9 pg (28.0-34.0); Mean Corpuscular Volume 94.4 fl (80-94); Mean Platelet Volume 8.6 fL (7.4-10.4); Monocytes # 1.2 10^3/uL (0.2-0.9); Monocytes % 7.1 %; Neutrophils # 8.88 10^3/uL (1.8-7.7); Neutrophils % 53.5 %; Nucleated Red Blood Cells % 0.2 %; Platelet Count 315 10^3/cmm (130-400); Red Blood Count 3.74 10^6/uL (4.1-5.3); Red Cell Distribution Width 15.6 % (12.1-15.1); White Blood Count 16.6 10^3/uL (4.0-10.0)
[2022-12-10 06:00] VITALS: PULSE 60
[2022-12-10 06:30] LABS: Slide Review Slide Review Perform
[2022-12-10 08:00] VITALS: BP 131/67; PULSE 66; RESP 16; TEMP 36.6; O2SAT 97
[2022-12-10] MEDS: ferrous gluconate 324 mg Tablet PO (08:18)
[2022-12-10] MEDS: ticagrelor 90 mg Tablet PO (08:18)
[2022-12-10] MEDS: cyanocobalamin 1,000 mcg Tablet 500 MCG PO (08:18)
[2022-12-10] MEDS: famotidine 20 mg/2 mL INJ IVP (08:19)
[2022-12-10] MEDS: metoprolol tartrate 25 mg Tablet PO (08:19)
[2022-12-10] MEDS: rivaroxaban 10 mg Tablet PO (08:19)
--- NOTE | 2022-12-10 10:36 | P.DS_ITS ---
Discharge Providers Date of Admission: 12/04/22 11:55 Date of Discharge: December 10, 2022 Attending Provider at Admission: Quintin Tarango MD Attending Provider at Discharge: Darwin Candelaria MD Consults: ID: Dr. Toure Primary Care Provider: Axel Torres NP Diagnoses at Discharge Discharge Diagnosis (1) Maculopapular rash: Status: Acute (2) Hypertension: Status: Chronic (3) Acute kidney injury superimposed on CKD: Status: Acute (4) Peripheral artery disease: Status: Acute (5) Left upper extremity deep vein thrombosis: Status: Acute Reason for Visit Reason for Visit: RASH/DIZZY Brief History: Esequiel Munoz is a 47 year old male with past medical history of hypertension, coronary artery disease s/p recent PCI to RCA ( 11/21/2022),PAD S/P? recent aorto-biilliac bypass grafting,known left total carotid occlusion, moderate to heavy heterogenous plaques of right bifurcation with 50-69% stenosis, significant stenosis bilateral external carotids, CVA, COPD,was also undergoing treatment for presumed infective endocarditis was on likely 6 weeks of IV vancomycin, he was discharged from [facility] where he underwent A-B bypass, for critical limb ischemia of left lower extremity. He was discharged on 11/12 on IV vancomycin for presumed infective endocarditis, his PICC line was removed 2/3 days back.Came in today with chief complaint of recurrent syncopal episode started yesterday around 2-3 episodes, prior to the episodes he denied chest pain shortness of breath, vertigo-like symptoms, he had also developed maculopapular rash. In the last few days which is extremely itchy and has rapidly progressed, and currently practically occupies the entire body, when he arrived in the ER he was also febrile with noted Tmax of 100.8. Upon arrival in the ER he was worked up for above mentioned complaint. Pertinent imaging studies: CT head without contrast: No acute intracranial pathology. CT angio abd aorta run of: Patent aortobifemoral bypass graft. Pertinent labs: WBC 14.5, H&H 11 and 37,PLT : 283 , elevated eosinophil: 2.5? serum sodium 137, serum potassium 4, BUN 20, creatinine 1.5. Troponin trend: EKG: Sinus rhythm: Moderate T wave abnormality: Consider anterolateral ischemia, moderate T wave abnormality consider inferior ischemia. Patient was given 2 L normal saline bolus in the ER, and was started on maintenance IV fluid. Hospital Course Hospital Course Patient was admitted to the ICU for further evaluation and management of shock, diffuse maculopapular rash all over body. At first he was started on broad- spectrum antibiotics with concerns for recent infective endocarditis. He was started on vasopressors and aggressive IV hydration. Given concerns for drug rash he was started on IV steroids. His blood cultures remained negative and an tibiotics were discontinued. He responded well to the treatment with IV hydration and vasopressors were also weaned off. On admission he was found to have extensive eosinophilia, liver dysfunction. In conjunction with diffuse drug rash there is a concern for DRESS syndrome. He was started on high-dose Solu-Medrol of 1 mg/kg body weight every 12 hourly after which his rash improved and his eosinophilia also started improving. 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 Patient responded well to the treatment. Punch biopsy was taken. Pathology report results are awaited. He has been discharged in hemodynamically stable condition off antibiotics as he has remained hemodynamically stable and afebrile off antibiotics for last 3 to 4 days. He is to take slow high-dose steroid taper over the next 1 month as directed. Given duration of high-dose steroids he is also being discharged on prophylactic atovaquone. He is to see ceo & board director and waste/materials exchange specialist as an outpatient. He already has an appointment with nurse practitioner from cardiology later next week. Discharge plan was discussed in detail with the patient and he verbalized understanding. Physical Exam Const: COMMON NORMALS: patient oriented x3 HENMT: COMMON NORMALS: normocephalic and atraumatic HEAD & SCALP: normocephalic and atraumatic Chest: CHEST: Yes Symmetrical chest wall rise Resp: COMMON NORMALS: clear to auscultation bilaterally AUSCULTATION: clear to auscultation bilaterally Cardio: COMMON NORMALS: regular rate, regular rhythm, S1 normal heart sound present, S2 normal heart sound present, No gallops present (Cardio), No murmurs present (Cardio), No rub (Cardio) and Peripheral pulses 2+ throughout RATE: regular rate RHYTHM: regular rhythm HEART SOUNDS: S1 normal heart sound present and S2 normal heart sound present PERIPHERAL PULSES: Peripheral pulses 2+ throughout GI: COMMON NORMALS: Normal to inspection, nondistended, normoactive bowel sounds present, Soft to palpation, non-tender, No hepatosplenomegaly present and no masses AUSCULTATION: Yes normoactive bowel sounds PALPATION: Yes Soft to palpation and Yes No hepatosplenomegaly present RECTAL EXAM: Yes deferred Extremity: COMMON NORMALS: no clubbing, cyanosis or edema and no pedal edema Neuro: COMMON NORMALS: patient oriented x3 Skin: NARRATIVE SKIN EXAM: RASHES: rashes noted (Maculopapular rash generalized all over the body ) Discharge Data Studies Completed and Pending Completed Studies During Hospitalization Category Date Time Status CT angio abd aorta runof [id number] Stat Cat Scan 12/04/22 11:[address] head wo con* [id number] Stat Cat Scan 12/04/22 06:42 Completed CTA chest abdomen pelvis [CT ang ches abdpel [id number]/ Cat Scan 12/05/22 07:00 Completed [id number]] Routine XR chest 1V portable [id number] Stat Exams 12/04/22 06:37 Completed MR head wo con* [id number] Routine MRI 12/06/22 09:30 [place] [id number] Routine Ultrasound 12/06/22 15:05 Completed CV. echo complete* [id number] Routine Ultrasound 12/04/22 13:05 Completed Pending at discharge Category Date Time Status Complete Blood Count w/Auto AM LABS Lab 12/11/22 04:00 Ordered Radiology Impressions Chest X-Ray 12/04/22 06:37 IMPRESSION: No acute findings. Head CT 12/04/22 06:42 IMPRESSION: No acute intracranial abnormality. Aorta w/Runoff CTA 12/04/22 11:39 IMPRESSION: Patent aortobifemoral bypass graft. No occlusion identified. Chest/Abdomen/Pelvis CTA 12/05/22 07:00 IMPRESSION: 1. Patent aortobifemoral bypass graft, with suggestion of slightly increased haziness of the surrounding fat at the level of the anastomosis and extending into the proximal common iliac region bilaterally. Infectious process should be considered in the adequate clinical setting. 2. Nonspecific mild increase in size of the spleen, axillary lymph nodes and inguinal lymph nodes bilaterally. Head MRI 12/06/22 09:30 IMPRESSION: 1. No acute infarct or hemorrhage. 2. Stable subcortical prior ischemic changes LEFT frontal and LEFT occipital lobes. Stable since 12/23/2020. 3. No edema or midline shift. Laboratory Results WBC 16.6 10^3/uL (4.0-10.0) H 12/10/22 05:30 RBC 3.74 10^6/uL (4.1-5.3) L 12/10/22 05:30 Hgb 11.2 g/dL (11.7-16.6) L 12/10/22 05:30 Hct 35.3 % (42.0-52.0) L 12/10/22 05:30 MCV 94.4 fl (80-94) H 12/10/22 05:30 MCH 29.9 pg (28.0-34.0) 12/10/22 05:30 MCHC 31.7 g/dL (30.0-36.0) 12/10/22 05:30 RDW 15.6 % (12.1-15.1) H 12/10/22 05:30 Plt Count 315 10^3/cmm (130-400) 12/10/22 05:30 MPV 8.6 fL (7.4-10.4) 12/10/22 05:30 Neut % (Auto) 53.5 % 12/10/22 05:30 Lymph % (Auto) 17.8 % 12/10/22 05:30 [place] % (Auto) 7.1 % 12/10/22 05:30 Eos % (Auto) 16.3 % 12/10/22 05:30 Baso % (Auto) 0.4 % 12/10/22 05:30 Neut # (Auto) 8.88 10^3/uL (1.8-7.7) H 12/10/22 05:30 Lymph # (Auto) 2.9 10^3/uL (0.8-4.8) 12/10/22 05:30 [place] # (Auto) 1.2 10^3/uL (0.2-0.9) H 12/10/22 05:30 Eos # (Auto) 2.7 10^3/uL (0.0-0.8) H 12/10/22 05:30 Baso # (Auto) 0.1 10^3/uL (0.0-0.1) 12/10/22 05:30 Nucleated RBC % (auto) 0.2 % 12/10/22 05:30 Nucleated RBCs # 0.0 /100WBC 12/10/22 05:30 ESR 5 mm/hr (0-10) 12/06/22 02:09 PT 16.40 SECONDS (12.1-14.9) H 12/04/22 12:30 INR 1.28 (0.8-1.2) H 12/04/22 12:30 APTT 27.4 SECONDS (23.9-36.7) 12/04/22 12:30 D-Dimer 3.71 ug/mIFEU (0-0.59) H 12/05/22 02:55 Sodium 137 mmol/L (136-145) 12/08/22 05:40 Potassium 4.5 mmol/L (3.5-5.1) 12/08/22 05:40 Chloride 103 mmol/L (98-107) 12/08/22 05:40 Carbon Dioxide 25 mmol/L (22-29) 12/08/22 05:40 Anion Gap 13.5 (5-19) 12/08/22 05:40 BUN 18 mg/dL (6-20) 12/08/22 05:40 Creatinine 0.9 mg/dL (0.7-1.2) 12/08/22 05:40 GFR Calculation 91.3 mL/min (90-130) 12/08/22 05:40 Glucose 143 mg/dL (65-115) H 12/08/22 05:40 Calculated Osmolality 288 mOsm/kg (285-295) 12/08/22 05:40 Lactate 1.4 mmol/L (0.5-2.2) 12/05/22 02:55 Calcium 8.0 mg/dL (8.5-10.5) L 12/08/22 05:40 Phosphorus 2.7 mg/dL (2.5-4.5) 12/05/22 02:55 Magnesium 1.6 mg/dL (1.7-2.3) L 12/05/22 02:55 Total Bilirubin 0.3 mg/dL (0.15-1.2) 12/08/22 05:40 AST 31 U/L (0-40) 12/08/22 05:40 ALT 78 U/L (0-41) H 12/08/22 05:40 Alkaline Phosphatase 189 U/L (40-130) H 12/08/22 05:40 Creatine Kinase 27 U/L (39-308) L 12/05/22 02:55 Troponin T Baseline 11 ng/L (0-15) 12/04/22 06:30 Troponin T 120 Minute 11.98 ng/L (0-15) 12/04/22 08:24 Delta Troponin T 0.98 ABS# (0-10) 12/04/22 08:24 Troponin T Hi Sens 6Hr 9.10 ng/L (0-15) 12/04/22 12:30 Troponin T Hi Sens 6Hr Delta -1.9 ng/L (0-12) L 12/04/22 12:30 C-Reactive Protein 12.9 mg/L (0.0-4.9) H 12/06/22 02:09 NT-Pro-B Natriuret Pep 73 pg/mL (0-125) 12/05/22 02:55 Total Protein 5.7 g/dL (6.6-8.7) L 12/08/22 05:40 Albumin 3.3 g/dL (3.5-5.2) L 12/08/22 05:40 Globulin 2.4 g/dL (1.3-4.6) 12/08/22 05:40 Procalcitonin 0.17 ng/mL (0-0.5) 12/05/22 02:55 Urine Color Dark yellow (Yellow) 12/04/22 07:42 Urine Appearance Sl hazy (CLEAR) A 12/04/22 07:42 Urine pH 5 (5-7) 12/04/22 07:42 Ur Specific [place] 1.025 (1.005-1.030) 12/04/22 07:42 Urine Protein Neg (Negative) 12/04/22 07:42 Urine Glucose (UA) Norm (Normal) 12/04/22 07:42 Urine Ketones Negative (Negative) 12/04/22 07:42 Urine Blood Neg (Negative) 12/04/22 07:42 Urine Nitrate Negative (Negative) 12/04/22 07:42 Urine Bilirubin 1+ (Negative) H 12/04/22 07:42 Urine Urobilinogen Norm mg/dL (Negative) 12/04/22 07:42 Ur Leukocyte Esterase Negative (Negative) 12/04/22 07:42 Urine RBC None /hpf (0-2) 12/04/22 07:42 Urine WBC Rare /hpf (0-5) 12/04/22 07:42 Ur Eosinophil Smear 0 (0-0) 12/06/22 11:32 Ur Squamous Epith Cells Rare /hpf (0-5) 12/04/22 07:42 Amorphous Sediment Not Reportable 12/04/22 07:42 Urine Bacteria Trace /hpf (NONE) 12/04/22 07:42 Hyaline Casts 0-4 /lpf H 12/04/22 07:42 Fine Granular Casts 0-4 /lpf H 12/04/22 07:42 Urine Mucus 2+ /hpf 12/04/22 07:42 Urine Eosinophils No eosinophils seen 12/06/22 11:32 Coronavirus 229E (PCR) Not detected (NOT DETECT) 12/04/22 06:48 CMV IgG Ab 1.70 U/mL H 12/06/22 18:36 CMV IgM Ab <30.00 AU/mL 12/06/22 18:36 EBV IgG Ab 655.00 U/mL H 12/06/22 18:36 EBV IgM Ab <36.00 U/mL 12/06/22 18:36 EBV Early Antigen IgG <9.00 U/mL 12/06/22 18:36 EBV Nuclear Antigen 170.00 U/mL H 12/06/22 18:36 EBV Interpretation See note 12/06/22 18:36 Influenza Type A Ag negative (Negative) 12/04/22 06:44 Influenza Type B Ag negative (Negative) 12/04/22 06:44 SARS-CoV-2 (PCR) Not detected (NOT DETECT) 12/04/22 06:48 Vitals Last Vital Signs Temp 97.8 F 12/10/22 08:00 Pulse 66 12/10/22 08:00 Resp 16 12/10/22 08:00 BP 131/67 12/10/22 08:00 Pulse Ox 97 12/10/22 08:00 O2 Del Method 12/10/22 08:00 Discharge Plan Discharge Patient Disposition: Home Condition: Stable Prescriptions: New atovaquone 750 mg/5 mL suspension 1,500 mg PO DAILY 30 Days Qty: 90 0RF Rx Instructions: must administer with food, preferably a high-fat meal Brilinta 90 mg tablet 90 mg PO Q12H 90 Days Qty: 180 0RF Xarelto 20 mg tablet 20 mg PO DAILY Qty: 90 0RF Rx Instructions: must administer with a meal/food prednisone 20 mg tablet See Rx Instructions .ROUTE .COMPLEX Qty: 75 0RF Rx Instructions: Take 100 mg for next 5 days, after that 80 mg for 5 days, after that cut down to 20 mg every 5 days and then eventually stop on 01/02 Vitamin B-12 1,000 mcg Tablet 500 mcg PO DAILY Qty: 30 0RF ferrous gluconate 324 mg (37.5 mg iron) Tablet 324 mg PO BIDWM Qty: 60 0RF Benadryl Allergy 25 mg tablet 25 mg PO Q8H PRN (Reason: allergy symptoms) Qty: 20 0RF Continued atorvastatin 80 mg Tablet 80 mg PO QPM metoprolol tartrate 25 mg Tablet 25 mg PO BID nitroglycerin 0.4 mg Tablet, Sublingual 0.4 mg sublingual Q5M PRN (Reason: Chest Pain) 30 Days Qty: 30 0RF Delilah Allergy 180 mg Tablet 180 mg PO Q24H PRN (Reason: Allergy Symptoms) Ventolin HFA 90 mcg/actuation HFA aerosol inhaler 1 - 2 puff INHALATION Q6H PRN (Reason: Shortness Of Breath) Discontinued Eliquis 5 mg Tablet 5 mg PO BID vancomycin 1.5 gram Recon Soln 2 g IV Q12H clopidogrel 75 mg Tablet 75 mg PO DAILY 30 Days Qty: 30 0RF prednisone 10 mg tablet 10 mg PO DAILY 10 Days Qty: 20 0RF Rx Instructions: Take 5 tabs on day 1-2, 4 tabs on day 3, 3 tabs on day 4, 2 tabs on day 5, and 1 tab on day 6 Discharge Orders: Discharge Order (Routine); Ordered 12/10/22 Ordered By: Darwin Candelaria Other Ambulatory Orders: CV. echo transesophageal [id number] (Routine) Timeframe: 2 Weeks Location: [facility] Ordered By: Malorie Toure Referrals: [facility], Rn Maternity [Other] - 01/05/23 7:30 am (allergy testing at completion of steroid course - DRESS syndrome - ? vancomycin vs eliquis suspected as culprit ) Axel Torres NP [Primary Care Provider] - 12/16/22 2:30 pm (Please bring current insurance card to visit. ) Ranjana Johnson DO [Physician] - 12/13/22 4:00 pm Discharge Diet: Cardiac Discharge Activity: Resume usual activity and Increase activity as tolerated Patient Instructions: Opioid Safety Activity Restrictions/Additional Instructions: Since you are expected to be on prednisone greater than 20 mg a day over the next month, recommend pneumocystis pneumonia prophylaxis with atovaquone 1500 mg daily. Discontinue use once prednisone dose is less than 20 mg a day. If rash worsens or any new rashes develop while on the medication, discontinue use immediately. Please remember that allergy clinic does NOT accept [facility]. If you need to reschedule for any reason please contact office as soon as possible. Allergy clinic will send you a packet of paperwork in the mail. Please read through very carefully and watch for important medication information that will apply to your allergy testing. Discharge Attestations Time Spent in Discharge Care*: greater than 30 min Specific Discharge Activities: educating patient, discussing with pcp/other providers, discussing with nurse outreach case manager/social workers/dc planners, documenting/other paperwork and evaluating patient/reviewing data Status at Discharge: Cognitive status at discharge: cognitively intact , Behavioral status at discharge: cooperative , Functional status at discharge: independent ambulation , Overall status at discharge: patient is back to baseline Quality Metrics Clinical Quality Measures [ No reported AMI, CVA or VTE this stay] Coding Level of Care Code 26027 Diagnoses Maculopapular rash R21 Hypertension I10 Acute kidney injury superimposed on CKD N17.9; N18.9 Peripheral artery disease I73.9 Left upper extremity deep vein thrombosis I82.622
[2022-12-10 12:46] VITALS: BP 131/67; PULSE 66; RESP 16; TEMP 36.6; O2SAT 97
== END 2022-12-10 12:45 | disposition home or self-care (01) | DRG 814 ==
LOC: ER 11:39 → ICU 12:10 → MEDSURG 12-06 12:40
PROVIDERS: Admitting Provider Internal Medicine; Emergency Provider Family Medicine; PCP Nurse Practitioner Family; Visit Provider Student in an Organized Health Care Education/Training Program
DX: D72.12 Drug rash with eosinophilia and systemic symptoms syndrome (principal); I21.4 Non-ST elevation (NSTEMI) myocardial infarction; N17.9 Acute kidney failure, unspecified; I82.432 Acute embolism and thrombosis of left popliteal vein; T36.8X5A Adverse effect of other systemic antibiotics, initial encounter; I25.10 Atherosclerotic heart disease of native coronary artery without angina pectoris; Z95.5 Presence of coronary angioplasty implant and graft; I73.9 Peripheral vascular disease, unspecified; Z98.890 Other specified postprocedural states; Z86.73 Personal history of transient ischemic attack (TIA), and cerebral infarction without residual deficits; J44.9 Chronic obstructive pulmonary disease, unspecified; Z79.01 Long term (current) use of anticoagulants; Z79.02 Long term (current) use of antithrombotics/antiplatelets; E78.5 Hyperlipidemia, unspecified; I12.9 Hypertensive chronic kidney disease with stage 1 through stage 4 chronic kidney disease, or unspecified chronic kidney disease; N18.9 Chronic kidney disease, unspecified; F63.81 Intermittent explosive disorder; F17.210 Nicotine dependence, cigarettes, uncomplicated; F43.10 Post-traumatic stress disorder, unspecified; I95.1 Orthostatic hypotension
CPT/HCPCS: 36415; 70450; 70551; 71045; 71275; 74174; 75635; 80048; 80053; 81001; 82550; 83605; 83735; 83880; 84100; 84145; 84484; 85025; 85378; 85610; 85651; 85730; 85999; 86140; 86663; 86664; 86665; 87040; 87635; 87804; 88304; 93005; 93306; 93970; 96365; 96367; 96374; 99285; J0878; J1200; J2543; J2920; J2930; J3475; J3490; J7030; Q9967

== ENCOUNTER → 2022-12-13 15:51 | Outpatient (BNVA) | payer MEDICAID, SELFPAY | PROVIDERS: PCP Nurse Practitioner Family; Visit Provider Nurse Practitioner Family | DX: I73.9 Peripheral vascular disease, unspecified (principal); I21.4 Non-ST elevation (NSTEMI) myocardial infarction; I10 Essential (primary) hypertension; F17.210 Nicotine dependence, cigarettes, uncomplicated | CPT/HCPCS: 99214 ==

== ENCOUNTER → 2022-12-21 12:39 | Outpatient (BNVA) | payer MEDICAID, SELFPAY | PROVIDERS: PCP Nurse Practitioner Family; Visit Provider Internal Medicine Pulmonary Disease | DX: J43.9 Emphysema, unspecified (principal); R06.02 Shortness of breath; I25.10 Atherosclerotic heart disease of native coronary artery without angina pectoris; Z87.891 Personal history of nicotine dependence; G45.3 Amaurosis fugax | CPT/HCPCS: 99214 ==

== ENCOUNTER 2023-02-07 05:47 | Day surgery (SDC) | payer MEDICAID, SELFPAY ==
[2023-02-03 08:36] VITALS: BMI 27.5
[2023-02-07 06:06] VITALS: BP 142/90; PULSE 68; RESP 18; TEMP 36.6; O2SAT 99
[2023-02-07] MEDS: sodium chloride 0.9% 1,000 ML 30 ML IV (06:17)
--- NOTE | 2023-02-07 06:48 | USCV_ITS ---
Esequiel Munoz Age: 47 Gender: M : 1975 Exam Date: 02/07/2023 07:30 Ordering Phys: Colin Segundo MD ([email or web address]) Technologist: Keven Jordan [place] [facility] [place]: ? veg BP: / HR: Rhythm: Sinus Technical Quality: Good MEASUREMENTS (Male / Female) Normal Values Medications Patient given IV sedation by anesthesia service, for details please refer to the anesthesia report. Complications None. Proc. Components The patient was brought to the FABIAN examination room in a fasting state after obtaining an informed consent. The FABIAN probe was passed into the posterior pharynx , mid-esophagus, distal esophagus, and gastric fundus. FABIAN was performed at multiple levels. FINDINGS Left Ventricle Normal left ventricular size and systolic function, EF 55% . Right Ventricle Normal right ventricular size and systolic function. Right Atrium Normal right atrial size. Left Atrium Normal left atrial size. LA Appendage Normal left atrial appendage. Normal flow velocities in the left atrial appendage. IA Septum Normal interatrial septum. No atrial septal defect or patent foramen ovale, based on the color-flow Doppler examination and saline contrast injection Mitral Valve Trace mitral valve regurgitation. No masses or vegetations Aortic Valve Structurally normal trileaflet aortic valve. No masses or vegetations Tricuspid Valve No masses or vegetations Pulmonic Valve No masses or vegetations Pericardium No pericardial effusion. Aorta Mild diffuse plaques in the descending aorta CONCLUSIONS No intracardiac masses or vegetations noted. Trace of mitral and tricuspid regurgitation. Interatrial septum appears to be intact with no evidence of any left or right or right left shunt. The left atrial appendage was found to be of normal size and contractility. Mild diffuse plaques were noted in the descending aorta. Normal LV size ejection fraction of 55%. Dr Colin Segundo MD [facility] (Electronically Signed) Final Date: 07 February 2023 19:53 S
--- NOTE | 2023-02-07 06:52 | ANES.PREANE2 ---
Pre-Anesthetic Assessment Height/Weight: Height 1.91 m Weight 99.79 kg Temp Pulse Resp BP Pulse Ox O2 Del Method 97.9 F 68 18 142/90 99 02/07/23 06:06 02/07/23 06:06 02/07/23 06:06 02/07/23 06:06 02/07/23 06:06 02/07/23 06:06 Preop Diagnosis: NSTEMI Operation Date: 02/07/23 07:00 Proposed Procedures p FABIAN 37909, I38(Not Applicable) - Colin Segundo MD Familial anesthetic complications: none Was Beta José Miguel taken within 24 hours: Yes Was Clonidine taken within 24 hours: N/A Last intake: Intake Last Liquid Date 02/06/23 Last Liquid Time 23:45 Last Solid Date 02/06/23 Last Solid Time 17:00 Last Intake: 23:45 Social Alcohol (1-2 times week. Cut down after first of year) and Tobacco 1ppd pack(s) per day 30+ pack years Exam alert, oriented x 3, clear to auscultation bilaterally and regular rate & rhythm Airway Submandibular: within normal limits Cervical ROM: within normal limits Mallampati: Class II Dentition: full Pulmonary Asthma and Chronic Obstructive Pulmonary Disease CV/HEM Coronary Artery Disease (stint in Dec, Aorta bifem in September. Septicemia to follow), Deep Vein Thrombosis and Hypertension None reported Hepatic None reported GI Gastroesophageal Reflux Disease (food related) Metabolic None reported Musc/skel Lower Back Pain Neuropsych Anxiety, Bipolar, Depression and Syncope Anesthetic Plan ASA status: 3 Anesthesia: MAC Risk of > 500 ml blood loss (7ml/kg in children): No Medications/Allergies Home Medications Medication Instructions Recorded Confirmed Last Taken Type atorvastatin 80 mg tablet 80 mg PO QPM 11/18/22 02/07/23 02/06/23 History metoprolol tartrate 25 mg tablet 25 mg PO BID 11/18/22 02/07/23 02/06/23 History albuterol sulfate 90 mcg/actuation 1 - 2 puff inhalation Q6H PRN 12/04/22 02/07/23 02/06/23 History aerosol inhaler (Ventolin HFA) Shortness Of Breath rivaroxaban 20 mg tablet (Xarelto) 20 mg PO DAILY #90 tabs 12/09/22 02/07/23 02/06/23 Rx ticagrelor 90 mg tablet (Brilinta) 90 mg PO Q12H 3 months #180 tabs 12/09/22 02/07/23 02/06/23 Rx cyanocobalamin (vitamin B-12) 500 mcg PO DAILY #30 tabs 12/10/22 02/07/23 02/06/23 Rx 1,000 mcg tablet (Vitamin B-12) fluticasone 500 mcg-salmeterol 50 1 inh inhalation BID #60 ea 12/21/22 02/07/23 02/06/23 Rx mcg/dose blistr powdr for inhalation (Advair Diskus) tiotropium bromide 18 mcg capsule 1 cap inhalation DAILY #30 12/21/22 02/07/23 02/06/23 Rx with inhalation device (Spiriva inhalations with HandiHaler) ferrous gluconate 324 mg (37.5 mg 324 mg PO BIDWMEAL 02/03/23 02/07/23 02/06/23 History iron) tablet Allergies Allergy/AdvReac Type Severity Reaction Status Date / Time vancomycin Allergy Severe DRESS Verified 02/03/23 08:32 syndrome plavix Allergy Severe DRESS Uncoded 02/03/23 08:32 syndrome Current Medications Generic Name Dose Route Start Last Admin Trade Name Freq PRN Reason Stop Dose Admin Sodium Chloride 1,000 mls @ 30 mls/hr 02/07/23 06:00 02/07/23 06:17 Sodium Chloride 0.9% IV 02/08/23 05:59 30 mls/hr .Q24H LUIS ALBERTO Administration PFSH Anesthesia Medical History AF (amaurosis fugax) Asthma Bipolar disorder COPD (chronic obstructive pulmonary disease) CVA (cerebral vascular accident) (~10/2020) LEFT supraventricular frontal lobe History of cardiac monitoring 2 week event monitor in 05/2022 with baseline sinus rhythm, episodes of sinus tachycardia from 132-165 noted History of cardiovascular stress test 11/25/2020 Exercise Stress test with Stress Echo - No exercise induced chest pain or ekg changes, suboptimal exercise for age, hypertensive exercise response History of PFTs 05/2020 Severe airflow obstruction, no significant post dilator response, lung volumes consistent with air trapping. Normal DLCO. Hyperlipidemia Hypertension Intermittent explosive disorder Left carotid artery occlusion Left upper extremity deep vein thrombosis Nicotine dependence, cigarettes, with other nicotine-induced disorders Peripheral artery disease PTSD (post-traumatic stress disorder) Surgical History H/O inguinal hernia repair Family History Mother Sarcoid Other Asthma CAD (coronary artery disease) Cancer Emphysema/COPD Hyperlipidemia Hypertension Stroke Denies family history of Clotting disorder Chronic kidney disease (CKD) Anesthesia complication Bleeding disorder Family history of premature coronary artery disease Social History Smoking and tobacco status: former smoker Quit status (tobacco): has quit using tobacco Year quit tobacco: 2021 Former quit date comment: 1-2ppd x 32 years Second hand smoke exposure: Yes Alcohol intake: current Alcohol intake frequency: holidays/special occasions only Lives independently: Yes Household members: other Details: room mate Housing: House Marital status: service: No 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
--- NOTE | 2023-02-07 07:15 | P.HP_ITS ---
Providers/Chief Complaint Admitting Physician: GENNA Segundo MD Primary Care Provider: Axel Torres NP Chief Complaint: I38, Endocarditis valve unspecified History of Present Illness Esequiel Munoz is a 47 year old male With a history of coronary artery disease , no ST elevation myocardial infarction, status post PCI, history of critical limb ischemia, status post aortobiiliac bypass surgery, apparently developed sepsis following the surgery. He was treated for possible endocarditis . He was evaluated by infectious disease specialist and was recommended for 4 weeks of antibiotic treatment and to repeat the FABIAN to evaluate for any endocarditis. There was a mention of filamentous structure in one of the valves, based on the previous FABIAN. Details are not available. The patient appears to be 4 weeks of any IV antibiotics. He is remaining afebrile. No chest pain or shortness of breath. Review of Systems Narrative: CONSTITUTIONAL: No fever or chills. EYES: No blurring of vision or other visual disturbances lately. ENT: No hoarseness of voice, auditory disturbances or sore throat. CARDIOVASCULAR: As mentioned above. RESPIRATORY: History of reactive airway disease GASTROINTESTINAL: No hematemesis or melena. GENITOURINARY: No dysuria or hematuria. INTEGUMENTARY: No skin rashes or history of skin cancer. NEURO: No transient ischemic attacks or amaurosis. PSYCHIATRIC: No history of psychosis or major depression. HEMATOLOGIC: History of DVT, upper extremity ENDOCRINE: No history of polyuria or polydipsia. MUSCULOSKELETAL: No recent joint pain or swelling. ALLERGY/IMMUNOLOGY: As mentioned above. Medications/Allergies Home Medications Medication Instructions Recorded Confirmed Last Taken Type atorvastatin 80 mg tablet 80 mg PO QPM 11/18/22 02/07/23 02/06/23 History metoprolol tartrate 25 mg tablet 25 mg PO BID 11/18/22 02/07/23 02/06/23 History albuterol sulfate 90 mcg/actuation 1 - 2 puff inhalation Q6H PRN 12/04/22 02/07/23 02/06/23 History aerosol inhaler (Ventolin HFA) Shortness Of Breath rivaroxaban 20 mg tablet (Xarelto) 20 mg PO DAILY #90 tabs 12/09/22 02/07/23 02/06/23 Rx ticagrelor 90 mg tablet (Brilinta) 90 mg PO Q12H 3 months #180 tabs 12/09/22 02/07/2302/06/23 Rx cyanocobalamin (vitamin B-12) 500 mcg PO DAILY #30 tabs 12/10/22 02/07/23 02/06/23 Rx 1,000 mcg tablet (Vitamin B-12) fluticasone 500 mcg-salmeterol 50 1 inh inhalation BID #60 ea 12/21/22 02/07/23 02/06/23 Rx mcg/dose blistr powdr for inhalation (Advair Diskus) tiotropium bromide 18 mcg capsule 1 cap inhalation DAILY #30 12/21/22 02/07/23 02/06/23 Rx with inhalation device (Spiriva inhalations with HandiHaler) ferrous gluconate 324 mg (37.5 mg 324 mg PO BIDWMEAL 02/03/23 02/07/23 02/06/23 History iron) tablet Allergies Allergy/AdvReac Type Severity Reaction Status Date / Time vancomycin Allergy Severe DRESS Verified 02/03/23 08:32 syndrome plavix Allergy Severe DRESS Uncoded 02/03/23 08:32 syndrome PFSH Acute PFSH: Medical History AF (amaurosis fugax) Asthma Bipolar disorder COPD (chronic obstructive pulmonary disease) CVA (cerebral vascular accident) (~10/2020) LEFT supraventricular frontal lobe History of cardiac monitoring 2 week event monitor in 05/2022 with baseline sinus rhythm, episodes of sinus tachycardia from 132-165 noted History of cardiovascular stress test 11/25/2020 Exercise Stress test with Stress Echo - No exercise induced chest pain or ekg changes, suboptimal exercise for age, hypertensive exercise response History of PFTs 05/2020 Severe airflow obstruction, no significant post dilator response, xuan ng volumes consistent with air trapping. Normal DLCO. Hyperlipidemia Hypertension Intermittent explosive disorder Left carotid artery occlusion Left upper extremity deep vein thrombosis Nicotine dependence, cigarettes, with other nicotine-induced disorders Peripheral artery disease PTSD (post-traumatic stress disorder) Surgical History H/O inguinal hernia repair Family History Mother Sarcoid Other Asthma CAD (coronary artery disease) Cancer Emphysema/COPD Hyperlipidemia Hypertension Stroke Denies family history of Clotting disorder Chronic kidney disease (CKD) Anesthesia complication Bleeding disorder Family history of premature coronary artery disease Social History Smoking and tobacco status: former smoker Quit status (tobacco): has quit using tobacco Year quit tobacco: 2021 Former quit date comment: 1-2ppd x 32 years Second hand smoke exposure: Yes Alcohol intake: current Alcohol intake frequency: holidays/special occasions only Lives independently: Yes Household members: other Details: room mate Housing: House Marital status: service: No 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 Not in any acute distress. HEENT: No significant pallor, icterus or lymphadenopathy.Oral cavity: There are no mucous membrane lesions. NECK: Trachea appears to be central. No masses noted. No JVD or thyromegaly appreciated. RESPIRATORY: Chest is symmetrical. No intercostals muscle retraction or any accessory muscle activation. There is no chest wall tenderness. Breath sounds are heard bilaterally. No rales or rhonchi heard. No evidence of any consolidation. BREASTS: Deferred. HEART: The heart sounds are normal. No S3 or S4. No significant murmurs. No pericardial rub ABDOMEN: No vessel pulsations or distention. No tenderness. No organomegaly appreciated. Bowel sounds are normally heard. : Deferred. RECTAL: Deferred. LYMPHATIC: No lymphadenopathy noted in the neck or groin. EXTREMITIES: No edema or cyanosis. No clubbing. Peripheral pulses are palpated in fairly good volume and amplitude MUSCULOSKELETAL: No acute joint deformities or swelling SKIN: There are no significant scars or skin rash noted. NEUROPSYCHIATRIC: The patient is alert and oriented x3. Appears to be in a good mood. No tremors or rigidity noted. A&P Assessment and plan (1) CAD (coronary artery disease): Since the patient's symptoms are stable with no recent change, is advised to continue on the current medications. Advised to continue with the medication and exercise.. May continue on the current medication. (2) Peripheral artery disease: Status post aortobiiliac bypass surgery, stable (3) Endocarditis: Status post antibiotic treatment for 4 weeks. Currently has no fever or any specific symptoms. Plan FABIAN was requested by the individual disease specialist. The risk of aspiration, bleeding, soft tissue injury, perforation of the stomach/esophagus and other concomitant complications were explained to the patient in detail. The patient understood this well and consented to proceed. Patient is scheduled to have the procedure today. I will be communicating the results with Dr Berumen. Attestations Medical Necessity Statement*: Possible discharge home after the procedure. Coding Level of Care Code 95592 Diagnoses CAD (coronary artery disease) I25.10 Peripheral artery disease I73.9 Endocarditis I38
--- NOTE | 2023-02-07 07:22 | W.PM.OPSUD ---
Surgery/Procedure H&P Update DATE OF PROCEDURE: February 07, 2023 DATE H&P PERFORMED: 02/07/23 H&P UPDATE INFORMATION: I have reviewed H&P completed within last 30 days, I have examined patient prior to procedure and No changes to prior documentation PREOP DIAGNOSIS: Possible endocarditis PRIMARY INDICATION FOR PROCEDURE: History of septicemia and positive blood culture PLANNED PROCEDURE: Operation Date: 02/07/23 07:00 Proposed Procedures p FABIAN [id number], I38(Not Applicable) - Colin Segundo MD
[2023-02-07 07:56] VITALS: BP 147/90; PULSE 77; RESP 16; TEMP 36.2; O2SAT 100
[2023-02-07 08:10] VITALS: BP 156/88; PULSE 67; RESP 16; O2SAT 100
--- NOTE | 2023-02-07 14:07 | ANE.PACU2 ---
Inpatient post-anesthesia follow up: Airway intact: Yes Vital signs: Temperature 97.2 F Pulse Rate 67 Respiratory Rate 16 Blood Pressure 156/88 Pulse Oximetry 100 Oxygen Delivery Me thod Room Air Oxygen Flow Rate Fraction of Inspir ed Oxygen Hydration adequate: Yes Nausea and vomiting: No Pain level: 1 Mental status: Baseline
== END 2023-02-07 08:30 | disposition home or self-care (01) ==
PROVIDERS: PCP Nurse Practitioner Family; Visit Provider Internal Medicine Cardiovascular Disease
PROC: (CPT 93312; principal; 2023-02-07 07:00)
DX: I38 Endocarditis, valve unspecified (principal); I25.10 Atherosclerotic heart disease of native coronary artery without angina pectoris; I25.2 Old myocardial infarction; J44.9 Chronic obstructive pulmonary disease, unspecified; Z86.73 Personal history of transient ischemic attack (TIA), and cerebral infarction without residual deficits; E78.5 Hyperlipidemia, unspecified; I10 Essential (primary) hypertension; Z87.891 Personal history of nicotine dependence
CPT/HCPCS: 93312; 93320; 93325; J2704; J7030

== ENCOUNTER → 2023-02-14 11:44 | Outpatient (BNVA) | payer MEDICAID, SELFPAY | PROVIDERS: PCP Nurse Practitioner Family; Visit Provider Internal Medicine Cardiovascular Disease | DX: R55 Syncope and collapse (principal); I25.10 Atherosclerotic heart disease of native coronary artery without angina pectoris; J43.9 Emphysema, unspecified; I38 Endocarditis, valve unspecified; J45.909 Unspecified asthma, uncomplicated; I70.222 Atherosclerosis of native arteries of extremities with rest pain, left leg; I65.29 Occlusion and stenosis of unspecified carotid artery; Z95.828 Presence of other vascular implants and grafts; E78.5 Hyperlipidemia, unspecified; I12.9 Hypertensive chronic kidney disease with stage 1 through stage 4 chronic kidney disease, or unspecified chronic kidney disease; N18.9 Chronic kidney disease, unspecified; N17.9 Acute kidney failure, unspecified; Z87.891 Personal history of nicotine dependence; I25.2 Old myocardial infarction | CPT/HCPCS: 99214 ==

== ENCOUNTER → 2023-03-01 12:46 | Outpatient (BNVA) | payer MEDICAID, SELFPAY | PROVIDERS: PCP Nurse Practitioner Family; Visit Provider Internal Medicine Cardiovascular Disease | DX: R55 Syncope and collapse (principal) | CPT/HCPCS: 93270 ==

== ENCOUNTER 2023-05-13 12:53 | Emergency (ER) | payer MEDICAID, SELFPAY ==
[2023-05-13] VITALS (17 sets, daily range): BP systolic 132–173; BP diastolic 85–95; PULSE 55–83; RESP 16; TEMP 36.9; O2SAT 95; BMI 27.5
--- NOTE | 2023-05-13 13:35 | XR_ITS ---
WS: [id number] Portable AP upright chest, 05/13/2023 Clinical Data: syncopal episode Comparison: Portable chest, 12/04/2022 Findings: No nodules, masses or effusions are seen. The heart is normal. The pulmonary vascularity is not increased. No pneumonia or pneumothorax is seen. Monitor leads are on the chest wall. XR/XR chest 1V portable [id number] Impression: Negative chest.
--- NOTE | 2023-05-13 13:36 | ECG_ITS ---
[facility] Test Date: 2023-05-13 Pat Name: Esequiel Munoz Department: Room: Gender: Male [employer] Work[employer]: : 1975 Requested By: Amadeo Leiva Order Number: [id number] Marques MD: Mehnaz Samuels M.D. Measurements Intervals [place] Rate: 66 P: 68 ND: 163 QRS: 75 QRSD: 97 T: 45 QT: 384 QTc: 402 Interpretive Statements SINUS RHYTHM Compared to ECG 12/04/2022 13:36:16 T-wave abnormality no longer present Possible ischemia no longer present Electronically Signed On 05-13-2023 14:03:31 CDT by Mehnaz Samuels M.D. [id number]
--- NOTE | 2023-05-13 13:48 | CTR_ITS ---
PROCEDURE INFORMATION: Exam: CTA Head With Contrast, Arteriography Exam date and time: 05/13/2023 2:25 PM Age: 47 years old Clinical indication: Dizziness and giddiness TECHNIQUE: Imaging protocol: Computed tomographic angiography of the head with contrast. Exam focused on the arteries. 3D rendering (Not supervised by radiologist): MIP and/or 3D reconstructed images were created by the technologist. Radiation optimization: All CT scans at this facility use at least one of these dose optimization techniques: automated exposure control; mA and/or kV adjustment per patient size (includes targeted exams where dose is matched to clinical indication); or iterative reconstruction. Contrast material: OMNI 350; Contrast volume: 100 ml; Contrast route: INTRAVENOUS (IV); REPORTING DATA: Count of CT and Cardiac NM exams in prior 12 months: This patient has received 4 known CTs and 0 known cardiac nuclear medicine studies in the 12 months prior to the current study. COMPARISON: CT angio headneck* [id number] 12/23/2020 11:16 AM RADIATION DOSE METRICS: Total DLP (mGy-cm): 1307.76 FINDINGS: ANTERIOR CIRCULATION: Right internal carotid artery: Intracranial segment is patent with no significant stenosis. No aneurysm. Right middle cerebral artery: No occlusion or significant stenosis. No aneurysm. Right anterior cerebral artery: No occlusion or significant stenosis. No aneurysm. Left internal carotid artery: There is supraclinoid reconstitution of the proximally occluded left internal carotid artery. Left middle cerebral artery: No occlusion or significant stenosis. No aneurysm. Left anterior cerebral artery: No occlusion or significant stenosis. No aneurysm. POSTERIOR CIRCULATION: Right vertebral artery: No occlusion or significant stenosis. No aneurysm. Left vertebral artery: No occlusion or significant stenosis. No aneurysm. Basilar artery: No occlusion or significant stenosis. No aneurysm. Right posterior cerebral artery: No occlusion or significant stenosis. No aneurysm. Left posterior cerebral artery: No occlusion or significant stenosis. No aneurysm. Brain: There is no evidence of infarct, garcia-white matter differentiation is preserved. There is no hemorrhage or extra-axial collection. There is no mass. Cerebral ventricles: There is no hydrocephalus. Bones/joints: Unremarkable. No acute fracture. Soft tissues: Unremarkable. PROCEDURE INFORMATION: Exam: CTA Neck With Contrast Exam date and time: 05/13/2023 2:25 PM Age: 47 years old Clinical indication: Dizziness and giddiness TECHNIQUE: Imaging protocol: Computed tomographic angiography of the neck with contrast. 3D rendering (Not supervised by radiologist): MIP and/or 3D reconstructed images were created by the technologist. Radiation optimization: All CT scans at this facility use at least one of these dose optimization techniques: automated exposure control; mA and/or kV adjustment per patient size (includes targeted exams where dose is matched to clinical indication); or iterative reconstruction. Contrast material: OMNI 350; Contrast volume: 100 ml; Contrast route: INTRAVENOUS (IV); REPORTING DATA: Count of CT and Cardiac NM exams in prior 12 months: This patient has received 4 known CTs and 0 known cardiac nuclear medicine studies in the 12 months prior to the current study. COMPARISON: CT angio headne* [id number] 12/23/2020 11:16 AM RADIATION DOSE METRICS: Total DLP (mGy-cm): 1307.76 FINDINGS: Right common carotid artery: No stenosis. No dissection or occlusion. Right internal carotid artery: No stenosis of the extracranial segment. No dissection or occlusion. Right external carotid artery: No occlusion or stenosis of the origin. Left common carotid artery: The left common carotid artery is completely occluded proximally. There is only a short stump of the proximal left common carotid artery. This was present on the prior scan. Left internal carotid artery: The left internal carotid artery is completely occluded. This continues throughout its extracranial segment. This was present on the prior scan. Left external carotid artery: No occlusion or stenosis of the origin. Right vertebral artery: No stenosis. No dissection or occlusion. Left vertebral artery: No stenosis. No dissection or occlusion. Soft tissues: Normal. No significant soft tissue swelling. Bones/joints: No fracture. CT/CT angio headne* [id number] IMPRESSION: 1. No intracranial lesion or injury 2. Supraclinoid reconstitution of proximally occluded left internal carotid artery. 3. No intracranial large vessel stenosis or occlusion. IMPRESSION: 1. Chronic complete occlusion of the left common and internal carotid arteries. 2. No right carotid stenosis. 3. No vertebral artery stenosis. 4. There is reconstitution of the left external carotid artery. REFERENCES: NASCET CRITERIA. The degree of stenosis in the cervical segment of the internal carotid artery is based on NASCET criteria. Normal is no stenosis. Mild is less than 50% stenosis. Moderate is 50-69% stenosis. Severe is 70% to 99% stenosis. Total occlusion is no detectable patent lumen.
--- NOTE | 2023-05-13 13:49 | ED_ITS ---
HPI - Syncope General: Chief Complaint: Syncope Stated Complaint: sent by tatiana/michael/dehydration/heart issue Time Seen by Provider: 05/13/23 13:35 History of Present Illness: Patient is a 47-year-old male that comes to the ED due to syncopal episodes. Patient has a history of COPD, CVA, PAD, hypertension and has had a heart attack and has had a cardiac stent placed. Since he had his heart attack back in October patient says he has had 3 episodes of syncope and had a near syncopal episode approximately 3 days ago. All his syncopal episodes occur when he is up and ambulatory. He states that he usually gets a little dizzy and lightheaded when he goes from sitting to standing position. Approximately 3 days ago he had a near syncopal episode that he describes as he stood up from sitting position and started getting dizzy and lightheaded. He went and sat back down and he broke out in a sweat. Denies any loss of consciousness at that time and his symptoms improved after rest for several minutes. He describes his dizziness as feeling like a cork bobbing on the ocean. While here in the ED patient says he feels like he is at his baseline denies any other complaints. denies any chest pain, vomiting. Patient states that he has a history of an obstructed left c arotid artery and was told there is nothing they can do about obstructed carotid artery. Associated symptoms: Deny abdominal pain, chest pain, fever(s), headache(s) or nausea Review of Systems Const: Denies: fever(s), chills or fatigue Eyes: Denies: change in vision or eye discomfort ENMT: Denies: throat pain, odynophagia, nasal discharge or nasal congestion Card: Reports: pre-syncope; Denies: chest pain, palpitations, edema, swelling of feet/ankles, dyspnea on exertion or orthopnea Resp: Denies: dyspnea, productive cough or non-productive cough GI: Denies: abdominal pain, nausea, vomiting, diarrhea, constipation or hematochezia : Denies: flank pain, difficulty urinating, dysuria or hematuria Musc: Denies: neck pain, back pain or extremity swelling Skin/Breast: Denies: rash or new lesions Neuro: Reports: dizziness; Denies: headache(s), numbness in extremities or weakness in extremities PFSH ED PFSH: Medical History (Updated 05/13/23 @ 17:02 by MAXWELL Lord) AF (amaurosis fugax) Asthma Bipolar disorder Carotid artery occlusion COPD (chronic obstructive pulmonary disease) CVA (cerebral vascular accident) (~10/2020) LEFT supraventricular frontal lobe DVT (deep venous thrombosis) History of cardiac monitoring 2 week event monitor in 05/2022 with baseline sinus rhythm, episodes of sinus tachycardia from 132-165 noted History of cardiovascular stress test 11/25/2020 Exercise Stress test with Stress Echo - No exercise induced chest pain or ekg changes, suboptimal exercise for age, hypertensive exercise response History of PFTs 05/2020 Severe airflow obstruction, no significant post dilator response, lung volumes consistent with air trapping. Normal DLCO. Hyperlipidemia Hypertension Intermittent explosive disorder Left carotid artery occlusion Left upper extremity deep vein thrombosis Nicotine dependence, cigarettes, with other nicotine-induced disorders Peripheral artery disease PTSD (post-traumatic stress disorder) Syncope and collapse Surgical History (Updated 02/14/23 @ 12:41 by Silvio Cunningham MD) H/O inguinal hernia repair S/P aortobifemoral bypass surgery Family History Mother Sarcoid Other Asthma CAD (coronary artery disease) Cancer Emphysema/COPD Hyperlipidemia Hypertension Stroke Denies family history of Clotting disorder Chronic kidney disease (CKD) Anesthesia complication Bleeding disorder Family history of premature coronary artery disease Social History Smoking and tobacco status: former smoker Quit status (tobacco): has quit using tobacco Year quit tobacco: 2021 Former quit date comment: 1-2ppd x 32 years Second hand smoke exposure: Yes Alcohol intake: current Alcohol intake frequency: holidays/special occasions only Substance/Drug Use: current Lives independently: Yes Household members: other Details: room mate Housing: House Marital status: service: No 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 Pets and animals: Yes Do you think of yourself as: Straight/Heterosexual Current gender identity: Male Physical Exam Const: COMMON NORMALS: no acute distress, patient oriented x3 and alert HENMT: COMMON NORMALS: normocephalic HEAD & SCALP: normocephalic MOUTH: Normal oral and palatal mucosa present THROAT: posterior oropharynx normal and uvula midline Eye: COMMON NORMALS: Equal, round and reactive pupils present and EOMs intact bilaterally GENERAL EYE: appearance normal, both eyes and all related structures PUPIL: Yes Equal, round and reactive pupils present Neck/C-Spine: COMMON NORMALS: supple GENERAL: Yes normal visual inspection Lymph: LYMPHATIC: no lymphadenopathy noted Resp: COMMON NORMALS: normal respiratory effort, No retractions, No use of accessory muscles and clear to auscultation bilaterally AUSCULTATION: clear to auscultation bilaterally Cardio: COMMON NORMALS: regular rate, regular rhythm, S1 normal heart sound present, S2 normal heart sound present, No gallops present (Cardio), No clicks p resent (Cardio), No murmurs present (Cardio) and Peripheral pulses 2+ throughout RATE: regular rate RHYTHM: regular rhythm HEART SOUNDS: S1 normal heart sound present and S2 normal heart sound present PERIPHERAL PULSES: Peripheral pulses 2+ throughout GI: COMMON NORMALS: Normal to inspection, nondistended, normoactive bowel sounds present, Soft to palpation, non-tender and no masses PALPATION: Yes Soft to palpation : COMMON NORMALS: Yes no CVA tenderness BLADDER/KIDNEY EXAM: Yes no CVA tenderness Back/Pelvis: COMMON NORMALS: no CVA tenderness Extremity: GENERAL: Yes normal exam except as noted Neuro: COMMON NORMALS: patient oriented x3 SENSORIUM/ORIENTATION: Yes alert GAIT: Yes Normal gait present SENSORY EXAM: Yes extremities (intact) MOTOR EXAM: 5/5 motor strength present throughout Skin: COMMON NORMALS: no rashes or lesions noted GENERAL SKIN EXAM: no rashes or lesions noted and dry skin Course Vital Signs: Vital signs: Vital Signs Temperature 98.4 F 05/13/23 12:58 Pulse Rate 67 05/13/23 17:18 Respiratory Rate 16 05/13/23 12:58 Blood Pressure 170/95 05/13/23 17:18 Pulse Oximetry 95 05/13/23 12:58 Oxygen Delivery Me thod Room Air 05/13/23 12:58 MDM - Syncope Medical Decision Making Patient is a 47-year-old male that comes to the ED due to syncopal episodes. Patient has a history of COPD, CVA, PAD, hypertension and has had a heart attack and has had a cardiac stent placed. Since he had his heart attack back in October patient says he has had 3 episodes of syncope and had a near syncopal episode approximately 3 days ago. All his syncopal episodes occur when he is up and ambulatory. He states that he usually gets a little dizzy and lightheaded when he goes from sitting to standing position. Approximately 3 days ago he had a near syncopal episode that he describes as he stood up from sitting position and started getting dizzy and lightheaded. He went and sat back down and he broke out in a sweat. Denies any loss of consciousness at that time and his symptoms improved after rest for several minutes. He describes his dizziness as feeling like a cork bobbing on the ocean. While here in the ED patient says he feels like he is at his baseline denies any other complaints. denies any chest pain, vomiting. Patient states that he has a history of an obstructed left c arotid artery and was told there is nothing they can do about obstructed carotid artery. Vitals are stable. Neuro exam shows no deficits and the rest of exam is benign. CBC and CMP were unremarkable. BNP is 36. Baseline troponin is 7 and 2-hour troponin was 6. EKG showed sinus rhythm, 66 bpm, no ST segment elevation or depression seen. Chest x-ray showed no acute findings. Head and neck CTA showed chronic complete occlusion of the left common and internal carotid arteries which was seen on previous imaging and patient was fully aware of. No other intracranial findings noted. Orthostatic vitals were normal. Patient was diagnosed with near syncope and postural dizziness and was stable for discharge home. He has follow-up with manager quality systems within the next 2 weeks. He is given strict return to ED precautions. Patient understood and agreed with plan. Lab Data I reviewed the patient's lab results. 05/13/23 13:52 05/13/23 13:52 Radiology Impressions Chest X-Ray 05/13/23 13:35 Impression: Negative chest. Head/Neck CTA 05/13/23 13:48 IMPRESSION: 1. No intracranial lesion or injury 2. Supraclinoid reconstitution of proximally occluded left internal carotid artery. 3. No intracranial large vessel stenosis or occlusion. IMPRESSION: 1. Chronic complete occlusion of the left common and internal carotid arteries. 2. No right carotid stenosis. 3. No vertebral artery stenosis. 4. There is reconstitution of the left external carotid artery. REFERENCES: NASCET CRITERIA. The degree of stenosis in the cervical segment of the internal carotid artery is based on NASCET criteria. Normal is no stenosis. Mild is less than 50% stenosis. Moderate is 50-69% stenosis. Severe is 70% to 99% stenosis. Total occlusion is no detectable patent lumen. Laboratory Results WBC 6.9 10^3/uL (4.0-10.0) 05/13/23 13:52 RBC 5.32 10^6/uL (4.1-5.3) H 05/13/23 13:52 Hgb 15.6 g/dL (11.7-16.6) 05/13/23 13:52 Hct 47.2 % (42.0-52.0) 05/13/23 13:52 MCV 88.7 fl (80-94) 05/13/23 13:52 MCH 29.3 pg (28.0-34.0) 05/13/23 13:52 MCHC 33.1 g/dL (30.0-36.0) 05/13/23 13:52 RDW 14.2 % (12.1-15.1) 05/13/23 13:52 Plt Count 212 10^3/cmm (130-400) 05/13/23 13:52 MPV 9.3 fL (7.4-10.4) 05/13/23 13:52 Neut % (Auto) 50.8 % 05/13/23 13:52 Lymph % (Auto) 37.8 % 05/13/23 13:52 Stanislaus % (Auto) 8.5 % 05/13/23 13:52 Eos % (Auto) 2.2 % 05/13/23 13:52 Baso % (Auto) 0.6 % 05/13/23 13:52 Neut # (Auto) 3.52 10^3/uL (1.8-7.7) 05/13/23 13:52 Lymph # (Auto) 2.6 10^3/uL (0.8-4.8) 05/13/23 13:52 Stanislaus # (Auto) 0.6 10^3/uL (0.2-0.9) 05/13/23 13:52 Eos # (Auto) 0.2 10^3/uL (0.0-0.8) 05/13/23 13:52 Baso # (Auto) 0.0 10^3/uL (0.0-0.1) 05/13/23 13:52 Nucleated RBC % (auto) 0 % 05/13/23 13:52 Nucleated RBCs # 0.0 /100WBC 05/13/23 13:52 Sodium 134 mmol/L (136-145) L 05/13/23 13:52 Potassium 4.7 mmol/L (3.5-5.1) 05/13/23 13:52 Chloride 99 mmol/L (98-107) 05/13/23 13:52 Carbon Dioxide 21 mmol/L (22-29) L 05/13/23 13:52 Anion Gap 18.7 (5-19) 05/13/23 13:52 BUN 18 mg/dL (6-20) 05/13/23 13:52 Creatinine 1.0 mg/dL (0.7-1.2) 05/13/23 13:52 GFR Calculation 80.8 mL/min (90-130) L 05/13/23 13:52 Glucose 77 mg/dL (65-115) 05/13/23 13:52 Calculated Osmolality 279 mOsm/kg (285-295) L 05/13/23 13:52 Calcium 9.6 mg/dL (8.5-10.5) 05/13/23 13:52 Total Bilirubin 0.6 mg/dL (0.15-1.2) 05/13/23 13:52 AST 22 U/L (0-40) 05/13/23 13:52 ALT 16 U/L (0-41) 05/13/23 13:52 Alkaline Phosphatase 122 U/L (40-130) 05/13/23 13:52 Troponin T Baseline 7 ng/L (0-15) 05/13/23 13:52 Troponin T 120 Minute 6.39 ng/L (0-15) 05/13/23 16:07 Delta Troponin T -0.61 ABS# (0-10) L 05/13/23 16:07 NT-Pro-B Natriuret Pep 36 pg/mL (0-125) 05/13/23 13:52 Total Protein 7.4 g/dL (6.6-8.7) 05/13/23 13:52 Albumin 4.7 g/dL (3.5-5.2) 05/13/23 13:52 Globulin 2.7 g/dL (1.3-4.6) 05/13/23 13:52 EKG Data EKG 1: EKG interpretation date: 05/13/23 Interpretation: Sinus rhythm, 66 bpm, no ST segment elevation or depression seen. Discharge Plan Discharge Patient Disposition: Home Clinical Impression: Near syncope, Postural dizziness Condition: Stable Prescriptions: No Action atorvastatin 80 mg tablet 80 mg PO QPM Qty: 90 3RF metoprolol tartrate 25 mg tablet 25 mg PO BID Qty: 180 3RF Vitamin B-12 1,000 mcg tablet 250 mcg PO DAILY albuterol sulfate [Ventolin HFA] 90 mcg/actuation HFA aerosol inhaler 1 - 2 puff INHALATION Q6H PRN (Reason: Shortness Of Breath) Xarelto 20 mg tablet 20 mg PO DAILY Qty: 90 0RF Rx Instructions: must administer with a meal/food Discharge Orders: Discharge ED (Routine); Ordered 05/13/23 Ordered By: Amadeo Leiva Referrals: Axel Torres NP [Primary Care Provider] - Discharge Diet: Regular Discharge Activity: Increase activity as tolerated Patient Instructions: Near Syncope (ED) Activity Restrictions/Additional Instructions: Follow-up with medical provider as directed in the next 5 to 7 days for reevaluation. Take medications as prescribed. Return to the ER or your medical provider if condition worsens. Please read and understand discharge instructions. Thank you for choosing [facility] for your healthcare needs today. Please realize this is an emergency room and that we are providing you with a medical screening exam and this may not be complete and all inclusive of all the testing and or work up that you may need to determine your ailment or severity of your illness. It is very important that you follow up as instructed or that you return to the Emergency Department should you have concerns or if your condition changes or worsens in any way. Coding Level of Care Code ED Real Estate Professor for Mary Rey
[2023-05-13 14:13] LABS: Basophils % 0.6 %; Eosinophils # 0.2 10^3/uL (0.0-0.8); Eosinophils % 2.2 %; Hematocrit 47.2 % (42.0-52.0); Hemoglobin 15.6 g/dL (11.7-16.6); Lymphocytes # 2.6 10^3/uL (0.8-4.8); Lymphocytes % 37.8 %; Mean Corpuscular HGB Conc 33.1 g/dL (30.0-36.0); Mean Corpuscular Hemoglobin 29.3 pg (28.0-34.0); Mean Corpuscular Volume 88.7 fl (80-94); Mean Platelet Volume 9.3 fL (7.4-10.4); Monocytes # 0.6 10^3/uL (0.2-0.9); Monocytes % 8.5 %; Neutrophils # 3.52 10^3/uL (1.8-7.7); Neutrophils % 50.8 %; Nucleated Red Blood Cells % 0 %; Platelet Count 212 10^3/cmm (130-400); Red Blood Count 5.32 10^6/uL (4.1-5.3); Red Cell Distribution Width 14.2 % (12.1-15.1); White Blood Count 6.9 10^3/uL (4.0-10.0)
[2023-05-13] MEDS: iohexol 350 mg/mL 500 mL Btl (per mL) IV (14:33)
[2023-05-13 14:50] LABS: Albumin Level 4.7 g/dL (3.5-5.2); Alkaline Phosphatase 122 U/L (40-130); Blood Urea Nitrogen 18 mg/dL (6-20); Calcium 9.6 mg/dL (8.5-10.5); Carbon Dioxide 21 mmol/L (22-29); Chloride 99 mmol/L (98-107); Globulin 2.7 g/dL (1.3-4.6); Glomerular Filtration Rate 80.8 mL/min (90-130); Glucose 77 mg/dL (65-115); NT Pro B Type Natriuretic Pept 36 pg/mL (0-125); Osmolality Calculated 279 mOsm/kg (285-295); Sodium 134 mmol/L (136-145); Total Bilirubin 0.6 mg/dL (0.15-1.2); Total Protein 7.4 g/dL (6.6-8.7)
[2023-05-13 14:55] LABS: Troponin(5th) Baseline 7 ng/L (0-15)
[2023-05-13 15:00] LABS: Alanine Aminotransferase 16 U/L (0-41); Anion Gap 18.7 (5-19); Aspartate Amino Transferase 22 U/L (0-40); Potassium 4.7 mmol/L (3.5-5.1)
--- NOTE | 2023-05-13 15:36 | ECG_ITS ---
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 Measurements Intervals Cody Rate: 54 P: 70 NC: 174 QRS: 77 QRSD: 101 T: 53 QT: 408 QTc: 389 Interpretive Statements SINUS BRADYCARDIA Compared to ECG 05/13/2023 13:47:26 Sinus rhythm no longer present Electronically Signed On 05-13-2023 21:34:11 CDT by Mehnaz Samuels M.D. [email or web address]/[id number]
[2023-05-13 16:41] LABS: Troponin 5 2HR 6.39 ng/L (0-15)
[2023-05-13 17:10] LABS: Troponin 5 2HR Delta -0.61 ABS# (0-10)
== END 2023-05-13 17:21 | disposition home or self-care (01) ==
PROVIDERS: Emergency Provider Physician Assistant; PCP Nurse Practitioner Family
DX: R55 Syncope and collapse (principal); R42 Dizziness and giddiness; Z87.891 Personal history of nicotine dependence; J44.9 Chronic obstructive pulmonary disease, unspecified; Z86.73 Personal history of transient ischemic attack (TIA), and cerebral infarction without residual deficits; E78.5 Hyperlipidemia, unspecified; I10 Essential (primary) hypertension
CPT/HCPCS: 36415; 70496; 70498; 71045; 80053; 83880; 84484; 85025; 93005; 99285; Q9967

== ENCOUNTER → 2023-05-30 14:00 | Outpatient (BNVA) | payer MEDICAID, SELFPAY | PROVIDERS: PCP Nurse Practitioner Family; Visit Provider Internal Medicine Cardiovascular Disease | DX: R55 Syncope and collapse (principal); E78.5 Hyperlipidemia, unspecified; I25.10 Atherosclerotic heart disease of native coronary artery without angina pectoris; Z95.828 Presence of other vascular implants and grafts; I65.29 Occlusion and stenosis of unspecified carotid artery; F17.218 Nicotine dependence, cigarettes, with other nicotine-induced disorders; Z79.01 Long term (current) use of anticoagulants; I10 Essential (primary) hypertension; I82.622 Acute embolism and thrombosis of deep veins of left upper extremity | CPT/HCPCS: 99214 ==

== ENCOUNTER → 2023-06-20 13:02 | Outpatient (BNVA) | payer MEDICAID, SELFPAY | PROVIDERS: PCP Nurse Practitioner Family; Visit Provider Internal Medicine Pulmonary Disease | DX: J43.9 Emphysema, unspecified (principal); I25.10 Atherosclerotic heart disease of native coronary artery without angina pectoris; Z87.891 Personal history of nicotine dependence; G45.3 Amaurosis fugax; Z95.5 Presence of coronary angioplasty implant and graft; Z86.79 Personal history of other diseases of the circulatory system | CPT/HCPCS: 99214 ==

== ENCOUNTER → 2023-12-07 10:21 | Outpatient (BNVA) | payer MEDICAID, SELFPAY | PROVIDERS: PCP Nurse Practitioner Family; Visit Provider Nurse Practitioner Family | DX: R55 Syncope and collapse (principal); I10 Essential (primary) hypertension; I25.10 Atherosclerotic heart disease of native coronary artery without angina pectoris; E78.5 Hyperlipidemia, unspecified; I73.9 Peripheral vascular disease, unspecified; G45.3 Amaurosis fugax; Z87.891 Personal history of nicotine dependence | CPT/HCPCS: 99214 ==

== ENCOUNTER 2023-12-13 07:58 | Outpatient (CLI) | payer MEDICAID, SELFPAY ==
[2023-12-13 08:04] VITALS: BMI 27.5
--- NOTE | 2023-12-13 08:20 | NMCV_ITS ---
NM oliver perf SPECT r/s* [id number] Esequiel Munoz Age: 48 Gender: M : 1975 Exam Date: 12/13/2023 08:20 Ordering Phys: Anna Norton Technologist: YUNG Warren Exam Location: [facility] Indications: HYPERTENSION STRESS TEST [facility] IMAGE PROTOCOL Rest/Stress 1 Exercise Day Radiopharmaceutical Dose (mCi) Administration Site Administered by Rest: Tc-99m 10.4 IV YUNG Bland Sestamibi Stress:Tc-99m 33.0 IV YUNG Bland Sestamibi Rest: 13-Dec-2023 60 Discovery 630 Stress: 13-Dec-2023 15 Discovery 630 Radiopharmaceutical was injected at 88 % maximum heart rate. Images obtained in supine and prone position. SPECT RESULTS Technical Quality: Excellent Raw Data Analysis: Normal Image Corrections: No attenuation or motion correction applied Summed Stress Score: 10 Summed Rest Score: 3 Summed Difference Score: 7 PERFUSION FINDINGS Small to medium sized area of fixed perfusion defect is noted on apical and apical septal saab. This is consistent with small to medium sized area of prior infarct in the LAD territory. Medium sized area of mostly fixed perfusion defect is seen in inferior wall. This is consistent with medium sized area of prior infarct with minimal sushila- infarct ischemia in RCA territory. FUNCTIONAL RESULTS (calculated via Gated SPECT) Stress Image LV EF (%): 70 Stress EDV (mL):114 TID: 0.83 Stress ESV (mL):34 FUNCTIONAL FINDINGS: There is normal left ventricular systolic function. IMPRESSIONS 1. Small to medium sized area of prior infarct is seen in the LAD territory. 2. Medium sized area of prior infarct with minimal sushila-infarct ischemia is seen in the RCA territory 3. LV systolic function is normal Sandeep Alexander MD (Electronically Signed) Final Date: 14 December 2023 09:01 S
--- NOTE | 2023-12-13 08:20 | ECG_ITS ---
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 Interpretive Statements NAME OF STUDY: EXERCISE SESTAMIBI STRESS TEST INDICATION: [Syncope; HX of RCA stenosis] EXERCISE DATA: The patient was exercised by Teo protocol. Baseline heart rate was 72 beats per minute. Baseline blood pressure was 134/96 millimeters of mercury. Maximal predicted heart rate was 174 beats per minute. Maximum heart rate achieved was 156, which was 89% of the maximum predicted heart rate. Maximum blood pressure was 192/97 millimeters of mercury. Total exercise time was 10 minutes. Maximum METs achieved was 12. The reason for ending the test was maximal effort achieved. The patient complained of shortness of breath during the stress test, which then resolved at the end of the test. ELECTROCARDIOGRAM: BASELINE: Showed sinus rhythm, normal axis, no significant ST-T changes at the baseline noted. [] EXERCISE: At the peak exercise level, [] No significant ST-T changes suggestive of ischemia noted. [] RECOVERY: During the recovery period, heart rate dropped appropriately. No significant ST-T changes in the recovery suggestive of ischemia noted. [] CONCLUSION: 1. Exercise capacity is excellent. 2. Heart rate response was appropriate. 3. Blood pressure response was appropriate. 4. Symptoms not suggestive of ischemia. 5. Electrocardiogram portion of the stress test was not suggestive of ischemia. 6. Nuclear scan will be documented separately. Electronically Signed On 12-23-2023 12:09:42 SOFTWARE APPLICATIONS DESIGNER by Sandeep Alexander M.D. [email or web address], [email or web address].[employer]/store/[id number]
[2023-12-13 10:07] VITALS: BP 192/97; PULSE 92
== END 2023-12-13 07:59 | disposition home or self-care (01) ==
PROVIDERS: PCP Nurse Practitioner Family; Visit Provider Nurse Practitioner Family
DX: R55 Syncope and collapse (principal); I10 Essential (primary) hypertension; I25.2 Old myocardial infarction
CPT/HCPCS: 36415; 78452; 93017; 96374; A9500

== ENCOUNTER 2023-12-23 07:15 | Outpatient (CLI) | payer MEDICAID, SELFPAY ==
[2023-12-22 13:26] LABS: Basophils % 0.5 %; Eosinophils # 0.3 10^3/uL (0.0-0.8); Eosinophils % 5.7 %; Hematocrit 43.9 % (37-53); Lymphocytes # 2.3 10^3/uL (0.8-4.8); Lymphocytes % 38.4 %; Mean Corpuscular HGB Conc 33.5 g/dL (30-55); Mean Corpuscular Hemoglobin 30.4 pg (27-33); Mean Corpuscular Volume 90.9 fl (82-101); Monocytes # 0.5 10^3/uL (0.2-0.9); Monocytes % 8.3 %; Neutrophils # 2.81 10^3/uL (1.8-7.7); Neutrophils % 46.9 %; Nucleated Red Blood Cells % 0 %; Platelet Count 181 10^3/cmm (157-399); Red Blood Count 4.83 10^6/uL (3.85-5.65); Red Cell Distribution Width 13.4 % (12.1-15.1); White Blood Count 5.99 10^3/uL (3.29-11.43)
[2023-12-22 13:43] LABS: Blood Urea Nitrogen 12 mg/dL (6-20); Calcium 9.4 mg/dL (8.5-10.5); Carbon Dioxide 22 mmol/L (22-29); Chloride 103 mmol/L (98-107); Glomerular Filtration Rate 80.4 mL/min (90-130); Glucose 82 mg/dL (65-115); Osmolality Calculated 285 mOsm/kg (285-295); Sodium 138 mmol/L (136-145)
[2023-12-23 07:30] VITALS: BP 171/106; PULSE 78; RESP 18; TEMP 36.5; O2SAT 96; BMI 27.5
[2023-12-23] MEDS: cephALEXin 500 mg Capsule 2000 MG PO (07:45)
--- NOTE | 2023-12-23 08:23 | W.PM.OPSUD ---
Surgery/Procedure H&P Update DATE OF PROCEDURE: December 23, 2023 DATE H&P PERFORMED: 12/07/23 H&P UPDATE INFORMATION: I have reviewed H&P completed within last 30 days, I have examined patient prior to procedure and No changes to prior documentation CHANGES TO PREVIOUS DOCUMENTATION: Patient has a infected hair follicle in the chest wall, area from the incision site. No fever or chills. The white cell count is normal PREOP DIAGNOSIS: Recurrent syncope PRIMARY INDICATION FOR PROCEDURE: Patient has recurrent syncope. Had event monitor which did not reveal any arrhythmia to explain this. Apparently the patient did not have the symptoms while wearing the event monitor PLANNED PROCEDURE: Operation Date: 12/23/23 08:30 Proposed Procedures p Loop Recorder [id number] R55(Not Applicable) - Colin Segundo MD PATIENT REASSESSED PRIOR TO SEDATION, WITH NO CHANGE NOTED: Yes
--- NOTE | 2023-12-23 09:17 | PM.OP ---
Operative Report Date of procedure: December 23, 2023 Surgeon: Colin Segundo MD Procedure: Date of Procedure: Name of the procedure: IMPLANTABLE MOLDING UTILITY WORKER INSERTION LOCATION: Cardiac Catheterization Laboratory REFERRING PROVIDER: Anna Norton PREOPERATIVE DIAGNOSIS: Recurrent syncope. POSTOPERATIVE DIAGNOSIS: Same. ESTIMATED BLOOD LOSS: None COMPLICATIONS: None. BRIEF HISTORY: Patient presented with recurrent episodes of syncope. He had an event monitor which didn't reveal any significant arrhythmias to explain the symptoms. For further evaluation, an implantable groundwater monitoring technician was recommended PROCEDURE: The procedure was explained to the patient in detail with the risks and benefits. The risk of bleeding, hematoma, vascular injury, infection and other concomitant complications were explained in detail. The patient understood this well and consented to proceed. The patient was brought to the Cardiac Enterprise Infrastructure Architect. The left side of the chest was cleaned and draped in a sterile fashion. 1% Xylocaine was used as local anesthetic agent. An incision was made in the left fourth intercostal space. Making use of the application device, the implantable groundwater monitoring technician was inserted, subcutaneously. 5 minutes of manual pressure was applied, at the puncture site. The patient tolerated the procedure very well and there were no complications. No bleeding or hematoma. Steri-Strips were applied over the insertion site followed by a sterile dressing. Patient was sent back to the medical floor in stable condition IMPLANTED DEVICE Reveal LINQII Model number: [id number] Serial number: [id number] Make: CargoGuard Parameters: Standard settings were applied( (tachycardia rate of 160 beats per minute , bradycardia rate of 40 beats per minute and a pause of 3 seconds ; symptom recording -4 episodes of 7.5 minutes. Atrial fibrillation detection was turned on- recording threshold of ->5 minutes. Sensitivity was kept at 0.035 mV) The R wave sensing was 0.24 mV
[2023-12-23 09:34] VITALS: BP 137/95; PULSE 63; RESP 18; O2SAT 95
== END 2023-12-23 09:35 | disposition home or self-care (01) ==
PROVIDERS: PCP Nurse Practitioner Family; Visit Provider Internal Medicine Cardiovascular Disease
PROC: (CPT 33285; principal; 2023-12-23 08:30)
DX: R55 Syncope and collapse (principal); I10 Essential (primary) hypertension; Z86.718 Personal history of other venous thrombosis and embolism; Z86.73 Personal history of transient ischemic attack (TIA), and cerebral infarction without residual deficits; J44.9 Chronic obstructive pulmonary disease, unspecified; E78.5 Hyperlipidemia, unspecified; Z87.891 Personal history of nicotine dependence; I25.10 Atherosclerotic heart disease of native coronary artery without angina pectoris
CPT/HCPCS: 33285; 36415; 80048; 85025; C1764; C1769

== ENCOUNTER 2023-12-29 11:58 | Inpatient (IN) | payer MEDICAID, SELFPAY ==
[2023-12-29] VITALS (20 sets, daily range): BP systolic 118–170; BP diastolic 68–108; PULSE 77–115; RESP 8–25; TEMP 36.7; O2SAT 95–97; BMI 28.7; BMI 30.3
--- NOTE | 2023-12-29 12:05 | XR_ITS ---
WS: [id number] Exam: XR chest 1V portable [id number] Date/Time of Exam: 12/29/2023 12:05 PM Reason For Exam: dyspnea/cough Comparison 05/13/2023. Lungs are fully expanded and clear. The LEFT costophrenic angle is out of the [id number]. Normal c ardiomediastinal silhouette. Bony structures are intact. A battery pack overlies the mid LEFT chest. IMPRESSION: 1. No acute cardiopulmonary finding.
--- NOTE | 2023-12-29 12:05 | ECG_ITS ---
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 Measurements Intervals Bode Rate: 65 P: 64 LA: 168 QRS: 69 QRSD: 91 T: 58 QT: 370 QTc: 387 Interpretive Statements SINUS RHYTHM WITH SINUS ARRHYTHMIA Compared to ECG 05/13/2023 16:24:19 Sinus bradycardia no longer present Electronically Signed On 12-29-2023 21:06:41 RUBBER GRINDER by Colin Segundo M.D. [email or web address] D&RMapflowmiami valley hospitalHelios Towers [place]/store/NU/[id number]
--- NOTE | 2023-12-29 12:20 | ED_ITS ---
HPI - Chest Pain 2 General: Chief Complaint: Chest Pain Stated Complaint: chest pain Time Seen by Provider: 12/29/23 12:02 Source: patient Mode of arrival: ambulatory History of Present Illness: 48-year-old male presents emergency room with complaint of chest discomfort and shortness of breath and chest discomfort. He had a stress test done a week ago was reviewed on the chart there is minimal sushila-infarct ischemia from a prior area of infarct. He also had a loop recorder placed recently. He was at rest when the chest pain began today somewhat nauseated with it. He has not noticed anything that makes it better or worse. He did take aspirin. complaint: chest pain Onset (ago): minute(s) Timing of current episode: episodic Prior episodes: Yes Onset: during rest Pain location: substernal and left chest Pain radiation: none Severity: mild Quality: aching and heaviness Relieving factors: nothing Exacerbating factors: nothing Associated symptoms: Deny abdominal pain, diaphoresis, dyspnea, fever(s), leg edema, nausea, palpitations, sense of impending doom, syncope or vomiting Review of Systems 2 Const: Denies: fever(s), chills or diaphoresis Card: Denies: chest pain, palpitations or syncope Resp: Denies: dyspnea GI: Denies: abdominal pain, nausea or vomiting : Denies: dysuria, urinary frequency or urinary urgency Musc: Denies: neck pain or back pain Skin/Breast: Denies: rash PFSH ED 2 PFSH: Medical History DVT (deep venous thrombosis) Carotid artery occlusion Syncope and collapse Left upper extremity deep vein thrombosis Peripheral artery disease Nicotine dependence, cigarettes, with other nicotine-induced disorders History of cardiac monitoring 2 week event monitor in 05/2022 with baseline sinus rhythm, episodes of sinus tachycardia from 132-165 noted History of cardiovascular stress test 11/25/2020 Exercise Stress test with Stress Echo - No exercise induced chest pain or ekg changes, suboptimal exercise for age, hypertensive exercise response History of PFTs 05/2020 Severe airflow obstruction, no significant post dilator response, lung volumes consistent with air trapping. Normal DLCO. PTSD (post-traumatic stress disorder) Intermittent explosive disorder Bipolar disorder Left carotid artery occlusion AF (amaurosis fugax) CVA (cerebral vascular accident) (~10/2020) LEFT supraventricular frontal lobe COPD (chronic obstructive pulmonary disease) Hyperlipidemia Hypertension Asthma Surgical History S/P aortobifemoral bypass surgery H/O inguinal hernia repair Family History Mother Sarcoid Other Asthma CAD (coronary artery disease) Cancer Emphysema/COPD Hyperlipidemia Hypertension Stroke Denies family history of Clotting disorder Chronic kidney disease (CKD) Anesthesia complication Bleeding disorder Family history of premature coronary artery disease Social History Smoking and tobacco/nicotine status: former use of tobacco/nicotine Quit status (tobacco/nicotine): has quit using Year quit tobacco: 2021 Former quit date comment: 1-2ppd x 32 years Second hand smoke exposure: Yes Alcohol intake: current Alcohol intake frequency: holidays/special occasions only Substance/Drug Use: current Lives independently: Yes Household members: other Details: room mate Housing: House Marital status: service: No 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 Pets and animals: Yes Do you think of yourself as: Straight/Heterosexual Current gender identity: Male Physical Exam 2 Const: COMMON NORMALS: no acute distress GENERAL APPEARANCE: cooperative and comfortable ORIENTATION/CONSCIOUSNESS: Yes awake, Yes oriented to person, Yes oriented to place and Yes oriented to time HENMT: COMMON NORMALS: normocephalic, atraumatic and hearing grossly normal bilaterally HEAD & SCALP: normocephalic and atraumatic Resp: COMMON NORMALS: normal respiratory effort, No retractions, No use of accessory muscles and clear to auscultation bilaterally AUSCULTATION: clear to auscultation bilaterally Cardio: COMMON NORMALS: regular rate, regular rhythm and No murmurs present (Cardio) RATE: regular rate RHYTHM: regular rhythm GI: COMMON NORMALS: Soft to palpation and No hepatosplenomegaly present A USCULTATION: Yes normoactive bowel sounds PALPATION: Yes Soft to palpation, No Tenderness to palpation present (GI), No Guarding due to palpation present (GI) and Yes No hepatosplenomegaly present Extremity: COMMON NORMALS: normal to inspection, capillary refill normal, no clubbing, cyanosis or edema, no calf tenderness and no pedal edema Neuro: SENSORIUM/ORIENTATION: Yes oriented to person, Yes oriented to place and Yes oriented to time Skin: COMMON NORMALS: no rashes or lesions noted GENERAL SKIN EXAM: no rashes or lesions noted Course 2 Vital Signs: Vital signs: Vital Signs Temperature 97.7 F 12/31/23 15:04 Pulse Rate 66 12/31/23 15:04 Respiratory Rate 12 12/31/23 15:04 Blood Pressure 128/62 12/31/23 15:04 Pulse Oximetry 98 12/31/23 15:04 Oxygen Delivery Me thod Room Air 12/31/23 11:38 MDM - Chest Pain Medical Decision Making 48-year-old male with a known history of coronary artery disease presents with a recent stress test that was positive. He is having chest pain while at rest. He was given nitro initially it did improve his chest discomfort. His initial troponins are unremarkable his EKG showed normal sinus rhythm without acute ST changes he does have a loop recorder which was interrogated there are no significant abnormalities. Patient continues to have intermittent chest discomfort. Discussed the hospitalist will admit for further evaluation likely angiography. Medical Records I reviewed the patient's medical records. Lab Data I reviewed the patient's lab results. 12/31/23 04:06 12/31/23 04:06 Laboratory Results WBC 7.87 10^3/uL (3.29-11.43) 12/29/23 12:20 RBC 5.22 10^6/uL (3.85-5.65) 12/29/23 12:20 Hgb 15.90 g/dL (11.27-16.99) 12/29/23 12:20 Hct 48.0 % (37-53) 12/29/23 12:20 MCV 92.0 fl (82-101) 12/29/23 12:20 MCH 30.5 pg (27-33) 12/29/23 12:20 MCHC 33.1 g/dL (30-55) 12/29/23 12:20 RDW 13.5 % (12.1-15.1) 12/29/23 12:20 Plt Count 232 10^3/cmm (157-399) 12/29/23 12:20 MPV 9.0 fL (7.4-10.4) 12/29/23 12:20 Neut % (Auto) 57.5 % 12/29/23 12:20 Lymph % (Auto) 28.7 % 12/29/23 12:20 [place] % (Auto) 9.9 % 12/29/23 12:20 Eos % (Auto) 2.8 % 12/29/23 12:20 Baso % (Auto) 0.8 % 12/29/23 12:20 Neut # (Auto) 4.53 10^3/uL (1.8-7.7) 12/29/23 12:20 Lymph # (Auto) 2.3 10^3/uL (0.8-4.8) 12/29/23 12:20 [place] # (Auto) 0.8 10^3/uL (0.2-0.9) 12/29/23 12:20 Eos # (Auto) 0.2 10^3/uL (0.0-0.8) 12/29/23 12:20 Baso # (Auto) 0.1 10^3/uL (0.0-0.1) 12/29/23 12:20 Nucleated RBC % (auto) 0 % 12/29/23 12:20 Nucleated RBCs # 0.0 /100WBC 12/29/23 12:20 Sodium 136 mmol/L (136-145) 12/29/23 12:20 Potassium 4.4 mmol/L (3.5-5.1) 12/29/23 12:20 Chloride 102 mmol/L (98-107) 12/29/23 12:20 Carbon Dioxide 20 mmol/L (22-29) L 12/29/23 12:20 Anion Gap 18.4 (5-19) 12/29/23 12:20 BUN 15 mg/dL (6-20) 12/29/23 12:20 Creatinine 1.1 mg/dL (0.7-1.2) 12/29/23 12:20 GFR Calculation 72.1 mL/min (90-130) L 12/29/23 12:20 Glucose 101 mg/dL (65-115) 12/29/23 12:20 Estimat Average Glucose 120 12/29/23 12:20 Hemoglobin A1c 5.8 % (4.0-6.0) 12/29/23 12:20 Calculated Osmolality 283 mOsm/kg (285-295) L 12/29/23 12:20 Calcium 9.7 mg/dL (8.5-10.5) 12/29/23 12:20 Total Bilirubin 0.9 mg/dL (0.15-1.2) 12/29/23 12:20 AST 17 U/L (0-40) 12/29/23 12:20 ALT 12 U/L (0-41) 12/29/23 12:20 Alkaline Phosphatase 161 U/L (40-130) H 12/29/23 12:20 Troponin T Baseline < 6 ng/L (0-15) 12/29/23 12:20 Troponin T 120 Minute 10.94 ng/L (0-15) 12/29/23 14:17 Delta Troponin T 4.55481 ABS# (0-10) 12/29/23 14:17 Total Protein 7.4 g/dL (6.6-8.7) 12/29/23 12:20 Albumin 4.8 g/dL (3.5-5.2) 12/29/23 12:20 Globulin 2.6 g/dL (1.3-4.6) 12/29/23 12:20 TSH 1.54 uIU/mL (0.27-4.20) 12/29/23 12:20 All radiology interpretation(s) finalized by discharge Discharge Plan Discharge Patient Disposition: Admitted As Inpatient Admit Provider: Ct Kwon Clinical Impression: Unstable angina pectoris, Hypertension, CAD (coronary artery disease), Abnormal cardiovascular stress test Condition: Stable Discharge Diet: Cardiac Discharge Activity: Limit activity as instructed Coding Level of Care Code ED [employer] for Mary Rey
[2023-12-29 12:31] LABS: Basophils # 0.1 10^3/uL (0.0-0.1); Basophils % 0.8 %; Eosinophils # 0.2 10^3/uL (0.0-0.8); Eosinophils % 2.8 %; Lymphocytes # 2.3 10^3/uL (0.8-4.8); Lymphocytes % 28.7 %; Mean Corpuscular HGB Conc 33.1 g/dL (30-55); Mean Corpuscular Hemoglobin 30.5 pg (27-33); Monocytes # 0.8 10^3/uL (0.2-0.9); Monocytes % 9.9 %; Neutrophils # 4.53 10^3/uL (1.8-7.7); Neutrophils % 57.5 %; Nucleated Red Blood Cells % 0 %; Platelet Count 232 10^3/cmm (157-399); Red Blood Count 5.22 10^6/uL (3.85-5.65); Red Cell Distribution Width 13.5 % (12.1-15.1); White Blood Count 7.87 10^3/uL (3.29-11.43)
[2023-12-29 12:55] LABS: Alanine Aminotransferase 12 U/L (0-41); Albumin Level 4.8 g/dL (3.5-5.2); Alkaline Phosphatase 161 U/L (40-130); Anion Gap 18.4 (5-19); Aspartate Amino Transferase 17 U/L (0-40); Blood Urea Nitrogen 15 mg/dL (6-20); Calcium 9.7 mg/dL (8.5-10.5); Carbon Dioxide 20 mmol/L (22-29); Chloride 102 mmol/L (98-107); Creatinine Clr Calc Pharmacy 109.7027; Globulin 2.6 g/dL (1.3-4.6); Glomerular Filtration Rate 72.1 mL/min (90-130); Glucose 101 mg/dL (65-115); Osmolality Calculated 283 mOsm/kg (285-295); Potassium 4.4 mmol/L (3.5-5.1); Sodium 136 mmol/L (136-145); Total Bilirubin 0.9 mg/dL (0.15-1.2); Total Protein 7.4 g/dL (6.6-8.7)
[2023-12-29 12:56] LABS: Troponin(5th) Baseline < 6 ng/L (0-15)
--- NOTE | 2023-12-29 14:02 | PC.PHAR ---
PT HAD HIS RX BOTTLES BUT ALSO VERIFIED ALL CURRENT INHALERS HE USES
--- NOTE | 2023-12-29 14:05 | ECG_ITS ---
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 [id number]
[2023-12-29 14:48] LABS: Troponin 5 2HR 10.94 ng/L (0-15); Troponin 5 2HR Delta 4.94001 ABS# (0-10)
[2023-12-29] MEDS: nitroglycerin 1 gm/inch oint Pkt 1 INCH TOPICAL (15:59)
--- NOTE | 2023-12-29 18:38 | P.HP_ITS ---
Providers/Chief Complaint 2 Admitting Physician: Ct Kwon MD Primary Care Provider: Ceci Tatum Chief Complaint: chest pain History of Present Illness Esequiel Munoz is a 48 year old male with history of vascular disease aortofemoral bypass, carotid artery disease, history of coronary stents, on Xarelto, presented with chief complaint of chest discomfort. Patient is stating that for last 2 days he has been feeling dizzy associated with this headache which has not gotten worse, today around 10 AM he started experiencing chest pain which she describing as pressure-like sensation someone sitting on his chest Nath beating on his chest it is associated with mild shortness of breath no nausea, vomiting diaphoresis. He endorses to smoking, drinking alcohol and doing marijuana. At the time of my evaluation patient has Nitropaste to complaining of chest pain 05/09, I have switched him to nitroglycerin drip Dr. Segundo has evaluated him In consideration to use of Xarelto he will be plan for angiogram on Tuesday Will put him on therapeutic Lovenox Patient is hypertensive with hypertensive emergency, blood pressure 167/108 Review of Systems 2 Const: Denies: fever(s) Eyes: Denies: change in vision ENMT: Denies: throat pain Card: Reports: chest pain Resp: Reports: dyspnea GI: Denies: abdominal pain Medications/Allergies Home Medications Medication Instructions Recorded Confirmed Last Taken Type albuterol sulfate 90 mcg/actuation 1 - 2 puff inhalation Q6H PRN 12/04/22 12/29/23 12/23/23 History aerosol inhaler (Ventolin HFA) Shortness Of Breath metoprolol tartrate 25 mg tablet 25 mg PO BID #180 tabs 02/18/23 12/29/23 12/29/23 Rx atorvastatin 80 mg tablet 80 mg PO QPM #90 tabs 12/07/23 12/29/23 12/28/23 Rx nitroglycerin 0.4 mg sublingual 0.4 mg sublingual Q5M PRN chest 12/07/23 12/29/23 Unknown Rx tablet pain #30 tabs tiotropium bromide 18 mcg capsule 1 cap inhalation DAILY #60 12/07/23 12/29/23 12/28/23 Rx with inhalation device (Spiriva inhalations with HandiHaler) valsartan 80 mg tablet 80 mg PO DAILY #30 tabs 12/07/23 12/29/23 12/29/23 Rx fluticasone 500 mcg-salmeterol 50 1 inh inhalation BID 12/29/23 12/29/23 12/29/23 History mcg/dose blistr powdr for inhalation (Advair Diskus) isosorbide mononitrate 20 mg tablet 30 mg PO DAILY 12/29/23 12/29/23 12/29/23 History rivaroxaban 20 mg tablet (Xarelto) 20 mg PO DAILY 12/29/23 12/29/23 12/29/23 History Allergies Allergy/AdvReac Type Severity Reaction Status Date / Time vancomycin Allergy Severe DRESS Verified 12/13/23 08:11 syndrome clopidogrel [From Plavix] Allergy DRESS Verified 12/13/23 08:11 Syndrome PFSH Acute 2 PFSH: Medical History DVT (deep venous thrombosis) Carotid artery occlusion Syncope and collapse Left upper extremity deep vein thrombosis Peripheral artery disease Nicotine dependence, cigarettes, with other nicotine-induced disorders History of cardiac monitoring 2 week event monitor in 05/2022 with baseline sinus rhythm, episodes of sinus tachycardia from 132-165 noted History of cardiovascular stress test 11/25/2020 Exercise Stress test with Stress Echo - No exercise induced chest pain or ekg changes, suboptimal exercise for age, hypertensive exercise response History of PFTs 05/2020 Severe airflow obstruction, no significant post dilator response, lung volumes consistent with air trapping. Normal DLCO. PTSD (post-traumatic stress disorder) Intermittent explosive disorder Bipolar disorder Left carotid artery occlusion AF (amaurosis fugax) CVA (cerebral vascular accident) (~10/2020) LEFT supraventricular frontal lobe COPD (chronic obstructive pulmonary disease) Hyperlipidemia Hypertension Asthma Surgical History S/P aortobifemoral bypass surgery H/O inguinal hernia repair Family History Mother Sarcoid Other Asthma CAD (coronary artery disease) Cancer Emphysema/COPD Hyperlipidemia Hypertension Stroke Denies family history of Clotting disorder Chronic kidney disease (CKD) Anesthesia complication Bleeding disorder Family history of premature coronary artery disease Social History Smoking and tobacco/nicotine status: former use of tobacco/nicotine Quit status (tobacco/nicotine): has quit using Year quit tobacco: 2021 Former quit date comment: 1-2ppd x 32 years Second hand smoke exposure: Yes Alcohol intake: current Alcohol intake frequency: holidays/special occasions only Substance/Drug Use: current Lives independently: Yes Household members: other Details: room mate Housing: House Marital status: service: No 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 Pets and animals: Yes Do you think of yourself as: Straight/Heterosexual Current gender identity: Male Vitals/I&O/Wt Last Vital Signs Temp 98.0 F 12/29/23 12:03 Pulse 115 H 12/29/23 18:07 Resp 18 12/29/23 18:07 BP 124/97 12/29/23 18:07 Pulse Ox 95 12/29/23 18:07 O2 Del Method Room Air 12/29/23 12:03 Weight last 48 hrs Weight 109.968 kg Weight 104.326 kg Physical Exam 2 Narrative: Unkept appearance Acute chest pain Unstable angina Pleasant cooperative Nonfocal neuroexam Hypertensive Family at the bedside Currently on room air S1, S2 Data 12/29/23 12:20 12/29/23 12:20 A&P Assessment and plan (1) Unstable angina: (2) Malignant hypertension: (3) CAD (coronary artery disease): (4) S/P aortobifemoral bypass surgery: (5) Peripheral artery disease: (6) Vascular disease: (7) Carotid artery occlusion: (8) DVT (deep venous thrombosis): (9) Smoker: (10) Nicotine dependence, cigarettes, with other nicotine-induced disorders: Plan Unstable angina Plan for angiogram on Tuesday Active chest pain Monitor troponin with serial EKGs Nonsignificant delta troponin Dr. Segundo has seen him Discussed with cardiology they are recommending angiogram on Tuesday because he took Xarelto Switch him to therapeutic Lovenox Hypertensive emergency Switch him to nitroglycerin drip Check drug screen Continue antihypertensive regimen Hold Xarelto Continue losartan and metoprolol Review of records: Patient has history of aortofemoral bypass, thrombophlebitis, DVT, endocarditis, patient is an active smoker, drinks alcohol occasionally, smokes marijuana Recently had a loop recorder placed by Dr. Segundo Attestations 2 Medical Necessity Statement*: More than 2 midnights anticipated Diagnoses Unstable angina I20.0 Malignant hypertension I10 CAD (coronary artery disease) I25.10 S/P aortobifemoral bypass surgery Z95.828 Peripheral artery disease I73.9 Vascular disease I99.9 Carotid artery occlusion I65.29 DVT (deep venous thrombosis) I82.409 Smoker F17.200 Nicotine dependence, cigarettes, with other nicotine-induced disorders F17.218
[2023-12-29 19:12] LABS: Thyroid Stimulating Hormone 1.54 uIU/mL (0.27-4.20)
--- NOTE | 2023-12-29 19:21 | P.CONIM_ITS ---
Providers/Reason For Consult 2 Consulting Physician/Specialty*: GENNA Segundo MD/cardiology Reason for Consult*: Patient with unstable anginal symptoms Requesting Physician: Dr. Kwon Attending Physician: Ct Kwon MD Primary Care Provider: Ceci Tatum History of Present Illness History of Present Illness Esequiel Munoz is a 48 year old male is admitted to hospital through the emergency room, where he presented with complaints of a prolonged episode of chest pain. Patient is known to have atherosclerotic heart disease and had a PCI of the right coronary artery in October 2022. Cardiology consult is requested for further cardiac evaluation recommendations. This patient has extensive vascular disease. He had an angiogram followed by PCI of the proximal RCA lesion in October 2022. In September 2022, he had aortofemoral bypass surgery at the [facility] in [place]. He is known to have a total occlusion of the left internal carotid artery by CTA. He has been having episodes of chest pain since his coronary intervention in October. Approximately a month ago, he had a prolonged episode of chest pain while he was hiking with his friends. He had a chest tightness/heaviness lasting for 5 days or so. He had a Myocardial perfusion imaging following this episode which revealed areas of fixed and reversible defects mostly in the distribution of the right coronary artery. He had a features of possible myocardial scarring with a small areas of possible sushila-infarction ischemia. Today while being at home he had a left-sided chest pain , described as a tight feeling with an intensity of 5-6/10. The pain was more or less constant with some waxing and waning lasting for couple of hours. He came to the emergency room with the symptoms. While being in the emergency room, gradually the pain subsided over a period of 2 hours. He was waiting for some of the test results to come back. After a couple of hours of waiting in the ER, he again started having the pain or more or less similar intensity. It is associated with the sweating, both times. He may have some shortness of breath. No other associated symptoms or radiation of pain. His initial troponin T was negative microinjury. But the 2 over troponin T revealed the level about 10 with a delta of 4.9. In view of the recurrent prolonged episode of chest pains, he is admitted to the hospital for further evaluation and management. Patient has no fever or chills. No cough. No unusual shortness of breath. No palpitations, dizziness or syncopal episodes. He has been having episodes of dizziness/near syncope for the last few months. He had an ICM implantation last week for this. So far no arrhythmias are noted on the monitor. He has a history of DVT and is on Xarelto. He took the last dose this morning. Review of Systems 2 Narrative: CONSTITUTIONAL: No fever or chills. EYES: No blurring of vision or other visual disturbances lately. ENT: No hoarseness of voice, auditory disturbances or sore throat. CARDIOVASCULAR: As mentioned above. RESPIRATORY: No significant cough. GASTROINTESTINAL: No hematemesis or melena. GENITOURINARY: No dysuria or hematuria. INTEGUMENTARY: No skin rashes or history of skin cancer. NEURO: No transient ischemic attacks or amaurosis. PSYCHIATRIC: No history of psychosis or major depression. HEMATOLOGIC: No bleeding disorders or significant anemia. ENDOCRINE: No history of polyuria or polydipsia. MUSCULOSKELETAL: No recent joint pain or swelling. ALLERGY/IMMUNOLOGY: As mentioned above. Medications/Allergies Home Medications Medication Instructions Recorded Confirmed Last Taken Type albuterol sulfate 90 mcg/actuation 1 - 2 puff inhalation Q6H PRN 12/04/22 12/29/23 12/23/23 History aerosol inhaler (Ventolin HFA) Shortness Of Breath metoprolol tartrate 25 mg tablet 25 mg PO BID #180 tabs 02/18/23 12/29/23 12/29/23 Rx atorvastatin 80 mg tablet 80 mg PO QPM #90 tabs 12/07/23 12/29/23 12/28/23 Rx nitroglycerin 0.4 mg sublingual 0.4 mg sublingual Q5M PRN chest 12/07/23 12/29/23 Unknown Rx tablet pain #30 tabs tiotropium bromide 18 mcg capsule 1 cap inhalation DAILY #60 12/07/23 12/29/23 12/28/23 Rx with inhalation device (Spiriva inhalations with HandiHaler) valsartan 80 mg tablet 80 mg PO DAILY #30 tabs 12/07/23 12/29/23 12/29/23 Rx fluticasone 500 mcg-salmeterol 50 1 inh inhalation BID 12/29/23 12/29/23 12/29/23 History mcg/dose blistr powdr for inhalation (Advair Diskus) isosorbide mononitrate 20 mg tablet 30 mg PO DAILY 12/29/23 12/29/23 12/29/23 History rivaroxaban 20 mg tablet (Xarelto) 20 mg PO DAILY 12/29/23 12/29/23 12/29/23 History Allergies Allergy/AdvReac Type Severity Reaction Status Date / Time vancomycin Allergy Severe DRESS Verified 12/13/23 08:11 syndrome clopidogrel [From Plavix] Allergy DRESS Verified 12/13/23 08:11 Syndrome PFSH Acute 2 PFSH: Medical History DVT (deep venous thrombosis) Carotid artery occlusion Syncope and collapse Left upper extremity deep vein thrombosis Peripheral artery disease Nicotine dependence, cigarettes, with other nicotine-induced disorders History of cardiac monitoring 2 week event monitor in 05/2022 with baseline sinus rhythm, episodes of sinus tachycardia from 132-165 noted History of cardiovascular stress test 11/25/2020 Exercise Stress test with Stress Echo - No exercise induced chest pain or ekg changes, suboptimal exercise for age, hypertensive exercise response History of PFTs 05/2020 Severe airflow obstruction, no significant post dilator response, lung volumes consistent with air trapping. Normal DLCO. PTSD (post-traumatic stress disorder) Intermittent explosive disorder Bipolar disorder Left carotid artery occlusion AF (amaurosis fugax) CVA (cerebral vascular accident) (~10/2020) LEFT supraventricular frontal lobe COPD (chronic obstructive pulmonary disease) Hyperlipidemia Hypertension Asthma Surgical History S/P aortobifemoral bypass surgery H/O inguinal hernia repair Family History Mother Sarcoid Other Asthma CAD (coronary artery disease) Cancer Emphysema/COPD Hyperlipidemia Hypertension Stroke Denies family history of Clotting disorder Chronic kidney disease (CKD) Anesthesia complication Bleeding disorder Family history of premature coronary artery disease Social History Smoking and tobacco/nicotine status: former use of tobacco/nicotine Quit status (tobacco/nicotine): has quit using Year quit tobacco: 2021 Former quit date comment: 1-2ppd x 32 years Second hand smoke exposure: Yes Alcohol intake: current Alcohol intake frequency: holidays/special occasions only Substance/Drug Use: current Lives independently: Yes Household members: other Details: room mate Housing: House Marital status: service: No 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 Not in any acute distress. HEENT: No significant pallor, icterus or lymphadenopathy.Oral cavity: There are no mucous membrane lesions. NECK: Trachea appears to be central. No masses noted. No JVD or thyromegaly appreciated. RESPIRATORY: Chest is symmetrical. No intercostals muscle retraction or any accessory muscle activation. There is no chest wall tenderness. Breath sounds are heard bilaterally. No rales or rhonchi heard. No evidence of any consolidation. BREASTS: Deferred. HEART: The heart sounds are normal. No S3 or S4. No significant murmurs. No pericardial rub ABDOMEN: No vessel pulsations or distention. No tenderness. No organomegaly appreciated. Bowel sounds are normally heard. : Deferred. RECTAL: Deferred. LYMPHATIC: No lymphadenopathy noted in the neck. EXTREMITIES: No edema or cyanosis. No clubbing. MUSCULOSKELETAL: No acute joint deformities or swelling SKIN: There are no significant rashes or ecchymosis NEUROPSYCHIATRIC: The patient is alert and oriented x3. Appears to be in a good mood. No tremors or rigidity noted. Data 12/30/23 04:06 12/30/23 04:06 Other Labs: Laboratory Last Values WBC 7.87 10^3/uL (3.29-11.43) 12/29/23 12:20 RBC 5.22 10^6/uL (3.85-5.65) 12/29/23 12:20 Hgb 15.90 g/dL (11.27-16.99) 12/29/23 12:20 Hct 48.0 % (37-53) 12/29/23 12:20 MCV 92.0 fl (82-101) 12/29/23 12:20 MCH 30.5 pg (27-33) 12/29/23 12:20 MCHC 33.1 g/dL (30-55) 12/29/23 12:20 RDW 13.5 % (12.1-15.1) 12/29/23 12:20 Plt Count 232 10^3/cmm (157-399) 12/29/23 12:20 MPV 9.0 fL (7.4-10.4) 12/29/23 12:20 Neut % (Auto) 57.5 % 12/29/23 12:20 Lymph % (Auto) 28.7 % 12/29/23 12:20 [place] % (Auto) 9.9 % 12/29/23 12:20 Eos % (Auto) 2.8 % 12/29/23 12:20 Baso % (Auto) 0.8 % 12/29/23 12:20 Neut # (Auto) 4.53 10^3/uL (1.8-7.7) 12/29/23 12:20 Lymph # (Auto) 2.3 10^3/uL (0.8-4.8) 12/29/23 12:20 [place] # (Auto) 0.8 10^3/uL (0.2-0.9) 12/29/23 12:20 Eos # (Auto) 0.2 10^3/uL (0.0-0.8) 12/29/23 12:20 Baso # (Auto) 0.1 10^3/uL (0.0-0.1) 12/29/23 12:20 Nucleated RBC % (auto) 0 % 12/29/23 12:20 Nucleated RBCs # 0.0 /100WBC 12/29/23 12:20 Sodium 136 mmol/L (136-145) 12/29/23 12:20 Potassium 4.4 mmol/L (3.5-5.1) 12/29/23 12:20 Chloride 102 mmol/L (98-107) 12/29/23 12:20 Carbon Dioxide 20 mmol/L (22-29) L 12/29/23 12:20 Anion Gap 18.4 (5-19) 12/29/23 12:20 BUN 15 mg/dL (6-20) 12/29/23 12:20 Creatinine 1.1 mg/dL (0.7-1.2) 12/29/23 12:20 GFR Calculation 72.1 mL/min (90-130) L 12/29/23 12:20 Glucose 101 mg/dL (65-115) 12/29/23 12:20 Calculated Osmolality 283 mOsm/kg (285-295) L 12/29/23 12:20 Calcium 9.7 mg/dL (8.5-10.5) 12/29/23 12:20 Total Bilirubin 0.9 mg/dL (0.15-1.2) 12/29/23 12:20 AST 17 U/L (0-40) 12/29/23 12:20 ALT 12 U/L (0-41) 12/29/23 12:20 Alkaline Phosphatase 161 U/L (40-130) H 12/29/23 12:20 Troponin T Baseline < 6 ng/L (0-15) 12/29/23 12:20 Troponin T 120 Minute 10.94 ng/L (0-15) 12/29/23 14:17 Delta Troponin T 4.97591 ABS# (0-10) 12/29/23 14:17 Total Protein 7.4 g/dL (6.6-8.7) 12/29/23 12:20 Albumin 4.8 g/dL (3.5-5.2) 12/29/23 12:20 Globulin 2.6 g/dL (1.3-4.6) 12/29/23 12:20 TSH 1.54 uIU/mL (0.27-4.20) 12/29/23 12:20 Other data: The EKG from today, 12/29/2023 Normal sinus rhythm with a normal ST Ts. Normal SD and QRS duration. The Myocardial perfusion imaging on 12/13/2023 1. Small to medium sized area of prior infarct is seen in the LAD territory. 2. Medium sized area of prior infarct with minimal sushila-infarct ischemia is seen in the RCA territory 3. LV systolic function is normal The most recent cardiac catheterization on 11/20/2022 revealed * Left Main has no significant disease. * Left Anterior Descending has no significant disease. * Circumflex has no significant disease. * Proximal Right Coronary Artery: obstructive 70% hazy stenosis, ANKIT: 3 flow. * Coronary angiography shows right dominance. Neck CTA on 05/13/2023 1. Chronic complete occlusion of the left common and internal carotid arteries. 2. No right carotid stenosis. 3. No vertebral artery stenosis. 4. There is reconstitution of the left external carotid artery. A&P Assessment and plan (1) Atherosclerotic heart disease of [place] coronary artery with unstable angina pectoris: This patient's symptoms are suggestive of an unstable angina. The Myocardial perfusion imaging revealed small areas of possible sushila-infarction ischemia in the distribution of the right coronary artery. In view of his ongoing recurrent episodes of prolonged chest pains, in order to further evaluate his coronary status, a cardiac catheterization would be appropriate. We may try to do this as early as possible. Qualifiers: [place] vs. transplanted heart: [place] heart Qualified Code(s): I25.110 - Atherosclerotic heart disease of [place] coronary artery with unstable angina pectoris (2) Hypertension: The blood pressure is currently in the normal range. May continue on the current medications. Qualifiers: Hypertension type: primary hypertension Qualified Code(s): I10 - Essential (primary) hypertension (3) Hyperlipidemia: The lipid-lowering agent may be continued. Qualifiers: Hyperlipidemia type: unspecified Qualified Code(s): E78.5 - Hyperlipidemia, unspecified (4) Recurrent syncope: Patient's status post ICM; etiology is unclear (5) Nicotine dependence, cigarettes, with other nicotine-induced disorders: Patient strongly advised to quit smoking. (6) S/P aortobifemoral bypass surgery: Clinically seems to be functioning okay with no specific symptoms. (7) DVT (deep venous thrombosis): Patient is on long-term oral anticoagulation. Because of the unstable angina, it be appropriate to hold off on this for the time being. He may be treated with subcu Lovenox. We may wait at least 48 hours, before we proceed with the coronary angiogram Qualifiers: Affected thrombotic vein of extremity: femoral Chronicity: acute DVT location: lower extremity Laterality: left Qualified Code(s): I82.412 - Acute embolism and thrombosis of left femoral vein Plan The patient be treated with subcu Lovenox. Xarelto may be held at this point. Based on the patient's clinical progress, further recommendations will be made. Thank you for the opportunity to help this patient make these recommendations. Coding Level of Care Code 13237 Diagnoses Atherosclerosis of [place] coronary artery of [place] heart with unstable angina pectoris I25.110 [place] vs. transplanted heart: [place] heart Primary hypertension I10 Hypertension type: primary hypertension Hyperlipidemia, unspecified hyperlipidemia type E78.5 Hyperlipidemia type: unspecified Recurrent syncope R55 Nicotine dependence, cigarettes, with other nicotine-induced disorders F17.218 S/P aortobifemoral bypass surgery Z95.828 Acute deep vein thrombosis (DVT) of femoral vein of left lower extremity I82.412 Affected thrombotic vein of extremity: femoral Chronicity: acute DVT location: lower extremity Laterality: left
[2023-12-29] MEDS: nitroglycerin drip 50 MG/250 ML PREMIX IV (19:24)
[2023-12-29] MEDS: sodium chloride 0.9% 1,000 ML 75 ML IV (19:39)
[2023-12-29] MEDS: enoxaparin 120 mg/0.8 mL Syringe 110 MG SUBCUT (20:09)
[2023-12-29 21:16] LABS: Lactic Sepsis W/Reflex 1.7 mmol/L (0.5-2.2)
[2023-12-29 21:56] LABS: Troponin 5 6HR Delta 1.70001 ng/L (0-12)
--- NOTE | 2023-12-29 22:00 | ECG_ITS ---
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 Measurements Intervals [place] Rate: 72 P: 70 ME: 165 QRS: 77 QRSD: 110 T: 68 QT: 384 QTc: 422 Interpretive Statements SINUS RHYTHM NONSPECIFIC T-WAVE ABNORMALITY Compared to ECG 12/29/2023 14:16:16 T-wave abnormality now present Electronically Signed On 12-30-2023 18:01:58 PROGRAM REP by Colin Segundo M.D. [email or web address] countyMedical Joyworkspar[facility] hospitalA [facility]/store/[id number]
[2023-12-29 22:06] LABS: Amphetamines Screen Urine Negative (Negative); Barbiturates Screen Urine Negative (Negative); Benzodiazepines Screen Urine Negative (Negative); Cocaine Screen Urine Negative (Negative); Opiate Screen Urine Negative (Negative); PCP Screen Urine Negative (Negative); THC Screen Urine Positive (Negative)
[2023-12-29 22:55] LABS: Estmated Average Glucose 120; Hemoglobin A1C 5.8 % (4.0-6.0)
[2023-12-30] VITALS (12 sets, daily range): BP systolic 110–165; BP diastolic 59–83; PULSE 62–93; RESP 12–19; TEMP 36.4–36.8; O2SAT 93–99; BMI 30.3
[2023-12-30 04:30] LABS: Basophils % 0.6 %; Eosinophils # 0.3 10^3/uL (0.0-0.8); Eosinophils % 4.8 %; Hematocrit 45.8 % (37-53); Lymphocytes # 2.4 10^3/uL (0.8-4.8); Lymphocytes % 36.9 %; Mean Corpuscular HGB Conc 32.5 g/dL (30-55); Mean Corpuscular Hemoglobin 30.4 pg (27-33); Mean Corpuscular Volume 93.5 fl (82-101); Mean Platelet Volume 9.3 fL (7.4-10.4); Monocytes # 0.7 10^3/uL (0.2-0.9); Neutrophils # 3.07 10^3/uL (1.8-7.7); Neutrophils % 46.4 %; Nucleated Red Blood Cells % 0 %; Platelet Count 190 10^3/cmm (157-399); Red Cell Distribution Width 13.7 % (12.1-15.1); White Blood Count 6.62 10^3/uL (3.29-11.43)
[2023-12-30 04:53] LABS: C Reactive Protein 5.8 mg/L (0.0-4.9)
[2023-12-30 05:46] LABS: Alanine Aminotransferase 12 U/L (0-41); Albumin Level 4.2 g/dL (3.5-5.2); Alkaline Phosphatase 148 U/L (40-130); Anion Gap 17.2 (5-19); Aspartate Amino Transferase 16 U/L (0-40); Blood Urea Nitrogen 22 mg/dL (6-20); Calcium 9.5 mg/dL (8.5-10.5); Carbon Dioxide 22 mmol/L (22-29); Chloride 102 mmol/L (98-107); Creatinine Clr Calc Pharmacy 103.0162; Glomerular Filtration Rate 65.2 mL/min (90-130); Glucose 101 mg/dL (65-115); Magnesium 2.1 mg/dL (1.7-2.3); Osmolality Calculated 287 mOsm/kg (285-295); Potassium 4.2 mmol/L (3.5-5.1); Sodium 137 mmol/L (136-145); Total Bilirubin 0.4 mg/dL (0.15-1.2); Total Protein 7.2 g/dL (6.6-8.7)
[2023-12-30] MEDS: enoxaparin 120 mg/0.8 mL Syringe 110 MG SUBCUT ×2 (08:39→21:04)
[2023-12-30] MEDS: metoprolol tartrate 25 mg Tablet PO ×2 (08:41→18:09)
[2023-12-30] MEDS: losartan 50 mg Tablet PO (08:41)
[2023-12-30] MEDS: aspirin 81 mg EC Tablet PO (08:42)
[2023-12-30] MEDS: pantoprazole DR 40 mg Tablet PO (08:42)
--- NOTE | 2023-12-30 09:30 | PC.CHAP ---
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 [] Patient/Family/Request visit [] Outpatient visit [] Follow-up visit [] Physician referral [] Code/Alert [] Routine visit [] Staff referral [] Actively dying [] Patient sleeping [] Family support [] [x] Out of room [] Palliative care [] [] Receiving care in room [] Pre-surgical visit [] Trauma [] Long length of stay [] ICU visit [] Other: Relational/Emotional Strength [] Patient feels connected with others/family/visitors/staff [] Distress [] Loneliness/isolation [] Abandonment Spirituality of Patient [] Person of Dania [] Attends Mu-Ism of their Dania [] Believes in Prayer [] Reads Bible or Voodoo materials [] There are Spiritual issues to be addressed Shingle Cutter Interventions [] Prayer [] Active listening [] Non-anxious presence [] Spiritual/emotional support [] Crisis/trauma care [] Spiritual counseling [] Bereavement support [] Provided bereavement packet [] Provided Bible/devotional materials [] Provided toy/stuffed animal, coloring book to patient or family member [] Provided Communion [] Anointing/[place] [] Salvation [] Completed spiritual assessment [] Other: Impact on Illness or Injury [] Angry [] Fearful [] Anxious [] Often cries [] Exhaustion [] Unable to work [] Unable to attend samaritan [] Unable to walk/stand [] Unable to read [] Unable to drive [] Unable to eat/drink [] Unable to sleep [] Unable to be with family [] Patient intubated [] Other: Summary Time spent with patient
--- NOTE | 2023-12-30 11:54 | PM.PN ---
Subjective Subjective: The patient is feeling better. Still has some chest discomfort of 1/10 in intensity. The delta troponin T at 6 hours is 7. No unusual shortness of breath. Has been having some sweating spells. No nausea or vomiting. No fever or chills Medications: Medication Review Details: Current Medications Acetaminophen (Acetaminophen 325 Mg Tablet) 650 mg PO Q6H PRN PRN Reason: Mild/Mod Pain Or Temp >/= 101 Acetaminophen (Acetaminophen 500 Mg Tablet) 500 mg PO Q4H PRN PRN Reason: fever Albuterol/Ipratropium (Ipratropium-Albuterol 3 Ml Neb) 3 ml INHALATION Q6H PRN PRN Reason: SHORTNESS OF BREATH Albuterol/Ipratropium (Ipratropium-Albuterol 3 Ml Neb) 3 ml INHALATION Q6H PRN PRN Reason: SHORTNESS OF BREATH Aspirin (Aspirin 81 Mg Ec Tablet) 81 mg PO DAILY [facility] Last Admin: 12/30/23 08:42 Dose: 81 mg Atorvastatin Calcium (Atorvastatin 40 Mg Tablet) 40 mg PO QPM [facility] Enoxaparin Sodium (Enoxaparin 120 Mg/0.8 Ml Syringe) 110 mg SUBCUT Q12H [facility] Last Admin: 12/30/23 08:39 Dose: 110 mg Nitroglycerin/Dextrose (Nitroglycerin Drip) 50 mg in 250 mls @ 0 mls/hr IV .Q0M [facility]; Protocol Last Admin: 12/29/23 19:24 Dose: 5 mcg/min, 1.5 mls/hr Losartan Potassium (Losartan 50 Mg Tablet) 50 mg PO DAILY [facility] Last Admin: 12/30/23 08:41 Dose: 50 mg Metoprolol Tartrate (Metoprolol Tartrate 25 Mg Tablet) 25 mg PO BID [facility] Last Admin: 12/30/23 08:41 Dose: 25 mg Ondansetron HCl (Ondansetron 2 Mg/Ml Sdv 2 Ml) 4 mg IVP Q6H PRN PRN Reason: NAUSEA AND VOMITING Pantoprazole Sodium (Pantoprazole Dr 40 Mg Tablet) 40 mg PO DAILY [facility] Last Admin: 12/30/23 08:42 Dose: 40 mg Vitals/I&O/Wt Last Vital Signs Temp 98.1 F 12/30/23 11:53 Pulse 69 12/30/23 11:53 Resp 17 12/30/23 11:53 BP 150/80 12/30/23 11:53 Pulse Ox 97 12/30/23 11:53 O2 Del Method Room Air 12/30/23 11:53 12/29/23 12/30/23 12/30/23 22:59 06:59 14:59 Intake Total 400 / 400 300 / 700 Output Total 200 / 200 Balance 200 / 200 300 / 500 Weight last 48 hrs Weight 242 lb 7 oz Weight 242 lb 7 oz Weight 230 lb Physical Exam Narrative: GENERAL: The patient is alert and oriented times three. Not in any acute distress. HEENT: No significant pallor, icterus or lymphadenopathy.Oral cavity: There are no mucous membrane lesions. NECK: Trachea appears to be central. No masses noted. No JVD or thyromegaly appreciated. RESPIRATORY: Chest is symmetrical. No intercostals muscle retraction or any accessory muscle activation. There is no chest wall tenderness. Breath sounds are heard bilaterally. No rales or rhonchi heard. No evidence of any consolidation. BREASTS: Deferred. HEART: The heart sounds are normal. No S3 or S4. No significant murmurs. No pericardial rub ABDOMEN: No vessel pulsations or distention. No tenderness. No organomegaly appreciated. Bowel sounds are normally heard. : Deferred. RECTAL: Deferred. LYMPHATIC: No lymphadenopathy noted in the neck. EXTREMITIES: No edema or cyanosis. No clubbing. MUSCULOSKELETAL: No acute joint deformities or swelling SKIN: There are no significant rashes or ecchymosis NEUROPSYCHIATRIC: The patient is alert and oriented x3. Appears to be in a good mood. No tremors or rigidity noted. Data 12/31/23 04:06 12/31/23 04:06 Other Labs: Laboratory Last Values WBC 6.62 10^3/uL (3.29-11.43) 12/30/23 04:06 RBC 4.90 10^6/uL (3.85-5.65) 12/30/23 04:06 Hgb 14.90 g/dL (11.27-16.99) 12/30/23 04:06 Hct 45.8 % (37-53) 12/30/23 04:06 MCV 93.5 fl (82-101) 12/30/23 04:06 MCH 30.4 pg (27-33) 12/30/23 04:06 MCHC 32.5 g/dL (30-55) 12/30/23 04:06 RDW 13.7 % (12.1-15.1) 12/30/23 04:06 Plt Count 190 10^3/cmm (157-399) 12/30/23 04:06 MPV 9.3 fL (7.4-10.4) 12/30/23 04:06 Neut % (Auto) 46.4 % 12/30/23 04:06 Lymph % (Auto) 36.9 % 12/30/23 04:06 Mcpherson % (Auto) 11.0 % 12/30/23 04:06 Eos % (Auto) 4.8 % 12/30/23 04:06 Baso % (Auto) 0.6 % 12/30/23 04:06 Neut # (Auto) 3.07 10^3/uL (1.8-7.7) 12/30/23 04:06 Lymph # (Auto) 2.4 10^3/uL (0.8-4.8) 12/30/23 04:06 Mcpherson # (Auto) 0.7 10^3/uL (0.2-0.9) 12/30/23 04:06 Eos # (Auto) 0.3 10^3/uL (0.0-0.8) 12/30/23 04:06 Baso # (Auto) 0.0 10^3/uL (0.0-0.1) 12/30/23 04:06 Nucleated RBC % (auto) 0 % 12/30/23 04:06 Nucleated RBCs # 0.0 /100WBC 12/30/23 04:06 Sodium 137 mmol/L (136-145) 12/30/23 04:06 Potassium 4.2 mmol/L (3.5-5.1) 12/30/23 04:06 Chloride 102 mmol/L (98-107) 12/30/23 04:06 Carbon Dioxide 22 mmol/L (22-29) 12/30/23 04:06 Anion Gap 17.2 (5-19) 12/30/23 04:06 BUN 22 mg/dL (6-20) H 12/30/23 04:06 Creatinine 1.2 mg/dL (0.7-1.2) 12/30/23 04:06 GFR Calculation 65.2 mL/min (90-130) L 12/30/23 04:06 Glucose 101 mg/dL (65-115) 12/30/23 04:06 Estimat Average Glucose 120 12/29/23 12:20 Hemoglobin A1c 5.8 % (4.0-6.0) 12/29/23 12:20 Calculated Osmolality 287 mOsm/kg (285-295) 12/30/23 04:06 Lactic Acid 1.7 mmol/L (0.5-2.2) 12/29/23 20:49 Calcium 9.5 mg/dL (8.5-10.5) 12/30/23 04:06 Magnesium 2.1 mg/dL (1.7-2.3) 12/30/23 04:06 Total Bilirubin 0.4 mg/dL (0.15-1.2) 12/30/23 04:06 AST 16 U/L (0-40) 12/30/23 04:06 ALT 12 U/L (0-41) 12/30/23 04:06 Alkaline Phosphatase 148 U/L (40-130) H 12/30/23 04:06 Troponin T Baseline < 6 ng/L (0-15) 12/29/23 12:20 Troponin T 120 Minute 10.94 ng/L (0-15) 12/29/23 14:17 Delta Troponin T 4.16499 ABS# (0-10) 12/29/23 14:17 Troponin T Hi Sens 6Hr 7.70 ng/L (0-15) 12/29/23 21:26 Troponin T Hi Sens 6Hr Delta 1.90753 ng/L (0-12) 12/29/23 21:26 C-Reactive Protein 5.8 mg/L (0.0-4.9) H 12/30/23 04:06 Total Protein 7.2 g/dL (6.6-8.7) 12/30/23 04:06 Albumin 4.2 g/dL (3.5-5.2) 12/30/23 04:06 Globulin 3.0 g/dL (1.3-4.6) 12/30/23 04:06 TSH 1.54 uIU/mL (0.27-4.20) 12/29/23 12:20 Urine Opiates Screen Negative ng/mL (Negative) 12/29/23 20:38 Ur Barbiturates Screen Negative ng/mL (Negative) 12/29/23 20:38 Ur Phencyclidine Scrn Negative ng/mL (Negative) 12/29/23 20:38 Ur Amphetamines Screen Negative ng/mL (Negative) 12/29/23 20:38 U Benzodiazepines Scrn Negative ng/mL (Negative) 12/29/23 20:38 Urine Cocaine Screen Negative ng/mL (Negative) 12/29/23 20:38 U Marijuana (THC) Screen Positive ng/mL (Negative) H 12/29/23 20:38 A&P Assessment and plan (1) Atherosclerotic heart disease of [place] coronary artery with unstable angina pectoris: This patient's symptoms are suggestive of an unstable angina. The Myocardial perfusion imaging revealed small areas of possible sushila-infarction ischemia in the distribution of the right coronary artery. In view of his ongoing recurrent episodes of prolonged chest pains, in order to further evaluate his coronary status, a cardiac catheterization would be appropriate. We may go ahead and do schedule for the cardiac radiation tomorrow. Dr. Alexander will be doing this procedure in my absence. The risk of bleeding, hematoma, vascular injury, myocardial infarction, myocardial perforation, malignant cardiac arrhythmias ,CVA, renal failure and other concomitant complications were explained in detail. Patient understood this well and consented to proceed Qualifiers: [place] vs. transplanted heart: [place] heart Qualified Code(s): I25.110 - Atherosclerotic heart disease of [place] coronary artery with unstable angina pectoris (2) Hypertension: The blood pressures are stage II. We may optimize the antihypertensive medications. I may add amlodipine 5 mg p.o. now 1 day Qualifiers: Hypertension type: primary hypertension Qualified Code(s): I10 - Essential (primary) hypertension (3) Hyperlipidemia: The lipid-lowering agent may be continued. Qualifiers: Hyperlipidemia type: unspecified Qualified Code(s): E78.5 - Hyperlipidemia, unspecified (4) Recurrent syncope: Patient's status post ICM; etiology is unclear. Will continue the monitoring (5) Nicotine dependence, cigarettes, with other nicotine-induced disorders: Patient strongly advised to quit smoking. (6) S/P aortobifemoral bypass surgery: Clinically seems to be functioning okay with no specific symptoms. (7) DVT (deep venous thrombosis): Patient is off the Xarelto now for the procedure. We will continue the Lovenox. Qualifiers: Affected thrombotic vein of extremity: femoral Chronicity: acute DVT location: lower extremity Laterality: left Qualified Code(s): I82.412 - Acute embolism and thrombosis of left femoral vein Plan Will continue on the current medications. Keep n.p.o. after midnight. Discontinue Lovenox after the evening dose Cardiac catheterization tomorrow by Dr. Alexander Further plans, based on the angiogram finding Attestations Medical Necessity Statement*: Patient requires continued hospital stay for close monitoring and further management Coding Level of Care Code 37360 Diagnoses Atherosclerosis of [place] coronary artery of [place] heart with unstable angina pectoris I25.110 [place] vs. transplanted heart: [place] heart Primary hypertension I10 Hypertension type: primary hypertension Hyperlipidemia, unspecified hyperlipidemia type E78.5 Hyperlipidemia type: unspecified Recurrent syncope R55 Nicotine dependence, cigarettes, with other nicotine-induced disorders F17.218 S/P aortobifemoral bypass surgery Z95.828 Acute deep vein thrombosis (DVT) of femoral vein of left lower extremity I82.412 Affected thrombotic vein of extremity: femoral Chronicity: acute DVT location: lower extremity Laterality: left
--- NOTE | 2023-12-30 12:05 | PM.PN ---
Subjective Subjective: Seen this morning. Patient is currently on a nitro drip. He is not having any chest pain at this time. Plan for cath in a.m. Seen by cardiology. Vitals/I&O/Wt Last Vital Signs Temp 98.1 F 12/30/23 11:53 Pulse 69 12/30/23 11:53 Resp 17 12/30/23 11:53 BP 150/80 12/30/23 11:53 Pulse Ox 97 12/30/23 11:53 O2 Del Method Room Air 12/30/23 11:53 12/29/23 12/30/23 12/30/23 22:59 06:59 14:59 Intake Total 400 / 400 300 / 700 Output Total 200 / 200 Balance 200 / 200 300 / 500 Weight last 48 hrs Weight 109.968 kg Weight 109.968 kg Weight 104.326 kg Physical Exam Narrative: Lungs clear to auscultation bilaterally no wheezes or rhonchi Nitro drip running at this time Abdomen soft nontender Pleasant cooperative Nonfocal neuroexam Currently on room air S1, S2 Data 12/30/23 04:06 12/30/23 04:06 A&P Assessment and plan (1) Unstable angina: (2) Malignant hypertension: (3) CAD (coronary artery disease): (4) S/P aortobifemoral bypass surgery: (5) Peripheral artery disease: (6) Vascular disease: (7) Carotid artery occlusion: (8) DVT (deep venous thrombosis): Qualifiers: DVT location: lower extremity Affected thrombotic vein of extremity: femoral Chronicity: acute Laterality: left Qualified Code(s): I82.412 - Acute embolism and thrombosis of left femoral vein (9) Smoker: (10) Nicotine dependence, cigarettes, with other nicotine-induced disorders: Plan Unstable angina Plan for angiogram on Tuesday Active chest pain Monitor troponin with serial EKGs Nonsignificant delta troponin Dr. Segundo has seen him Discussed with cardiology they are recommending angiogram on Tuesday because he took Xarelto Switch him to therapeutic Lovenox. Continue therapeutic Lovenox Hypertensive emergency Continue nitroglycerin drip Check drug screen Continue antihypertensive regimen Hold Xarelto Continue losartan and metoprolol Review of records: Patient has history of aortofemoral bypass, thrombophlebitis, DVT, endocarditis, patient is an active smoker, drinks alcohol occasionally, smokes marijuana Recently had a loop recorder placed by Dr. Sanya Jassop.oRadha at midnight today. Attestations Medical Necessity Statement*: More than 2 midnights anticipated Diagnoses Unstable angina I20.0 Malignant hypertension I10 CAD (coronary artery disease) I25.10 S/P aortobifemoral bypass surgery Z95.828 Peripheral artery disease I73.9 Vascular disease I99.9 Carotid artery occlusion I65.29 Acute deep vein thrombosis (DVT) of femoral vein of left lower extremity I82.412 DVT location: lower extremity Affected thrombotic vein of extremity: femoral Chronicity: acute Laterality: left Smoker F17.200 Nicotine dependence, cigarettes, with other nicotine-induced disorders F17.218
[2023-12-30] MEDS: amlodipine 5 mg Tablet PO (13:26)
[2023-12-30] MEDS: nicotine 14 mg Patch 1 PATCH TRANSDERMA (13:48)
[2023-12-30] MEDS: atorvastatin 40 mg Tablet PO (18:09)
[2023-12-30] MEDS: ipratropium-albuterol 3 mL Neb INHALATION (21:39)
[2023-12-31] VITALS (7 sets, daily range): BP systolic 109–129; BP diastolic 54–91; PULSE 65–79; RESP 12–18; TEMP 36.5–36.7; O2SAT 96–98; BMI 30.8
[2023-12-31 04:27] LABS: Basophils % 0.6 %; Eosinophils # 0.4 10^3/uL (0.0-0.8); Eosinophils % 6.3 %; Hematocrit 45.6 % (37-53); Lymphocytes # 2.6 10^3/uL (0.8-4.8); Lymphocytes % 41.9 %; Mean Corpuscular HGB Conc 32.5 g/dL (30-55); Mean Corpuscular Hemoglobin 30.1 pg (27-33); Mean Corpuscular Volume 92.7 fl (82-101); Mean Platelet Volume 9.1 fL (7.4-10.4); Monocytes # 0.7 10^3/uL (0.2-0.9); Neutrophils # 2.46 10^3/uL (1.8-7.7); Neutrophils % 39.9 %; Nucleated Red Blood Cells % 0 %; Platelet Count 201 10^3/cmm (157-399); Red Blood Count 4.92 10^6/uL (3.85-5.65); Red Cell Distribution Width 13.5 % (12.1-15.1); White Blood Count 6.18 10^3/uL (3.29-11.43)
[2023-12-31 04:44] LABS: Anion Gap 14.3 (5-19); Blood Urea Nitrogen 17 mg/dL (6-20); Calcium 9.1 mg/dL (8.5-10.5); Carbon Dioxide 23 mmol/L (22-29); Chloride 106 mmol/L (98-107); Creatinine Clr Calc Pharmacy 112.3813; Glomerular Filtration Rate 72.1 mL/min (90-130); Glucose 127 mg/dL (65-115); Magnesium 1.9 mg/dL (1.7-2.3); Osmolality Calculated 291 mOsm/kg (285-295); Potassium 4.3 mmol/L (3.5-5.1); Sodium 139 mmol/L (136-145)
[2023-12-31] MEDS: ipratropium-albuterol 3 mL Neb INHALATION (05:02)
[2023-12-31] MEDS: sodium chloride 0.9% 1,000 ML 50 ML IV (05:30)
[2023-12-31] MEDS: aspirin 325 mg Tablet PO (05:55)
[2023-12-31] MEDS: diphenhydrAMINE 50 mg Capsule PO (05:56)
--- NOTE | 2023-12-31 07:30 | XACV_ITS ---
Exam Room: 2 Ht: 191 cm Wt: 112 kg BSA: 2.45 m2 Gender: Male : 1975 Any Known Allergies: Other Exam Priority: Routine Procedure(s): Procedure Description: Diagnostic procedure Procedure Description: Left Heart Catheterization Procedure Description: Coronary IVUS Procedure Description: Coronary Angiography Diagnostic Cath Status: Elective Diagnostic Findings * INDICATION: Chest pain/abnormal stress test. * Left Main: Mild to moderate 30% stenosis, ANKIT: 3 flow. * Left Anterior Descending has mild luminal irregularities. * Circumflex has mild to moderate luminal irregularities. * Right Coronary Artery has no disease. * Coronary angiography shows right dominance. Interventional Findings * Procedure detail: After diagnostic testing, we proceeded with performing IVUS of left main artery. IV heparin was administered to maintain anticoagulation. 0.014 run-through guidewire was used to cross the stenosis and was put in distal LAD. We performed IVUS that showed a minimal luminal area of 7.3 mm2. As this is non-significant, medical therapy was decided. Guidewire and guide catheter were removed. Patient left the dock or pier laborer in a stable condition. . Conclusions 1. Mild to moderate left main artery stenosis. IVUS shows nonsignificant stenosis. Medical management.. Recommendations * Aggressive risk factor modification. * Outpatient cardiology follow up in 4 weeks. Interventional RX Recommendation: medical therapy and/or counseling Diagnostic RX Recommendation: medical therapy and/or counseling Anticoagulation: Heparin Pressures Phase:Rest AO : 85 / 55 ( 67 ) @ 7:59:00 AM 108 / 63 ( 79 ) @ 8:03:00 AM 108 / 63 ( 80 ) @ 8:03:00 AM LV : 131 / -7 / 9 @ 8:03:00 AM 139 / -6 / 12 @ 8:03:00 AM Valves Phase:DefaultPhase AV : 29.0 @ 8:27:48 AM AV Mean Gradient: 25.0 @ 8:27:48 AM Clinical Evaluation EBL: 5mL-10mL Procedural Details Procedure Consent Obtained. Current Diagnosis : NSTEMI. Pre-Procedure Time Out. Identified patient by full name and date of as verbalized by the patient/guarantor. Does the consent match the physician's order: Yes. Accurate & Complete Informed Consent: Yes. Inpatient/Outpatient History & Physical on Chart: Yes. If H&P is completed, is and addenduem needed: No; If yes, is the addendum complete: N/A. Visualize and Verify Site with Patient/Guarantor: N/A. Relevant Radiology Images available: Yes. Pre-op teaching completed and patient verbalized understanding. The risks, benefits, and alternatives of sedation and/or procedure were discussed by physician. The patient agrees to continue. Procedure started. [facility] Clinical Fraility Score: 3: Managing Well. Museum Exhibit Technician Indications: ACS > 24 hours. Chest Pain Symptom Assessment: Atypical Angina. Correct patient, site and procedure confirmed by cath team. Current diagnosis: NSTEMI. PERRLA. Strong, equal hand electrophysiology technician bilaterally. Lungs clear x 5 lobes. IV Site on Arrival: 18 gauge in the left anticubital. IV Site on Arrival: 20 gauge in the right forearm. IV Fluids: 0.9% NaCl at KVO. 0 mL infused prior to dock or pier laborer. Pre Procedural Pulses: bilateral dorsalis pedis was 3+. Pre Procedural Pulses: right radial was 3+. Pre Procedural Pulses: left radial was 1+. Oxygen started at 2liters/min via nasal canula. right groin was prepped with chloroprep then draped in the usual sterile fashion. right radial was prepped with chloroprep then draped in the usual sterile fashion. Baseline sample Acquired. HR: 57 BPM. Physician notified. Physician arrived. Physician scrubbed in. Immediate Pre-Procedure Time Out. Correct Patient: Yes; Correct Procedure: Yes; Correct Site: Yes; Correct Patient Position: Yes; Correct Supplies: Yes; Dried Flammable Prep: Yes; Blood Products Available: N/A;. Lidocaine 1% infiltrated to the right radial. Arterial access obtained. A 5 lao TIG catheter in over wire. The patient arrived to the [facility] with nitro running at 5mcg/min. Multiple views taken of left coronary artery. Catheter redirected to the RCA. Multiple views taken of right coronary artery. EDP Sample taken: LV 131/-8,9; HR: 72 BPM; SpO2: 97%. Pullback taken: LV 139/-7,12; AO 108/63(79); Mean: 25mmHg, Peak to Peak: 29mmHg, SEP: 22sec/min; HR: 78 BPM; SpO2: 97%. Catheter removed over the standard wire. 6 lao XB 3.5 guide catheter was inserted over the wire. Guide catheter out. 6 lao XB 3 guide catheter was inserted over the wire. Runthrough guidewire was advanced through the guide catheter to lesion in the LM/prox LAD. IVUS catheter inserted OTW. Measurements obtained. IVUS catheter and wire removed. Guide catheter out. Physician scrubbed out. A TR Band was successful obtaining hemostatsis at the Right Radial artery insertion site. Vital chart was stopped. Post Procedure: Pulses reassessed and unchanged. PERRLA. Strong, equal hand electrophysiology technician bilaterally. No VTE prophylaxis required. Medication's Wasted: Heparin = 49.8 mg. Medication's Wasted: Heparin = 2000 units. Medication's Wasted: Other = Fentanyl 50mcg Versed 1 mg. Total IV fluids: 35 mL. Complications: None. Estimated blood loss: 5mL-10mL. Responsiveness - Normal response to verbal stimuli; alert and oriented, PERRLA. Airway - Unaffected, no intervention required; spontaneous ventilation. Circulation: W/N/L, pulses unchanged. Nausea/Vomiting: No. Procedure completed. Patient transferred by bed to 1st floor. Access Site Site: Right Radial artery Sheath Size: 6 Fr Hemostasis Method: TR Band Hemostasis Success: Successful Procedure Medications Start: 7:52 AM Stop: 7:52 AM Medication: Versed 1 mg and Fentanyl 25 mcg Amount: 1 Route: I.V. Start: 7:56 AM Stop: 7:56 AM Medication: Nitrogylcerin Amount: 200 mcg Route: I.A. Start: 7:56 AM Stop: 7:56 AM Medication: Versed Amount: 1 mg Route: I.V. Start: 7:57 AM Stop: 7:57 AM Medication: Heparin Amount: 5000 units Route: I.V. Start: 8:05 AM Stop: 8:05 AM Medication: Heparin Amount: 4000 units Route: I.V. Start: 8:11 AM Stop: 8:11 AM Medication: Fentanyl Amount: 25 mcg Route: I.V. Start: 8:12 AM Stop: 8:12 AM Medication: Versed Amount: 1 mg Route: I.V. I, the attending physician, have reviewed and verified all procedure medications. Yes, all medications given per verbal order History/Risk Factors Hypertension: Yes Dyslipidemia: Yes Peripheral Arterial Disease (PAD): Yes Myocardial Infarction (RI): Yes Obesity: No Renal Disease: No Tobacco Use: Former Prior Interventions PCI: Yes CABG: No Valve Surgery: No Date of PCI: 11/21/2022 Report Signatures Finalized by Sandeep Alexander MD on 01/11/2024 11:50 AM
--- NOTE | 2023-12-31 07:52 | W.PM.OPSUD ---
Surgery/Procedure H&P Update DATE OF PROCEDURE: December 31, 2023 DATE H&P PERFORMED: 12/29/23 H&P UPDATE INFORMATION: I have reviewed H&P completed within last 30 days, I have examined patient prior to procedure and No changes to prior documentation PREOP DIAGNOSIS: Chest pain/abnormal stress test PRIMARY INDICATION FOR PROCEDURE: Chest pain/abnormal stress test PLANNED PROCEDURE: Operation Date: 12/31/23 08:00 Proposed Procedures p Cardiac Catheterization(Left) - Sandeep Alexander M.D Possible percutaneous coronary intervention PATIENT REASSESSED PRIOR TO SEDATION, WITH NO CHANGE NOTED: Yes PHYSICAL EXAM: alert, oriented x 3, clear to auscultation bilaterally and regular rate & rhythm AIRWAY EVAL/ANESTHESIA PLAN: normal airway, ASA II, Local Anesthesia, Risks, benefits & alternatives of sedation and/or procedure discussed and Patient agrees to continue as planned ADDITIONAL INFORMATION: Moderate sedation
--- NOTE | 2023-12-31 09:14 | P.PN_ITS ---
Subjective 2 Subjective: Patient not having active chest pain. Coronary angiogram performed that shows patent prior stent in RCA. Had mild to moderate left main artery stenosis. Confirmed with IVUS to be nonsignificant. Vitals/I&O/Wt Last Vital Signs Temp 97.8 F 12/31/23 05:57 Pulse 74 12/31/23 06:00 Resp 14 12/31/23 05:57 BP 126/64 12/31/23 05:57 Pulse Ox 97 12/31/23 05:57 O2 Del Method Room Air 12/31/23 05:57 12/30/23 12/31/23 12/31/23 22:59 06:59 14:59 Intake Total 0 / 240 Balance 0 / 240 Weight last 48 hrs Weight 246 lb 11.2 oz Weight 242 lb 7 oz Weight 242 lb 7 oz Weight 230 lb Physical Exam 2 Narrative: GENERAL: Patient is alert, awake and oriented x3. [] NECK: No jugular vein distension. [] HEENT: No cyanosis. No icterus. No pallor. [] HEART: Regular S1 and S2. No murmur, rub or gallop. [] LUNGS: Clear to auscultate bilaterally. [] CENTRAL NERVOUS SYSTEM: Grossly nonfocal. [] EXTREMITIES: Lower extremities with 1+ edema bilaterally. Data 12/31/23 04:06 12/31/23 04:06 A&P Assessment and plan (1) Atherosclerotic heart disease of [place] coronary artery with unstable angina pectoris: Qualifiers: [place] vs. transplanted heart: [place] heart Qualified Code(s): I25.110 - Atherosclerotic heart disease of [place] coronary artery with unstable angina pectoris (2) Hypertension: Qualifiers: Hypertension type: primary hypertension Qualified Code(s): I10 - Essential (primary) hypertension (3) Hyperlipidemia: Qualifiers: Hyperlipidemia type: unspecified Qualified Code(s): E78.5 - Hyperlipidemia, unspecified (4) Recurrent syncope: (5) Nicotine dependence, cigarettes, with other nicotine-induced disorders: (6) S/P aortobifemoral bypass surgery: (7) DVT (deep venous thrombosis): Qualifiers: DVT location: lower extremity Affected thrombotic vein of extremity: f emoral Chronicity: acute Laterality: left Qualified Code(s): I82.412 - Acute embolism and thrombosis of left femoral vein Plan With the patient's continued chest discomfort, concern was of unstable angina. Coronary angiogram today does not reveal obstructive CAD. He has been having symptoms of headache and dizziness with isosorbide. He can stop that and start Ranexa 500 mg twice daily. Resume Xarelto tonight. Patient is stable to discharge from cardiology standpoint. Please call with questions. Attestations 2 Medical Necessity Statement*: Care expected to cross 2 midnights. Coding Level of Care Code Acute Code for [facility] Diagnoses Atherosclerosis of [place] coronary artery of [place] heart with unstable angina pectoris I25.110 [place] vs. transplanted heart: [place] heart Primary hypertension I10 Hypertension type: primary hypertension Hyperlipidemia, unspecified hyperlipidemia type E78.5 Hyperlipidemia type: unspecified Recurrent syncope R55 Nicotine dependence, cigarettes, with other nicotine-induced disorders F17.218 S/P aortobifemoral bypass surgery Z95.828 Acute deep vein thrombosis (DVT) of femoral vein of left lower extremity I82.412 DVT location: lower extremity Affected thrombotic vein of extremity: femoral Chronicity: acute Laterality: left
[2023-12-31] MEDS: aspirin 81 mg EC Tablet PO (09:20)
[2023-12-31] MEDS: pantoprazole DR 40 mg Tablet PO (09:20)
[2023-12-31] MEDS: amlodipine 5 mg Tablet PO (09:21)
[2023-12-31] MEDS: metoprolol tartrate 25 mg Tablet PO (09:21)
[2023-12-31] MEDS: losartan 50 mg Tablet PO (09:21)
[2023-12-31] MEDS: nicotine 14 mg Patch 1 PATCH TRANSDERMA (09:22)
--- NOTE | 2023-12-31 12:24 | PC.NURSE ---
return from cardiac manager lab at 0835.no intervention performed.pt is alert and awake.sr on monitor.denies pain at present.right wrist with tr band on and inflated.right hand is warm to touch and with brisk capillary refill.no hematoma noted.palpable radial pulse noted distal to tr band.pt instructed in activity restrictions sp radial artery procedure and instructed to notify staff for any bleeding,pain,,sob,numbness...or for any concerns at all.pt verb understanding of instructions
--- NOTE | 2023-12-31 14:47 | PM.DCS ---
Discharge Providers Date of Admission: 12/29/23 16:57 Date of Discharge: December 31, 2023 Attending Provider at Admission: Ct Kwon MD Attending Provider at Discharge: Ct Kwon MD Primary Care Provider: Ceci Tatum Diagnoses at Discharge Discharge Diagnosis (1) Atherosclerotic heart disease of [place] coronary artery with unstable angina pectoris: Status: Acute Qualifiers: [place] vs. transplanted heart: [place] heart Qualified Code(s): I25.110 - Atherosclerotic heart disease of [place] coronary artery with unstable angina pectoris (2) Hypertension: Status: Chronic Qualifiers: Hypertension type: primary hypertension Qualified Code(s): I10 - Essential (primary) hypertension (3) Hyperlipidemia: Status: Acute Qualifiers: Hyperlipidemia type: unspecified Qualified Code(s): E78.5 - Hyperlipidemia, unspecified (4) Recurrent syncope: Status: Resolved (5) Nicotine dependence, cigarettes, with other nicotine-induced disorders: Status: Acute (6) S/P aortobifemoral bypass surgery: Status: Acute (7) DVT (deep venous thrombosis): Status: Acute Qualifiers: Affected thrombotic vein of extremity: femoral Chronicity: acute DVT location: lower extremity Laterality: left Qualified Code(s): I82.412 - Acute embolism and thrombosis of left femoral vein Reason for Visit Reason for Visit: chest pain Hospital Course Hospital Course Patient was admitted for unstable angina. He was evaluated by cardiology during hospital stay. Also had hypertensive emergency. Was placed on a nitroglycerin drip. He underwent cardiac cath which showed patent prior stent in RCA. He did have mild to moderate left main artery stenosis. IVUS to be nonsignificant. Patient was discharged home on Ranexa. Imdur was stopped. He was asked to follow-up with cardiology as outpatient. 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 CLERK request for service Routine Exams 12/31/23 07:30 Taken Laboratory Results WBC 6.18 10^3/uL (3.29-11.43) 12/31/23 04:06 RBC 4.92 10^6/uL (3.85-5.65) 12/31/23 04:06 Hgb 14.80 g/dL (11.27-16.99) 12/31/23 04:06 Hct 45.6 % (37-53) 12/31/23 04:06 MCV 92.7 fl (82-101) 12/31/23 04:06 MCH 30.1 pg (27-33) 12/31/23 04:06 MCHC 32.5 g/dL (30-55) 12/31/23 04:06 RDW 13.5 % (12.1-15.1) 12/31/23 04:06 Plt Count 201 10^3/cmm (157-399) 12/31/23 04:06 MPV 9.1 fL (7.4-10.4) 12/31/23 04:06 Neut % (Auto) 39.9 % 12/31/23 04:06 Lymph % (Auto) 41.9 % 12/31/23 04:06 [place] % (Auto) 11.0 % 12/31/23 04:06 Eos % (Auto) 6.3 % 12/31/23 04:06 Baso % (Auto) 0.6 % 12/31/23 04:06 Neut # (Auto) 2.46 10^3/uL (1.8-7.7) 12/31/23 04:06 Lymph # (Auto) 2.6 10^3/uL (0.8-4.8) 12/31/23 04:06 [place] # (Auto) 0.7 10^3/uL (0.2-0.9) 12/31/23 04:06 Eos # (Auto) 0.4 10^3/uL (0.0-0.8) 12/31/23 04:06 Baso # (Auto) 0.0 10^3/uL (0.0-0.1) 12/31/23 04:06 Nucleated RBC % (auto) 0 % 12/31/23 04:06 Nucleated RBCs # 0.0 /100WBC 12/31/23 04:06 Sodium 139 mmol/L (136-145) 12/31/23 04:06 Potassium 4.3 mmol/L (3.5-5.1) 12/31/23 04:06 Chloride 106 mmol/L (98-107) 12/31/23 04:06 Carbon Dioxide 23 mmol/L (22-29) 12/31/23 04:06 Anion Gap 14.3 (5-19) 12/31/23 04:06 BUN 17 mg/dL (6-20) 12/31/23 04:06 Creatinine 1.1 mg/dL (0.7-1.2) 12/31/23 04:06 GFR Calculation 72.1 mL/min (90-130) L 12/31/23 04:06 Glucose 127 mg/dL (65-115) H 12/31/23 04:06 Estimat Average Glucose 120 12/29/23 12:20 Hemoglobin A1c 5.8 % (4.0-6.0) 12/29/23 12:20 Calculated Osmolality 291 mOsm/kg (285-295) 12/31/23 04:06 Lactic Acid 1.7 mmol/L (0.5-2.2) 12/29/23 20:49 Calcium 9.1 mg/dL (8.5-10.5) 12/31/23 04:06 Magnesium 1.9 mg/dL (1.7-2.3) 12/31/23 04:06 Total Bilirubin 0.4 mg/dL (0.15-1.2) 12/30/23 04:06 AST 16 U/L (0-40) 12/30/23 04:06 ALT 12 U/L (0-41) 12/30/23 04:06 Alkaline Phosphatase 148 U/L (40-130) H 12/30/23 04:06 Troponin T Baseline < 6 ng/L (0-15) 12/29/23 12:20 Troponin T 120 Minute 10.94 ng/L (0-15) 12/29/23 14:17 Delta Troponin T 4.17443 ABS# (0-10) 12/29/23 14:17 Troponin T Hi Sens 6Hr 7.70 ng/L (0-15) 12/29/23 21:26 Troponin T Hi Sens 6Hr Delta 1.87667 ng/L (0-12) 12/29/23 21:26 C-Reactive Protein 5.8 mg/L (0.0-4.9) H 12/30/23 04:06 Total Protein 7.2 g/dL (6.6-8.7) 12/30/23 04:06 Albumin 4.2 g/dL (3.5-5.2) 12/30/23 04:06 Globulin 3.0 g/dL (1.3-4.6) 12/30/23 04:06 TSH 1.54 uIU/mL (0.27-4.20) 12/29/23 12:20 Urine Opiates Screen Negative ng/mL (Negative) 12/29/23 20:38 Ur Barbiturates Screen Negative ng/mL (Negative) 12/29/23 20:38 Ur Phencyclidine Scrn Negative ng/mL (Negative) 12/29/23 20:38 Ur Amphetamines Screen Negative ng/mL (Negative) 12/29/23 20:38 U Benzodiazepines Scrn Negative ng/mL (Negative) 12/29/23 20:38 Urine Cocaine Screen Negative ng/mL (Negative) 12/29/23 20:38 U Marijuana (THC) Screen Positive ng/mL (Negative) H 12/29/23 20:38 Vitals Last Vital Signs Temp 97.7 F 12/31/23 11:38 Pulse 66 12/31/23 11:38 Resp 12 12/31/23 11:38 BP 128/62 12/31/23 11:38 Pulse Ox 98 12/31/23 11:38 O2 Del Method Room Air 12/31/23 11:38 Discharge Plan Discharge Patient Disposition: Home Condition: Stable Prescriptions: New aspirin 81 mg Tablet,Delayed Release (Dr/Ec) 81 mg PO DAILY Qty: 30 0RF pantoprazole 40 mg Tablet,Delayed Release (Dr/Ec) 40 mg PO DAILY Qty: 30 0RF ranolazine 500 mg Tablet Extended Release 12 Hr 500 mg PO BID Qty: 60 0RF Continued atorvastatin 80 mg tablet 80 mg PO QPM Qty: 90 3RF nitroglycerin 0.4 mg tablet, sublingual 0.4 mg sublingual Q5M PRN (Reason: chest pain) Qty: 30 5RF Rx Instructions: do not exceed 3 doses per episode Spiriva with HandiHaler 18 mcg capsule, w/inhalation device 1 cap inhalation DAILY Qty: 60 0RF Rx Instructions: puncture 1 cap using device; one dose = 2 inhalations valsartan 80 mg tablet 80 mg PO DAILY Qty: 30 3RF metoprolol tartrate 25 mg tablet 25 mg PO BID Qty: 180 3RF Advair Diskus 500-50 mcg/dose blister with device 1 inh INHALATION BID Xarelto 20 mg tablet 20 mg PO DAILY albuterol sulfate [Ventolin HFA] 90 mcg/actuation HFA aerosol inhaler 1 - 2 puff INHALATION Q6H PRN (Reason: Shortness Of Breath) Discontinued isosorbide mononitrate 20 mg tablet 30 mg PO DAILY Discharge Orders: Discharge Order (Routine); Ordered 12/31/23 Ordered By: Ct Kwon Referrals: Colin Segundo MD [Physician] - 1 month (Your Dr. Segundo appointment will be scheduled during your Anna Norton appointment. You can call [phone] if you have any questions or concerns. Thank you.) Ceci Tatum FNP [Primary Care Provider] - (Please call Ceci Tatum's Office on Tuesday at [phone] on Tuesday to schedule a follow up appointment. Thank you.) Anna Norton FNP [Nurse Practitioner] - (Anna Norton's Office has your information and will be calling you to schedule a follow up appointment. If you have any questions or concerns, you can call them at the number listed. Thank you.) Discharge Diet: Cardiac Discharge Activity: Limit activity as instructed Patient Instructions: Aspirin (By mouth) (Joni Extra Strength, Joni Aspirin Children's,..., Pantoprazole (By mouth) (Protonix), Ranolazine (By mouth) (Ranexa, Aspruzyo), Coronary Angioplasty (DC), Chronic Hypertension (DC), Chest Pain Stoplight, Opioid Safety, Post Angiogram Home Care Instructions Discharge Attestations Time Spent in Discharge Care*: greater than 30 min Status at Discharge: Cognitive status at discharge: cognitively intact, Behavioral status at discharge: cooperative, Quality Metrics Clinical Quality Measures [ No reported AMI, CVA or VTE this stay] Coding Level of Care Code 38831 Total time (in minutes) for Discharge: 30 Diagnoses Atherosclerosis of [place] coronary artery of [place] heart with unstable angina pectoris I25.110 [place] vs. transplanted heart: [place] heart Primary hypertension I10 Hypertension type: primary hypertension Hyperlipidemia, unspecified hyperlipidemia type E78.5 Hyperlipidemia type: unspecified Recurrent syncope R55 Nicotine dependence, cigarettes, with other nicotine-induced disorders F17.218 S/P aortobifemoral bypass surgery Z95.828 Acute deep vein thrombosis (DVT) of femoral vein of left lower extremity I82.412 Affected thrombotic vein of extremity: femoral Chronicity: acute DVT location: lower extremity Laterality: left
--- NOTE | 2023-12-31 15:25 | PC.NURSE ---
discharge instructions given and explained.pt verb understanding of instructions.discharged via w/c to exit at this time.friend to drive pt home.
== END 2023-12-31 15:27 | disposition home or self-care (01) | DRG 287 ==
LOC: ER 12:21 → CSU 18:06
PROVIDERS: Internal Medicine; Admitting Provider Internal Medicine; Emergency Provider Family Medicine; PCP Nurse Practitioner Family; Visit Provider Internal Medicine
PROC: 4A023N7 Measurement of Cardiac Sampling and Pressure, Left Heart, Percutaneous Approach (ICD-10-PCS; principal; 2023-12-31 08:00)
PROC: 4A023N7 Measurement of Cardiac Sampling and Pressure, Left Heart, Percutaneous Approach (ICD-10-PCS; 2023-12-31 08:00)
DX: I25.10 Atherosclerotic heart disease of native coronary artery without angina pectoris (principal); I16.1 Hypertensive emergency; I10 Essential (primary) hypertension; E78.5 Hyperlipidemia, unspecified; I73.9 Peripheral vascular disease, unspecified; F17.200 Nicotine dependence, unspecified, uncomplicated; F10.90 Alcohol use, unspecified, uncomplicated; F12.90 Cannabis use, unspecified, uncomplicated; F43.10 Post-traumatic stress disorder, unspecified; J44.9 Chronic obstructive pulmonary disease, unspecified; Z79.01 Long term (current) use of anticoagulants; Z95.5 Presence of coronary angioplasty implant and graft; Z86.73 Personal history of transient ischemic attack (TIA), and cerebral infarction without residual deficits; Z98.890 Other specified postprocedural states; Z86.718 Personal history of other venous thrombosis and embolism
CPT/HCPCS: 36415; 71045; 80048; 80053; 80306; 83036; 83605; 83735; 84443; 84484; 85025; 86140; 92978; 93005; 93458; 94640; 96372; 99152; 99153; 99285; C1753; C1769; C1887; C1894; J1644; J1650; J2250; J3010; J3490; J7030; Q0163; Q9967

== ENCOUNTER 2024-01-02 15:53 | Outpatient (CLI) | payer MEDICAID, SELFPAY ==
--- NOTE | 2024-01-02 16:30 | CT_ITS ---
WS: [id number] CTA HEAD AND NECK TECHNIQUE: Contrast enhanced CTA of the head and neck with coronal and sagittal reformatted images an d maximum intensity projection (MIP) images. NASCET criteria utilized. CLINICAL INFORMATION: left carotid occlusion, collaterals COMPARISON: CTA 05/13/2023 DLP: 1660.[address] scans at [facility] use at least one of these dose optimization techniques: automated e xposure control; mA and/or kV adjustment per patient size (includes targeted exams where dose is matc hed to clinical indication); or iterative reconstruction. FINDINGS: No evidence of intracranial hemorrhage or mass effect. Ventricular system and basal cistern s are patent. Normal shore-white differentiation. No hydrocephalus. Paranasal sinuses and mastoid air cells are well aerated. RIGHT: RIGHT common carotid artery is patent. No significant RIGHT ICA stenosis. RIGHT ICA is patent to the skull base. Mild atheromatous plaque RIGHT carotid bulb extending into the ICA. 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 Reconstitution of the ECA vi a collaterals. LEFT ICA remains occluded to the skull base. Petrous and cavernous ICAs are occluded. Reconstitution of the supraclinoid ICA via cross-filling from a patent anterior communicating artery and patent posterior communicating artery. Relatively normal vascularity to the [place] and MCA territori es bilaterally. Both vertebral arteries are patent. RIGHT dominant vertebral artery. Basilar artery is patent. Normal vascularity to the ACETYLENE TORCH OPERATOR territory bilaterally. Paranasal sinuses and mastoid air cells are well aerated. Lung apices are well aerated. IMPRESSION: 1. No significant RIGHT ICA stenosis. Mild atheromatous plaque RIGHT carotid bulb extending into the ICA. 2. Known occlusion of the LEFT common carotid artery and internal carotid arteries. Reconstitution o f the LEFT ECA via collaterals. 3. LEFT MCA territory is supplied via cross-filling from the anterior communicating artery and paten t LEFT posterior communicating artery. 4. RIGHT dominant vertebral artery. Both vertebrals are patent. Basilar artery is patent. 5. No other acute findings.
[2024-01-02] MEDS: iohexol 350 mg/mL 500 mL Btl (per mL) IV (16:49)
== END 2024-01-02 15:54 | disposition home or self-care (01) ==
LOC: RAD 15:53
PROVIDERS: PCP Nurse Practitioner Family; Visit Provider Nurse Practitioner Family
DX: I65.23 Occlusion and stenosis of bilateral carotid arteries (principal)
CPT/HCPCS: 70496; 70498; Q9967

== ENCOUNTER → 2024-01-09 13:51 | Outpatient (BNVA) | payer MEDICAID, SELFPAY | PROVIDERS: PCP Nurse Practitioner Family; Visit Provider Nurse Practitioner Family | DX: I25.118 Atherosclerotic heart disease of native coronary artery with other forms of angina pectoris (principal); Z87.891 Personal history of nicotine dependence; I10 Essential (primary) hypertension | CPT/HCPCS: 99214 ==

== ENCOUNTER 2024-01-23 12:35 | Outpatient (CLI) | payer MEDICAID, SELFPAY ==
--- NOTE | 2024-01-23 12:41 | XRR_ITS ---
PROCEDURE INFORMATION: Exam: XR Chest Exam date and time: 01/23/2024 12:45 PM Age: 48 years old Clinical indication: Pain; Cough; Chest pressure; Prior surgery; Surgery date: 6+ months; Surgery type: Loop recorder, stents; Additional info: Chest pain/cough TECHNIQUE: Imaging protocol: Radiologic exam of the chest. Views: 2 views. COMPARISON: CR XR chest 1V portable [id number] 12/29/2023 12:21 PM FINDINGS: Tubes, catheters and devices: Unchanged electronic loop recorder projecting over the left hemithorax. Lungs: Unremarkable. No consolidation. Pleural spaces: Unremarkable. No pleural effusion. No pneumothorax. Heart/Mediastinum: Unremarkable. No cardiomegaly. Bones/joints: Unchanged mild scoliosis. XR/XR chest 2V* [id number] IMPRESSION: No acute disease.
== END 2024-01-23 12:36 | disposition home or self-care (01) ==
LOC: RAD 12:37
PROVIDERS: PCP Nurse Practitioner Family; Visit Provider Nurse Practitioner Family
DX: R07.9 Chest pain, unspecified (principal); R05.8 Other specified cough
CPT/HCPCS: 71046

== ENCOUNTER → 2024-03-07 15:55 | Outpatient (BNVA) | payer MEDICAID, SELFPAY | PROVIDERS: PCP Nurse Practitioner Family; Visit Provider Internal Medicine Cardiovascular Disease | DX: Z45.09 Encounter for adjustment and management of other cardiac device (principal) | CPT/HCPCS: 93298 ==

== ENCOUNTER → 2024-03-21 09:45 | Outpatient (BNVA) | payer MEDICAID, SELFPAY | PROVIDERS: PCP Nurse Practitioner Family; Visit Provider Internal Medicine Pulmonary Disease | DX: J43.9 Emphysema, unspecified (principal); R06.02 Shortness of breath; Z87.891 Personal history of nicotine dependence; I25.118 Atherosclerotic heart disease of native coronary artery with other forms of angina pectoris | CPT/HCPCS: 99214 ==

== ENCOUNTER 2024-04-14 08:16 | Emergency (ER) | payer MEDICAID, SELFPAY ==
[2024-04-14 08:31] VITALS: BP 182/103; PULSE 98; RESP 16; TEMP 37.1; O2SAT 98; BMI 28.7
--- NOTE | 2024-04-14 08:37 | XRR_ITS ---
PROCEDURE INFORMATION: Exam: XR Left Hand Exam date and time: 04/14/2024 8:53 AM Age: 48 years old Clinical indication: Pain; Hand; Left TECHNIQUE: Imaging protocol: Radiologic exam of the left hand. Views: 1 or 2 views. COMPARISON: No relevant prior studies available. FINDINGS: Bones/joints: Normal. Soft tissues: Normal. XR/XR hand LT 2V [id number] IMPRESSION: No acute findings.
--- NOTE | 2024-04-14 08:38 | XRR_ITS ---
PROCEDURE INFORMATION: Exam: XR Right Hand Exam date and time: 04/14/2024 8:51 AM Age: 48 years old Clinical indication: Pain; Hand; Right TECHNIQUE: Imaging protocol: Radiologic exam of the right hand. Views: 1 or 2 views. COMPARISON: No relevant prior studies available. FINDINGS: Bones/joints: Normal. Soft tissues: Normal. XR/XR hand RT 2V [id number] IMPRESSION: No acute findings.
--- NOTE | 2024-04-14 09:24 | ED_ITS ---
HPI - Wound/Laceration General: Chief Complaint: Wound/Laceration Stated Complaint: finger/hand pain Time Seen by Provider: 04/14/24 08:33 Source: patient Mode of arrival: ambulatory History of Present Illness: 48-year-old male presents emergency room with his 2 complaints once he caught his hands in a ceiling fan earlier in the week he has some redness and inflammation that seems to be moving proximally on from the PIP joint on the right fourth finger. He has no fever sweats chills he also has some plascencia crusting wounds on the right lower lip, in the suboccipital area on the right. He states these have been there for some time he is not really treated them with anything. Onset (ago): day(s) Location: face and neck Extremity Location: Bilateral: hand Place: home Patient tetanus UTD: Yes Associated symptoms: Denies chills or fever(s) Review of Systems Const: Denies: fever(s) or chills PFSH ED PFSH: Medical History DVT (deep venous thrombosis) Carotid artery occlusion Syncope and collapse Left upper extremity deep vein thrombosis Peripheral artery disease Nicotine dependence, cigarettes, with other nicotine-induced disorders History of cardiac monitoring 2 week event monitor in 05/2022 with baseline sinus rhythm, episodes of sinus tachycardia from 132-165 noted History of cardiovascular stress test 11/25/2020 Exercise Stress test with Stress Echo - No exercise induced chest pain or ekg changes, suboptimal exercise for age, hypertensive exercise response History of PFTs 05/2020 Severe airflow obstruction, no significant post dilator response, lung volumes consistent with air trapping. Normal DLCO. PTSD (post-traumatic stress disorder) Intermittent explosive disorder Bipolar disorder Left carotid artery occlusion AF (amaurosis fugax) CVA (cerebral vascular accident) (~10/2020) LEFT supraventricular frontal lobe COPD (chronic obstructive pulmonary disease) Hyperlipidemia Hypertension Asthma Surgical History S/P aortobifemoral bypass surgery H/O inguinal hernia repair Family History Mother Sarcoid Other Asthma CAD (coronary artery disease) Cancer Emphysema/COPD Hyperlipidemia Hypertension Stroke Denies family history of Clotting disorder Chronic kidney disease (CKD) Anesthesia complication Bleeding disorder Family history of premature coronary artery disease Social History Smoking and tobacco/nicotine status: former use of tobacco/nicotine Quit status (tobacco/nicotine): has quit using Year quit tobacco: 2021 Former quit date comment: 1-2ppd x 32 years Second hand smoke exposure: Yes Alcohol intake: current Alcohol intake frequency: holidays/special occasions only Substance/Drug Use: current Lives independently: Yes Household members: other Details: room mate Housing: House Marital status: service: No 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 Course Vital Signs: Vital signs: Vital Signs Temperature 98.7 F 04/14/24 08:31 Pulse Rate 93 04/14/24 09:36 Respiratory Rate 16 04/14/24 08:31 Blood Pressure 182/103 04/14/24 08:31 Pulse Oximetry 98 04/14/24 09:36 Oxygen Delivery Me thod Room Air 04/14/24 08:31 MDM - Wound/Laceration Medical Decision Making Patient has a couple areas that look like staph infection 1 in the base of the occiput on the right side no other on the right lower lip and the last 1 on the right fourth finger with some lymphangitic spread proximally over the dorsum of the hand there is a small abrasion on the dorsum of the PIP joint. Was also an abrasion over the left fourth digit over the PIP joint no redness at this lesion. Discharge the patient home with Bactrim 1 p.o. twice daily and apply mupirocin to wound twice daily Medical Records I reviewed the patient's medical records. Lab Data I reviewed the patient's lab results. Radiology Impressions Hand X-Ray 04/14/24 08:38 IMPRESSION: No acute findings. All radiology interpretation(s) finalized by discharge Discharge Plan Discharge Patient Disposition: Home Clinical Impression: Staph skin infection Condition: Stable Prescriptions: New Bactrim DS 800-160 mg tablet 1 tab PO BID 10 Days Qty: 20 0RF mupirocin 2 % ointment 1 applic topical BID Qty: 22 0RF No Action atorvastatin 80 mg tablet 80 mg PO QPM Qty: 90 3RF nitroglycerin 0.4 mg tablet, sublingual 0.4 mg sublingual Q5M PRN (Reason: chest pain) Qty: 30 5RF Rx Instructions: do not exceed 3 doses per episode Spiriva with HandiHaler 18 mcg capsule, w/inhalation device 1 cap inhalation DAILY Qty: 60 0RF Rx Instructions: puncture 1 cap using device; one dose = 2 inhalations metoprolol tartrate 25 mg tablet 25 mg PO BID Qty: 180 3RF valsartan 80 mg tablet 80 mg PO DAILY Qty: 30 3RF Advair Diskus 500-50 mcg/dose blister with device 1 inh INHALATION BID Xarelto 20 mg tablet 20 mg PO DAILY aspirin 81 mg Tablet,Delayed Release (Dr/Ec) 81 mg PO DAILY Qty: 30 0RF pantoprazole 40 mg Tablet,Delayed Release (Dr/Ec) 40 mg PO DAILY Qty: 30 0RF ranolazine 500 mg Tablet Extended Release 12 Hr 500 mg PO BID Qty: 60 0RF albuterol sulfate [Ventolin HFA] 90 mcg/actuation HFA aerosol inhaler 1 - 2 puff INHALATION Q6H PRN (Reason: Shortness Of Breath) Discharge Orders: Discharge ED (Routine); Ordered 04/14/24 Ordered By: Jacob Moses Referrals: Ceci Tatum, DY[employer] SOLUTION ARCHITECT [Primary Care Provider] - Discharge Diet: Usual diet Discharge Activity: Resume usual activity and Limit activity as instructed Patient Instructions: Opioid Safety, Pain Management Activity Restrictions/Additional Instructions: Thank you for choosing [facility] for your healthcare needs today. It is very important that you follow up as instructed or that you return to the Emergency Department should you have concerns or if your condition changes or worsens in any way. You were seen today for several sores on head face and hands. The ones in the head and face and on your right hand particularly look to be infected recommend you start oral antibiotics and topical antibiotics. You are also noted to have a significantly elevated blood pressure you should follow-up with your primary care doctor regarding this. X-rays your hands did not show any fractures. Coding Level of Care Code ED [employer] Instructor for Mary Rey
[2024-04-14] MEDS: tetanus-dipt-pertussis 0.5 mL SDV IM (09:34)
[2024-04-14 09:36] VITALS: PULSE 93; O2SAT 98
== END 2024-04-14 09:37 | disposition home or self-care (01) ==
PROVIDERS: Emergency Provider Family Medicine; PCP Nurse Practitioner Family
DX: A49.01 Methicillin susceptible Staphylococcus aureus infection, unspecified site (principal); Z79.82 Long term (current) use of aspirin; Z87.891 Personal history of nicotine dependence; Z86.73 Personal history of transient ischemic attack (TIA), and cerebral infarction without residual deficits; J44.9 Chronic obstructive pulmonary disease, unspecified; E78.5 Hyperlipidemia, unspecified; I10 Essential (primary) hypertension; Z23 Encounter for immunization; S60.414A Abrasion of right ring finger, initial encounter; W31.89XA Contact with other specified machinery, initial encounter
CPT/HCPCS: 73120; 90715; 99283

== ENCOUNTER → 2024-04-18 10:44 | Outpatient (BNVA) | payer MEDICAID, SELFPAY | PROVIDERS: PCP Nurse Practitioner Family; Visit Provider Internal Medicine Cardiovascular Disease | DX: I12.9 Hypertensive chronic kidney disease with stage 1 through stage 4 chronic kidney disease, or unspecified chronic kidney disease (principal); N17.9 Acute kidney failure, unspecified; N18.9 Chronic kidney disease, unspecified; I48.91 Unspecified atrial fibrillation; Z79.01 Long term (current) use of anticoagulants; E78.5 Hyperlipidemia, unspecified; F17.218 Nicotine dependence, cigarettes, with other nicotine-induced disorders; I73.9 Peripheral vascular disease, unspecified; I99.9 Unspecified disorder of circulatory system; I25.118 Atherosclerotic heart disease of native coronary artery with other forms of angina pectoris; I65.29 Occlusion and stenosis of unspecified carotid artery; I82.412 Acute embolism and thrombosis of left femoral vein; Z95.828 Presence of other vascular implants and grafts; I25.2 Old myocardial infarction; Z79.82 Long term (current) use of aspirin | CPT/HCPCS: 99214 ==

== ENCOUNTER → 2024-04-25 10:18 | Outpatient (BNVA) | payer MEDICAID, SELFPAY | PROVIDERS: PCP Nurse Practitioner Family; Visit Provider Internal Medicine Cardiovascular Disease | DX: Z45.09 Encounter for adjustment and management of other cardiac device (principal) | CPT/HCPCS: 93296; 93298 ==

== ENCOUNTER 2024-05-02 08:14 | Emergency (ER) | payer MEDICAID, SELFPAY ==
[2024-05-02 08:31] VITALS: BP 170/93; PULSE 74; RESP 18; TEMP 37.6; O2SAT 96; BMI 29.9
--- NOTE | 2024-05-02 08:53 | PC.NURSE ---
PATIENT HAD TETANUS VACCINATION TWO WEEK AGO AT OUR FACILITY. DR. FULLER INFORMED, PER VERBAL ORDER DR. FULLER, CANCEL TETANUS VACCINE.
[2024-05-02] MEDS: rabies IG 300 unit/mL SDV 1 mL 2190 UNIT IM (09:41)
[2024-05-02] MEDS: rabies vaccine 2.5 unit SDV IM (09:42)
--- NOTE | 2024-05-02 10:02 | W.ED.ANIMALB ---
HPI - Animal Bite General: Chief Complaint: Animal Bite Stated Complaint: dog bite right hand Time Seen by Provider: 05/02/24 08:27 Source: patient Mode of arrival: ambulatory History of Present Illness: 48-year-old male presents to the emergency room he was walking last night and was attacked by a stray dog it bit him on the right hand. He has swelling redness and pain he watched it overnight had worsening discomfort this morning slight increase in swelling no purulent drainage. The dog is a stray and is unknown whether or not his had any shots. MD complaint: animal bite PFS ED PFSH: Medical History DVT (deep venous thrombosis) Carotid artery occlusion Syncope and collapse Left upper extremity deep vein thrombosis Peripheral artery disease Nicotine dependence, cigarettes, with other nicotine-induced disorders History of cardiac monitoring 2 week event monitor in 05/2022 with baseline sinus rhythm, episodes of sinus tachycardia from 132-165 noted History of cardiovascular stress test 11/25/2020 Exercise Stress test with Stress Echo - No exercise induced chest pain or ekg changes, suboptimal exercise for age, hypertensive exercise response History of PFTs 05/2020 Severe airflow obstruction, no significant post dilator response, lung volumes consistent with air trapping. Normal DLCO. PTSD (post-traumatic stress disorder) Intermittent explosive disorder Bipolar disorder Left carotid artery occlusion AF (amaurosis fugax) CVA (cerebral vascular accident) (~10/2020) LEFT supraventricular frontal lobe COPD (chronic obstructive pulmonary disease) Hyperlipidemia Hypertension Asthma Surgical History S/P aortobifemoral bypass surgery H/O inguinal hernia repair Family History Mother Sarcoid Other Asthma CAD (coronary artery disease) Cancer Emphysema/COPD Hyperlipidemia Hypertension Stroke Denies family history of Clotting disorder Chronic kidney disease (CKD) Anesthesia complication Bleeding disorder Family history of premature coronary artery disease Social History Smoking and tobacco/nicotine status: current every day tobacco/nicotine user Quit status (tobacco/nicotine): has quit using Year quit tobacco: 2021 Former quit date comment: 1-2ppd x 32 years Second hand smoke exposure: Yes Alcohol intake: current Alcohol intake frequency: holidays/special occasions only Substance/Drug Use: current Lives independently: Yes Household members: other Details: room mate Housing: House Marital status: service: No 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 No active bleeding no laceration. No induration no redness no drainage no erythema no epitrochlear lymph nodes patient is some mild discomfort around the area of the bite but is able to flex and extend thumb and index finger. Course Vital Signs: Vital signs: Vital Signs Temperature 99.6 F 05/02/24 08:31 Pulse Rate 74 05/02/24 08:31 Respiratory Rate 18 05/02/24 08:31 Blood Pressure 170/93 05/02/24 08:31 Pulse Oximetry 96 05/02/24 08:31 Oxygen Delivery Me thod Room Air 05/02/24 08:31 MDM - Animal Bite Medical Decision Making Dog bite unknown vaccination status. Set up for usual course of vaccinations for rabies. Started on Augmentin to discharge return if has further problems. Lab Data 05/02/24 09:45 05/02/24 09:45 Laboratory Results WBC 10.69 10^3/uL (3.29-11.43) 05/02/24 09:45 RBC 4.10 10^6/uL (3.85-5.65) 05/02/24 09:45 Hgb 12.70 g/dL (11.27-16.99) 05/02/24 09:45 Hct 39.7 % (37-53) 05/02/24 09:45 MCV 96.8 fl (82-101) 05/02/24 09:45 MCH 31.0 pg (27-33) 05/02/24 09:45 MCHC 32.0 g/dL (30-55) 05/02/24 09:45 RDW 14.4 % (12.1-15.1) 05/02/24 09:45 Plt Count 172 10^3/cmm (157-399) 05/02/24 09:45 MPV 9.2 fL (7.4-10.4) 05/02/24 09:45 Neut % (Auto) 67.4 % 05/02/24 09:45 Lymph % (Auto) 19.1 % 05/02/24 09:45 Edgar % (Auto) 9.5 % 05/02/24 09:45 Eos % (Auto) 3.3 % 05/02/24 09:45 Baso % (Auto) 0.4 % 05/02/24 09:45 Neut # (Auto) 7.21 10^3/uL (1.8-7.7) 05/02/24 09:45 Lymph # (Auto) 2.0 10^3/uL (0.8-4.8) 05/02/24 09:45 Edgar # (Auto) 1.0 10^3/uL (0.2-0.9) H 05/02/24 09:45 Eos # (Auto) 0.4 10^3/uL (0.0-0.8) 05/02/24 09:45 Baso # (Auto) 0.0 10^3/uL (0.0-0.1) 05/02/24 09:45 Nucleated RBC % (auto) 0 % 05/02/24 09:45 Nucleated RBCs # 0.0 /100WBC 05/02/24 09:45 Sodium 140 mmol/L (136-145) 05/02/24 09:45 Potassium 5.1 mmol/L (3.5-5.1) 05/02/24 09:45 Chloride 105 mmol/L (98-107) 05/02/24 09:45 Carbon Dioxide 22 mmol/L (22-29) 05/02/24 09:45 Anion Gap 16.3 (5-19) 05/02/24 09:45 BUN 12 mg/dL (6-20) 05/02/24 09:45 Creatinine 1.0 mg/dL (0.7-1.2) 05/02/24 09:45 GFR Calculation 80.4 mL/min (90-130) L 05/02/24 09:45 Glucose 106 mg/dL (65-115) 05/02/24 09:45 Calculated Osmolality 284 mOsm/kg (285-295) L 05/02/24 09:45 Calcium 8.9 mg/dL (8.5-10.5) 05/02/24 09:45 Total Bilirubin 0.6 mg/dL (0.15-1.2) 05/02/24 09:45 AST 15 U/L (0-40) 05/02/24 09:45 ALT 11 U/L (0-41) 05/02/24 09:45 Alkaline Phosphatase 129 U/L (40-130) 05/02/24 09:45 Total Protein 7.0 g/dL (6.6-8.7) 05/02/24 09:45 Albumin 4.1 g/dL (3.5-5.2) 05/02/24 09:45 Globulin 2.8 g/dL (1.3-4.6) 05/02/24 09:45 No radiology studies performed this visit Discharge Plan Discharge Patient Disposition: Home Clinical Impression: Dog bite, Need for post exposure prophylaxis for rabies Condition: Stable Prescriptions: New amoxicillin-pot clavulanate 875-125 mg tablet 1 tab PO BID Qty: 20 0RF diclofenac sodium 75 mg tablet,delayed release (DR/EC) 75 mg PO Q12H PRN (Reason: pain) Qty: 20 0RF No Action metoprolol tartrate 50 mg tablet 50 mg PO BID Qty: 90 4RF atorvastatin 80 mg tablet 80 mg PO QPM Qty: 90 3RF nitroglycerin 0.4 mg tablet, sublingual 0.4 mg sublingual Q5M PRN (Reason: chest pain) Qty: 30 5RF Rx Instructions: do not exceed 3 doses per episode valsartan 80 mg tablet 80 mg PO DAILY Qty: 30 3RF fluticasone propion-salmeterol [Advair Diskus] 500-50 mcg/dose blister with device 1 inh INHALATION BID Xarelto 20 mg tablet 20 mg PO DAILY aspirin 81 mg Tablet,Delayed Release (Dr/Ec) 81 mg PO DAILY Qty: 30 0RF pantoprazole 40 mg Tablet,Delayed Release (Dr/Ec) 40 mg PO DAILY Qty: 30 0RF ranolazine 500 mg Tablet Extended Release 12 Hr 500 mg PO BID Qty: 60 0RF albuterol sulfate [Ventolin HFA] 90 mcg/actuation HFA aerosol inhaler 1 - 2 puff INHALATION Q6H PRN (Reason: Shortness Of Breath) Spiriva with HandiHaler 18 mcg capsule, w/inhalation device 1 cap inhalation DAILY PRN (Reason: Shortness Of Breath) Rx Instructions: puncture 1 cap using device; one dose = 2 inhalations Discharge Orders: Discharge ED (Routine); Ordered 05/02/24 Ordered By: Jacob Moses Referrals: Ceci Tatum, FORENSIC SCIENCE TECHNICIAN [Primary Care Provider] - Discharge Diet: Usual diet Discharge Activity: Resume usual activity Patient Instructions: Rabies Vaccine (By injection), Rabies Immune Globulin (By injection), Animal Bite (ED), Opioid Safety, Pain Management Activity Restrictions/Additional Instructions: Thank you for choosing [facility] for your healthcare needs today. It is very important that you follow up as instructed or that you return to the Emergency Department should you have concerns or if your condition changes or worsens in any way. Coding Level of Care Code ED Architectural Superintendent for Mary Rey
[2024-05-02 10:08] LABS: Basophils % 0.4 %; Eosinophils # 0.4 10^3/uL (0.0-0.8); Eosinophils % 3.3 %; Hematocrit 39.7 % (37-53); Lymphocytes % 19.1 %; Mean Corpuscular Volume 96.8 fl (82-101); Mean Platelet Volume 9.2 fL (7.4-10.4); Monocytes % 9.5 %; Neutrophils # 7.21 10^3/uL (1.8-7.7); Neutrophils % 67.4 %; Nucleated Red Blood Cells % 0 %; Platelet Count 172 10^3/cmm (157-399); Red Cell Distribution Width 14.4 % (12.1-15.1); White Blood Count 10.69 10^3/uL (3.29-11.43)
[2024-05-02 10:30] LABS: Alanine Aminotransferase 11 U/L (0-41); Albumin Level 4.1 g/dL (3.5-5.2); Alkaline Phosphatase 129 U/L (40-130); Aspartate Amino Transferase 15 U/L (0-40); Chloride 105 mmol/L (98-107); Potassium 5.1 mmol/L (3.5-5.1); Sodium 140 mmol/L (136-145)
[2024-05-02 10:38] LABS: Anion Gap 16.3 (5-19); Blood Urea Nitrogen 12 mg/dL (6-20); Calcium 8.9 mg/dL (8.5-10.5); Carbon Dioxide 22 mmol/L (22-29); Creatinine Clr Calc Pharmacy 123.0418; Globulin 2.8 g/dL (1.3-4.6); Glomerular Filtration Rate 80.4 mL/min (90-130); Glucose 106 mg/dL (65-115); Osmolality Calculated 284 mOsm/kg (285-295); Total Bilirubin 0.6 mg/dL (0.15-1.2)
== END 2024-05-02 11:32 | disposition home or self-care (01) ==
PROVIDERS: Emergency Provider Family Medicine; PCP Nurse Practitioner Family
DX: S61.451A Open bite of right hand, initial encounter (principal); W54.0XXA Bitten by dog, initial encounter; Z20.3 Contact with and (suspected) exposure to rabies; Z29.14 Encounter for prophylactic rabies immune globulin; Z23 Encounter for immunization; Z79.82 Long term (current) use of aspirin; Z72.0 Tobacco use; Z86.73 Personal history of transient ischemic attack (TIA), and cerebral infarction without residual deficits; J44.9 Chronic obstructive pulmonary disease, unspecified; E78.5 Hyperlipidemia, unspecified; I10 Essential (primary) hypertension
CPT/HCPCS: 36415; 80053; 85025; 87040; 87077; 87186; 87205; 90375; 90471; 90675; 96372; 99283

== ENCOUNTER 2024-05-04 11:34 | Outpatient (CLI) | payer MEDICAID, SELFPAY ==
--- NOTE | 2024-05-04 11:49 | XR_ITS ---
WS: [id number] XR hand RT min 3V* [id number] REASON FOR EXAM: RIGHT HAND PAIN FINDINGS: Examination is unchanged compared to the study of 04/14/2024. No acute fracture or focal bone lesion. No periosteal reaction or bone erosion. Joint spaces of the right hand are intact and well preserved. XR/XR hand RT min 3V* [id number] IMPRESSION: No significant abnormality.
== END 2024-05-04 11:35 | disposition home or self-care (01) ==
LOC: RAD 11:36
PROVIDERS: PCP Nurse Practitioner Family; Visit Provider Nurse Practitioner Family
DX: M79.641 Pain in right hand (principal)
CPT/HCPCS: 73130

== ENCOUNTER 2024-05-18 10:00 | Oncology outpatient (recurring) (ONCR) | payer MEDICAID, SELFPAY ==
[2024-05-07] MEDS: rabies vaccine 2.5 unit SDV IM (10:03)
[2024-05-07 10:11] VITALS: BP 188/104; PULSE 56; RESP 20; TEMP 36.5; O2SAT 95
[2024-05-11] MEDS: rabies vaccine 2.5 unit SDV IM (10:20)
[2024-05-11 10:25] VITALS: BP 134/84; PULSE 69; RESP 16; TEMP 36.6; O2SAT 94
== END 2024-05-30 23:59 | disposition home or self-care (01) ==
PROVIDERS: PCP Nurse Practitioner Family; Visit Provider Nurse Practitioner Family
DX: Z53.9 Procedure and treatment not carried out, unspecified reason (principal)
CPT/HCPCS: 90471; 90675

== ENCOUNTER → 2024-05-30 09:47 | Outpatient (BNVA) | payer MEDICAID, SELFPAY | PROVIDERS: PCP Nurse Practitioner Family; Visit Provider Internal Medicine | DX: Z45.09 Encounter for adjustment and management of other cardiac device (principal) | CPT/HCPCS: 93298 ==

== ENCOUNTER 2024-06-15 07:00 | Oncology outpatient (recurring) (ONCR) | payer MEDICAID, SELFPAY ==
--- NOTE | 2024-06-15 07:15 | MR_ITS ---
WS: [id number] MRI BRAIN WITH AND WITHOUT CONTRAST HISTORY: R55 - Syncope and collapse COMPARISON: 12/06/2022 TECHNIQUE: Multiplanar imaging performed through the brain with MultiHance 20 ml's IV. Normal diffusion imaging. No acute infarct. Reidentified is the increased T2 and FLAIR signal hyperin tensities in the posterior LEFT supratentorial frontal lobe cortex and the subcortical white matter o f the LEFT frontal lobe. These findings have been described on prior studies without progression. The re is no large infarct or volume loss. No hemorrhage. No significant atrophy of the hippocampal forma tions. No susceptibility artifacts or prior lacunar infarcts. Ventricles and extra-axial spaces are normal. Clivus and pituitary gland are normal. Visualized posterior fossa and brainstem are also normal. Patient has a known occlusion of the LEFT ICA. Reconstitution is noted within the solomon of Bill by cross-filling of the anterior and posterior communicating arteries. No intracranial mass. Dural venous sinuses are normal. Paranasal sinuses: Well aerated with no significant disease. Mastoid air cells: Normal. Calvarium and scalp: Normal. MR/MR head wo/w con [id number] IMPRESSION: 1. No acute diffusion abnormalities. No acute infarct. 2. Stable cortical ischemic changes in the posterior superior frontal lobe cor chidi which has been described on prior studies. No progression of small vessel i schemic disease. 3. No enhancing mass. 4. Patient has a known occluded LEFT cervical ICA with cross-filling via the a nterior posterior communicating arteries supplying the LEFT MCA territory.
[2024-06-15] MEDS: gadobenate dimeglumine 20 mL vial IV (07:44)
== END 2024-06-30 23:59 | disposition home or self-care (01) ==
LOC: RAD 07:01 → ONCMED 06-21 16:35
PROVIDERS: PCP Nurse Practitioner Family; Visit Provider Nurse Practitioner Family
DX: R55 Syncope and collapse; I65.29 Occlusion and stenosis of unspecified carotid artery; I82.412 Acute embolism and thrombosis of left femoral vein; Z95.828 Presence of other vascular implants and grafts
CPT/HCPCS: 70553; A9577

== ENCOUNTER → 2024-07-25 10:29 | Outpatient (BNVA) | payer MEDICAID, SELFPAY | PROVIDERS: PCP Nurse Practitioner Family; Visit Provider Internal Medicine Cardiovascular Disease | DX: Z45.09 Encounter for adjustment and management of other cardiac device (principal) | CPT/HCPCS: 93298 ==

== ENCOUNTER → 2024-08-16 07:50 | Outpatient (BNVA) | payer MEDICAID, SELFPAY | PROVIDERS: PCP Nurse Practitioner Family; Referring Provider Psychiatry & Neurology Neurology; Visit Provider Psychiatry & Neurology Neurology | DX: R55 Syncope and collapse (principal); R56.9 Unspecified convulsions; I25.10 Atherosclerotic heart disease of native coronary artery without angina pectoris; I10 Essential (primary) hypertension; E78.5 Hyperlipidemia, unspecified; F17.200 Nicotine dependence, unspecified, uncomplicated; Z95.828 Presence of other vascular implants and grafts; I73.9 Peripheral vascular disease, unspecified | CPT/HCPCS: 95819; 99214 ==

== ENCOUNTER 2024-09-11 13:36 | Oncology outpatient (recurring) (ONCR) | payer MEDICAID, SELFPAY ==
--- NOTE | 2024-09-11 13:45 | USCV_ITS ---
Esequiel Munoz Age: 48 Gender: M : 1975 Exam Date: 09/11/2024 13:51 Ordering Phys: Colin Segundo MD ([email or web address]) Technologist: [employer] [place] [facility] [place]: Risk Factors: Previous Vascular Surgery: Aorta/Fem Bipass RIGHT LEFT BP: 150.0 / 68.00 BP: 159.0/ 83.00 0 0 Waveform Velocity (cm/s) Velocity (cm/s) Waveform Iliac Prox 78.5 Triphasic Triphasic 222.0 ELECTRONIC ENGRAVER Triphasic 187.0 SFA Prox 240.0 Triphasic Triphasic 125.0 SFA Mid 96.0 Triphasic Triphasic 111.0 SFA Dist 81.0 Triphasic Triphasic 88.0 POP 110.0 Triphasic Triphasic 67.0 BORDER INSPECTOR 52.0 Biphasic Triphasic 63.0 DPA 55.0 Biphasic 0.9 EN 0.8 FINDINGS The aortofemoral bypass graft on the right side appears to be patent. Minimal plaques of the right common femoral artery. Triphasic Doppler waveforms in the femoral, popliteal and infrapopliteal vessels. Resting EN on the right side at 0.9. On the left side, the aortofemoral bypass appears to be patent. Moderate plaques were noted at the common femoral artery. Triphasic waveforms in the femoral artery and popliteal artery. Biphasic waveforms in the infrapopliteal vessels. CONCLUSIONS 1. Patent aortofemoral bypass grafts bilaterally. 2. Mild to moderate plaques of the common femoral arteries bilaterally. 3. Resting EN of 0.9 on the right side suggesting mild peripheral artery disease 4. Resting EN of 0.8 on the left side, suggesting mild to moderate peripheral artery disease No similar previous studies are available for comparison Dr Colin Segundo MD [facility] (Electronically Signed) Final Date: 14 September 2024 21:03 S
== END 2024-09-29 23:59 | disposition home or self-care (01) ==
LOC: RAD 13:36 → ONCMED 09-12 09:41
PROVIDERS: PCP Nurse Practitioner Family; Visit Provider Internal Medicine Cardiovascular Disease
DX: I73.9 Peripheral vascular disease, unspecified (principal)
CPT/HCPCS: 93925

== ENCOUNTER → 2024-09-26 11:27 | Outpatient (BNVA) | payer MEDICAID, SELFPAY | PROVIDERS: PCP Nurse Practitioner Family; Visit Provider Internal Medicine Cardiovascular Disease | DX: Z45.09 Encounter for adjustment and management of other cardiac device (principal) | CPT/HCPCS: 93298 ==

== ENCOUNTER → 2024-11-14 13:50 | Outpatient (BNVA) | payer MEDICAID, SELFPAY | PROVIDERS: PCP Nurse Practitioner Family; Visit Provider Psychiatry & Neurology Neurology | DX: R55 Syncope and collapse (principal); G45.3 Amaurosis fugax; R29.90 Unspecified symptoms and signs involving the nervous system | CPT/HCPCS: 99212 ==

== ENCOUNTER → 2024-11-21 10:44 | Outpatient (BNVA) | payer MEDICAID, SELFPAY | PROVIDERS: PCP Nurse Practitioner Family; Visit Provider Internal Medicine Cardiovascular Disease | DX: Z45.09 Encounter for adjustment and management of other cardiac device (principal) | CPT/HCPCS: 93298 ==

== ENCOUNTER → 2025-01-23 10:03 | Outpatient (BNVA) | payer MEDICAID, SELFPAY | PROVIDERS: PCP Nurse Practitioner Family; Visit Provider Internal Medicine Cardiovascular Disease | DX: Z45.09 Encounter for adjustment and management of other cardiac device (principal) | CPT/HCPCS: 93298 ==

== ENCOUNTER 2025-01-26 13:04 | Observation (INO) | payer MEDICAID, SELFPAY ==
[2025-01-26] VITALS (13 sets, daily range): BP systolic 109–168; BP diastolic 56–79; PULSE 56–71; RESP 12–23; TEMP 36.4–37; O2SAT 92–97; BMI 31.2
--- NOTE | 2025-01-26 13:07 | XRR_ITS ---
PROCEDURE INFORMATION: Exam: XR Chest Exam date and time: 01/26/2025 1:23 PM Age: 49 years old Clinical indication: Pain; Chest pressure; Additional info: Chest pain TECHNIQUE: Imaging protocol: Radiologic exam of the chest. Views: 1 view. COMPARISON: CR XR chest 2V* [id number] 01/23/2024 12:45 PM FINDINGS: Tubes, catheters and devices: A loop recorder is noted in the left chest wall. Lungs: Unremarkable. No consolidation or mass. Pleural spaces: Unremarkable. No pleural effusion. No pneumothorax. Heart/Mediastinum: Unremarkable. No cardiomegaly. Bones/joints: Unremarkable. XR/XR chest 1V portable [id number] IMPRESSION: No acute findings.
--- NOTE | 2025-01-26 13:08 | ECG_ITS ---
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
--- NOTE | 2025-01-26 13:22 | W.ED.CHESTPA ---
HPI - Chest Pain General: Chief Complaint: Chest Pain Stated Complaint: chest tightness, dizziness Time Seen by Provider: 01/26/25 13:07 History of Present Illness: 49-year-old man with history of severe vascular disease and blood clots on Xarelto, coronary artery disease status post stents, COPD, hypertension, hyperlipidemia, continued tobacco abuse and PTSD who presents emergency room with chest pain. This been intermittent for a few days. Tightness in his central chest and some numbness down into his left arm. He also says he is had some pain in his left thigh which has been worried about recurrent DVT. He has been taking his Xarelto as instructed. No cough. No fevers. No abdominal pain. He says he does become diaphoretic when he has chest pain. Related Data Home Medications ?Medication ?Instructions ?Recorded ?Confirmed albuterol sulfate 90 mcg/actuation 1 - 2 puff inhalation Q6H PRN 12/04/22 01/26/25 aerosol inhaler (Ventolin HFA) Shortness Of Breath hydroxyzine HCl 25 mg tablet 12.5 - 25 mg PO Q6H PRN 01/26/25 01/26/25 anxiety/insomnia pantoprazole 40 mg tablet,delayed 40 mg PO QPM 01/26/25 01/26/25 release rivaroxaban 20 mg tablet (Xarelto) 20 mg PO QPM 01/26/25 01/26/25 rosuvastatin 40 mg tablet 40 mg PO QPM 01/26/25 01/26/25 Previous Rx's ?Medication ?Instructions ?Recorded aspirin 81 mg tablet,delayed 81 mg PO DAILY #30 tabs 12/31/23 release ranolazine 500 mg tablet,extended 500 mg PO BID #60 tabs 12/31/23 release,12 hr valsartan 80 mg tablet 80 mg PO BID #30 tabs 05/09/24 amlodipine 10 mg tablet 10 mg PO DAILY 90 days #90 tabs 08/16/24 metoprolol tartrate 50 mg tablet 50 mg PO BID #90 tabs 12/03/24 nitroglycerin 0.4 mg sublingual 0.4 mg sublingual Q5M PRN chest 12/18/24 tablet pain #30 tabs Allergies Allergy/AdvReac Type Severity Reaction Status Date / Time vancomycin Allergy Severe DRESS Verified 11/14/24 14:00 syndrome clopidogrel (From Plavix) Allergy DRESS Verified 11/14/24 14:00 Syndrome Review of Systems Narrative: Constitutional symptoms: Negative except as documented in HPI. Skin symptoms: Negative except as documented in HPI. Eye symptoms: Negative except as documented in HPI. ENMT symptoms: Negative except as documented in HPI. Respiratory symptoms: Negative except as documented in HPI. Cardiovascular symptoms: Negative except as documented in HPI. Gastrointestinal symptoms: Negative except as documented in HPI. Genitourinary symptoms: Negative except as documented in HPI. Musculoskeletal symptoms: Negative except as documented in HPI. Neurologic symptoms: Negative except as documented in HPI. Psychiatric symptoms: Negative except as documented in HPI. Endocrine symptoms: Negative except as documented in HPI. PFSH ED PFSH: Medical History DVT (deep venous thrombosis) Carotid artery occlusion Syncope and collapse Left upper extremity deep vein thrombosis Peripheral artery disease Nicotine dependence, cigarettes, with other nicotine-induced disorders History of cardiac monitoring 2 week event monitor in 05/2022 with baseline sinus rhythm, episodes of sinus tachycardia from 132-165 noted History of cardiovascular stress test 11/25/2020 Exercise Stress test with Stress Echo - No exercise induced chest pain or ekg changes, suboptimal exercise for age, hypertensive exercise response History of PFTs 05/2020 Severe airflow obstruction, no significant post dilator response, lung volumes consistent with air trapping. Normal DLCO. PTSD (post-traumatic stress disorder) Intermittent explosive disorder Bipolar disorder Left carotid artery occlusion AF (amaurosis fugax) CVA (cerebral vascular accident) (~10/2020) LEFT supraventricular frontal lobe COPD (chronic obstructive pulmonary disease) Hyperlipidemia Hypertension Asthma Surgical History S/P aortobifemoral bypass surgery H/O inguinal hernia repair Family History Mother Sarcoid Other Asthma CAD (coronary artery disease) Cancer Emphysema/COPD Hyperlipidemia Hypertension Stroke Denies family history of Clotting disorder Chronic kidney disease (CKD) Anesthesia complication Bleeding disorder Family history of premature coronary artery disease Social History Smoking and tobacco/nicotine status: current every day tobacco/nicotine user Quit status (tobacco/nicotine): has quit using Year quit tobacco: 2021 Former quit date comment: 1-2ppd x 32 years Second hand smoke exposure: Yes Alcohol intake: current Alcohol intake frequency: holidays/special occasions only Substance/Drug Use: current Lives independently: Yes Household members: other Details: room mate Housing: House Marital status: service: No 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 Skin: Warm, dry. Head: Normocephalic, atraumatic. Neck: Supple, trachea midline. Eye: Extraocular movements are intact. Ears, nose, mouth and throat: mucosa moist. Cardiovascular: Regular, Normal peripheral perfusion. Respiratory: Lungs are clear to auscultation, respirations are non-labored, breath sounds are equal, Symmetrical chest wall expansion. Gastrointestinal: Soft, Nontender, Non distended Musculoskeletal: Normal ROM, no deformity. Neurological: Alert and oriented, No focal neurological deficit observed. Psychiatric: Cooperative, appropriate mood & affect. Course Vital Signs: Vital signs: Vital Signs Temperature 98.6 F 01/26/25 13:16 Pulse Rate 63 01/26/25 14:30 Respiratory Rate 17 01/26/25 14:30 Blood Pressure 145/78 01/26/25 14:30 Pulse Oximetry 94 01/26/25 14:30 Oxygen Delivery Me thod Room Air 01/26/25 14:30 MDM - Chest Pain Medical Decision Making Differential diagnosis for patient with chest pain includes but is not limited to and based on the above HPI, review of systems and physical exam: Pneumonia. unstable angina. angina. Acute coronary syndrome / [place]. Pulmonary embolism. Costochondritis / musculoskeletal. Pleurisy. Pericarditis. Esophageal spasm. Pancreatis. Cholecystitis. Orders placed to evaluate differential diagnosis based on the above differential, HPI and physical exam EKG: Time 1303. Rate 93. Normal sinus rhythm, nonspecific ST changes, no ectopy, normal WA & QRS intervals, This was reviewed and interpreted by myself the ER physician at 1307 Lab Review: Laboratory results were reviewed and interpreted by myself the emergency room physician. No leukocytosis. No anemia. Mild elevation in the patient's creatinine at 1.3. Serial troponins are negative. Chest x-ray: Loop monitor is in place. Unchanged from previous. No acute process. No infiltrate. No pneumothorax. This was reviewed and interpreted by myself the emergency room physician. I also reviewed the radiology report. Ultrasound of the left lower extremity: Patient has history of DVT is concerned that he is having pain there similar to previous so an ultrasound was done. This shows no DVT. This was reviewed and interpreted by myself the emergency room physician. I also reviewed the radiology report. CTA chest with PE protocol: No acute process. No PE. This was reviewed and interpreted by myself the emergency room physician. I also reviewed the radiology report. HEART Pathway for Early Discharge in Acute Chest [email or web address] [facility] on 01/26/2025 All calculations should be rechecked by clinician prior to use RESULT SUMMARY: 5 points HEART Pathway Score High risk 12-65% 30-day MACE Admit to hospital or observation. Further testing indicated. INPUTS: History ?> 1 = Moderately suspicious EKG ?> 1 = Non-specific repolarization disturbance Age ?> 1 = 45-64 Risk factors ?> 2 = >= risk factors or history of atherosclerotic disease Initial troponin ?> 0 = <=ormal limit I reviewed the patient's medical record. Reexamination: Patient remained stable. No increased work of breathing. No altered mental status. No focal motor deficits. Consultation: I spoke with Mikey Molina who is on-call for the hospitalist service and who agrees to admission to observation. Assessment and plan: Chest pain Chronic anticoagulation Tobacco dependence Coronary artery disease Peripheral vascular disease -I discussed the patient with the hospitalist on-call who is admitting the patient. - Discussed findings and plan with patient. Answered any questions. - All laboratory values were reviewed and interpreted personally by myself, the ER physician - All imaging was reviewed and interpreted personally by myself, the ER physician. - Evaluation and treatment of this problem were appropriate in the emergency setting Lab Data 01/26/25 13:32 01/26/25 13:32 Radiology Impressions Chest X-Ray 01/26/25 13:07 IMPRESSION: No acute findings. Venous Duplex 01/26/25 13:50 IMPRESSION: No evidence of deep vein thrombosis. Chest CTA 01/26/25 14:11 IMPRESSION: Bronchial wall thickening bilaterally reflecting reactive airway disease Laboratory Results WBC 6.87 10^3/uL (3.29-11.43) 01/26/25 13:32 RBC 4.72 10^6/uL (3.85-5.65) 01/26/25 13:32 Hgb 14.60 g/dL (11.27-16.99) 01/26/25 13:32 Hct 44.1 % (37-53) 01/26/25 13:32 MCV 93.4 fl (82-101) 01/26/25 13:32 MCH 30.9 pg (27-33) 01/26/25 13:32 MCHC 33.1 g/dL (30-55) 01/26/25 13:32 RDW 13.2 % (12.1-15.1) 01/26/25 13:32 Plt Count 182 10^3/cmm (157-399) 01/26/25 13:32 MPV 9.1 fL (7.4-10.4) 01/26/25 13:32 Neut % (Auto) 45.7 % 01/26/25 13:32 Lymph % (Auto) 37.3 % 01/26/25 13:32 Vance % (Auto) 9.8 % 01/26/25 13:32 Eos % (Auto) 6.3 % 01/26/25 13:32 Baso % (Auto) 0.6 % 01/26/25 13:32 Neut # (Auto) 3.15 10^3/uL (1.8-7.7) 01/26/25 13:32 Lymph # (Auto) 2.6 10^3/uL (0.8-4.8) 01/26/25 13:32 Vance # (Auto) 0.7 10^3/uL (0.2-0.9) 01/26/25 13:32 Eos # (Auto) 0.4 10^3/uL (0.0-0.8) 01/26/25 13:32 Baso # (Auto) 0.0 10^3/uL (0.0-0.1) 01/26/25 13:32 Nucleated RBC % (auto) 0 % 01/26/25 13:32 Nucleated RBCs # 0.0 /100WBC 01/26/25 13:32 Sodium 135 mmol/L (136-145) L 01/26/25 13:32 Potassium 4.0 mmol/L (3.5-5.1) 01/26/25 13:32 Chloride 100 mmol/L (98-107) 01/26/25 13:32 Carbon Dioxide 22 mmol/L (22-29) 01/26/25 13:32 Anion Gap 17.0 (5-19) 01/26/25 13:32 BUN 15 mg/dL (6-20) 01/26/25 13:32 Creatinine 1.3 mg/dL (0.7-1.2) H 01/26/25 13:32 GFR Calculation 59.2 mL/min (90-130) L 01/26/25 13:32 Glucose 120 mg/dL (65-115) H 01/26/25 13:32 Calculated Osmolality 282 mOsm/kg (285-295) L 01/26/25 13:32 Calcium 9.4 mg/dL (8.5-10.5) 01/26/25 13:32 Total Bilirubin 0.7 mg/dL (0.15-1.2) 01/26/25 13:32 AST 18 U/L (0-40) 01/26/25 13:32 ALT 12 U/L (0-41) 01/26/25 13:32 Alkaline Phosphatase 114 U/L (40-130) 01/26/25 13:32 Troponin T Baseline < 6 ng/L (0-15) 01/26/25 13:32 Troponin T 120 Minute 6.09 ng/L (0-15) 01/26/25 15:42 Delta Troponin T 0.62242 ABS# (0-10) 01/26/25 15:42 Total Protein 7.4 g/dL (6.6-8.7) 01/26/25 13:32 Albumin 4.8 g/dL (3.5-5.2) 01/26/25 13:32 Globulin 2.6 g/dL (1.3-4.6) 01/26/25 13:32 All radiology interpretation(s) finalized by discharge Discharge Plan Discharge Patient Disposition: Placed in Observation Clinical Impression: Chest pain, Tobacco dependence, Chronic anticoagulation Coding Level of Care Code ED Nuclear Medicine Specialist for Mary Rey
[2025-01-26 13:36] LABS: Basophils % 0.6 %; Eosinophils # 0.4 10^3/uL (0.0-0.8); Eosinophils % 6.3 %; Hematocrit 44.1 % (37-53); Lymphocytes # 2.6 10^3/uL (0.8-4.8); Lymphocytes % 37.3 %; Mean Corpuscular HGB Conc 33.1 g/dL (30-55); Mean Corpuscular Hemoglobin 30.9 pg (27-33); Mean Corpuscular Volume 93.4 fl (82-101); Mean Platelet Volume 9.1 fL (7.4-10.4); Monocytes # 0.7 10^3/uL (0.2-0.9); Monocytes % 9.8 %; Neutrophils # 3.15 10^3/uL (1.8-7.7); Neutrophils % 45.7 %; Nucleated Red Blood Cells % 0 %; Platelet Count 182 10^3/cmm (157-399); Red Blood Count 4.72 10^6/uL (3.85-5.65); Red Cell Distribution Width 13.2 % (12.1-15.1); White Blood Count 6.87 10^3/uL (3.29-11.43)
--- NOTE | 2025-01-26 13:50 | USR_ITS ---
PROCEDURE INFORMATION: Exam: US Duplex Left Lower Extremity Veins, Limited Exam date and time: 01/26/2025 2:38 PM Age: 49 years old Clinical indication: Pain; Leg, lower; Left; Additional info: Left-sided calf pain and swelling concern for dvt TECHNIQUE: Imaging protocol: Real-time duplex ultrasound of the left extremity with 2-D shore scale, color Doppler flow and spectral waveform analysis including responses to compression and other maneuvers (when performed) with image documentation. Limited exam focused on the left lower extremity veins. COMPARISON: CT angio abd aorta runof [id number] 12/04/2022 11:56 AM FINDINGS: Left deep veins: Unremarkable. The common femoral, femoral, proximal profunda femoral and popliteal veins are patent without thrombus. Normal Doppler waveforms. Normal compressibility and/or augmentation response. Superficial veins: Greater saphenous vein at the saphenofemoral junction is patent without thrombus. Soft tissues: Unremarkable. US/CV venous duplex [facility] [id number] IMPRESSION: No evidence of deep vein thrombosis.
[2025-01-26 13:54] LABS: Troponin(5th) Baseline < 6 ng/L (0-15)
[2025-01-26 14:04] LABS: Alanine Aminotransferase 12 U/L (0-41); Albumin Level 4.8 g/dL (3.5-5.2); Alkaline Phosphatase 114 U/L (40-130); Aspartate Amino Transferase 18 U/L (0-40); Blood Urea Nitrogen 15 mg/dL (6-20); Calcium 9.4 mg/dL (8.5-10.5); Carbon Dioxide 22 mmol/L (22-29); Chloride 100 mmol/L (98-107); Globulin 2.6 g/dL (1.3-4.6); Glomerular Filtration Rate 59.2 mL/min (90-130); Glucose 120 mg/dL (65-115); Osmolality Calculated 282 mOsm/kg (285-295); Sodium 135 mmol/L (136-145); Total Bilirubin 0.7 mg/dL (0.15-1.2); Total Protein 7.4 g/dL (6.6-8.7)
--- NOTE | 2025-01-26 14:11 | CTR_ITS ---
PROCEDURE INFORMATION: Exam: CTA Chest With Contrast Exam date and time: 01/26/2025 3:22 PM Age: 49 years old Clinical indication: Pain; Chest pressure; Additional info: Chest pain, history of pe TECHNIQUE: Imaging protocol: Computed tomographic angiography of the chest with contrast. Exam focused on the arteries. 3D rendering (Not supervised by radiologist): MIP and/or 3D reconstructed images were created by the technologist. Radiation optimization: All CT scans at this facility use at least one of these dose optimization techniques: automated exposure control; mA and/or kV adjustment per patient size (includes targeted exams where dose is matched to clinical indication); or iterative reconstruction. Contrast material: OMNI 350; Contrast volume: 73 ml; Contrast route: INTRAVENOUS (IV); COMPARISON: CT ang valentin andrews [id number] 11/20/2022 12:20 PM RADIATION DOSE METRICS: Total DLP (mGy-cm): 523.86 FINDINGS: Pulmonary arteries: Normal. No pulmonary emboli. Aorta: Unremarkable. No aortic aneurysm. No aortic dissection. Lungs: There is diffuse bronchial wall thickening throughout both lungs. No lung infiltrate or mass noted. Pleural spaces: Unremarkable. No pneumothorax. No pleural effusion. Heart: Unremarkable. No cardiomegaly. No pericardial effusion. Lymph nodes: Unremarkable. No enlarged lymph nodes. Bones/joints: Unremarkable. No acute fracture. Soft tissues: Unremarkable. CT/CT angio chest PE protcl [id number] IMPRESSION: Bronchial wall thickening bilaterally reflecting reactive airway disease
[2025-01-26] MEDS: iohexol 350 mg/mL 500 mL Btl (per mL) IV (15:26)
--- NOTE | 2025-01-26 15:32 | ECG_ITS ---
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
[2025-01-26 16:03] LABS: Troponin 5 2HR 6.09 ng/L (0-15); Troponin 5 2HR Delta 0.09001 ABS# (0-10)
--- NOTE | 2025-01-26 17:25 | PM.HP ---
Providers/Chief Complaint Admitting Physician: Omid Cid MD Primary Care Provider: Ceci Tatum Chief Complaint: chest tightness, dizziness History of Present Illness Esequiel Munoz is a 49 year old male with a past medical history of hypertension, hyperlipidemia, smoker, marijuana user, history of peripheral vascular disease, NSTEMI, CAD, left internal carotid artery occlusion, DVT, history of aortobifemoral bypass surgery, hypertension, history of CVAs who presents to [facility] for chest pain. Patient is currently alert oriented x 3, following commands, is having mild dull chest discomfort, 3 out of 10, wheezing pressure-like pain, he tells open chest pain was radiating down his left arm with numbness, no shortness of breath, no palpitations, he has a history of DVTs been having pain in his left thigh was concern for recurrent DVT venous ultrasound negative for DVT, does report smoking, does report using marijuana, denies any drug use Review of Systems Const: Denies: fever(s) Card: Reports: chest pain Resp: Denies: dyspnea Neuro: Denies: headache(s), numbness in extremities, weakness in extremities, confusion or Slurred speech present Medications/Allergies Home Medications ?Medication ?Instructions ?Recorded ?Confirmed ?Last Taken ?Type albuterol sulfate 90 mcg/actuation 1 - 2 puff inhalation Q6H PRN 12/04/22 01/26/25 12/23/23 History aerosol inhaler (Ventolin HFA) Shortness Of Breath aspirin 81 mg tablet,delayed 81 mg PO DAILY #30 tabs 12/31/23 01/26/25 01/26/25 Rx release ranolazine 500 mg tablet,extended 500 mg PO BID #60 tabs 12/31/23 01/26/25 01/26/25 Rx release,12 hr valsartan 80 mg tablet 80 mg PO BID #30 tabs 05/09/24 01/26/25 01/26/25 Rx amlodipine 10 mg tablet 10 mg PO DAILY 90 days #90 tabs 08/16/24 01/26/25 01/26/25 Rx metoprolol tartrate 50 mg tablet 50 mg PO BID #90 tabs 12/03/24 01/26/25 01/26/25 Rx nitroglycerin 0.4 mg sublingual 0.4 mg sublingual Q5M PRN chest 12/18/24 01/26/25 Unknown Rx tablet pain #30 tabs hydroxyzine HCl 25 mg tablet 12.5 - 25 mg PO Q6H PRN 01/26/25 01/26/25 Unknown History anxiety/insomnia pantoprazole 40 mg tablet,delayed 40 mg PO QPM 01/26/25 01/26/25 01/25/25 History release rivaroxaban 20 mg tablet (Xarelto) 20 mg PO QPM 01/26/25 01/26/25 01/25/25 History rosuvastatin 40 mg tablet 40 mg PO QPM 01/26/25 01/26/25 01/25/25 History Allergies Allergy/AdvReac Type Severity Reaction Status Date / Time vancomycin Allergy Severe DRESS Verified 11/14/24 14:00 syndrome clopidogrel (From Plavix) Allergy DRESS Verified 11/14/24 14:00 Syndrome PFSH Acute PFSH: Medical History DVT (deep venous thrombosis) Carotid artery occlusion Syncope and collapse Left upper extremity deep vein thrombosis Peripheral artery disease Nicotine dependence, cigarettes, with other nicotine-induced disorders History of cardiac monitoring 2 week event monitor in 05/2022 with baseline sinus rhythm, episodes of sinus tachycardia from 132-165 noted History of cardiovascular stress test 11/25/2020 Exercise Stress test with Stress Echo - No exercise induced chest pain or ekg changes, suboptimal exercise for age, hypertensive exercise response History of PFTs 05/2020 Severe airflow obstruction, no significant post dilator response, lung volumes consistent with air trapping. Normal DLCO. PTSD (post-traumatic stress disorder) Intermittent explosive disorder Bipolar disorder Left carotid artery occlusion AF (amaurosis fugax) CVA (cerebral vascular accident) (~10/2020) LEFT supraventricular frontal lobe COPD (chronic obstructive pulmonary disease) Hyperlipidemia Hypertension Asthma Surgical History S/P aortobifemoral bypass surgery H/O inguinal hernia repair Family History Mother Sarcoid Other Asthma CAD (coronary artery disease) Cancer Emphysema/COPD Hyperlipidemia Hypertension Stroke Denies family history of Clotting disorder Chronic kidney disease (CKD) Anesthesia complication Bleeding disorder Family history of premature coronary artery disease Social History Smoking and tobacco/nicotine status: current every day tobacco/nicotine user Quit status (tobacco/nicotine): has quit using Year quit tobacco: 2021 Former quit date comment: 1-2ppd x 32 years Second hand smoke exposure: Yes Alcohol intake: current Alcohol intake frequency: holidays/special occasions only Substance/Drug Use: current Lives independently: Yes Household members: other Details: room mate Housing: House Marital status: service: No 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 Pets and animals: Yes Do you think of yourself as: Straight/Heterosexual Current gender identity: Male Vitals/I&O/Wt Last Vital Signs Temp 98.6 F 01/26/25 13:16 Pulse 63 01/26/25 14:30 Resp 17 01/26/25 14:30 BP 145/78 01/26/25 14:30 Pulse Ox 94 01/26/25 14:30 O2 Del Method Room Air 01/26/25 14:30 Weight last 48 hrs Weight 113.398 kg Physical Exam Const: COMMON NORMALS: no acute distress and patient oriented x3 HENMT: COMMON NORMALS: normocephalic HEAD & SCALP: normocephalic Resp: COMMON NORMALS: normal respiratory effort, No retractions, No use of accessory muscles and clear to auscultation bilaterally AUSCULTATION: clear to auscultation bilaterally Cardio: COMMON NORMALS: regular rate, regular rhythm, S1 normal heart sound present and S2 normal heart sound present RATE: regular rate RHYTHM: regular rhythm HEART SOUNDS: S1 normal heart sound present and S2 normal heart sound present GI: COMMON NORMALS: Normal to inspection, nondistended, normoactive bowel sounds present, Soft to palpation and non-tender Extremity: COMMON NORMALS: no pedal edema Neuro: COMMON NORMALS: patient oriented x3, CN's II-XII intact bilaterally and moves all extremities Psych: COMMON NORMALS: mental status grossly normal Data 01/26/25 13:32 01/26/25 13:32 A&P Assessment and plan (1) Hypertension: Qualifiers: Hypertension type: primary hypertension Qualified Code(s): I10 - Essential (primary) hypertension (2) Chest pain: (3) Hyperlipidemia: Qualifiers: Hyperlipidemia type: unspecified Qualified Code(s): E78.5 - Hyperlipidemia, unspecified Plan Chest pain -Currently chest pain 3 out of 10 -Squeezing-like pain -Cath in 2023 Diagnostic Findings * INDICATION: Chest pain/abnormal stress test. * Left Main: Mild to moderate 30% stenosis, ANIKT: 3 flow. * Left Anterior Descending has mild luminal irregularities. * Circumflex has mild to moderate luminal irregularities. * Right Coronary Artery has no disease. * Coronary angiography shows right dominance. -Does continue to smoke Plan -Serial EKGs, serial troponins, telemetry monitoring -Aspirin, statin, metoprolol -Switch to therapeutic Lovenox -Cardiac echo -Monitor for recurrent chest pain -Full code -Lovenox for DVT prophylaxis PDMP PDMP Reviewed: Not Reviewed Attestations Medical Necessity Statement*: Patient requires hospitalization, outpatient with observation, for chest pain Diagnoses Primary hypertension I10 Hypertension type: primary hypertension Chest pain R07.9 Hyperlipidemia, unspecified hyperlipidemia type E78.5 Hyperlipidemia type: unspecified
[2025-01-26 17:55] LABS: Chol HDL Ratio 4.51 mg/dL (1.0-5.00); Cholesterol 185 mg/dL (0-200); HDL Cholesterol 41 mg/dL (60-100); LDL Cholesterol Calculated 121 mg/dL (50-129); LDL HDL Ratio 2.95 RATIO (0.00-3.22); Thyroid Stimulating Hormone 1.13 uIU/mL (0.27-4.20); Triglycerides 113 mg/dL (0-150)
[2025-01-26] MEDS: pantoprazole 40 mg SDV IVP (18:21)
[2025-01-26] MEDS: atorvastatin 40 mg Tablet 80 MG PO (18:26)
[2025-01-26 18:44] LABS: Estmated Average Glucose 108; Hemoglobin A1C 5.4 % (4.0-6.0)
[2025-01-26] MEDS: ranolazine (12HR) 500 mg Tablet PO (19:06)
--- NOTE | 2025-01-26 19:08 | ECG_ITS ---
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
[2025-01-26 19:23] LABS: Troponin 5 6HR Delta 0.50001 ng/L (0-12)
[2025-01-26] MEDS: enoxaparin 120 mg/0.8 mL Syringe 110 MG SUBCUT (21:25)
[2025-01-27 04:00] VITALS: BP 155/72; PULSE 61; RESP 17; TEMP 36.6; O2SAT 96
[2025-01-27 05:14] VITALS: PULSE 58
[2025-01-27 05:56] LABS: Basophils % 0.5 %; Eosinophils # 0.3 10^3/uL (0.0-0.8); Eosinophils % 5.6 %; Hematocrit 43.3 % (37-53); Lymphocytes # 2.2 10^3/uL (0.8-4.8); Lymphocytes % 40.1 %; Mean Corpuscular HGB Conc 32.8 g/dL (30-55); Mean Corpuscular Hemoglobin 30.7 pg (27-33); Mean Corpuscular Volume 93.7 fl (82-101); Mean Platelet Volume 9.2 fL (7.4-10.4); Monocytes # 0.6 10^3/uL (0.2-0.9); Monocytes % 11.4 %; Neutrophils # 2.32 10^3/uL (1.8-7.7); Neutrophils % 42.2 %; Nucleated Red Blood Cells % 0 %; Platelet Count 176 10^3/cmm (157-399); Red Blood Count 4.62 10^6/uL (3.85-5.65); Red Cell Distribution Width 13.4 % (12.1-15.1); White Blood Count 5.51 10^3/uL (3.29-11.43)
[2025-01-27 06:25] LABS: Alanine Aminotransferase 10 U/L (0-41); Albumin Level 4.5 g/dL (3.5-5.2); Alkaline Phosphatase 104 U/L (40-130); Anion Gap 14.2 (5-19); Aspartate Amino Transferase 13 U/L (0-40); Blood Urea Nitrogen 16 mg/dL (6-20); Calcium 9.3 mg/dL (8.5-10.5); Carbon Dioxide 24 mmol/L (22-29); Chloride 103 mmol/L (98-107); Globulin 2.6 g/dL (1.3-4.6); Glomerular Filtration Rate 71.8 mL/min (90-130); Glucose 105 mg/dL (65-115); Magnesium 1.9 mg/dL (1.7-2.3); Osmolality Calculated 286 mOsm/kg (285-295); Phosphorus 3.4 mg/dL (2.5-4.5); Potassium 4.2 mmol/L (3.5-5.1); Sodium 137 mmol/L (136-145); Total Bilirubin 0.5 mg/dL (0.15-1.2); Total Protein 7.1 g/dL (6.6-8.7)
[2025-01-27 07:49] VITALS: BP 146/79; PULSE 54; RESP 18; TEMP 36.6; O2SAT 95
[2025-01-27] MEDS: aspirin 81 mg EC Tablet PO (08:24)
[2025-01-27] MEDS: amlodipine 10 mg Tablet PO (08:25)
[2025-01-27] MEDS: enoxaparin 120 mg/0.8 mL Syringe 110 MG SUBCUT (08:25)
[2025-01-27] MEDS: ranolazine (12HR) 500 mg Tablet PO (08:25)
--- NOTE | 2025-01-27 11:33 | P.DS_ITS ---
Discharge Providers Date of Admission: 01/26/25 16:10 Date of Discharge: January 27, 2025 Attending Provider at Admission: Omid Cid MD Attending Provider at Discharge: Omid Cid MD Primary Care Provider: Ceci Tatum Diagnoses at Discharge Discharge Diagnosis (1) Hypertension: Status: Chronic Qualifiers: Hypertension type: primary hypertension Qualified Code(s): I10 - Essential (primary) hypertension (2) Chest pain: Status: Acute (3) Hyperlipidemia: Status: Acute Qualifiers: Hyperlipidemia type: unspecified Qualified Code(s): E78.5 - Hyperlipidemia, unspecified Reason for Visit Reason for Visit: chest tightness, dizziness Hospital Course Hospital Course Esequiel Munoz is a 49 year old male with a past medical history of hypertension, hyperlipidemia, smoker, marijuana user, history of peripheral vascular disease, NSTEMI, CAD, left internal carotid artery occlusion, DVT, history of aortobifemoral bypass surgery, hypertension, history of CVAs who presents to [facility] for chest pain. Patient is currently alert oriented x 3, following commands, is having mild dull chest discomfort, 3 out of 10, wheezing pressure-like pain, he tells open chest pain was radiating down his left arm with numbness, no shortness of breath, no palpitations, he has a history of DVTs been having pain in his left thigh was concern for recurrent DVT venous ultrasound negative for DVT, does report smoking, does report using marijuana, denies any drug use Chest pain -Currently chest pain 3 out of 10 -Squeezing-like pain -Cath in 2023 Diagnostic Findings * INDICATION: Chest pain/abnormal stress test. * Left Main: Mild to moderate 30% stenosis, ANKIT: 3 flow. * Left Anterior Descending has mild luminal irregularities. * Circumflex has mild to moderate luminal irregularities. * Right Coronary Artery has no disease. * Coronary angiography shows right dominance. -Does continue to smoke -Patient denies any active chest pain -No significant delta troponin, no acute ST-T wave changes -On 01/27/2025, I strongly recommended patient to stay in the hospital so I could have a stress test tomorrow, given his risk factors -However patient declined further admission, he tells me he wants to go home and take her of his animals -Discussed morbidity and mortality associated with CAD, chest pain, he voiced understanding, all questions answered -However patient declined further admission Discharged with close follow-up with primary care provider, and cardiology as outpatient for consideration of outpatient stress testing Patient was advised if he has any recurrent chest pain to immediately call 9 1 or go to the emergency room -Continue aspirin, metoprolol, Crestor, Xarelto Physical Exam Const: COMMON NORMALS: no acute distress and patient oriented x3 Resp: COMMON NORMALS: normal respiratory effort, No retractions, No use of accessory muscles and clear to auscultation bilaterally AUSCULTATION: clear to auscultation bilaterally Cardio: COMMON NORMALS: regular rate, regular rhythm, S1 normal heart sound present and S2 normal heart sound present RATE: regular rate RHYTHM: regular rhythm HEART SOUNDS: S1 normal heart sound present and S2 normal heart sound present GI: COMMON NORMALS: Normal to inspection, nondistended, normoactive bowel sounds present and non-tender Extremity: COMMON NORMALS: no pedal edema Neuro: COMMON NORMALS: patient oriented x3 Psych: COMMON NORMALS: mental status grossly normal Discharge Data Studies Completed and Pending Completed Studies During Hospitalization Category Date Time Status CT angio chest PE protcl [id number] Stat Cat Scan 01/26/25 14:11 Completed XR chest 1V portable [id number] Stat Exams 01/26/25 13:07 Completed US venous duplex lower extremity LT [CV venous duplex Ultrasound 01/26/25 13:50 [place] [id number]] Stat Pending at discharge Category Date Time Status Complete Blood Count w/Auto AM LABS Lab 01/28/25 04:00 Ordered Complete Blood Count w/Auto AM LABS Lab 01/29/25 04:00 Ordered Comprehensive Metabolic Panel AM LABS Lab 01/28/25 04:00 Ordered Comprehensive Metabolic Panel AM LABS Lab 01/29/25 04:00 Ordered Magnesium AM LABS Lab 01/28/25 04:00 Ordered Magnesium AM LABS Lab 01/29/25 04:00 Ordered Phosphorus AM LABS Lab 01/28/25 04:00 Ordered Phosphorus AM LABS Lab 01/29/25 04:00 Ordered CV. echo complete* [id number] Routine Ultrasound 01/27/25 17:24 Taken Radiology Impressions Chest X-Ray 01/26/25 13:07 IMPRESSION: No acute findings. Venous Duplex 01/26/25 13:50 IMPRESSION: No evidence of deep vein thrombosis. Chest CTA 01/26/25 14:11 IMPRESSION: Bronchial wall thickening bilaterally reflecting reactive airway disease Laboratory Results WBC 5.51 10^3/uL (3.29-11.43) 01/27/25 05:23 RBC 4.62 10^6/uL (3.85-5.65) 01/27/25 05:23 Hgb 14.20 g/dL (11.27-16.99) 01/27/25 05:23 Hct 43.3 % (37-53) 01/27/25 05:23 MCV 93.7 fl (82-101) 01/27/25 05:23 MCH 30.7 pg (27-33) 01/27/25 05:23 MCHC 32.8 g/dL (30-55) 01/27/25 05:23 RDW 13.4 % (12.1-15.1) 01/27/25 05:23 Plt Count 176 10^3/cmm (157-399) 01/27/25 05:23 MPV 9.2 fL (7.4-10.4) 01/27/25 05:23 Neut % (Auto) 42.2 % 01/27/25 05:23 Lymph % (Auto) 40.1 % 01/27/25 05:23 [place] % (Auto) 11.4 % 01/27/25 05:23 Eos % (Auto) 5.6 % 01/27/25 05:23 Baso % (Auto) 0.5 % 01/27/25 05:23 Neut # (Auto) 2.32 10^3/uL (1.8-7.7) 01/27/25 05:23 Lymph # (Auto) 2.2 10^3/uL (0.8-4.8) 01/27/25 05:23 [place] # (Auto) 0.6 10^3/uL (0.2-0.9) 01/27/25 05:23 Eos # (Auto) 0.3 10^3/uL (0.0-0.8) 01/27/25 05:23 Baso # (Auto) 0.0 10^3/uL (0.0-0.1) 01/27/25 05:23 Nucleated RBC % (auto) 0 % 01/27/25 05:23 Nucleated RBCs # 0.0 /100WBC 01/27/25 05:23 Sodium 137 mmol/L (136-145) 01/27/25 05:23 Potassium 4.2 mmol/L (3.5-5.1) 01/27/25 05:23 Chloride 103 mmol/L (98-107) 01/27/25 05:23 Carbon Dioxide 24 mmol/L (22-29) 01/27/25 05:23 Anion Gap 14.2 (5-19) 01/27/25 05:23 BUN 16 mg/dL (6-20) 01/27/25 05:23 Creatinine 1.1 mg/dL (0.7-1.2) 01/27/25 05:23 GFR Calculation 71.8 mL/min (90-130) L 01/27/25 05:23 Glucose 105 mg/dL (65-115) 01/27/25 05:23 Estimat Average Glucose 108 01/26/25 13:32 Hemoglobin A1c 5.4 % (4.0-6.0) 01/26/25 13:32 Calculated Osmolality 286 mOsm/kg (285-295) 01/27/25 05:23 Calcium 9.3 mg/dL (8.5-10.5) 01/27/25 05:23 Phosphorus 3.4 mg/dL (2.5-4.5) 01/27/25 05:23 Magnesium 1.9 mg/dL (1.7-2.3) 01/27/25 05:23 Total Bilirubin 0.5 mg/dL (0.15-1.2) 01/27/25 05:23 AST 13 U/L (0-40) 01/27/25 05:23 ALT 10 U/L (0-41) 01/27/25 05:23 Alkaline Phosphatase 104 U/L (40-130) 01/27/25 05:23 Troponin T Baseline < 6 ng/L (0-15) 01/26/25 13:32 Troponin T 120 Minute 6.09 ng/L (0-15) 01/26/25 15:42 Delta Troponin T 0.93721 ABS# (0-10) 01/26/25 15:42 Troponin T Hi Sens 6Hr 6.50 ng/L (0-15) 01/26/25 18:58 Troponin T Hi Sens 6Hr Delta 0.12865 ng/L (0-12) 01/26/25 18:58 Total Protein 7.1 g/dL (6.6-8.7) 01/27/25 05:23 Albumin 4.5 g/dL (3.5-5.2) 01/27/25 05:23 Globulin 2.6 g/dL (1.3-4.6) 01/27/25 05:23 Triglycerides 113 mg/dL (0-150) 01/26/25 13:32 Cholesterol 185 mg/dL (0-200) 01/26/25 13:32 LDL Cholesterol, Calc 121 mg/dL (50-129) 01/26/25 13:32 HDL Cholesterol 41 mg/dL (60-100) L 01/26/25 13:32 LDL/HDL Ratio 2.95 RATIO (0.00-3.22) 01/26/25 13:32 Cholesterol/HDL Ratio 4.51 mg/dL (1.0-5.00) 01/26/25 13:32 TSH 1.13 uIU/mL (0.27-4.20) 01/26/25 13:32 Vitals Last Vital Signs Temp 98 F 01/27/25 07:49 Pulse 54 L 01/27/25 07:49 Resp 18 01/27/25 07:49 BP 146/79 01/27/25 07:49 Pulse Ox 95 01/27/25 07:49 O2 Del Method Room Air 01/27/25 07:49 Discharge Plan Discharge Patient Disposition: Home Condition: Stable Prescriptions: Continued amlodipine 10 mg tablet 10 mg PO DAILY 90 Days Qty: 90 3RF valsartan 80 mg tablet 80 mg PO BID Qty: 30 3RF nitroglycerin 0.4 mg tablet, sublingual 0.4 mg sublingual Q5M PRN (Reason: chest pain) Qty: 30 5RF Rx Instructions: do not exceed 3 doses per episode aspirin 81 mg Tablet,Delayed Release (Dr/Ec) 81 mg PO DAILY Qty: 30 0RF ranolazine 500 mg Tablet Extended Release 12 Hr 500 mg PO BID Qty: 60 0RF hydroxyzine HCl 25 mg tablet 12.5 - 25 mg PO Q6H PRN (Reason: anxiety/insomnia) pantoprazole 40 mg tablet,delayed release (DR/EC) 40 mg PO QPM rosuvastatin 40 mg tablet 40 mg PO QPM Xarelto 20 mg tablet 20 mg PO QPM albuterol sulfate [Ventolin HFA] 90 mcg/actuation HFA aerosol inhaler 1 - 2 puff INHALATION Q6H PRN (Reason: Shortness Of Breath) Changed metoprolol tartrate 50 mg tablet 25 mg PO BID Qty: 90 3RF Discharge Orders: Discharge Order (Routine); Ordered 01/27/25 Ordered By: Omid Cid Referrals: Colin Segundo MD [Physician] - 7-10 days (We have notified Dr. Segundo's clinic of the need for a follow-up appointment to be scheduled. If you have not heard from them within the next 2 business days, please call them directly. ) Ceci Tatum, DATA COLLECTION SPECIALIST [Primary Care Provider] - (Please call your primary care provider tomorrow to make a follow up appointment within 4-7 days.) Discharge Diet: Cardiac Discharge Activity: Resume usual activity Patient Instructions: Angina (DC), Opioid Safety Activity Restrictions/Additional Instructions: - if you have any chest pain go to the emergency Discharge Attestations Time Spent in Discharge Care*: greater than 30 min Status at Discharge: Cognitive status at discharge: cognitively intact , Behavioral status at discharge: cooperative , Quality Metrics Clinical Quality Measures [ No reported AMI, CVA or VTE this stay] Coding Level of Care Code 55402 Total time (in minutes) for Discharge: 45 Diagnoses Primary hypertension I10 Hypertension type: primary hypertension Chest pain R07.9 Hyperlipidemia, unspecified hyperlipidemia type E78.5 Hyperlipidemia type: unspecified
[2025-01-27 11:40] VITALS: BP 131/85; PULSE 60; RESP 17; TEMP 36.8; O2SAT 94
[2025-01-27 11:45] VITALS: BP 131/85; PULSE 60; RESP 17; TEMP 36.8; O2SAT 94
--- NOTE | 2025-01-27 11:54 | PC.NURSE ---
Discharge Note Patient discharged to home via private vehicle accompanied by friend. Discharge instructions reviewed with patient and/or service center representative. Mobile pharmacy medications and/or prescriptions provided. Belongings/home medications returned.
--- NOTE | 2025-01-27 17:24 | USCV_ITS ---
Diogenessergio Esequiel Age: 49 Gender: M : 1975 Exam Date: 01/27/2025 06:52 Ordering Phys: Omid Cid MD Technologist: Ted Martínez Exam Location: [facility] [place] Indication: chest pain BP: 155 / 72 HR: 55 Rhythm: Sinus Technical Quality: Adequate MEASUREMENTS (Male / Female) Normal Values 2D ECHO LV Diastolic Diameter PLAX 4.4 cm 4.2 - 5.9 / 3.9 - 5.3 cm IVS Diastolic Thickness 0.8 cm 0.6 - 1.0 / 0.6 - 0.9 cm IVS Systolic Thickness 1.5 cm LVPW Diastolic Thickness 1.7 cm 0.6 - 1.0 / 0.6 - 0.9 cm LVPW Systolic Thickness 1.6 cm LVOT Diameter 2.0 cm LV Ejection Fraction 2D Teich 71.3 % LV Ejection Fraction MOD 4C 68.1 % LV Ejection Fraction MOD 2C 55.2 % LV Ejection Fraction 2C AL 54.0 % RA Systolic Volume 4C AL 29.7 ml RA Systolic Volume 4C MOD 32.0 ml LA Sys Volume AL 35.3 cm cubed LA Sys Volume Index AL 14.3 cm cubed/m squared Aorta at Sinotubular Diameter 1.8 cm IVC Diameter 1.6 cm M-MODE LA Ao Ratio MM 1.3 AV Cusp Separation MM 1.9 cm DOPPLER AV Peak Velocity 176.3 cm/s LVOT Peak Velocity 128.0 cm/s AV Area Cont Eq vti 2.3 cm squared AV Area Cont Eq pk 2.3 cm squared MV Peak Velocity 111.0 cm/s MV Area PHT 2.8 cm squared Mitral E to A Ratio 1.3 TV Peak Velocity 234.5 cm/s TR Peak Velocity 261.0 cm/s TR Peak Gradient 27.2 mmHg TR Mean Velocity 218.0 cm/s TR Mean Gradient 19.6 mmHg TR Velocity Time Integral 83.2 cm PV Peak Velocity 111.0 cm/s RV Ejection Time 0.2 s FINDINGS Left Ventricle Left ventricle is normal in size. LV systolic function is normal with EF of 55-60%. No regional wall abnormalities are seen. Right Ventricle Normal in size and function Right Atrium Normal in size Left Atrium Normal in size Mitral Valve Structurally normal mitral valve. Mild mitral regurgitation Aortic Valve Structurally normal aortic valve. No significant stenosis or regurgitation. Tricuspid Valve Insufficient TR jet to calculate RVSP Pulmonic Valve Not well visualized Pericardium Normal Aorta Normal in size IVC Appears to be normal CONCLUSIONS LV systolic function is normal with EF of 55-60% Mild mitral regurgitation Sandeep Alexander MD (Electronically Signed) Final Date: 27 January 2025 12:00 S
== END 2025-01-27 12:39 | disposition home or self-care (01) ==
LOC: ER 16:11 → ER IP 16:27 → MEDSURG 19:01
PROVIDERS: Family Medicine; Admitting Provider Family Medicine; Emergency Provider Emergency Medicine; PCP Nurse Practitioner Family; Visit Provider Family Medicine
DX: I10 Essential (primary) hypertension (principal); R07.9 Chest pain, unspecified; E78.5 Hyperlipidemia, unspecified; Z79.82 Long term (current) use of aspirin; K21.9 Gastro-esophageal reflux disease without esophagitis; F17.200 Nicotine dependence, unspecified, uncomplicated; I25.2 Old myocardial infarction; I73.9 Peripheral vascular disease, unspecified; F12.929 Cannabis use, unspecified with intoxication, unspecified; I25.10 Atherosclerotic heart disease of native coronary artery without angina pectoris; I65.22 Occlusion and stenosis of left carotid artery; Z95.5 Presence of coronary angioplasty implant and graft; Z95.9 Presence of cardiac and vascular implant and graft, unspecified; Z86.73 Personal history of transient ischemic attack (TIA), and cerebral infarction without residual deficits; J44.9 Chronic obstructive pulmonary disease, unspecified; Z82.49 Family history of ischemic heart disease and other diseases of the circulatory system; Z83.438 Family history of other disorder of lipoprotein metabolism and other lipidemia; Z79.01 Long term (current) use of anticoagulants; F43.10 Post-traumatic stress disorder, unspecified; Z86.718 Personal history of other venous thrombosis and embolism
CPT/HCPCS: 36415; 71045; 71275; 80053; 80061; 83036; 83735; 84100; 84443; 84484; 85025; 93005; 93306; 93971; 94664; 96372; G0378; J1650; J2470; J9999

== ENCOUNTER → 2025-02-11 14:21 | Outpatient (BNVA) | payer MEDICAID, SELFPAY | PROVIDERS: PCP Nurse Practitioner Family; Visit Provider Nurse Practitioner Family | DX: I11.0 Hypertensive heart disease with heart failure (principal); I50.9 Heart failure, unspecified; Z86.718 Personal history of other venous thrombosis and embolism; Z86.79 Personal history of other diseases of the circulatory system; Z79.01 Long term (current) use of anticoagulants; Z79.82 Long term (current) use of aspirin; Z87.891 Personal history of nicotine dependence | CPT/HCPCS: 99214 ==

== ENCOUNTER → 2025-03-20 11:50 | Outpatient (BNVA) | payer MEDICAID, SELFPAY | PROVIDERS: PCP Nurse Practitioner Family; Visit Provider Internal Medicine Cardiovascular Disease | DX: Z45.09 Encounter for adjustment and management of other cardiac device (principal); Z53.9 Procedure and treatment not carried out, unspecified reason | CPT/HCPCS: 93298 ==

== ENCOUNTER → 2025-04-11 09:41 | Outpatient (BNVA) | payer MEDICAID, SELFPAY | PROVIDERS: PCP Nurse Practitioner Family; Visit Provider Internal Medicine Cardiovascular Disease | DX: I25.10 Atherosclerotic heart disease of native coronary artery without angina pectoris (principal); I10 Essential (primary) hypertension; E78.5 Hyperlipidemia, unspecified; F17.200 Nicotine dependence, unspecified, uncomplicated; Z95.828 Presence of other vascular implants and grafts | CPT/HCPCS: 99214 ==

== ENCOUNTER → 2025-04-24 10:10 | Outpatient (BNVA) | payer MEDICAID, SELFPAY | PROVIDERS: PCP Nurse Practitioner Family; Visit Provider Internal Medicine | DX: Z45.09 Encounter for adjustment and management of other cardiac device (principal) | CPT/HCPCS: 93298 ==

== ENCOUNTER → 2025-06-19 12:43 | Outpatient (BNVA) | payer MEDICAID, SELFPAY | PROVIDERS: PCP Nurse Practitioner Family; Visit Provider Internal Medicine Cardiovascular Disease | DX: Z45.09 Encounter for adjustment and management of other cardiac device (principal) | CPT/HCPCS: 93298 ==

== ENCOUNTER → 2025-07-24 12:46 | Outpatient (BNVA) | payer MEDICAID, SELFPAY | PROVIDERS: PCP Nurse Practitioner Family; Visit Provider Internal Medicine | DX: Z45.09 Encounter for adjustment and management of other cardiac device (principal) | CPT/HCPCS: 93298 ==

== ENCOUNTER → 2025-08-23 12:22 | Outpatient (BNVA) | payer MEDICAID, SELFPAY | PROVIDERS: PCP Nurse Practitioner Family; Visit Provider Internal Medicine Cardiovascular Disease | DX: R55 Syncope and collapse (principal); I25.10 Atherosclerotic heart disease of native coronary artery without angina pectoris; I65.22 Occlusion and stenosis of left carotid artery; I10 Essential (primary) hypertension; E78.5 Hyperlipidemia, unspecified; F17.200 Nicotine dependence, unspecified, uncomplicated; Z95.828 Presence of other vascular implants and grafts; Z95.818 Presence of other cardiac implants and grafts; R00.1 Bradycardia, unspecified; R07.9 Chest pain, unspecified | CPT/HCPCS: 93005; 99214 ==

== ENCOUNTER 2025-08-29 07:36 | Outpatient (CLI) | payer MEDICAID, SELFPAY ==
--- NOTE | 2025-08-29 07:45 | CT_ITS ---
WS: [id number] CT ANGIOGRAM CEREBRAL AND CAROTID ARTERIES HISTORY: carotid occlusion TECHNIQUE: CT angiogram is performed of the carotid and cerebral arteries. During arterial injection imaging is obtained from the skull vertex to the aortic arch in 1.25 mm imaging. Coronal and sagittal reformats are submitted. Additional multi planar reformats of the carotid and cerebral arteries are submitted, MIP imaging also reviewed. NASCET criteria utilized. All CT scans at [facility] use at least one of these dose optimization techniques: automated exposure control; mA and/or kV adjustment per patient size (includes targeted exams where dose is matched to clinical indication); or iterative reconstruction. CONTRAST: Omnipaque 350; 100 mL IV. DLP: 1475.37 mGy.cm COMPARISON: 01/02/[address] head is first performed. No intracranial hemorrhage or edema. No large territory infarct. Carotid Angiogram: Right carotid: Common carotid artery: Arises normally from the innominate artery. No significant plaque or stenosis. Internal carotid artery: Very minimal intimal thickening and plaque at the bifurcation. No significant stenosis. External carotid artery: Patent. Left carotid: Common carotid artery: Completely occluded proximally. Internal carotid artery: Complete occlusion. Known chronic LEFT common carotid artery occlusion extending through the ICA. ECA is being reconstituted via collaterals. Petrous and cavernous portions of the carotid artery are occluded distally. Supraclinoid carotid arteries being filled by a patent anterior communicating artery and posterior communicating arteries. External carotid artery: Patent. Right vertebral artery: Dominant RIGHT vertebral artery. Left vertebral artery: Small caliber LEFT vertebral artery but it is patent. Subclavian arteries: No stenosis or significant abnormality. Upper thorax: Normal. Thyroid gland: Normal. Osseous structures: Unremarkable. CEREBRAL ANGIOGRAM: Intracranial vertebral arteries: Normal with no significant atherosclerosis. Basilar artery: No significant stenosis or occlusion. No aneurysm. Intracranial Internal carotid arteries: RIGHT vertebral artery is patent. Known occluded LEFT distal ICA with reconstitution via an intact pauma of Bill distally. Middle cerebral arteries: Normal. Anterior cerebral arteries and ACOM: Normal. Posterior cerebral arteries and PCOM's: Normal. Dural venous sinuses are normally enhancing. Mastoid air cells: Normal. Paranasal sinuses: Normal. Calvarium: Normal. CT/CT angio headneck* [id number] IMPRESSION: 1. Known occluded LEFT common and internal carotid arteries. 2. Minimal atherosclerotic disease RIGHT cervical ICA. No progression since 01/02/2024. 3. LEFT MCA territory is being supplied by cross-filling from the anterior com municating artery and the patent LEFT posterior communicating artery. Similar t o the prior studies. 4. Vertebral arteries are patent with the RIGHT being dominant.
[2025-08-29] MEDS: iohexol 350 mg/mL 500 mL Btl (per mL) IV (08:14)
== END 2025-08-29 07:37 | disposition home or self-care (01) ==
PROVIDERS: PCP Nurse Practitioner Family; Visit Provider Internal Medicine Cardiovascular Disease
DX: I65.29 Occlusion and stenosis of unspecified carotid artery (principal); I65.22 Occlusion and stenosis of left carotid artery; I66.8 Occlusion and stenosis of other cerebral arteries
CPT/HCPCS: 70496; 70498

== ENCOUNTER → 2025-09-18 13:13 | Outpatient (BNVA) | payer MEDICAID, SELFPAY | PROVIDERS: PCP Nurse Practitioner Family; Visit Provider Internal Medicine Cardiovascular Disease | DX: Z45.09 Encounter for adjustment and management of other cardiac device (principal) | CPT/HCPCS: 93298 ==